=== PATIENT | female | born 1965 | race Caucasian/White ===

== ENCOUNTER 2020-01-13 07:45 | Emergency (ER) | payer SELFPAY ==
[2020-01-13 07:49] VITALS: BP 109/96; PULSE 72; TEMP 36.4; O2SAT 100
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
[2020-01-13] MEDS: Tetracaine 0.5% 4 ML BTL OP (08:17)
[2020-01-13] MEDS: Fluorescein STRIPS 100/BOX 1 MG OP (08:17)
[2020-01-13] MEDS: Erythromycin Ophth Oint 3.5 GM TUBE OD (08:38)
== END 2020-01-13 08:52 | disposition home or self-care (01) ==
LOC: ER 09:14
PROVIDERS: Emergency Provider Physician Assistant; PCP Nurse Practitioner Family
DX: T65.891A Toxic effect of other specified substances, accidental (unintentional), initial encounter (principal); T26.61XA Corrosion of cornea and conjunctival sac, right eye, initial encounter; Y93.E5 Activity, floor mopping and cleaning
CPT/HCPCS: 90471; 99284; 99283

== ENCOUNTER 2020-05-07 20:35 | Outpatient (REF) | payer MEDICAID, SELFPAY ==
[2020-05-07 19:34] LABS: Abs Immature Grans 0.03 10^3/uL (0.0-0.06); Absolute Basophil Count 0.02 10^3/uL (0.0-0.2); Absolute Eosinophil Count 0.11 10^3/uL (0.0-0.7); Absolute Lymphocyte Count 2.75 10^3/uL (1.2-3.4); Absolute Monocyte Count 0.54 10^3/uL (0.1-0.8); Absolute Neutrophil Count 5.01 10^3/uL (1.2-6.7); Basophils % 0.2; Eosinophils % 1.3; HCT 37.7 % (36.0-46.0); HGB 11.9 g/dL (11.2-15.7); Immature Grans % 0.4; Lymphocytes % 32.5; MCH 28.6 pg (27.0-33.0); MCHC 31.6 % (32.0-36.0); MCV 90.6 fL (80-95); MPV 10.2 fL (8.0-11.0); Monocytes % 6.4; Neutrophils % 59.2; Nucleated RBC 0 %; Platelet Count 353 10^3/uL (130-400); RBC 4.16 10^6/uL (3.93-5.22); RDW 15.4 % (11.7-14.6); RDW-SD 51.2 fL; WBC 8.46 10^3/uL (4.4-10.8)
[2020-05-07 19:55] LABS: ALT 26 U/L (14-59); AST 21 U/L (15-37); Albumin 3.9 g/dL (3.4-5.0); Alkaline Phosphatase 91 U/L (46-116); Anion Gap 6.1 mmol/L (3-11); BUN 8 mg/dL (7-18); Bilirubin, Total 0.2 mg/dL (0.2-1.0); CO2 29.9 mmol/L (21.0-32.0); CREATININE 0.73 mg/dL (0.55-1.02); Calcium 9.4 mg/dL (8.5-10.1); Chloride 105 mmol/L (98-107); GGT 35 U/L (5-55); Glucose 56 mg/dL (74-106); Potassium 4.6 mmol/L (3.5-5.1); Sodium 141 mmol/L (136-145); Total Protein 7.6 g/dL (6.4-8.2)
== END 2020-05-07 20:55 ==
LOC: NCHCN 20:35
PROVIDERS: PCP Nurse Practitioner Family; Visit Provider Nurse Practitioner Family
DX: F41.9 Anxiety disorder, unspecified (principal); F22 Delusional disorders; L28.1 Prurigo nodularis
CPT/HCPCS: 80053; 82977; 84443; 85025

== ENCOUNTER 2021-01-02 10:15 | Outpatient (REF) | payer MEDICAID, SELFPAY ==
[2021-01-02 15:38] LABS: Calculated LDL 57 mg/dL (<100); Cholesterol 150 mg/dL (<200); HDL Cholesterol 88 mg/dL (40-60); Triglyceride 27 mg/dL (<150)
[2021-01-02 16:44] LABS: Vitamin D 25 Total 24.8 ng/mL (30-100)
== END 2021-01-02 10:16 | disposition home or self-care (01) ==
LOC: NCHCN 10:15
PROVIDERS: PCP Nurse Practitioner Family; Visit Provider Nurse Practitioner Family
DX: R79.89 Other specified abnormal findings of blood chemistry (principal); F41.9 Anxiety disorder, unspecified; E55.9 Vitamin D deficiency, unspecified
CPT/HCPCS: 80061; 82306

== ENCOUNTER 2021-05-07 01:50 | Outpatient (CLI) | payer OTHER, SELFPAY ==
--- NOTE | 2021-05-07 | DI.MRI_ITS ---
Exam(s) MR LUMBAR SPINE WO EXAM: MR LUMBAR SPINE WO CLINICAL HISTORY: BACK PAIN, RADICULOPATHY,M54.16. TECHNIQUE: Multiplanar multisequence MRI of the Lumbar spine was performed. COMPARISON: No exams were available for comparison FINDINGS: Bones: The last intervertebral disc space is designated the L5/S1 level for the numbering purpose of this examination. The vertebral body heights are well maintained. Alignment is satisfactory. The si gnal characteristics are unremarkable. Cord: The conus tip ends at the T12 level. It is of normal size and signal intensity. T12-L1: No disc herniations or bulges are present. No central spinal canal or neural foraminal stenos is. L1-2: No disc herniations or bulges are present. No central spinal canal or neural foraminal stenosis . L2-3: No disc herniations or bulges are present. No central spinal canal or neural foraminal stenosis . L3-4: No disc herniations or bulges are present. No central spinal canal or neural foraminal stenosis . L4-5: No disc herniations or bulges are present. No central spinal canal or neural foraminal stenosis . L5-S1: No disc herniations or bulges are present. No central spinal canal or neural foraminal stenosi s. Soft tissues: The visualized SI joints and sacrum are well maintained. The paraspinal soft tissues ar e unremarkable. IMPRESSION: No evidence of significant spinal stenosis or neuroforaminal narrowing. DATA REPOSITORY:
== END 2021-05-07 02:10 ==
PROVIDERS: PCP Nurse Practitioner Family; Visit Provider Nurse Practitioner Family
DX: M54.16 Radiculopathy, lumbar region (principal)
CPT/HCPCS: 72148

== ENCOUNTER 2021-05-23 02:26 | Outpatient (CLI) | payer MEDICAID, SELFPAY ==
[2021-05-23 13:25] LABS: Source Nasal/Nares
[2021-05-23 16:55] LABS: COVID-19 PCR Negative (Negative)
== END 2021-05-23 02:27 | disposition home or self-care (01) ==
LOC: LBO 02:26
PROVIDERS: PCP Nurse Practitioner Family; Visit Provider Surgery
DX: Z20.822 Contact with and (suspected) exposure to COVID-19 (principal)
CPT/HCPCS: 87635

== ENCOUNTER 2021-07-02 08:09 | Outpatient (CLI) | payer MEDICAID, SELFPAY ==
--- NOTE | 2021-07-02 08:00 | DI.RAD_ITS ---
Exam(s) XR HIP LT COMPLETE AP PELVIS EXAM: XR HIP LT COMPLETE AP PELVIS CLINICAL HISTORY: left hip pain. TECHNIQUE: 2D digital imaging was performed. COMPARISON: No exams were available for comparison FINDINGS: AP view of the hips and pelvis plus lateral view hip no evidence of pelvic nor hip fractures. No deg enerative changes. No soft tissue calcifications. Bone density is normal. No osseous lesions. Sac roiliac joints appear unremarkable. IMPRESSION: Unremarkable appearing left hip and pelvis. DATA REPOSITORY: RADIATION DOSE DELIVERED:
== END 2021-07-02 08:10 | disposition home or self-care (01) ==
LOC: DIORS 08:09
PROVIDERS: PCP Nurse Practitioner Family; Referring Provider Nurse Practitioner Family; Visit Provider Student in an Organized Health Care Education/Training Program
DX: M25.552 Pain in left hip (principal)
CPT/HCPCS: 73502

== ENCOUNTER 2021-07-25 21:42 | Outpatient (REF) | payer MEDICAID, SELFPAY ==
[2021-07-27 14:19] LABS: COVID-19 RT-PCR UVMMC Result Negative (Negative)
== END 2021-07-25 21:43 | disposition home or self-care (01) ==
LOC: NCHCN 21:42
PROVIDERS: PCP Nurse Practitioner Family; Visit Provider Physician Assistant Medical
DX: Z20.822 Contact with and (suspected) exposure to COVID-19 (principal); R05.8 Other specified cough
CPT/HCPCS: U0003

== ENCOUNTER 2021-11-10 18:45 | Outpatient (REF) | payer MEDICAID, SELFPAY ==
[2021-11-10 21:07] LABS: ALT 33 U/L (14-59); AST 26 U/L (15-37); Albumin 3.4 g/dL (3.4-5.0); Alkaline Phosphatase 91 U/L (46-116); Anion Gap 9.6 mmol/L (3-11); BUN 6 mg/dL (7-18); Bilirubin, Total 0.2 mg/dL (0.2-1.0); CO2 25.4 mmol/L (21.0-32.0); CREATININE 0.6 mg/dL (0.55-1.02); Calcium 8.7 mg/dL (8.5-10.1); Chloride 106 mmol/L (98-107); Glucose 94 mg/dL (74-106); Potassium 4.3 mmol/L (3.5-5.1); Sodium 141 mmol/L (136-145); TSH 4.35 uIU/mL (0.36-3.74); Total Protein 7.1 g/dL (6.4-8.2)
[2021-11-10 21:18] LABS: Vitamin D 25 Total 42.4 ng/mL (30-100)
== END 2021-11-10 18:46 | disposition home or self-care (01) ==
LOC: NCHCN 18:45
PROVIDERS: PCP Nurse Practitioner Family; Visit Provider Nurse Practitioner Family
DX: F41.8 Other specified anxiety disorders (principal); F33.9 Major depressive disorder, recurrent, unspecified; E55.9 Vitamin D deficiency, unspecified; F22 Delusional disorders
CPT/HCPCS: 80053; 82306; 84443

== ENCOUNTER 2021-11-14 01:15 | Emergency (ER) | payer MEDICAID, SELFPAY ==
[2021-11-14 01:20] VITALS: BP 150/93; PULSE 74; RESP 16; TEMP 36.4; O2SAT 99
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
[2021-11-14] MEDS: Loratidine 10 MG TAB PO (02:15)
[2021-11-14] MEDS: Triamcinolone 0.1% CR 15 GM TUBE TP (02:24)
== END 2021-11-14 02:21 | disposition home or self-care (01) ==
LOC: ER 02:20
PROVIDERS: Emergency Provider Emergency Medicine; PCP Nurse Practitioner Family
DX: R21 Rash and other nonspecific skin eruption (principal)
CPT/HCPCS: 99283

== ENCOUNTER 2021-12-26 12:05 | Day surgery (SDC) | payer MEDICAID, SELFPAY ==
--- NOTE | 2021-12-25 22:13 | PDOC.DSDIS_ITS ---
Discharge Plan Disposition Patient Disposition: HOME Condition: Good Discharge Details Reason For Visit: colon scope Attending Provider: Karla Chandler Primary Care Provider: Love Dupont Home Meds and New Rx's Prescriptions: Continued venlafaxine 75 mg capsule,extended release 24hr 75 mg PO DAILY 0RF venlafaxine 37.5 mg capsule,extended release 24hr 37.5 mg PO DAILY 0RF hydroxyzine HCl 25 mg tablet 25 mg PO BID PRN0RF acetylcysteine 600 mg capsule 600 mg PO BID 0RF fluocinonide 0.05 % solution 1 applic topical BID 0RF omeprazole 20 mg capsule,delayed release(DR/EC) 20 mg PO DAILY 0RF prazosin 1 mg capsule 1 mg PO QHS 0RF Galzin 50 mg (zinc) capsule 50 mg PO DAILY 0RF cholecalciferol (vitamin D3) 25 mcg (1,000 unit) tablet,chewable 25 mcg PO DAILY 0RF ascorbic acid (vitamin C) 500 mg capsule 500 mg PO DAILY 0RF gabapentin 300 mg capsule 300 mg PO QHS 0RF venlafaxine 150 mg capsule,extended release 24hr 150 mg PO DAILY 0RF clobetasol 0.05 % cream 1 applic topical DAILY 0RF mupirocin 2 % ointment 1 applic TOPICAL BID 0RF Label Comments: APPLY 3 TIMES DAILY TO THE NOSTRILS FOR 1 WEEK, THEN 5 TIMES MONTHLY FOR MAINTENANCE. APPLY TWICE DAILY NEEDED TO AFFECTED AREAS ON THE S Discontinued bisacodyl [Dulcolax (bisacodyl)] 5 mg tablet,delayed release (DR/EC) 5 mg PO ONCE Qty: 4 0RF Rx Instructions: Take according to provider's instructions for colonoscopy prep. polyethylene glycol 3350 17 gram/dose powder 17 g PO ONCE Qty: 238 0RF Rx Instructions: To be taken as directed by prescriber's office for colonoscopy prep. Discharge Instructions Additional Instructions: DSU Colonoscopy Post- Op Instructions Instructions for Everyone who is given Anesthesia: For your safety, please do the following for the next twenty-four (24) hours: *Do Not operate a motor vehicle (car, truck, motorcycle, etc.) *Do Not drink alcoholic beverages or use any recreational drugs for the first 24 hours or while taking pain medications. The medications in your body may have a reaction that can be dangerous. *Do Not make any important decisions or sign any important papers. Findings:normal Follow up:repeat in 10 yrs time 1. No lifting over 20 pounds or strenuous activity for the first 24 hours after your procedure. After 24 hours there are no restrictions on your activity but you may feel fatigued for a few days. 2. After you arrive home you may have a light meal and return to your normal diet as you can tolerate it without feeling sick to your stomach. 3. You may have a bloated, gaseous feeling in your belly (abdomen) after a colonoscopy. Passing gas and belching will help. Walking or lying down on your left side with your knees flexed may relieve the discomfort. Call the office at [phone] (Office) or [phone] (Hospital) right away if you notice any of the following: a.Vomiting of blood or ?coffee ground stools?. b.Rectal bleeding 1Tbsp, blood clots or continuous bleeding. c.Severe belly (abdominal) pain. d.A hard distended belly (abdomen) and an inability to pass gas. 4. Please don?t expect to have a normal BM (bowel movement) for 2-3 days after your procedure. 5. If there are questions regarding the findings of your procedure, please contact your doctor 6. If you are unable to contact your doctor with a problem, contact the hospital at [phone]. 7. Continue all your regular medications unless directed otherwise. I understand the above instructions and have no questions. Signature of Patient or Adult Escort Name of Responsible Adult Escort Signature of Nurse Date/Time Activity:: see above Diet:: see above Discharge Orders Discharge Orders: Discharge Order (Routine); Ordered 12/25/21 Ordered By: Karla Chandler
--- NOTE | 2021-12-25 22:14 | COLE_ITS ---
Colonoscopy Report Date of procedure: 12/26/21 Pre-op diagnosis general: CRC screening Post-op diagnosis procedure note: other (No significant findings) Surgeon: Karla Chandler Anesthesia Type: General:No Airway Estimated blood loss (mL): 0 Pathology: none sent Complications: None Disposition: same day Prep: Miralax/Dulcolax Retraction Time: 7 Procedure Description: After informed consent was obtained the patient was taken to the procedure room and placed in a left decubitous position. Monitors were applied and a time out was done. The patients name, date of , procedure, allergies to medications and metal in their body was reviewed. The patient was then sedated. Once sedated and comfortable a rectal exam was done. External exam was normal. Internal exam revealed a normal sphincter tone and no palpable masses. The scope was then introduced and retrofelexed. no internal hemorrhoids were identified. The scope was then advanced to the cecum without difficulty. The TI and appendiceal orifice were identified. The prep was the BPS 3 in all segments for a total of 9. The scope was then slowly retracted over 7 minutes back into the rectum. There are no polyps, diverticula, or AVMs visualized today. The mucosa is pink and healthy with a normal vascular pattern. The scope was removed and the patient was woken up and taken back to Same day surgery in stable condition. The patient tolerated the procedure well and there were no immediate com plications. Follow up: The patient should follow up in 10 years unless they develop changes in bowel habits or other new gastrointestinal complaints.
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
[2021-12-26 12:27] VITALS: BP 131/85; PULSE 69; RESP 17; TEMP 36.6; O2SAT 100
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
[2021-12-26 12:44] VITALS: BMI 24.2
[2021-12-26] MEDS: Lactated Ringers 1,000 ML 80 ML IV (12:44)
[2021-12-26 13:30] VITALS: BP 121/91; PULSE 72; RESP 17; TEMP 36.6; O2SAT 98
--- NOTE | 2021-12-26 13:32 | W.ANESPOSTOP ---
Postoperative Evaluation Date, Time and Location Date Performed: 12/26/21 Time Performed: 13:32 Patient Location: Day Surgery Unit Vital Signs Most Recent Imported Vital Signs: Most Recent Vital Signs Temp Pulse Resp BP Pulse Ox 36.6 C 69 17 131/85 100 12/26/21 12:27 12/26/21 12:27 12/26/21 12:27 12/26/21 12:27 12/26/21 12:27 Most Recent Manually Entered Vital Signs: Adult Blood Pressure: 121/91 Heart Rate: 67 Respirations: 10 Oxygen Saturation (%): 99 Temperature (C): 36.3 C Pain Score (0-10 Scale): 0 Pain Score Most Recent Pain Score: Most Recent Pain Score Pain Level 0 12/26/21 12:27 Assessment Mental Status: Arousable with meaningful communication Airway and Respiratory Function: Patent airway with normal (patient baseline) respiratory exam Cardiovascular Function: Hemodynamically Stable Hydration Status: Adequately Hydrated Nausea & Vomiting: No Nausea or Vomiting Pain: Pt. Denies Any Pain Peripheral Nerve Block: Patient did not receive a nerve block
[2021-12-26 13:33] VITALS: BP 121/91; PULSE 67; RESP 10; TEMPC 36.3; O2SAT 99
[2021-12-26 13:57] VITALS: BP 95/71; PULSE 58; RESP 17; TEMP 36.7; O2SAT 100
[2021-12-26 14:07] VITALS: BP 113/63; PULSE 61; RESP 18; O2SAT 99
== END 2021-12-26 14:25 | disposition home or self-care (01) ==
LOC: SUR 12:05
PROVIDERS: PCP Nurse Practitioner Family; Visit Provider Surgery
PROC: 0DJD8ZZ Inspection of Lower Intestinal Tract, Via Natural or Artificial Opening Endoscopic (ICD-10-PCS; CPT 45378; principal; 2021-12-26 12:00)
DX: Z12.11 Encounter for screening for malignant neoplasm of colon (principal); E55.9 Vitamin D deficiency, unspecified; K21.9 Gastro-esophageal reflux disease without esophagitis
CPT/HCPCS: 45378; 81025; J2001

== ENCOUNTER 2022-03-03 02:34 | Outpatient (CLI) | payer MEDICAID, SELFPAY | END 2022-03-03 02:35 | disposition home or self-care (01) | LOC: LBO 02:34 | PROVIDERS: PCP Nurse Practitioner Family; Visit Provider Naturopath ==

== ENCOUNTER 2022-03-11 02:55 | Outpatient (CLI) | payer MEDICAID, SELFPAY ==
[2022-03-11 12:21] LABS: ESR 8 mm/hr (0-30)
[2022-03-11 12:22] LABS: Abs Immature Grans 0.01 10^3/uL (0.0-0.06); Absolute Basophil Count 0.03 10^3/uL (0.0-0.2); Absolute Eosinophil Count 0.17 10^3/uL (0.0-0.7); Absolute Lymphocyte Count 2.16 10^3/uL (1.2-3.4); Absolute Monocyte Count 0.48 10^3/uL (0.1-0.8); Absolute Neutrophil Count 3.11 10^3/uL (1.2-6.7); Basophils % 0.5; Eosinophils % 2.9; HCT 29.1 % (36.0-46.0); HGB 8.5 g/dL (11.2-15.7); Immature Grans % 0.2; Lymphocytes % 36.2; MCH 22.5 pg (27.0-33.0); MCHC 29.2 % (32.0-36.0); MCV 77 fL (80-95); MPV 10.4 fL (8.0-11.0); Monocytes % 8.1; Neutrophils % 52.1; Platelet Count 332 10^3/uL (130-400); RBC 3.78 10^6/uL (3.93-5.22); RDW 16.7 % (11.7-14.6); WBC 5.96 10^3/uL (4.4-10.8)
[2022-03-11 12:53] LABS: Basophilic Stippling Present; Diff Comment Diff Reviewed; Hypochromasia 2+
[2022-03-11 13:25] LABS: C-Reactive Protein 0.09 mg/dL (0.0-0.3); FREE T4 0.73 ng/dL (0.76-1.46); Magnesium 1.7 mg/dL (1.8-2.4)
[2022-03-11 13:26] LABS: ALT 29 U/L (14-59); AST 21 U/L (15-37); Albumin 3.6 g/dL (3.4-5.0); Alkaline Phosphatase 84 U/L (46-116); Anion Gap 7.4 mmol/L (3-11); BUN 14 mg/dL (7-18); Bilirubin, Total 0.2 mg/dL (0.2-1.0); CO2 27.6 mmol/L (21.0-32.0); CREATININE 0.6 mg/dL (0.55-1.02); Calcium 8.6 mg/dL (8.5-10.1); Chloride 104 mmol/L (98-107); Glucose 105 mg/dL (74-106); Potassium 4.3 mmol/L (3.5-5.1); Sodium 139 mmol/L (136-145); Total Protein 7.3 g/dL (6.4-8.2)
[2022-03-11 13:31] LABS: Iron 17 ug/dL (50-170); Total Iron Binding Capacity 421 ug/dL (250-450); Transferrin Sat 4 % (15-50)
[2022-03-11 14:05] LABS: Calculated LDL 74 mg/dL (<100); Cholesterol 163 mg/dL (<200); Ferritin 6 ng/mL (8-252); HDL Cholesterol 78 mg/dL (40-60); Triglyceride 55 mg/dL (<150); Vitamin B12 497 pg/mL (193-986)
[2022-03-11 14:07] LABS: Folate > 20.0 ng/mL (8.6-20.0)
[2022-03-11 22:07] LABS: T3,Free 3.2 pg/mL (2.8-5.3)
[2022-03-11 22:21] LABS: T3, Total 122 ng/dL (97-169)
[2022-03-11 23:24] LABS: Thyroperoxidase Antibody 59 U/mL (<=60)
[2022-03-13 09:04] LABS: Homocysteine 8.5 umol/L (5.0-13.9)
[2022-03-14 22:16] LABS: Histamine, Whole Blood 1083 nmol/L (180-1800)
== END 2022-03-11 02:56 | disposition home or self-care (01) ==
LOC: LBO 02:55
PROVIDERS: PCP Nurse Practitioner Family; Visit Provider Naturopath
DX: R79.89 Other specified abnormal findings of blood chemistry (principal); R78.5 Finding of other psychotropic drug in blood; R63.0 Anorexia; L29.9 Pruritus, unspecified; R53.83 Other fatigue; R51.9 Headache, unspecified
CPT/HCPCS: 36415; 80053; 80061; 83090; 85652; 82607; 82728; 82746; 83036; 83088; 83540; 83550; 83735; 84439; 84480; 84481; 85025; 86140; 86376

== ENCOUNTER 2022-04-16 13:30 | Outpatient (CLI) | payer MEDICAID, SELFPAY ==
[2022-04-16 13:44] LABS: Abs Immature Grans 0.05 10^3/uL (0.0-0.06); Absolute Basophil Count 0.03 10^3/uL (0.0-0.2); Absolute Eosinophil Count 0.23 10^3/uL (0.0-0.7); Absolute Lymphocyte Count 2.73 10^3/uL (1.2-3.4); Absolute Monocyte Count 0.61 10^3/uL (0.1-0.8); Absolute Neutrophil Count 4.47 10^3/uL (1.2-6.7); Basophils % 0.4; Eosinophils % 2.8; HCT 28.9 % (36.0-46.0); HGB 8.3 g/dL (11.2-15.7); Immature Grans % 0.6; Lymphocytes % 33.6; MCH 22.1 pg (27.0-33.0); MCHC 28.7 % (32.0-36.0); MCV 77 fL (80-95); MPV 9.3 fL (8.0-11.0); Monocytes % 7.5; Neutrophils % 55.1; Platelet Count 313 10^3/uL (130-400); RBC 3.76 10^6/uL (3.93-5.22); RDW 15.7 % (11.7-14.6); RDW-SD 43.4 fL; WBC 8.12 10^3/uL (4.4-10.8)
[2022-04-17 20:08] LABS: Arsenic (Blood) <1 ng/mL (<13)
== END 2022-04-16 13:31 | disposition home or self-care (01) ==
LOC: LBO 13:30
PROVIDERS: PCP Nurse Practitioner Family; Visit Provider Naturopath
DX: R71.8 Other abnormality of red blood cells (principal); D50.9 Iron deficiency anemia, unspecified; Z13.88 Encounter for screening for disorder due to exposure to contaminants
CPT/HCPCS: 36415; 82175; 83655; 85025

== ENCOUNTER 2022-05-12 09:20 | Outpatient (CLI) | payer MEDICAID, SELFPAY ==
[2022-05-12 12:16] LABS: HCT 35.6 % (36.0-46.0); MCH 25.3 pg (27.0-33.0); MCHC 30.9 % (32.0-36.0); MCV 82 fL (80-95); MPV 10.1 fL (8.0-11.0); Platelet Count 322 10^3/uL (130-400); RBC 4.34 10^6/uL (3.93-5.22); RDW-SD 64.7 fL; WBC 7.73 10^3/uL (4.4-10.8)
[2022-05-12 12:33] LABS: RDW 22.8 % (11.7-14.6)
[2022-05-12 12:39] LABS: TSH (W/Ref FT4) 2.81 uIU/mL (0.36-3.74)
== END 2022-05-12 09:21 | disposition home or self-care (01) ==
LOC: LOS 09:21
PROVIDERS: Obstetrics & Gynecology; PCP Nurse Practitioner Family; Referring Provider Nurse Practitioner Family; Visit Provider Nurse Practitioner Family
DX: N92.0 Excessive and frequent menstruation with regular cycle (principal); D64.9 Anemia, unspecified
CPT/HCPCS: 36415; 85027; 84443

== ENCOUNTER → 2022-05-22 00:16 | Outpatient (CLI) | payer MEDICAID, SELFPAY ==
--- OUTSIDE RECORDS SUMMARY | 2022-05-22 00:22 | XMS_ITS | Encounter Summary ---
:1965 Author Organization [facility] Address [address] [place] [address] Care Team Providers Name Role Phone Love Dupont STATISTICIAN THEORETICAL Primary Care Provider Encounter Details Date Type Department Care Team Description 03/11/2022 Lab Requisition [facility] Outr Resulting Lab, Pathology & Laboratory Provider [facility] [address], [place] [id number] Social History Tobacco Use Types Packs/Day Years Used Date Never Assessed Sex Assigned at Date Recorded Not on file documented as of this encounter Plan of Treatment Not on filedocumented as of this encounter Procedures Procedure Name Priority Date/Time Associated Comments Diagnosis THYROPEROXIDASE ANTIBODY Routine 03/11/2022 12:07 Results for this EDT procedure are i n the results section. T3 FREE Routine 03/11/2022 12:07 Results for this EDT procedure are i n the results section. T3, TOTAL Routine 03/11/2022 12:07 Results for this EDT procedure are i n the results section. HOMOCYSTEINE Routine 03/11/2022 12:07 Results for this EDT procedure are i n the results section. documented in this encounter Results T3 FREE (03/11/2022 12:07 EDT) Pathologist Sig nature T3, Free 3.2 2.8 - 5.3 pg/mL [facility] Specimen Blood - Venous blood (substance) Performing Organization Address City/State/ZIP Code Phon e Number [facility] [address] [place] [address] SERVICES T3, TOTAL (03/11/2022 12:07 EDT) Pathologist Sig nature T3, Total 122 97 - 169 ng/dL [facility] ORY SERVICES Specimen Blood - Venous blood (substance) Performing Organization Address City/State/ZIP Code Phon e Number [facility] [address] [place] [address] SERVICES THYROPEROXIDASE ANTIBODY (03/11/2022 12:07 EDT) Pathologist Sig nature Thyroperoxidase Ab 59 <=60 U/mL [facility] Specimen Blood - Venous blood (substance) Performing Organization Address City/[facility]/ZIP Code Phon e Number [facility] [address] [place] [address] SERVICES HOMOCYSTEINE (03/11/2022 12:07 EDT) Pathologist Sig nature Homocysteine 8.5 5.0 - 13.9 umol/L [facility] Specimen Blood - Venous blood (substance) Narrative [facility] - 03/13/2022 8:59 EDT Reference range may not apply to non-fas ting samples. ??It is not recommended that EDTA plasma and serum from the same bredna ent be used interchangeably. ??Serum concentrations have been observed to be up to 10% higher than EDTA plasma. Reference range may not apply to serum results. Performing Organization Address City/State/ZIP Code Phon e Number [facility] [address] [place] [address] SERVICES documented in this encounter Visit Diagnoses Not on filedocumented in this encounter Care Teams Senior Hr Manager Relationship Specialty Start Date End Date Love Dupont, STATISTICIAN THEORETICAL PCP - General 09/06/19 [address] [place] [address] documented as of this encounter
--- OUTSIDE RECORDS SUMMARY | 2022-05-22 00:22 | XMS_ITS | Encounter Summary ---
:1965 Author Organization [facility] Address [address] [place] [address] Care Team Providers Name Role Phone Love Dupont FINANCIAL MANAGEMENT Primary Care Provider Encounter Details Date Type Department Care Team Description 11/23/2019 Results Only Imaging [facility] Resul ts C, DO [address] [place], [place] [id number] [place] [address] [phone] (Wo rk) Social History Tobacco Use Types Packs/Day Years Used Date Never Assessed Sex Assigned at Date Recorded Not on file documented as of this encounter Plan of Treatment Not on filedocumented as of this encounter Procedures Procedure Name Priority Date/Time Associated Diagnosis Comme nts XR CHEST 2 VIEWS 11/23/2019 4:10 EDT Resu lts for this procedure are i n the results section. documented in this encounter Results XR CHEST 2 VIEWS (11/23/2019 4:10 EDT) Specimen Narrative [facility] - 11/23/2019 4:10 EDT ? EXAM: RADIOLOGY/CHEST PA ?? LAT ?EX. D/ (0407) ? CLINICAL INFORMATION: ? cough, sob ? PROCEDURE INFORMATION: ? Exam: XR Chest, 2 Views ? Exam date and time: 11/23/2019 3:1 1 AM ? Age: 54 years old ? Clinical indication: Cough; Addit ional info: Cough, SOB ? TECHNIQUE: ? Imaging protocol: XR of the chest ? Views: 2 views. ? COMPARISON: ? CR CHEST (PA ?? LAT) 10/14/2019 11: 38 AM ? FINDINGS: ? Lungs: Unremarkable. No consolida tion. ? Pleural space: Unremarkable. No p leural effusion. No ? pneumothorax. ? Heart/Mediastinum: Unremarkable. No cardiomegaly. ? Bones/joints: Unremarkable. ? IMPRESSION: ? No acute findings. ? REPORT SIGNED IN OTHER VENDOR SYSTEM 11/23/2019 ?Reported B y: Nereida Hunter MD ? CC: ? Transcribed Date/Time: 11/23/2019 (0410) ? Watermelon Inspector: ? Printed Date/Time: 11/23/2019 (04 10) ? PAGE 1 ? Roxana d Report ? Procedure Note Nereida Hunter MD - 020 EXAM: RADIOLOGY/CHEST PA LAT EX. D/T: 0 11/23/2019 (0407) CLINICAL INFORMATION: cough, sob PROCEDURE INFORMATION: Exam: XR Chest, 2 Views Exam date and time: 11/23/2019 3:11 AM Age: 54 years old Clinical indication: Cough; Additional info: Cough, SOB TECHNIQUE: Imaging protocol: XR of the chest Views: 2 views. COMPARISON: CR CHEST (PA LAT) 10/14/2019 11:38 AM FINDINGS: Lungs: Unremarkable. No consolidation. Pleural space: Unremarkable. No pleural effusion. No pneumothorax. Heart/Mediastinum: Unremarkable. No car diomegaly. Bones/joints: Unremarkable. IMPRESSION: No acute findings. REPORT SIGNED IN OTHER VENDOR SYSTEM 11/23/2019 Reported By: Nereida Hunter MD CC: Transcribed Date/Time: 11/23/2019 (409 ) Watermelon Inspector: Printed Date/Time: 11/23/2019 (987) PAGE 1 Signed Report Performing Organization Address City/State/ZIP Code Phon e Number [facility] documented in this encounter Visit Diagnoses Not on filedocumented in this encounter Care Teams Pharmacy Customer Care Specialist Relationship Specialty Start Date End Date Love Dupont NP PCP - General 09/06/19 [address] [place] [address] documented as of this encounter
--- OUTSIDE RECORDS SUMMARY | 2022-05-22 00:22 | XMS_ITS | Clinical Summary ---
:1965 Author Organization [facility] Address [address] [place] [address] Care Team Providers Name Role Phone Love Dupont POULTRY EVISCERATOR Primary Care Provider Encounters Date Type Specialty Care Team Description 04/16/2022 Lab Requisition Clinical Laboratory Outr Resulting Lab , Provider 03/11/2022 Lab Requisition Clinical Laboratory Outr Resulting Lab , Provider from Last 3 Months Social History Tobacco Use Types Packs/Day Years Used Date Never Assessed Sex Assigned at Date Recorded Not on file Plan of Treatment Health Maintenance Due Date Last Done Comments Hepatitis C Screen 1965 COVID-19 Vaccine (#1) 1965 Procedures Procedure Name Priority Date/Time Associated Comments Diagnosis [facility]AD, [facility] Routine 04/16/2022 13:38 Results for this LAB EDT procedure are i n the results section. T3 FREE Routine 03/11/2022 12:07 Results for this EDT procedure are i n the results section. T3, TOTAL Routine 03/11/2022 12:07 Results for this EDT procedure are i n the results section. THYROPEROXIDASE ANTIBODY Routine 03/11/2022 12:07 Results for this EDT procedure are i n the results section. HOMOCYSTEINE Routine 03/11/2022 12:07 Results for this EDT procedure are i n the results section. from Last 3 Months Results [facility] (04/16/2022 13:38 EDT) Pathologist Sig nature Lead <2.0 <2.0 ug/dL [facility] Comment: LABORATORY SERVICES Note: New reference range established 03/06/2022. For [facility] Lead testing guideli roselia, please refer to the [facility] website www.[facility].gov. Specimen Blood - Venous blood (substance) Narrative [facility] - 04/17/2022 12:31 EDT Testing performed using [employer] Atomic Absorption Spectroscopy. This test was developed and its performa nce characteristics determined by the [facility]. ??It has not been cleared or approved by the FDA. ??The laboratory is regulated under CLIA as qualified to perform high comple xity testing. ??This test is used for clinical purposes. Performing Organization Address [facility] Code Phon e Number [facility] [address] [place] [address] SERVICES THYROPEROXIDASE ANTIBODY (03/11/2022 12:07 EDT) Pathologist Sig nature Thyroperoxidase Ab 59 <=60 U/mL [facility] Specimen Blood - Venous blood (substance) Performing Organization Address [facility] Phon e Number [facility] [address] [place] [address] SERVICES T3 FREE (03/11/2022 12:07 EDT) Pathologist Sig nature T3, Free 3.2 2.8 - 5.3 pg/mL [facility] Specimen Blood - Venous blood (substance) Performing Organization Address [facility]/ZIP [facility] Phon e Number [facility] [address] [place] [address] SERVICES T3, TOTAL (03/11/2022 12:07 EDT) Pathologist Sig nature T3, Total 122 97 - 169 ng/dL [facility] ORY SERVICES Specimen Blood - Venous blood (substance) Performing Organization Address [facility] Phon e Number [facility] [address] [place] [address] SERVICES HOMOCYSTEINE (03/11/2022 12:07 EDT) Pathologist Sig nature Homocysteine 8.5 5.0 - 13.9 umol/L [facility] Specimen Blood - Venous blood (substance) Narrative [facility] - 03/13/2022 8:59 EDT Reference range may not apply to non-fas ting samples. ??It is not recommended that EDTA plasma and serum from the same brenda ent be used interchangeably. ??Serum concentrations have been observed to be up to 10% higher than EDTA plasma. Reference range may not apply to serum results. Performing Organization Address City/State/ZIP Code Phon e Number [facility] [address] [place] [address] SERVICES from Last 3 Months Insurance Payer Benefit Plan Subscriber ID Effective Phone Address Typ e / Group Dates MEDICAID ACO MEDICAID ACO [id number] 2021-Pres [phone] [address] Medicaid [place] ent [address] [facility] [address] [facility] Personal/Family Self 1965 [address] (Home) [place] [address] [facility] Personal/Family Self 1965 [address] (Home) [place] [address] [facility] Personal/Family Self 1965 [address] (Home) [place] [address] Care Teams Maintenance Mechanic Elevators Relationship Specialty Start Date End Date Love Dupont, POULTRY EVISCERATOR PCP - General 09/06/19 [address] [place] [address]
--- OUTSIDE RECORDS SUMMARY | 2022-05-22 00:22 | XMS_ITS | Encounter Summary ---
:1965 Author Organization [facility] Address [address] [place] [address] Care Team Providers Name Role Phone Love Dupont NETWORK SERVICES PROJECT MANAGER Primary Care Provider Encounter Details Date Type Department Care Team Description 07/26/[address] [facility] Outr Resulting Lab, Pathology & Laboratory Provider [facility] [address], [place] [address] Social History Tobacco Use Types Packs/Day Years Used Date Never Assessed Sex Assigned at Date Recorded Not on file documented as of this encounter Plan of Treatment Not on filedocumented as of this encounter Procedures Procedure Name Priority Date/Time Associated Diagnosis Comme nts COVID-19 TEST [facility] Today 07/25/2021 16:30 LAB PCR EST COVID-19 TESTING Routine 07/25/2021 16:30 Results for this EST procedure are i n the results section. documented in this encounter Results COVID-19 TEST [facility] LAB PCR (07/25/2021 16:30 EST) Specimen Swab Performing Organization Address City/State/ZIP Code Phon e Number [facility] [address] [place] [address] SERVICES COVID-19 TESTING (07/25/2021 16:30 EST) COVID-19 rt-PCR Negative Negative [facility] Result Comment: [facility] This test has not been FDA c leared or approved. This test has been authorized by FDA under an EUA for use by authorized laboratories. This test has been authorized only for detection of nucleic acid fro SERVICES m 2018-nCo, not for any oth er viruses or pathogens. This test is only authorized for the duration of the declaration that circumstances exist justifying the authorization of emergency use of in vitro d iagnostic tests for detectio n and/or diagnosis of 2019-nCoV under section 564(b)(1) of Act, 21 U.S.C ?? 360bbb-3(b) (1), unless the authorization is terminated or revoked sooner. Negative results do not prec lude 2019-nCoV infection and should not be used as the sole basis for treatment or other patient management decisions. Negative results must be combined with clinical observa tions, patient history, and epidemiological informatio n. This test was developed and its performance characteristics determined by [facility]. It has not been cleared or approved by the US Food and Drug Administration. FDA does not require this test to go through premarket FDA review. This t est is used for clinical purposes. It should not be regarded as investigational or for research. This laboratory is certified under the Clinical Laboratory Improvement Amendm ents (CLIA) as qualified to perform high complexity clinical laboratory testing. This test is based on the CD C COVID-19 Emergency Use Authorization (EUA) assay, with minor modification as defined by the FDA Performed on the [employer] 7 Flex RT-PCR System. Performing Lab [facility] Lab [facility] SERVICES Specimen Swab Performing Organization Address City/State/ZIP Code Phon e Number [facility] [address] [place] [address] SERVICES documented in this encounter Visit Diagnoses Not on filedocumented in this encounter Care Teams Steward Racetrack Relationship Specialty Start Date End Date Love Dupont NP PCP - General 09/06/19 [address] [place] [address] documented as of this encounter
--- OUTSIDE RECORDS SUMMARY | 2022-05-22 00:22 | XMS_ITS | Encounter Summary ---
:1965 Author Organization [facility] Address [address] [place] [address] Care Team Providers Name Role Phone Love Dupont PROPERTY INSURANCE CLAIMS EXAMINER Primary Care Provider Encounter Details Date Type Department Care Team Description 04/16/2022 Lab Requisition [facility] Outr Resulting Lab, Pathology & Laboratory Provider [facility] [address] [place], [place] [address] Social History Tobacco Use Types Packs/Day Years Used Date Never Assessed Sex Assigned at Date Recorded Not on file documented as of this encounter Plan of Treatment Not on filedocumented as of this encounter Procedures Procedure Name Priority Date/Time Associated Diagnosis Comme nts [facility] Routine 04/16/2022 13:38 Result s for this [facility] EDT procedure are i n the results section. documented in this encounter Results [facility] (04/16/2022 13:38 EDT) Pathologist Sig nature Lead <2.0 <2.0 ug/dL [facility] Comment: LABORATORY SERVICES Note: New reference range established 03/06/2022. For [facility] Lead testing guideli roselia, please refer to the [facility] website www.[facility].gov. Specimen Blood - Venous blood (substance) Narrative [facility] SERVICES - 04/17/2022 12:31 EDT Testing performed using [employer] Atomic Absorption Spectroscopy. This test was developed and its performa nce characteristics determined by the [facility]. ??It has not been cleared or approved by the FDA. ??The laboratory is regulated under CLIA as qualified to perform high comple xity testing. ??This test is used for clinical purposes. Performing Organization Address City/State/ZIP Code Phon e Number [facility] [address] [place] [address] SERVICES documented in this encounter Visit Diagnoses Not on filedocumented in this encounter Care Teams Pharmacy Picking Tech Relationship Specialty Start Date End Date Love Dupont, PROPERTY INSURANCE CLAIMS EXAMINER PCP - General 09/06/19 [address] [place] [address] documented as of this encounter
--- OUTSIDE RECORDS SUMMARY | 2022-05-22 00:23 | XMS_ITS | Encounter Summary ---
:1965 Author Organization [facility] [place] [address] Care Team Providers Name Role Phone Love Dupont BRAULIO Primary Care Provider Encounter Details Date Type Department Care Team Description 01/22/2022 Telephone Dermatology at [facility], Anton Devlin MD [address] [place] [address] [place] [address]DERMATOLOGY [phone] [place], [place] [address] (Wo rk) Social History Tobacco Use Types Packs/Day Years Used Date Former Smoker Smokeless Tobacco: Former User Comments: quit 10 yrs ago Alcohol Use Standard Drinks/Week Comments Yes 0 (1 standard drink = 0.6 oz pure alcoho l) Alcohol Habits Answer Date Recorded How often do you have a drink containing alcohol? 2-4 times a month 09/16/2020 How many drinks containing alcohol do you have on a Not aske d typical day when you are drinking? How often do you have six or more drinks on one Not asked occasion? Comment: Not asked Sex Assigned at Date Recorded Not on file documented as of this encounter Miscellaneous Notes Telephone Encounter - Iris Raman - 01/22/2022 4:54 PM EDT I spoke to Caro Mendez who was calling to check in on the scalp samples she dropped off on Wednesday. She wanted to know if the samples made it to the lab yet. I told her I would let Dr. Wade know about her questions. documented in this encounter Plan of Treatment Not on filedocumented as of this encounter Visit Diagnoses Not on filedocumented in this encounter Care Teams Stummel Selector Relationship Specialty Start Date End Date Love Dupont APRN PCP - General Family Medicine 04/08/20 [address] [place] [address] documented as of this encounter
--- OUTSIDE RECORDS SUMMARY | 2022-05-22 00:23 | XMS_ITS | Encounter Summary ---
:1965 Author Organization [facility] Address [address] [place] [address] Care Team Providers Name Role Phone Unknown, Provider Primary Care Provider Love Dupont NP Primary Care Provider Encounter Details Date Type Department Care Team Description 09/15/2005 Results Only Imaging [facility] - Norah Ureña, [facility] Radiology Resul ts [address] [place] [address] [place], [place] [address] Social History Tobacco Use Types Packs/Day Years Used Date Never Assessed Sex Assigned at Date Recorded Not on file documented as of this encounter Plan of Treatment Not on filedocumented as of this encounter Procedures Procedure Name Priority Date/Time Associated Diagnosis Comme nts XR WRIST LEFT 3 OR 09/15/2005 11:31 Resul ts for this MORE VIEWS EST procedure are i n the results section. US ABDOMEN LIMITED 09/15/2005 11:29 Resul ts for this EST procedure are i n the results section. documented in this encounter Results XR WRIST LEFT 3 OR MORE VIEWS (09/15/2005 11:31 EST) Specimen Narrative [facility] - 09/15/2005 11:31 EST ? EXAM: RADIOLOGY/NAVICULAR SERIES-LEFT WRI EX. D/ (0820) ? CLINICAL INFORMATION: ? Four views of the left wrist were obtained. ??I see no fracture or ? other significant bony abnormalit y. ??If the patient does have ? persistant pain I would recommend a follow up study as a hairline ? fracture of the wrist can be invi sible on initial films. ? IMPRESSION: ??No fracture seen. ? RDJ:kpd [id number] ?Reported B y: Santos Gonzalez MD ? CC: Rebecca Torrez ?? MSN SURGICAL SERVICES MANAGER ? Transcribed Date/Time: 09/15/2005 (1131) ? Cardroom Plastic Card Grader: ANIYAH ? Printed Date/Time: 09/21/2019 (07 57) ? PAGE 1 ? Roxana d Report ? Procedure Note Santos Gonzalez MD - 09/21/2019 EXAM: RADIOLOGY/NAVICULAR SERIES-LEFT W RI EX. D/ (0820) CLINICAL INFORMATION: Four views of the left wrist were obtai hardik. I see no fracture or other significant bony abnormality. If the patient does have persistant pain I would recommend a fol low up study as a hairline fracture of the wrist can be invisible on initial films. IMPRESSION: No fracture seen. RDJ:kpd [id number] Reported By: Santos Gonzalez MD CC: Rebecca Torrez MSN SURGICAL SERVICES MANAGER Transcribed Date/Time: 09/15/2005 (1131 ) Cardroom Plastic Card Grader: ANIYAH Printed Date/Time: 09/21/2019 (0757) PAGE 1 Signed Report Performing Organization Address City/State/ZIP Code Phon e Number [facility] US ABDOMEN LIMITED (09/15/2005 11:29 EST) Specimen Narrative [facility] - 09/15/2005 11:29 EST ? EXAM: ULTRASOUND/ABDOMINAL LIMITED SINGLE EX. D/ (0815) ? CLINICAL INFORMATION: ? TO VISUALIZE MASS OVER EPIGASTRIU M ? Real time ultrasound exination of the upper abdominal wall was ? performed. ??The patient does hav e a small palpable mass in this area. ? There was noted to be 2.3 cm flui d collection present in the ? subcutaneous tissues just anterio r to the abdominal muscles. ??There ? did appear to be an associated de fect in the abdominal wall ? musculature which measured about 5 mm. ??There did appear to be some ? mesenteric fat present within the defect but no loops of bowel ? present. ? IMPRESSION: ??Small abdominal wal l hernia containing mesenteric fat and ? fluid but no loops of bowel are i nvolved. ? RDJ:kpd [id number] ?Reported B y: Santos Gonzalez MD ? CC: ? Transcribed Date/Time: 09/15/2005 (1129) ? Cardroom Plastic Card Grader: ANIYAH ? Printed Date/Time: 09/21/2019 (07 57) ? PAGE 1 ? Roxana d Report ? Procedure Note Santos Gonzalez MD - 09/21/2019 EXAM: ULTRASOUND/ABDOMINAL LIMITED SING LE EX. D/ (0815) CLINICAL INFORMATION: TO VISUALIZE MASS OVER EPIGASTRIUM Real time ultrasound exination of the u pper abdominal wall was performed. The patient does have a smal l palpable mass in this area. There was noted to be 2.3 cm fluid allyson ection present in the subcutaneous tissues just anterior to t he abdominal muscles. There did appear to be an associated defect i n the abdominal wall musculature which measured about 5 mm. There did appear to be some mesenteric fat present within the defec t but no loops of bowel present. IMPRESSION: Small abdominal wall hernia containing mesenteric fat and fluid but no loops of bowel are involve d. RDJ:kpd [id number] Reported By: Santos Gonzalez MD CC: Transcribed Date/Time: 09/15/2005 (1129 ) Cardroom Plastic Card Grader: ANIYAH Printed Date/Time: 09/21/2019 (5420) PAGE 1 Signed Report Performing Organization Address City/State/ZIP Code Phon e Number [facility] documented in this encounter Visit Diagnoses Not on filedocumented in this encounter Care Teams Toy Designer Relationship Specialty Start Date End Date Unknown, Provider, PCP - General 01/11/09 09/05/19 Love Dupont, MICHEAL PCP - General 09/06/19 [address] [place] [address] documented as of this encounter
--- OUTSIDE RECORDS SUMMARY | 2022-05-22 00:23 | XMS_ITS | Encounter Summary ---
:1965 Author Organization [facility] [place] [address] Care Team Providers Name Role Phone Love Dupont Ethan RAMSEY Primary Care Provider Reason for Visit Reason Comments Back Pain Encounter Details Date Type Department Care Team Description 10/17/2021 Office Visit Functional [facility] [place] Low back pain, Program at [facility] Navya Devlin OT non-specific [address] [place] [address] Social History Tobacco Use Types Packs/Day Years [...] documented as of this encounter Miscellaneous Notes Treatment - Therapy - Navya Peter, OT - 10/17/2021 8:00 AM EST FRP Occupational Therapy Note FRP Day 4 Protocol Subjective: Ms. Mendez returns today for a scheduled follow up appointment with FRP. She reports she is feeling sore this morning, however after completing the morning warm up and mat exercises, soreness is less. Objective: Refer to FRP protocol for details and explanation of each activity. Ms. Mendez participated in the following activities: Functional Therapy: 1. AM Session of functional conditioning ( X ) Completed ( ) Not Completed 2. PM Session of functional conditioning ( X ) Completed ( ) Not Completed Instructed in a one 3 minute mindful breathing practice. Participated in a 25 minute outdoor walk including 1 mile, a hill climb, and up/down one flight of stairs. Individualized Treatment: Increased resistance levels of functional conditioning exercises accordingto personal recovery goals. Instructed in proper body mechanics for safe lifting. Monitored and instructed in proper form during functional conditioning exercises and provided cues for safety and efficiency. Provided an overview of a home exercise program for her to keep up with over the weekend to maintainprogress to date, focusing on walking, stretching, functional lifting, and mindfulness meditation. Assigned weekend homework of deciding when and where she will exercise each day and assigned target lifting goals for the upcoming weekend. Home exercise program to include once daily functional lifting of forward bend x 20 repetitions and squat x 5 repetitions. Will compliment with once daily walking session for 10 minutes, twice daily stretching sessions, and 5-10 minutes of mindfulness meditation focusing on breathing. Weekend Lifting Numbers Type of lift Weight Forward Bend 10 Squat 15 Please see goals in initial OT evaluation report from Day 1. Daily functional conditioning progressis documented on a flow sheet which is available on request. Assessment: Ms. Mendez continues to work according to protocol in order to reach her functional goals. She had a good understanding of today's conditioning principles and participated actively in progression of function. She continues to demonstrate good form with squat lifting and is demonstrating improved activity tolerance with functional conditioning activities. Plan: Return for follow up with [facility] per protocol. Continue training according to planned progressions towards functional recovery goals. Length of Treatment: Ms. Mendez participated in program activities from 8:00 a.m. through 3:00 p.m. today. A total of 45 minutes was spent during that time to establish and implement individualized occupational therapy strategies. Care was concurrently provided by both an Occupational Therapist and Registered Nurses,KARISHMA Leggett. documented in this encounter Plan of Treatment Not on filedocumented as of this encounter Visit Diagnoses Diagnosis Low back pain, non-specific documented in this encounter Care Teams Digital Librarian Relationship Specialty Start Date End Date Love Dupont APRN PCP - General Family Medicine 04/08/20 [address] [place] [address] documented as of this encounter
--- OUTSIDE RECORDS SUMMARY | 2022-05-22 00:23 | XMS_ITS | Encounter Summary ---
:1965 Author Organization [facility] [place] [address] Care Team Providers Name Role Phone Love Dupont BRAULIO Primary Care Provider Encounter Details Date Type Department Care Team Description 10/07/2021 Telephone Pain and Spine Yelena odom at [facility] [place] [address] Social History Tobacco Use Types Packs/Day Years [...] this encounter Miscellaneous Notes Telephone Encounter - Tiffanie Raza - 10/07/2021 1:29 PM EST Reason for call: To determine confirmation of enrollment in the upcoming Functional [facility] Program for dates 10/14 - 11/07 Preferred name: Nivia Invitation Packet Received: yes Pain Education: Completed 10/06/2021 Covid-19 Vax Status: yes x2; March and April 2021 , Booster hasn't been 6 months yet Schedule Cleared: yes Days unable to attend: 0 Hybrid Capability: yes, no preference MyDH Account: active Wifi: yes Device: laptop Microphone, Speaker, Camera: yes Space: yes Comfort Level with Technology: good Patient was directed to review the Hybrid Equipment Check List in their invitation packet and make note of items they have or need in the event that program needs to be done virtually. Patient was made aware: FRP days start at 8am, please arrive at 7:45am each day to ensure that you are ready to start at 8am. If you are late 2 days or do not attend 2 days, you may not be able to continue participation in the program. Patient was asked the following: In light of the ever changing Covid-19 infection rate, we ask that in the week leading up to the start of program you please be aware and cautious of your activities, as it can affect you, other participants and staff members in the program. The safety of you and our staff is of utmost importance to the Functional Hindu Program (FRP). documented in this encounter Plan of Treatment Not on filedocumented as of this encounter Visit Diagnoses Not on filedocumented in this encounter Care Teams Salad Counter Attendant Relationship Specialty Start Date End Date Love Dupont APRN PCP - General Family Medicine 04/08/20 [address] [place] [address] documented as of this encounter
--- OUTSIDE RECORDS SUMMARY | 2022-05-22 00:23 | XMS_ITS | Encounter Summary ---
:1965 Author Organization [facility] [place] [address] Care Team Providers Name Role Phone HakeemLove angela Ethan RAMSEY Primary Care Provider Reason for Visit Reason Comments Follow-up Medical Clearance Encounter Details Date Type Department Care Team Description 05/04/2022 Office Visit [facility] Kiera Warren C hronic left- sided low back pain with left-sided sciatica; at [facility] SECURITIES TRADER Sacroiliac joint dysfunction of left miguel e [facility] [address] [facility] [address] [place] [address] [phone] Social History Tobacco Use Types Packs/Day Years [...] on file documented as of this encounter Last Filed Vital Signs Vital Sign Reading Time Taken Comments Blood Pressure 128/75 05/04/2022 10:54 AM EDT Pulse 72 05/04/2022 10:54 AM EDT Temperature - - Respiratory Rate - - Oxygen Saturation - - Inhaled Oxygen Concentration - - Weight 60.8 kg (134 lb) 05/04/2022 10:54 AM EDT Height 154.9 cm (5' 1) 05/04/2022 10:54 AM EDT Body Mass Index 25.32 05/04/2022 10:54 AM EDT documented in this encounter Progress Notes Kiera Warren, SECURITIES TRADER - 05/04/2022 11:00 AM EDT [facility] [place] [address] Phone: DATE OF VISIT 05/04/2022 Patient Caro Mendez 1965 FUNCTIONAL SYNAGOGUE PROGRAM Chief complaint requiring rehabilitation: back and left leg pain S: Caro is being seen today for medical clearance for the Functional Sikh program, a graduated exercise program aimed at the patient achieving her functional goals, despite having chronic pain. Her pain pattern is described as back and left leg pain, She has had treatments including physical therapy, injections, and tylenol gabapentin. The patient's current goals are : Personal Function 3 Month Goals ?? 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 Recreational: Be able to hike and carry a pack (10-15lbs) for 1 hour; Be able to sit for 1 hour to do crafts/drawing. Be able to resume a yoga class. Daily Living: Be able to lift and carry heavier groceries, 40-50lb dog food. Be able bend over to bathe dog more easily; Be able to mop and vacuum more easily. Be able to stand to cook a meal or bake for 1 hour. ?? Patient is not currently working. She has an active w/c case. 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 Working with vocational rehab. ?? Activity limiting health problems: history of??PTSD, panic disorder. No longer on Aleve. Most recently, patient was having DUB and it was found that she was severely anemic Found anemia andis on iron and vitamin C. She will be seeing her PCP tomorrow and will tienley have further lab work done. Stool sample is normal. She was having DUB which has stopped since starting the iron. She foundthat the skin issues were also related to the anemia and have resolved. Her hair is also growing back. Etoh--was advised not to drink EtOH due to anemia. Marijuana or other substances? No Drinks one cup of coffee per day. There are no pending surgeries, tests or procedures planned. O: Please see Navya Peter's note of today for details of the physical testing and current functional Level. In general the patients current level of functioning is in the sedentary demand level and goals are in the light-medium demand level. A&O in NAD cogent and interactive EOMI, No scleral jaundice noted. ROM lumbar spine is limited in all planes-see functional assessment. Lungs CTA bilaterally Heart: RRR no murmurs Gait is fairly well preserved. Heels and toes intact. DTRs intact. Neg clonus Sensation intact A: There is a gap between her goals and abilities. This was a counseling visit for 30 minutes out of 40 talking about symptom management and functionalrecovery, reviewing the content of FRP, and logistics specific to participation including, travel, lodging and exercise and activity planning . We have mutually decided to proceed with the following plan: P: Caro is a candidate for functional episcopal but will need another month to recover from the severe anemia. She is feeling much better now but to give her the best chance of success, it would bebest to defer admission until the June program. LORENA Barrow met with patient regarding logistics. She has not yet had approval from w/c which will need to happen prior to being able to secure lodging. The extra month will allow these logistics to be sorted out. Completed w/c paperwork. Kiera Warren APRN Nurse practitioner [facility] documented in this encounter Plan of Treatment Not on filedocumented as of this encounter Visit Diagnoses Diagnosis Chronic left-sided low back pain with le ft-sided sciatica Sacroiliac joint dysfunction of left miguel e Disorders of sacrum documented in this encounter Care Teams Milled Rubber Tender Relationship Specialty Start Date End Date Love Dupont APRN PCP - General Family Medicine 8/3/20 [address] [place] [address] documented as of this encounter
--- OUTSIDE RECORDS SUMMARY | 2022-05-22 00:23 | XMS_ITS | Encounter Summary ---
:1965 Author Organization [facility] Address [address] [place] [address] Care Team Providers Name Role Phone Love Dupont SMALL ENGINE SPECIALIST Primary Care Provider Encounter Details Date Type Department Care Team Description 09/22/2019 Results Only Imaging [facility] - Love Dupont, SMALL ENGINE SPECIALIST [facility] [place]iology Resul ts [address] [place] [phone] Social History Tobacco Use Types Packs/Day Years Used Date Never Assessed Sex Assigned at Date Recorded Not on file documented as of this encounter Plan of Treatment Not on filedocumented as of this encounter Procedures Procedure Name Priority Date/Time Associated Diagnosis Comme nts MR LUMBAR SPINE WO 09/22/2019 8:01 EST Re sults for this CONTRAST procedure are i n the results section. documented in this encounter Results MR LUMBAR SPINE WO CONTRAST (09/22/2019 8:01 EST) Specimen Narrative [facility] RAD[facility] - 09/22/2019 8:01 EST ? EXAM: MAGNETIC RESONANCE IMAGING/LUMBAR S EX. D/ (0702) ? CLINICAL INFORMATION: ? M54.16 LUMBAR BACK PAIN W/ LEFT L EG ? RADICULOPATHY, SPINAL PAIN ? R39.15 URINARY URGENCY ? INDICATION: M54.16 LUMBAR BACK PA IN W/ LEFT LEG , RADICULOPATHY, ? SPINAL PAIN, R39.15 URINARY URGEN CY BACK PAIN ? TECHNIQUE: ??Multiplanar multiseq uence MR imaging of the lumbar spine ? was obtained without contrast. ? COMPARISON: No comparison examina tion is available. ? FINDINGS: There is minimal convex rightward curvature of lumbar spine ? centered at L3. The posterior spi nal alignment is anatomic. The ? lumbar vertebral bodies heights a re maintained. The marrow signal is ? within normal limits. The tip of the conus medullaris terminates at ? the L1 vertebral body level. ? The paraspinal soft tissues are n ormal in appearance. ? L1-L2: The disc height and relay assembler ior disc contour are preserved. ? There is no central canal or neur al foraminal stenosis. ? L2-L3: The disc height and relay assembler ior disc contour are preserved. ? There is no central canal or neur al foraminal stenosis. ? L3-L4: The disc height and relay assembler ior disc contour are preserved. ? There is no central canal or neur al foraminal stenosis. ? L4-L5: The disc height and relay assembler ior disc contour are preserved. ? There is no central canal or neur al foraminal stenosis. ? L5-S1: There is a tiny disc bulge that does not result in significant ? central canal stenosis. The neura l foramina are patent.. ? IMPRESSION: ? Minimal disc bulge at L5-S1 witho ut significant stenosis. No nerve ? root impingement detected at the level of the lumbar spine. ? Additional findings as discussed above. ? REPORT SIGNED IN OTHER VENDOR SYSTEM 09/22/2019 ?Reported B y: Julio Fowler MD ? CC: ? Transcribed Date/Time: 09/22/2019 (08) ? Program Advocate: ? Printed Date/Time: 09/22/2019 (08 01) ? PAGE 1 ? Roxana d Report ? Procedure Note Julio Fowler MD - 09/22/2019 EXAM: MAGNETIC RESONANCE IMAGING/LUMBAR S EX. D/ (0702) CLINICAL INFORMATION: M54.16 LUMBAR BACK PAIN W/ LEFT LEG RADICULOPATHY, SPINAL PAIN R39.15 URINARY URGENCY INDICATION: M54.16 LUMBAR BACK PAIN W/ LEFT LEG , RADICULOPATHY, SPINAL PAIN, R39.15 URINARY URGENCY DAO K PAIN TECHNIQUE: Multiplanar multisequence MR imaging of the lumbar spine was obtained without contrast. COMPARISON: No comparison examination i s available. FINDINGS: There is minimal convex right osborn curvature of lumbar spine centered at L3. The posterior spinal al ignment is anatomic. The lumbar vertebral bodies heights are jason ntained. The marrow signal is within normal limits. The tip of the co nus medullaris terminates at the L1 vertebral body level. The paraspinal soft tissues are normal in appearance. L1-L2: The disc height and posterior di sc contour are preserved. There is no central canal or neural for aminal stenosis. L2-L3: The disc height and posterior di sc contour are preserved. There is no central canal or neural for aminal stenosis. L3-L4: The disc height and posterior di sc contour are preserved. There is no central canal or neural for aminal stenosis. L4-L5: The disc height and posterior di sc contour are preserved. There is no central canal or neural for aminal stenosis. L5-S1: There is a tiny disc bulge that does not result in significant central canal stenosis. The neural fora brett are patent.. IMPRESSION: Minimal disc bulge at L5-S1 without sig nificant stenosis. No nerve root impingement detected at the level of the lumbar spine. Additional findings as discussed above. REPORT SIGNED IN OTHER VENDOR SYSTEM 09/22/2019 Reported By: Julio Fowler MD CC: Transcribed Date/Time: 09/22/2019 (800 ) Program Advocate: Printed Date/Time: 09/22/2019 (800) PAGE 1 Signed Report Performing Organization Address City/State/ZIP Code Phon e Number [facility] RAD[facility] documented in this encounter Visit Diagnoses Not on filedocumented in this encounter Care Teams Conduit Bender Relationship Specialty Start Date End Date Love Dupont NP PCP - General 09/06/19 [address] [place] [phone] documented as of this encounter
--- OUTSIDE RECORDS SUMMARY | 2022-05-22 00:23 | XMS_ITS | Encounter Summary ---
:1965 Author Organization [facility] [place] [address] Care Team Providers Name Role Phone Love Dupont BRAULIO Primary Care Provider Encounter Details Date Type Department Care Team Description 01/26/2022 Telephone Dermatology at [facility] Anton Wade MD [address] [place] [phone] [facility] [phone] [place], [place] [address] (Wo rk) Social History Tobacco [...] this encounter Miscellaneous Notes Telephone Encounter - Anton Wade MD - 01/26/2022 6:03 PM EDT Returned patient's call. She was not able to be reached, but a voicemail was left reviewing that theslides that she dropped off did not show evidence of parasites or an infestation. The samples are not consistent with fibers or organic material that would be extruded through the skin. Likely external contaminants. This does not change our recommendations or management strategies. documented in this encounter Plan of Treatment Not on filedocumented as of this encounter Visit Diagnoses Not on filedocumented in this encounter Care Teams Music Engraver Relationship Specialty Start Date End Date Love Dupont APRN PCP - General Family Medicine 04/08/20 [address] [place] [address] documented as of this encounter
--- OUTSIDE RECORDS SUMMARY | 2022-05-22 00:23 | XMS_ITS | Encounter Summary ---
:[address] [facility] Address [address] [place] [address] Care Team Providers Name Role Phone Unknown, Provider Primary Care Provider Encounter Details Date Type Department Care Team Description 05/01/2009 Orders Only [facility] Tyra Godoy, BUSINESS DEVELOPMENT REPRESENTATIVE Laboratory Services - [address] [place] [phone] [place], [place] [id number] [phone] Social History Tobacco Use Types Packs/Day Years Used Date Never Assessed Sex Assigned at Date Recorded Not on file documented as of this encounter Plan of Treatment Not on filedocumented as of this encounter Procedures Procedure Name Priority Date/Time Associated Diagnosis Comme nts CYTOPATHOLOGY Routine 05/01/2009 0:00 EDT Results for this procedure are i n the results section . documented in this encounter Results CYTOPATHOLOGY (05/01/2009 0:00 EDT) Pathology Report: CYTOPATHOLOGY REPORT ? [facility] ? LAB Reports generated via electr onic interface contain original data; ? however they are lacking the format of the original report. ? Caution should be taken when reading/interpreting unformatted reports. ? Name: ? CARO MENDEZ L ? Accession #: ? [id number] ? : ? 1965 (Age: 44) ??F ?Collect Date: ? 05/01/2009 ? Location: ? [facility] ? Receive Date: ? 05/02/2009 ? Provider: ?INEZ JUSTO HEWS BUSINESS DEVELOPMENT REPRESENTATIVE ? Copy to: ? Specimen/Source: ? Pap Test, Cervix/Endocervix, ThinPrep Imaging System ? with manual evaluation ? Last Menstrual Period: ? 7/27/09 ? Hormonal/Contraceptive Statu s: ? Tubal ligation ? Other: ? Additional clinical informat ion: , Hx HSV ? HPVA - HPV testing requested if ASC-US on the current ThinPrep Pap test. ? SPECIMEN ADEQUACY ? Satisfactory for Eval uation ? - transformation zone compon ent present ? GENERAL CATEGORIZATION ? Negative for Intraepi thelial Lesion or Malignancy ? Document reviewed and electr onically signed by: ? Michel Goss, CT (ASCP) ? Report Date: ??09/02/ 2009 15:24 ? End of Report ? Specimen Performing Organization Address City/[facility]/ZIP Code Phon e Number [facility] [address] [place] [address] SERVICES [facility] [address] [place] [address] documented in this encounter Visit Diagnoses Not on filedocumented in this encounter Care Teams Electrician Helper Powerhouse Relationship Specialty Start Date End Date Unknown, Provider, PCP - General 01/11/09 09/05/19 documented as of this encounter
--- OUTSIDE RECORDS SUMMARY | 2022-05-22 00:23 | XMS_ITS | Encounter Summary ---
:1965 Author Organization [facility] [place] [address] Care Team Providers Name Role Phone Love Dupont Ethan RAMSEY Primary Care Provider Reason for Visit Reason Comments Back Pain Encounter Details Date Type Department Care Team Description 10/15/2021 Office Visit Functional Baptism [place] Low back pain, Program at [facility] Navya Devlin OT non-specific [address] [place] [phone] Social History Tobacco Use Types Packs/Day [...] - Therapy - Navya Peter, OT - 10/15/2021 8:00 AM EST FRP Occupational Therapy Note In Person Orientation to Functional Conditioning FRP Day 2 Protocol Subjective: Ms. Mendez returns for Day 2 of the Functional Baptism Program. She reports she isfeeling sore from testing yesterday, but is excited to get started. Objective: Refer to [facility] protocol for additional explanation of program/occupational therapy details. AM Orientation and Conditioning - Ms. Mendez received individual instruction in functional conditioning and was given an opportunityto demonstrate understanding of and ability to perform each task. She completed a return demonstration for each exercise to ensure proper form and safety. Introduced straight-leg lifting technique used to increase back strength and decrease fear of re-injury. The rationale for this technique was thoroughly explained so that Ms. Mendez understands that,while it is an effective training technique, it will not be the appropriate technique to use for allheavy lifts in the future. Ms. Mendez participated in a regular session of conditioning at the conclusion of orientation. Introduced the concept of mindfulness meditation and it's application within the functional quaker program. Discussed it's use as an effective pain and stress management technique and discussed evidence for this approach. Assigned evening homework of completing a mindful ADL with a focus on paying attention to the 5 senses during a routine task. Discussed what to expect and general flow of formalized practices. ( X ) Completed ( ) Did not complete PM Conditioning - ( X ) Completed ( ) Did not complete Participated in a 15 minute outdoor walk including 0.6 miles and in a 15 minute unguarded beach ballvolleyball activity including fast changing movements. Assessment: Ms. Mendez demonstrated a good understanding of today's functional conditioning principles and initial exercise protocols. She actively participated with initiation of training components. She asks appropriate questions with regards to form and technique and is receptive to feedback. She will continue to benefit from additional cues during functional conditioning activities to increase both activity tolerance and self-confidence in her abilities. Plan: Return for follow up with [facility] per protocol. Length of Treatment: Ms. Mendez participated in program activities from 8:00 a.m. through 3:00 p.m. today. A total of 45 minutes was spent during that time to establish and implement individualized occupational therapy strategies. Care was concurrently provided by both an Occupational Therapist and Biodiesel Product Manager,KARISHMA Leggett documented in this encounter Plan of Treatment Not on filedocumented as of this encounter Visit Diagnoses Diagnosis Low back pain, non-specific documented in this encounter Care Teams Fresh Food Manager Relationship Specialty Start Date End Date Love Dpuont, BRAULIO PCP - General Family Medicine 04/08/20 [address] [place] [address] documented as of this encounter
--- OUTSIDE RECORDS SUMMARY | 2022-05-22 00:23 | XMS_ITS | Encounter Summary ---
:1965 Author Organization [facility] [place] [address] Care Team Providers Name Role Phone Love uDpont Ethan RAMSEY Primary Care Provider Reason for Visit Reason Comments Back Pain Encounter Details Date Type Department Care Team Description 10/17/2021 Office Visit Functional Gnosticism Theo Villeda back pain, Program at [facility] jay Devlin, PT non-specific [address] [place] [address] Social History Tobacco Use Types Packs/Day [...] encounter Miscellaneous Notes Treatment - Therapy - Theo Villeda, PT - 10/17/2021 8:00 AM ESTSummary: [facility] Day 4 FRP Physical Therapy Note FRP Day 4 Protocol Subjective: Caro returns today for a scheduled follow up appointment with P; she reports increased soreness today in the form of tightness, and burning, mostly in the L hip and leg. Objective: Treatment Received: Refer to [facility] protocol for explanation of program/physical therapy details. 1. Therapeutic and Functional Exercise: See [facility] flow sheets for progression. Strengthening and conditioning designed according to personal functional recovery goals and [facility] protocol was: (x) Completed ( ) Not completed 2. Home Exercise Program: Reviewed and modified current home exercise program. The Home Exercise Program was: (x) Unchanged ( ) Modified 3. Neurological Assessment: (x) No change in status ( ) Change in status 4. Stretching and Relaxation Training Sessions: (x) Completed ( ) Not completed Fully participatory throughout the day. Reduced complaints of tightness and pain by the end of the day. Cues provided for form, and guidance provided for reason for discomfort. Positive reinforcement provided for degree of effort given during the first week. Assessment: Caro is progressing as planned with quota based training. Increased soreness is to be expected as she has completed first full week of FRP after being mostly sedentary since her injury. It is expected that she continue to build strength and endurance over the next three weeks. Though pain isn't guaranteed to change, she is already beginning to see positive shift in symptoms and activitytolerance. Plan: Return for follow up with [facility] per protocol. Length of visit: Participated in program physical activity from 8:00 a.m. through 3:00 p.m. today. During that time, a total of 60 minutes was spent to develop, monitor, and progress individualized physical therapy strategies. documented in this encounter Plan of Treatment Not on filedocumented as of this encounter Visit Diagnoses Diagnosis Low back pain, non-specific documented in this encounter Care Teams Seafood Specialist Relationship Specialty Start Date End Date Love Dupont APRN PCP - General Family Medicine 04/08/20 [address] [place] [address] documented as of this encounter
--- OUTSIDE RECORDS SUMMARY | 2022-05-22 00:23 | XMS_ITS | Encounter Summary ---
:1965 Author Organization [facility] [place] [address] Care Team Providers Name Role Phone Love Dupont FOSTER PARENT Primary Care Provider Encounter Details Date Type Department Care Team Description 10/17/2021 Office Visit Functional Latter Day Becky Espino, Low back pain, Program at [facility] BRAULIO non-specific [address] [place] [phone] [facility] [place] [address] Social History Tobacco Use Types Packs/Day Years [...] on file documented as of this encounter Progress Notes Becky Espino APRN - 10/17/2021 11:00 AM EST [id number] Caro Mendez 10/16/2021 Chief complaint requiring rehabilitation: low back pain FUNCTIONAL SHINTO PROGRAM REHABILITATION TRAINING LECTURE Presenter: Becky Espino APRN SPINAL ANATOMY, IMAGING, SURGERY AND REHABILITATION/MEDICATIONS This is a one-hour discussion meant to enhance future encounters with health care providers. Patientexpectations of pain relief and diagnosis were matched with a review of differential diagnosis and the anatomy of spinal pain. Diagnostic tools and their capacities and limitations were reviewed. Absence of clear surgically correctable diagnoses, natural history of acute episode recovery and the nature of disability from chronic pain were reviewed. The role of quota based, goal oriented rehabilitation was reviewed in this context. We then listed all the patients??? current and prior chief complaint-related medications, placing each in its pharmacological category. The personal experiences of the patients in terms of side effects and benefits were reviewed and discussed with references to the biochemical and clinical effects ifthe drugs. The lack of curative impact of these medications was stressed. The difficulties in determining optimal doses for analgesics were discussed in the context of the varying needs of patients andregulatory issues involved. The importance of prescribing in the framework of functional goals was reviewed as opposed to focusing entirely on symptom relief. lecture time: 1 hr. documented in this encounter Plan of Treatment Not on filedocumented as of this encounter Visit Diagnoses Diagnosis Low back pain, non-specific documented in this encounter Care Teams Black Topper Relationship Specialty Start Date End Date Love Dupont APRN PCP - General Family Medicine 04/08/20 [address] [place] [address] documented as of this encounter
--- OUTSIDE RECORDS SUMMARY | 2022-05-22 00:23 | XMS_ITS | Encounter Summary ---
:1965 Author Organization [facility] [place] [address] Care Team Providers Name Role Phone HakeemLove angela Ethan RAMSEY Primary Care Provider Encounter Details Date Type Department Care Team Description 04/28/2022 Telephone [facility] Steff Andrade, GROUND CONTROL [place] [phone] Social History Tobacco Use Types Packs/Day [...] this encounter Miscellaneous Notes Telephone Encounter - Steff Andrade MSW - 04/28/2022 12:04 PM EDTSummary: Attempted Phone Call OFFICE of CARE MANAGEMENT CCM Tax Economist received a phone message from Ms. Mendez asking for a return call at phone number [phone]. However, Tax Economist unsuccessfully attempted to contact Ms. Mendez at the phone number stated and received a message that the call could not be completed as dialed. JERICA Barrow documented in this encounter Plan of Treatment Not on filedocumented as of this encounter Visit Diagnoses Not on filedocumented in this encounter Care Teams Topographical Field Assistant Relationship Specialty Start Date End Date Love Dupont, HVAC SERVICE MANAGER PCP - General Family Medicine 04/08/20 [address] [place] [address] documented as of this encounter
--- OUTSIDE RECORDS SUMMARY | 2022-05-22 00:23 | XMS_ITS | Encounter Summary ---
:1965 Author Organization [facility] [place] [address] Care Team Providers Name Role Phone Love Dupont Ethan RAMSEY Primary Care Provider Reason for Visit Reason Comments Follow-up Delusions of Parasitosis Encounter Details Date Type Department Care Team Description 12/31/2021 Office Visit Dermatology at Carlos Matthews MD [facility] [address] [place] [address] Hananh Lemus MD [facility] [address] [place] [address] parasitosis [address] [place] [address] Social History Tobacco Use Types Packs/Day [...] documented as of this encounter Progress Notes Ralph Wade MD - 12/31/2021 4:00 PM EDT Images from the original note were not included. DEPARTMENT OF DERMATOLOGY Dermatology-Psychiatry Specialty Clinic Provider: Ralph Wade MD Visit conducted in conjunction with Juan Miguel Simms MD of Psychiatry. Please see same-day medical note Date of Service: 12/31/2021 Patient's preferred name Caro Preferred contact method for results [x]Phone []myDH []Letter Detailed phone message OK? Yes Are there any other people with whom we may discuss your care? Past Medical History If no, type N. If yes, type date, location, treatment Melanoma N Dysplastic nevi N SCC N BCC N AKs N Other relevant past medical history N Family History If yes, details Melanoma N NMSC N Other relevant family history N Social History Occupation: works at [employer] Other: History of Present Illness: Caro Mendez is a 56 y.o. seen today in the Dermatology-Psychiatry specialty clinic for a follow up of delusions of parasitosis. 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 However, she believes that she has horsehair worm. She notes little black sticks that protrude from her skin and that she finds all over her house. She reports that she had a stool sample to bring to the office today but forgot it at her house. She acknowledges that some medical clerk do not believe that humans can get horsehair worms, but she feels strongly that she is experiencing this. She is concerned that her dog or her neighbors may get the parasite from her and has worried that babies may have indirect exposure through contact with her dog or her neighbors. She states, I don't dare to touch my granddaughter. Angy established care with a local counselor named Lore Gordon in the interim since her last visit. However, yesterday she had a conversation with her counselor, who stated that Angy's concerns falloutside of her professional capabilities. Lore believes Angy would be better cared for by a different counselor. Lore had suggested that she might need a stronger psychiatric medication. She believes that she may have previously been prescribed Zyprexa but denies previous use of risperidone or pimazole. She does not believe that she tolerated the olanzapine very well, but at that time her psychiatric m edications were being frequently switched. Angy estimates that her skin complaints have persisted for 2-3 years. She reports that she has found it hard to avoid watching the news, and that she recently saw that the COVID vaccination contained worms. Review of Systems: General: Feeling well. Skin: No other skin concerns. Medications: Reviewed in eD-H Allergies: Reviewed in eD-H Skin Examination: Exam of the face, neck, and hands was performed with notable findings as below: Assessment/Plan #. Delusions of Parasitosis Exam: Unremarkable skin exam of the forehead, neck, and hands. - Patient was provided with three glass slides and instructed to place a sample on one of the slidesand cover it with clear tape. We reassured her that correctly diagnosing her complaints is our primary concern and that we want to make sure no pertinent skin findings are overlooked. Unfortunately, edwardo not have the ability to process stool samples at this time. - That being said, there is no evidence of an infestation on exam today. - Angy will follow up with Lore Gordon re: transfer of care to a new counselor. If Lore is not ableto make an appropriate recommendation, Angy knows to reach out to us for recommendations. - Start Rx: Risperidone 0.5mg PO QD. (Sent to [facility] in [place]) For the first month of treatment, the medication may be titrated up to 2mg PO QD depending on patient's response. We discussedcommon side effects, including drowsiness and increased appetite/weight gain. Muscle cramps are another common side effect. - Patient was counseled that it may take 3-6 months to see effect with the treatment. - Patient was counseled that through a combination of therapy, frequent check- ins, and treatment with risperidone to calm the associated feelings of worry and anxiety, we hope to introduce replacement thought patterns and behavioral patterns that will improve her quality of life. RTC: 1 month for Delusions of Parasitosis f/u [x]Note routed to placement secretary []Recall has been placed in scheduling system []Appointment scheduled at checkout Scribe attestation: DIANNE Gilliland who has performed the documentation for this encounter inthe presence of and acting as a scribe for Ralph Wade MD. I performed the above scribed service and agree with the accuracy of the documentation in this encounter. Reviewed and signed by: Ralph Wade MD Dermatology [facility] Patient seen and evaluated with staff nanny/household manager: Rudi Desai MD Department of Dermatology [facility] Ralph Desai MD - 12/31/2021 4:00 PM EDT I directly supervised Dr. Wade during this office visit. Dr. Wade presented the history and physical exam to me. I then saw and examined this patient with Dr. Wade . We reviewed the history and pertinent details and I confirmed the physical findings. I agree with the details of the history and physical exam as documented in Dr. Wade's note. RALPH DESAI MD Staff Physician documented in this encounter Plan of Treatment Not on filedocumented as of this encounter Visit Diagnoses Diagnosis Delusions of parasitosis Other isolated or specific phobias documented in this encounter Care Teams Mortgage Servicing Specialist Relationship Specialty Start Date End Date Love Dupont APRN PCP - General Family Medicine 04/08/20 [address] [place] [address] documented as of this encounter
--- OUTSIDE RECORDS SUMMARY | 2022-05-22 00:23 | XMS_ITS | Encounter Summary ---
:1965 Author Organization [facility] [place] [address] Care Team Providers Name Role Phone Love Dupont BRAULIO Primary Care Provider Encounter Details Date Type Department Care Team Description 05/19/2022 Telephone Pain and Spine Yelena odom at [facility] [place] [address] Social History Tobacco Use Types Packs/Day [...] Notes Telephone Encounter - Tiffanie Raza - 05/19/2022 11:51 AM EDT Patient called stating that her contracts attorney let her know that they had won her worker's compensation case and the worker's comp must pay for the FRP and lodging for the program. She is wondering how to get enrolled in the next program. Per the medical clearance note by Ms. Kiera Warren APRN, patient had severe anemia which needs to be resolved prior to the program start. Patient stated this condition is resolved and she will have her provider note faxed to us at [phone]. I informed the patient that I would discuss this with the team and see if an appointment for medical clearance is still needed or if she can have direct enrollment into the program. I will return call once the note and conversation with the team has been completed and a plan is in place. documented in this encounter Plan of Treatment Not on filedocumented as of this encounter Visit Diagnoses Not on filedocumented in this encounter Care Teams Cafeteria Or Lunchroom Checker Relationship Specialty Start Date End Date Love Dupont APRN PCP - General Family Medicine 04/08/20 [address] [place] [address] documented as of this encounter
--- OUTSIDE RECORDS SUMMARY | 2022-05-22 00:23 | XMS_ITS | Encounter Summary ---
:1965 Author Organization [facility] Address [address] [place] [address] Care Team Providers Name Role Phone Unknown, Provider Primary Care Provider Encounter Details Date Type Department Care Team Description 01/11/2009 Orders Only [facility] Azeem Sanches MD Laboratory Services - [address] [facility] [address] [place] [address] [address] [place] [address] [phone] Social History Tobacco Use Types Packs/Day Years Used Date Never Assessed Sex Assigned at Date Recorded Not on file documented as of this encounter Plan of Treatment Not on filedocumented as of this encounter Procedures Procedure Name Priority Date/Time Associated Diagnosis Comme [facility] SURGICAL PATHOLOGY Routine 01/11/2009 0:00 EDT Re sults for this procedure are i n the results section. documented in this encounter Results SURGICAL PATHOLOGY (01/11/2009 0:00 EDT) Pathology Report: SURGICAL PATHOLOGY REPORT ? [facility] Reports generated via electr Airpers[employer] interface contain original data; ? LAB however they are lacking the format of the original report. ? Caution should be taken when reading/interpreting unformatted reports. ? Name: ? LABOUNTY, CARO L ? Accession #: ? [id number] ? : ? 1965 (Age: 43) ??F ? Collec t Date: ? 01/11/2009 ? Location: ? [facility] ? R eceive Date: ? 01/11/2009 ? Provider: DEJAN D DREISBACH MD ? Copy to: INEZ BEYER SLIP SHEETER ? Final Pathologic Diagnosis: ? Soft tissue, right wr ist, volar aspect, excision: ? - Ganglion cyst. ? Document reviewed and electr onically signed by: ? Tammy C. Barboza, MD ? Report ??Date: 01/15/2009 20 :37 ? By the signature above, the attending physician certifies that he/she has ? personally conducted a gross and/or microscopic examination of the described ? specimens and rendered or co nfirmed the above diagnosis. ? Specimen(s) Received: ? Right wrist mass ? Clinical History: ? Volar ganglion cyst a ttached to wrist capsule at ulnar aspect (not typical location); cystic mass, vola r and ulnar aspect right wrist crease ? Gross Description: ? Received in formalin labelled Caro Mendez and right wrist mass ?? is a 1.4 x 1.0 x 0.5 cm soft tissue fragment composed of hernandez-white fibrous ? tissue and a small amount of adipose tissue. ??The specimen is bisected and ? submitted entirely in one ca ssette. (Dr. Bear)/mpl ? End of Report ? Specimen Performing Organization Address City/State/ZIP Code Phon e Number [facility] [address] [place] [address] SERVICES [facility] [address] [place] [address] documented in this encounter Visit Diagnoses Not on filedocumented in this encounter Care Teams Trolley Car Overhauler Relationship Specialty Start Date End Date Unknown, Provider, PCP - General 01/11/09 09/05/19 documented as of this encounter
--- OUTSIDE RECORDS SUMMARY | 2022-05-22 00:23 | XMS_ITS | Encounter Summary ---
:1965 Author Organization [facility] [place] [address] Care Team Providers Name Role Phone Love Dupont BRAULIO Primary Care Provider Reason for Visit Reason Comments Follow-up Encounter Details Date Type Department Care Team Description 12/31/2021 Office Visit Dermatology at Joanie Gordon, [address] parasitosis [address] [place] [address] PSYCHIATRY DEPT [place] [address] Social History Tobacco Use Types Packs/Day Years [...] documented as of this encounter Progress Notes Joanie Simms MD - 12/31/2021 4:00 PM EDT ADULT PSYCHIATRY OUTPATIENT VISIT NOTE [facility] Attendee(s): see dermatology note for same visit date Chief Complaint: I have horse hair worms History of Present Illness: Caro Mendez is a 56 y.o. female presents today for follow-up in the Derm/Psych clinic for ongoing concerns about a skin infestation. She brings a picture on her phone of a long black thin structure. She expresses growing concern about transmitting the infestation to her granddaughter, dog, etc. Ongoing emotional distress associated with this concern. Connected with a counselor who has told Angy she is too complex for her, but she is helping Angy connect with another provider. Her PCP is managing her medications at this time. She remains on Effexor taking 150mg +75mg +37.5mg - daily. Substance Use: none Safety: no SI Questionnaires: PHQ9 Questionnaires Data (Clinic and Pt Entered): last 4 values PHQ-9 QUESTIONNAIRE LAST 4 VALUES (AMB) 10/22/2020 10/14/2021 PHQ - 9 Score (Patient) 5 (Mild Depression) 3 (Minimal Depression) Little interest or pleasure (Patient) Not at all Several days Down, depressed, hopeless (Patient) Not at all Not at all Trouble sleeping (Patient) Several days Several days Tired or no energy (Patient) Several days Not at all Poor appetite or overeating (Patient) Several days Several days Feeling like a failure (Patient) Not at all Not at all Trouble concentrating (Patient) Not at all Not at all Moving or speaking slowly (Patient) More than half the days Not at all Would be better off (Patient) Not at all Not at all GAD7 Questionnaires Data: last 4 values RACHEL-7 Patient Reported Responses 10/22/2020 10/14/2021 10/14/2021 Nervous, anxious (Patient) Not at all - Not at all Unable to stop worrying (Patient) Not at all - Not at all Worrying about different things (Patient) Not at all - Not at all Trouble relaxing (Patient) Several days - Not at all Restless (Patient) Not at all - Not at all Easily annoyed, irritable (Patient) Not at all - Not at all Afraid something awful will happen (Patient) Not at all - Not at all Difficulty (Patient) Not difficult at all Not difficult at all Not difficult at all RACHEL-7 Score (Patient) 1 (Minimal Anxiety) - 0 (No Anxiety) Current Medications: Current Outpatient Medications Medication Sig Dispense Refill ??? risperiDONE (RisperDAL) 1 mg Tablet Take 1/2 tab by my nightly for 7 days, then increase to 1 tab nightly 30 tablet 2 ??? ketoconazole (NIZORAL) 2 % Shampoo Lather onto scalp every third day in the shower. Let sit 3-5 minutes prior to rinsing. 120 mL 11 ??? mupirocin (Bactroban) 2 % Ointment Apply three times daily to the nostrils for 1 week, then 5 times monthly for maintenance. Apply twice daily as needed to affected areas on the scalp. 22 g 2 ??? clobetasoL (TEMOVATE) 0.05 % Solution Apply daily to affected areas on the scalp for up to 2 weeks, take 1 week off, repeat as needed. 50 mL 2 ??? omeprazole (PriLOSEC) 40 mg Capsule, Delayed Release(E.C.) daily. ??? naproxen (NAPROSYN) 500 mg Tablet as needed. ??? venlafaxine (EFFEXOR-XR) 150 mg Capsule, Sust. Release 24 hr 150 mg daily. ??? venlafaxine XR (Effexor-XR) 37.5 mg Capsule, Sust. Release 24 hr 37.5 mg daily. ??? acetaminophen (Tylenol) 500 mg Tablet Take 1,000 mg by mouth every 8 hours as needed for Pain. ??? gabapentin (Neurontin) 300 mg Capsule Take by mouth daily. Patient takes 600 mg in AM, Noon, 900mg at Night ??? hydrOXYzine (Atarax) 25 mg Tablet Take 25 mg by mouth 3 times daily as needed for Itching. ??? venlafaxine (EFFEXOR) 75 mg Tablet Take 75 mg by mouth daily. No current facility-administered medications for this visit. Allergies: No Known Allergies Past Psychiatric history and treatment: Please refer to prior documentation in psychiatry notes for this information Review of Systems: No LAINEZ, CP or SOB / control: n/a Vitals (24hr Range): No data found. Musculoskeletal System: normal gait and balance and ambulates independently Mental Status Exam: Psychiatric System ? General Appearance/Behavior: well groomed, alert, calm, hair, blonde, short, in colorful barettes ? Speech: fluent ? Thought Process: linear ? Associations: tight ? Abnormal Thoughts and Perceptions / Thought Content: Homicidality / Violent Thoughts: none Suicidality: none Hallucinations:none Delusions: infestation Obsessions: none ? Judgment and Insight: intact and good ? Mood & Affect: I have horsehair worms ? Orientation: full x 3 ? Attention/Concentration: Subjectively good for session ? Memory: Grossly intact for recent and remote events ? Language: normal use ?? ? Fund of Knowledge: average Thought C Labs: Psychiatric labs: Lab Results Component Value Date WBC 7.7 05/23/2020 HGB 11.6 (L) 05/23/2020 HCT 37.2 05/23/2020 MCV 91.0 05/23/2020 PLATELET 356 05/23/2020 Lab Results Component Value Date NA 137 05/23/2020 K 4.3 05/23/2020 CL 102 05/23/2020 CO2 25 05/23/2020 BUN 13 05/23/2020 CREATININE 0.53 (L) 05/23/2020 GLUCOSE 88 05/23/2020 CALCIUM 9.5 05/23/2020 ESTGFR 108 05/23/2020 Lab Results Component Value Date ALT 13 05/23/2020 AST 18 05/23/2020 ALKPHOS 66 05/23/2020 BILITOT 0.2 05/23/2020 ALBUMIN 4.3 05/23/2020 PROT 7.3 05/23/2020 Lab Results Component Value Date HA1C 4.6 05/23/2020 Lab Results Component Value Date TSH 1.14 05/23/2020 No results found for: 25OHVITD No results found for: AUJLPLPQ00 No results found for: LITHIUM No results found for: PHENYTOIN, PHENOBARB, VALPROATE, CBMZ No results found for: CLOZAPINE No results found for: HCGQUAL, HCGQUANT, HCGQUANT, POCUAHCG Relevant imaging: n/a Formulation and Assessment: Overall Formulation: Caro Mendez is a 56 y.o. Female presenting to the Derm/Psych clinic with ongoing concerns for a skin infestation. Angy is agreeable to a trial of risperdal. We explained that if she responds it would be to decrease her distress from these thoughts, which she agrees would behelpful. Because of fears of contamination she is not even able to touch or hold my granddaughter CURRENT ASSESSMENT: Angy is distressed at her belief of ongoing infestation, but is able to treatment plan with us around the need for a trial of risperdal and willing to continue to engage in counseling. Diagnoses: delusional parisitosis Safety Assessment: no SI/HI Plan (by problem, indicate any tests ordered or reviewed, notes reviewed, collateral gathered, discussion with external physician): ?? No change recommended to Effexor ?? Start trial of risperdal 0.5mg po qhs x7 days, then increase to 1mg nightly. Risks, benefits and side effects reviewed in detail with patient. ?? 3 slides given to patient for sample collection and review if desired ?? TH or in person f/u (pt preference) in 1 mo Next Appointment: 1 month Patient Instruction/Education provided: Patient provided verbal instructions regarding medication side effects, safety plan in case of feeling unsafe. [facility] Mental Health Crises Services [facility] Crisis Line text or call Visit www.Slicethepie for further information [place] Call your local [facility] crisis line at: [place]: [facility] [phone] [place]: [facility] [phone] [place]: [facility] [phone] [place]: [facility] [phone] [place]: [facility] [phone] [place]: [facility] Counseling and Support [phone] [place]: [facility] [phone] on weekdays 8AM-4:30PM and [phone] on nights and weekends [place]: [facility] [place]: [facility] [phone] [place]: [facility] Services [phone] [place]: [facility] Services, [place]: [facility] [place]: H[facility]S or Text [place] to [phone] For further information for [place] residents: [email or web address] National Suicide Prevention Hotline: To reach your mental health clinician or the outpatient Department of Psychiatry clinics: [phone] Patient understands the plan? Yes Signed By: JOANIE SIMMS MD 01/01/2022 documented in this encounter Plan of Treatment Not on filedocumented as of this encounter Visit Diagnoses Diagnosis Delusions of parasitosis Other isolated or specific phobias documented in this encounter Care Teams Hydroelectric Systems Technician Relationship Specialty Start Date End Date Love Dupont, BRAULIO PCP - General Family Medicine 04/08/20 [address] [place] [address] documented as of this encounter
--- OUTSIDE RECORDS SUMMARY | 2022-05-22 00:23 | XMS_ITS | Encounter Summary ---
:1965 Author Organization [facility] [place] [address] Care Team Providers Name Role Phone Love Dupont Ethan RAMSEY Primary Care Provider Reason for Visit Reason Comments Back Pain Encounter Details Date Type Department Care Team Description 10/14/2021 Office Visit [facility] [place] Low back pain, Program at [facility] Navya Devlin OT non-specific [address] [place] [id number] Social History Tobacco Use Types Packs/Day [...] documented as of this encounter Miscellaneous Notes Initial Evaluation - Navya Peter OT - 10/14/2021 10:00 AM EST [facility] (Day 1) Group #: [id number] Occupational Therapy Evaluation Problem List: 1. Unclear Vocational Goal 2. Inability to do usual and customary job and daily activities secondary to decreased lifting strength, functional ROM, limited positional tolerances, fear of re-injury and inability to manage pain. 3. Ms. Mendez lacks effective pain management strategies to use on the job, in the community, and at home. 4. Decreased ability to participate in activities of daily living and home maintenance. 5. 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 Subjective: She reports that the primary reason for seeking Occupational Therapy services through the [facility] is low back pain radiating into left hip and leg, some tingling in left foot. Ms. 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 Ms. Mendez reports using the following pain management strategies: Gabapentin, Tylenol, meditation(5 senses). 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 Ms. 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 Ms. Mendez gave permission to this therapist to contact vocational rehabilitation counselor. Ms. Mendez reports receiving the following benefits: Workers Compensation wage replacement Self-Care (ADL & IADL) & Leisure Activities: Based on the occupational performance interviewof the [place] Occupational Performance Measure (COPM), Ms. Mendez reports Moderate limitations in self-care and leisure activities. 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 2 2 Recreation/Leisure: Be able to snow shoe for 1 hour 2 2 Be able to hike and carry a pack (10-15lbs) for 1 hour 2 1 Be able to swim for 1 hour 2 1 Daily Living (ADL, IADL): Be able to lift and carry heavier groceries 3 2 Be able to lift and carry 40-50lb dog food 1 1 Be able to mop and vacuum more easily 3 2 Be able to stand to cook a meal or bake for 1 hour 2 1 Be able to bend over to bathe the dog more easily 2 1 Be able to go up and down the stairs more easily 3 2 Total 20 13 Total Mean score 2.22 1.44 Mean score Change from Day 1 (??2 point change is clinically significant) Lifting Goal: 50 lbs Current Lifting lbs Current Lifting lbs *Mcmahon: P=Performance Score S=Satisfaction with Performance Score ASSESSMENT of OCCUPATIONAL PERFORMANCE Physical Capacity Test Results: Lifting: (pounds/heart rate) First Day of FRP End of Program 4 Week Follow-Up Repetitive Floor to Waist 20/111 Repetitive Waist to Shoulder 10 1-Time Maximum 40 2-Handed Carry - 50 ft 20 Work Demand Level Light The results of this testing must be integrated with clinical findings and other observations to derive a final assessment of work capacity. Assessment: Ms. Mendez is unable to fully participate in work, recreational, and home-based activities because of decreased functional strength, decreased AROM, decreased endurance, limited positional tolerances, fear of re-injury, and fear of increased pain. She will benefit from participating in afunctional conditioning program designed to increase functional strength, flexibility, and endurancein order to meet functional goals. [facility] Goals: While working towards the roasterman (3 month) functional goals listed above, Ms. Delarosa accomplish the following short term goals during the 4- week intensive rehabilitation program. Ms. Mendez will: 1. Develop a viable return to work plan. 2. Demonstrate physical capacities consistent with a Medium work demand level. 3. Demonstrate increased functional strength by lifting 50 pounds floor to waist and 20 pounds waistto shoulder in order to meet work and home lifting goals. 4. Increase her positional tolerances to the level needed for work and home activities. 5. Implement self-care and relapse prevention strategies during the program and at home to control pain. Plan: 1. Functional conditioning 2 times daily to increase physical capacities and allow Ms. Mendez to meet demands of work, recreation and home. 2. Individual counseling / education to develop return to work plan and better understand the returnto work process and to develop individualized strategies for self-care pain management, relapse prevention. 3. Daily stretching, relaxation training and walking to increase functional tolerances and allow to meet demands of work, recreation and daily activities to meet occupational goals. 4. Therapeutic activities to increase ability to move quickly and tolerate unguarded movements. 45 minutes were spent today to interview Ms. Mendez and test physical capacities. documented in this encounter Plan of Treatment Not on filedocumented as of this encounter Visit Diagnoses Diagnosis Low back pain, non-specific documented in this encounter Care Teams Residential Sales Manager Relationship Specialty Start Date End Date Love Dupont APRN PCP - General Family Medicine 04/08/20 [address] [place] [address] documented as of this encounter
--- OUTSIDE RECORDS SUMMARY | 2022-05-22 00:23 | XMS_ITS | Encounter Summary ---
:1965 Author Organization [facility] [place] [address] Care Team Providers Name Role Phone Love Dupont BRAULIO Primary Care Provider Encounter Details Date Type Department Care Team Description 10/17/2021 Office Visit [facility] Becky Espino, Chronic left-sided Program at [facility] BRAULIO low back pain with [address] [facility] [place] [address] PAIN MEDICINE [place], [place] [address] Social History Tobacco Use Types Packs/Day Years [...] as of this encounter Progress Notes Becky Espino, BRAULIO - 10/17/2021 10:30 AM EST [facility] Admission Staff Meeting 10/17/2021 I, Tiffanie Raza, am compiling the information for Becky Espino APRN, to discuss and review with the patient. I met with Ms. Mendez for the entire 30 minutes today to discuss her admission and progress in the[facility] as written in this note. We discussed medical progress, imaging, surgical decision making, current pain and functional status, compared that status to personal recovery goals, and established the plan of care accordingly as below. The chief complaint requiring rehabilitation is central back pain. This pain has gotten worse since initial injury which included repetitive twisting moving 5# blocks of cheese. She felt a pop. She continued to work for a few days afterward, but pain continued to worsen. 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 Most recent imaging has revealed no surgical lesion and surgery has been waived. ?? Additional activity limiting health problems include history of L hip bursitis. ?? Current work status: Not working currently, but was recently offered a job. Results of the Touch Pad Questionnaires You Filled out: FRP DISCHARGE SUMMARY QUESTIONNAIRE TOTALS 10/14/2021 INSOMNIA SEVERITY INDEX 3 (No clinically significant insomnia) Total PHQ-9 3 (Minimal Depression) CENTRAL SENSITIZATION INVENTORY 53 (Severe) PDQ Functional Condition 61 PDQ Psychosocial Component 40 PDQ Total Score 101 (Extreme) RACHEL-7 0 (No Anxiety) FACS SCORING 79 Extreme PCL-5 Total Score 4 Visual Analog Scale (VAS) for Pain Score 9.32 Pain over the last week rating score 5.88 Title Endurance and Flexibility Test Results: Reported Tolerance (minutes) First Day of FRP: End of FRP: 1 Month Follow-up: 3 Month Follow-up (optional): Sittin Standin Walkin Flexibility (degrees): Neck: First Day of FRP: End of FRP: 1 Month Follow-up: 3 Month Follow-up (optional): Bending Forward: 33 Bending Back: 35 Turning Right: 55 Turning Left: 45 Tilting Right: 26 Tilting Left: 21 Low Back: First Day of FRP: End of FRP: 1 Month Follow-up: 3 Month Follow-up (optional): Bending Forward: 45 Bending Back: 10 Straight Leg Raise Right: 75 Straight Leg Raise Left: 47 Straight Leg Raise Pelvic: 42 Treadmill First Day of FRP: End of FRP: 1 Month Follow-up: 3 Month Follow-up (optional): MET Level: Heart Rate: MET Level: Heart Rate: MET Level: Heart Rate: MET Level: Heart Rate: Treadmill Endurance: 7 110 Reason for Stopping (if applicable): L sided leg pain and SOB Title Physical Capacity Test Results: First Day of FRP: End of FRP: 1 Month Follow-up: 3 Month Follow-up (optional): Lifting: Pounds: Heart Rate: Pounds: Heart Rate: Pounds: Heart Rate: Pounds: Heart Rate: Floor to Waist PILE: 20 111 Waist to Shoulder PILE: 10 95 One Time Max: 40 Carry (2 handed, 50 ft): 20 Work Demand Level: Light Your Functional Goals: Functional Goals- First Day of FRP: Progress Toward Goals- End of FRP: Progress Toward Goals- 1 Month Follow-up: Progress Toward Goals- 3 Month Follow-up (optional): Vocational: To be determined Recreational: Be able to snow shoe for 1 hour; Be able to hike and carry a pack (10-15lbs) for 1 hour; Be able to swim for 1 hour Daily Living: Be able to lift and carry heavier groceries; Be able to lift and carry 4-50lbs bag of dog food; Be able to mop and vacuum more easily; Be able to stand to cook a meal or bake for 1 hour; Be able to bend over to bathe the dog more easily; Be able to go up and down the stairs more easily PLAN: [facility]. 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 NEED FOR ON-SITE VS. TELEHEALTH TREATMENT WILL BE DETERMINED BASED ON THE # OF PARTICIPANTS AND THE VARIED NEED FOR SPECIFIC ACCESS TO [facility] EQUIPMENT. THE BASIC STRUCTURE AND COMPONENTS EACH DAY WILL BE CONSISTENT REGARDLESS OF LOCATION AND FULL PARTICIPATION WILL BE EXPECTED FROM ALL. DAY 1 TESTING The first day of FRP consists of testing by multiple disciplines to measure baseline values including: Visual Analog Pain Scale, FACS, CSI, RACHEL-7, PDQ, RIKA, PHQ-9, PCL-5, Sitting Standing & Walkingtolerance, Range of Motion measured in degrees using an inclinometer, MET Level, Lifting capacity (occasional & frequent), Push/Pull, Carry-2 handed 50 ft, DOT level. The Jerson-Manuel Reading Test may also be utilized as needed to provide information in the most appropriate format. Day 1 testing includes: * Physical Therapy: Functional Assessment (PT section) * Occupational Therapy: Functional Assessment (OT section) * Touch Pad Survey for questionnaires * Pain Psychology Consult with PsyD (as recommended) * Medical Consult with JIMMY (Associate Pain Provider) or MD Medical Provider STRETCH, STRENGTH, & AEROBICS 1 hour daily with [address] [facility] staff members (combination of: PT,OT, MILLED RICE BROKER/SCHWARZ) Low impact aerobic conditioning and strengthening class that alternates between floor aerobics, stepaerobics, yoga, exercise ball training, supine/prone/side- lying strengthening and stretching. This is the first class of every day so that patients begin the day with a warm-up of low-impact and low intensity conditioning. The goal of the class is to introduce and encourage different types of cardiovascular conditioning and strengthening. STRENGTHENING & CARDIOVASCULAR EXERCISE 1 hour daily with [address] [facility] staff members (PT & MILLED RICE BROKER) The physical therapy staff instructs, modifies, and supervises upper extremity, lower extremity, andcore strengthening exercises focused on regaining total body fitness. These exercises are completed by all patients and include free weights, weight machines, general upper and lower extremity exercise, and specific spinal flexor and extensor strengthening. Available dumbbells include 1-50 lbs. The exe rcises are listed in the training record and can be changed for each program and/or individualized for each patient. Patients are methodically encouraged to increase their repetitions, sets or weight for their exercises daily. The therapists will recommend an increase in 1 set, or 10 repetitions, or 1-20 lbs in weight. This will be decided by the therapists daily based on the patient's ability to complete the current exercise prescription, exercise mechanics, tolerance level, or current relevant physical complaints. Cardiovascular conditioning includes at least 3-15 minutes of one activity to be completed in 1-4 sessions. FRP patients seldom have the conditioning to complete 15 minutes of one activity at a sufficient intensity to provoke a cardiovascular training response. Therefore, [facility] utilizes multiple sessions to reach cardiovascular goals. Multiple types of cardiovascular equipment will be used which include: stationary bike, elliptical machine, treadmill, outdoor walks and stairwells. Exercise grades, intensity, and times are monitored and recorded. Perceived exertion or heart rate may also be used to rate exercise intensity. Intensity, incline, speed, and/or time will be increased daily. However, walking speed will be initially accelerated and emphasized. A normal walking speed of 3.5mph is a common goal of patients before the end of a program. Self-Care (sometimes ???Home Exercise?? ) Plans are individualized for specific chief complaints andany secondary musculoskeletal and/or cardiovascular concerns. They include cardiovascular training, strengthening, stretching (ROM activities when needed) and mindfulness/relaxation training. These programs are to be completed by patients during their time away from [facility] (evenings, weekends - off days as necessary). Throughout the course of treatment, patients are educated and guided in exercise decision-making principles. This education takes place throughout the treatment sessions, and is progressive for each patient at the pace that is appropriate for them. The goal is that, by program completion, they will beable to make alterations/corrections as required independently so as to maintain the safety and effectiveness of their therapeutic exercises. By completion of the program, the patient will have an individualized therapeutic exercise Self CarePlan composed of 4 parts (cardiovascular training, strengthening, stretching and mindfulness/relaxation). It will be designed to maintain or progress gains in their preferred setting (home or gym) so they can benefit from continued functional recovery and pain relief on their own. Development of a ???Flare-Up Plan?? with the team is also included as part of the Self-Care plan prior to completion. Education will be provided throughout the program sessions on the natural history of chronic pain and the expectation that flare-ups will occur as part of this natural history. The plan will include ways to distinguish chronic pain from acute pain and to determine whether or not medical intervention is necessary. Also included are personalized mechanical strategies and pain neuroscience strategies that can be used to manage chronic pain symptoms. FUNCTIONAL CONDITIONING 2 hours (over 2 sessions - AM and PM) with [address] [facility] staff members (OT, SCHWARZ/MILLED RICE BROKER, occasionally PT) Work Conditioning: Involves progressive and graded activities used at work, home and recreation. These activities include 1. Lifting: starts at roughly 1/3 of ???frequent?? testing weight and increases in regular intervals each day until goal weight is reached. * Frequent -Floor to waist - 20 X per session; 1-2 sessions per day * Frequent - Waist to shoulder -20 X per session; 1-2 sessions per day * Occasional Lifting- 5X per session; 1-2 sessions per day 2. Carrying - 5-10 minutes - 1 and 2 handed approaches, increasing weight carried on a daily basis 3. Repetitive bending and reaching - up to 10 minutes - wearing hand weights to increase upper extremity strength and tolerance to bending. 4. Pushing and pulling sled -25 feet - either weight and repetitions increase daily 5. Lifting through ROM - increases in either repetition or weight daily During the work conditioning sessions, individuals are taught other strategies including pacing for managing pain symptoms and when to utilize them most effectively. Sessions are designed to increase work capacity goals through both strengthening and exposure to the level identified in the Occupational Therapy initial note. Self Care Planning sessions are also conducted by the OT team, with focus on time management as wellas location and resource planning. WALK and/or UNGUARDED ACTIVITIES, MINDFULNESS/RELAXATION TRAINING & STRETCHING 1 hour with [address] [facility] staff members (OT, SCHWARZ/MILLED RICE BROKER, occasionally PT) Walk: 2-5x/wk patients will walk for 15-30 minutes, starting on flat terrain with minimal inclines for less time. They are encouraged to increase their speed, and therefore, heart rate, each day at their own pace to ultimately increase their walking tolerance. As their tolerance progresses, walks will include more incline. Unguarded Activity: 2-5x/wk games will be utilized to increase cardiovascular fitness, strength, endurance and flexibility and to encourage spontaneous or quick movements. Games will be played for 15-30 minutes. Mindfulness/Relaxation Training: Daily - patients will participate in 10-30 minutes of education andpractice including but not limited to the following mindfulness and relaxation techniques for pain management: breathing focus, body scan, walking meditation, guided imagery, progressive muscle relaxation. Stretching techniques that are taught include standing and mat-based approaches. INDIVIDUAL TIME 15-30 minutes of individual treatment time with the OT and PT. MEDICAL APPOINTMENTS (Meeting with JIMMY/MD) Two 25 minute individual clinic visits with a medical provider to discuss progress, concerns and individuals status, goals, and plan. These happen in the first week of program to discuss overall plan, and at approximately the midway point of the program to discuss any concerns that may arise. PAIN EDUCATION SERIES All discussions are 1 hour and led by Leonel The latest research shows that the more you know about pain and how it works, the better off you'll be. This includes moving and functioning better, experiencing less pain, and having an increased ability and interest in healthy exercise and movement. This knowledge is essential to your recovery, and r yosvany has shown that anyone can understand it, so welcome to Pain Neuroscience. Led by our clinical pain psychologist, these group discussions are designed to educate patients on pain neuroscience, coping skills and how to manage pain stressors in their lives. All patients are encouraged to participate in the group discussion as they feel comfortable. The objective is to help patients understand that they are not alone in their feelings and pain situations. Group discussions allow connections to be made with the pain psychologist as well as other group members allowing a supportive environment for all. 1. Why Things Hurt - Introduction to basic pain neuroscience. Learn what is happening in your tissues, nerves, and brain to create pain. 2. History of Pain and Its Treatment - How do we know what we know about pain, and if we know so much - why are you still in pain? This will explain some of the mysteries of pain. 3. The Auk-Xsnpsf-Xevjbg Model of Pain and Multidisciplinary Treatment - Understanding and treating pain from a comprehensive, multidisciplinary approach is the gold standard of care. Studies have shown that understanding and viewing chronic pain though a biopsychosocial lens is a critical component of success in a program like this. 4. Things That Make Pain Worse - Learn how habitual thoughts, emotions, and behaviors can actually turn the volume up on pain. 5. Mindfulness Meditation and Chronic Pain - Learn the rationale for a daily meditation practice jeannie little bit about the health benefits of meditation. 6. Things That Make Pain Better - Take all the information and skills that you've learned so far andput together a program that reduces pain flares and gets you back engaged with your life. 7. Sleep and Chronic Pain - If you're not moving and you're not sleeping, you're not going to feel better. Learn to improve sleep habits even if you still have pain. 8. Don't Let Pain Ruin Your Relationships - Help your family and friends better understand your painand support your new healthy habits. 9. Pulling It All Together - How to maintain new habits at home, and how to manage relapses and flare-ups. MEDICAL DISCUSSIONS All discussions are 1 hour and led by MD/JIMMY Interactive group discussions are designed to educate, motivate, and empower the patients to self-manage their pain and accompanying medical co-morbidities. Topics covered: 1. FUNCTIONAL BUDDHIST & GOAL SETTING ??? Interactive exercises to demonstrate the difficulties in assessing and understanding another person's pain. ??? The learning model of reacting to pain by limiting activity is reviewed, leading to a discussionof the development of safe training methods that are gradually progressive and goal- and quota-basedrather than symptom-reactive. Importance of maintaining physical gains after rehabilitation by committing to a more active lifestyle is stressed. ??? The complex relationship between pain and function is discussed in the context of underlying beliefs and expectations and how these may dramatically affect recovery and the individuals' ability to get what they want from treatment. Practical application of these issues to the individual's situation is stressed. 2. ANATOMY, IMAGING, SURGICAL DECISION MAKING, MEDICATIONS ??? Topics covered: Importance of the History, Physical Examination, and Imaging studies. Solving the Mystery: Where is the Pain Coming From? Defines anatomy and possible pain generators in the back. Some thoughts and explanations for the failure to improve: What's known, what's not ??? This also includes listing all the patients' current and prior chief complaint-related medications, placing each in its pharmacological category. The personal experiences of the patients in terms of side effects and benefits are reviewed and discussed with references to the biochemical and clinical effects of the drugs. The lack of curative impact of these medications is stressed. The difficulties in determining optimal doses for analgesics are discussed in the context of the varying needs of patients and regulatory issues involved. The importance of prescribing in the framework of functional goals is reviewed as opposed to focusing entirely on symptom relief. 3. CHRONIC PAIN & THE NERVOUS SYSTEM ??? Reviews basic neuro anatomy and the relationship between pain and cognitive states, as well as the concept of central sensitization. A discussion regarding coping skills such as meditation, mindfulness and cognitive restructuring is discussed. 4. LIFESTYLE AND WELLNESS ??? The purpose of this discussion is to identify modifiable and non-modifiable factors that influence health and wellness. Focus on defining wellness and health, discussing non-modifiable risk factorsof morbidity and mortality vs. modifiable factors. Discussion of strategies for maximal management of non- modifiable factors. Includes diet, nutrition information, exercise recommendations, sleep and stress management. All participants encouraged to participate and share helpful coping strategies. SUPPLEMENTAL DISCUSSIONS by FRP staff IMPROVEMENT NURSE, PT, OT, SCHWARZ/MILLED RICE BROKER as needed 1. JOB HUNTING ??? A review of job seeking skills and hints to use after an injury and rehabilitation. Includes topics such as employer's obligations, your obligations, vocational rehabilitation, resume and cover letter writing, application process and writing. There is also an extensive discussion of the Americans with Disabilities Act. 2. WORKERS COMPENSATION & INSURANCE This will be provided asynchronously via telehealth recording. ??? This lecture provides a detailed description of the benefits, known criteria, application and review process for (6) most common types of disability; Workers Compensation, Short term/Nurse Practical Disability, Social Security Disability, Tort/Liability, Transfer Coordinator [place], and Medicaid. ??? During the course of the lecture patients are encouraged to share their concerns and questions as well as to elicit and dispel any myths, beliefs or assumptions they, their families, or others may have had about these resources. Further exploration of the often ensuing disappointments many patients have when recognizing the limitations of the types of disabilities as well as exploration and re-framing of the potential opportunities. ??? Concurrently, specifics of [place] (ie MMI or End Medical) for workers compensation as well as information on how impairment ratings are calculated are explored both to encourage patient planning as well as to begin to face these significant psychosocial stressors faced by patients as they end [facility] and come to plateau. Patients who are not workers compensation are also encouraged to participate in this conversation as part of a therapeutic review of understanding their fellow participants and the challenges faced by others. FUNCTIONAL BUDDHIST PROGRAM (FRP) DAILY PROTOCOL OVERVIEW: FRP consists of 19* days of interdisciplinary treatment and patients are in the clinic each day from 8 am to 3 pm. Individual meeting times with PT, OT, Medical Providers and Care Management occur at multiple points during the FRP. *Occasionally the # of program days may be changed to as few as 14 or as many as 20 due to staffing limitations [facility] Protocol Day 1 - Testing PT Evaluation (45 minutes) OT Evaluation (45 minutes) JIMMY Evaluation (45 minutes) Care Management meeting as needed (30-45 minutes) PsyD meeting as needed (45-60 minutes) Orientation and additional testing as needed (0.5-1 hour) Day 2 - Orientation Stretch, Strengthening and Aerobics Class (1 hour) Strengthening and Cardiovascular Exercise (1 hour) Functional Conditioning (1 hour) Mindfulness and Self-Care Planning Introduction - OT (1 hour) Functional Conditioning (1 hour) Walk/Unguarded Activity, Mindfulness/Relaxation and Stretching (1 hour) Meeting with JIMMY (25 minutes) - happens within first 2-5 days of program Day 3 Stretch, Strengthening and Aerobics Class (1 hour) Strengthening and Cardiovascular Exercise (1 hour) Functional Conditioning (1 hour) Medical Discussion (60 minutes) Functional Conditioning (1 hour) Walk/Unguarded Activity, Mindfulness/Relaxation and Stretching (1 hour) Day 4 Stretch, Strengthening and Aerobics Class (1 hour) Strengthening and Cardiovascular Exercise (1 hour) Functional Conditioning (1 hour) Medical Discussion (60 minutes) Functional Conditioning (1 hour) Walk/Unguarded Activity, Mindfulness/Relaxation and Stretching (1 hour) Day 5 Stretch, Strengthening and Aerobics Class (1 hour) Strengthening and Cardiovascular Exercise (1 hour) Functional Conditioning (1 hour) Pain Neuroscience Education Discussion (60 minutes) Functional Conditioning (1 hour) Walk/Unguarded Activity, Mindfulness/Relaxation and Stretching (1 hour) Day 6 Stretch, Strengthening and Aerobics Class (1 hour) Strengthening and Cardiovascular Exercise (1 hour) Functional Conditioning (1 hour) Pain Neuroscience Education Discussion (60 minutes) Functional Conditioning (1 hour) Walk/Unguarded Activity, Mindfulness/Relaxation and Stretching (1 hour) Day 7 Stretch, Strengthening and Aerobics Class (1 hour) Strengthening and Cardiovascular Exercise (1 hour) Functional Conditioning (1 hour) Pain Neuroscience Education Discussion (60 minutes) Functional Conditioning (1 hour) Walk/Unguarded Activity, Mindfulness/Relaxation and Stretching (1 hour) Day 8 Stretch, Strengthening and Aerobics Class (1 hour) Waddy Testing (60 min) Strengthening and Cardiovascular Exercise (30 minutes) Functional Conditioning (30 minutes) Self-Care Plan Development - OT (60 minutes) Functional Conditioning (1 hour) Walk/Unguarded Activity, Mindfulness/Relaxation and Stretching (1 hour) Day 9 Stretch, Strengthening and Aerobics Class (1 hour) Strengthening and Cardiovascular Exercise (1 hour) Functional Conditioning (1 hour) Meeting with JIMMY (25 minutes) - Waddy review Medical Discussion (60 minutes) Functional Conditioning (1 hour) Walk/Unguarded Activity, Mindfulness/Relaxation and Stretching (1 hour) Day 10 Stretch, Strengthening and Aerobics Class (1 hour) Strengthening and Cardiovascular Exercise (1 hour) Functional Conditioning (1 hour) Pain Neuroscience Education Discussion (60 minutes) Functional Conditioning (1 hour) Walk/Unguarded Activity, Mindfulness/Relaxation and Stretching (1 hour) Day 11 Stretch, Strengthening and Aerobics Class (1 hour) Strengthening and Cardiovascular Exercise (1 hour) Functional Conditioning (1 hour) Pain Neuroscience Education Discussion (60 minutes) Functional Conditioning (1 hour) Walk/Unguarded Activity, Mindfulness/Relaxation and Stretching (1 hour) Day 12 Stretch, Strengthening and Aerobics Class (1 hour) Strengthening and Cardiovascular Exercise (1 hour) Functional Conditioning (1 hour) Pain Neuroscience Education Discussion (60 minutes) Functional Conditioning (1 hour) Walk/Unguarded Activity, Mindfulness/Relaxation and Stretching (1 hour) Day 13 Stretch, Strengthening and Aerobics Class (1 hour) Strengthening and Cardiovascular Exercise (1 hour) Functional Conditioning (1 hour) Self-Care Plan Development - OT (60 minutes) Functional Conditioning (1 hour) Walk/Unguarded Activity, Mindfulness/Relaxation and Stretching (1 hour) Day 14 Stretch, Strengthening and Aerobics Class (1 hour) Strengthening and Cardiovascular Exercise (1 hour) Functional Conditioning (1 hour) Medical Discussion (60 minutes) Functional Conditioning (1 hour) Walk/Unguarded Activity, Mindfulness/Relaxation and Stretching (1 hour) Day 15 Stretch, Strengthening and Aerobics Class (1 hour) Strengthening and Cardiovascular Exercise (1 hour) Functional Conditioning (1 hour) Pain Neuroscience Education Discussion (60 minutes) Functional Conditioning (1 hour) Walk/Unguarded Activity, Mindfulness/Relaxation and Stretching (1 hour) Day 16 Stretch, Strengthening and Aerobics Class (1 hour) Strengthening and Cardiovascular Exercise (1 hour) Functional Conditioning (1 hour) Pain Neuroscience Education Discussion (60 minutes) Functional Conditioning (1 hour) Walk/Unguarded Activity, Mindfulness/Relaxation and Stretching (1 hour) Day 17 Stretch, Strengthening and Aerobics Class (1 hour) Strengthening and Cardiovascular Exercise (1 hour) Functional Conditioning (1 hour) Pain Neuroscience Education Discussion (60 minutes) Functional Conditioning (1 hour) Walk/Unguarded Activity, Mindfulness/Relaxation and Stretching (1 hour) Day 18 Stretch, Strengthening and Aerobics Class (1 hour) Final Testing (2 hours) Strengthening and Cardiovascular Exercise (1 hour) Functional Conditioning (1 hour) Walk/Unguarded Activity, Mindfulness/Relaxation and Stretching (1 hour) Day Stretch, Strengthening and Aerobics Class (1 hour) Strengthening and Functional Conditioning (1 hour) Individual Discharge Meeting with MD/JIMMY and FRP team (25 minutes) Graduation and Final D/C information (20 minutes) documented in this encounter Plan of Treatment Not on filedocumented as of this encounter Visit Diagnoses Diagnosis Chronic left-sided low back pain with le ft-sided sciatica documented in this encounter Care Teams Body Finisher Relationship Specialty Start Date End Date Love Dupont APRN PCP - General Family Medicine 04/08/20 [address] [place] [address] documented as of this encounter
--- OUTSIDE RECORDS SUMMARY | 2022-05-22 00:23 | XMS_ITS | Encounter Summary ---
:1965 Author Organization [facility] [place] [address] Care Team Providers Name Role Phone Love Dupont APRN Primary Care Provider Encounter Details Date Type Department Care Team Description 10/15/2021 Travel Social History Tobacco Use Types Packs/Day Years [...] on filedocumented in this encounter Care Teams Nitro Worker Relationship Specialty Start Date End Date Love Dupont APRN PCP - General Family Medicine 04/08/20 [address] [place], [place] [address] documented as of this encounter
--- OUTSIDE RECORDS SUMMARY | 2022-05-22 00:23 | XMS_ITS | Encounter Summary ---
:1965 Author Organization [facility] Address [address] [place] [address] Care Team Providers Name Role Phone Love Dupont CAKE PUNCHER Primary Care Provider Encounter Details Date Type Department Care Team Description 10/14/2019 Results Only Imaging [facility] - Timmy Lennon [facility] Cardiology Clin ic MD Theo [address] [facility] [address] [place], [place] [address] [place] [address] [phone] (Wo rk) Social History Tobacco Use Types Packs/Day Years Used Date Never Assessed Sex Assigned at Date Recorded Not on file documented as of this encounter Plan of Treatment Not on filedocumented as of this encounter Procedures Procedure Name Priority Date/Time Associated Diagnosis Comme nts XR CHEST 2 VIEWS 10/14/2019 12:49 EST Res ults for this procedure are i n the results section. EKG 12-LEAD 10/14/2019 10:52 EST Results for this procedure are i n the results section. documented in this encounter Results XR CHEST 2 VIEWS (10/14/2019 12:49 EST) Specimen Narrative [facility] - 10/14/2019 12:49 EST ? EXAM: RADIOLOGY/CHEST PA ?? LAT ?EX. D/ (1138) ? CLINICAL INFORMATION: ? chest pain ? PROCEDURE INFORMATION: ? Exam: XR Chest, 2 Views ? Exam date and time: 10/14/2019 10:3 4 AM ? Age: 54 years old ? Clinical indication: Chest pain ? TECHNIQUE: ? Imaging protocol: XR of the chest ? Views: 2 views. ? COMPARISON: ? No relevant prior studies availab le. ? FINDINGS: ? Lungs: Unremarkable. No consolida tion. ? Pleural space: Unremarkable. No p leural effusion. No ? pneumothorax. ? Heart/Mediastinum: Unremarkable. No cardiomegaly. ? Bones/joints: Unremarkable. ? IMPRESSION: ? No acute findings. ? REPORT SIGNED IN OTHER VENDOR SYSTEM 10/14/2019 ?Reported B y: Eh Brennan MD ? CC: Patrick Lennon MD ? Transcribed Date/Time: 10/14/2019 (1249) ? Administrative Law Judge: ? Printed Date/Time: 10/14/2019 (12 49) ? PAGE 1 ? Roxana d Report ? Procedure Note Eh Brennan MD - 10/14/2019 EXAM: RADIOLOGY/CHEST PA LAT EX. D/T: 0 10/14/2019 (1138) CLINICAL INFORMATION: chest pain PROCEDURE INFORMATION: Exam: XR Chest, 2 Views Exam date and time: 10/14/2019 10:34 AM Age: 54 years old Clinical indication: Chest pain TECHNIQUE: Imaging protocol: XR of the chest Views: 2 views. COMPARISON: No relevant prior studies available. FINDINGS: Lungs: Unremarkable. No consolidation. Pleural space: Unremarkable. No pleural effusion. No pneumothorax. Heart/Mediastinum: Unremarkable. No car diomegaly. Bones/joints: Unremarkable. IMPRESSION: No acute findings. REPORT SIGNED IN OTHER VENDOR SYSTEM 10/14/2019 Reported By: Eh Brennan MD CC: Patrick Lennon MD Transcribed Date/Time: 10/14/2019 (8159 ) Administrative Law Judge: Printed Date/Time: 10/14/2019 (6391) PAGE 1 Signed Report Performing Organization Address City/State/ZIP Code Phon e Number [facility] EKG 12-LEAD (10/14/2019 10:52 EST) Specimen Narrative [facility] - 020 10:52 EST ? [facility] ? Test Date: ?2019-10-14 10:52:06 Pat Name: ? CARO ROXI ?Department: ?Room: ? Gender: ? F ?Medical Staff Services Coordinator: ?? BG : ?1965 ? Requested By: Order Number: ?Elba LOVELL: ?? Natividad Narvaez MD ? Measurements Intervals ?[place] ? Rate: ? 84 ? P: ?75 OR: ? 128 ?QRS: ?43 QRSD: ? 92 ? T: ?9 QT: ? 382 ? QTc: ?451 ? Interpretive Statements Normal sinus rhythm Possible Left atrial enlargement Nonspecific ST abnormality Abnormal ECG No previous ECG available for comparison Electronically Signed On 10-14-2019 10:49: 03 EST by Natividad Narvaez MD [email or web address] Procedure Note Natividad Narvaez MD - 10/14/2019 [facility] Test Date: 2019-10-14 10:52:06 Pat Name: CARO MENDEZ Department: Room: Gender: F Medical Staff Services Coordinator: [facility] : 1965 Requested By: Order Number: Reading MD: Natividad quintero MD Measurements Intervals [place] Rate: 84 P: 75 OR: 128 QRS: 43 QRSD: 92 T: 9 QT: 382 QTc: 451 Interpretive Statements Normal sinus rhythm Possible Left atrial enlargement Nonspecific ST abnormality Abnormal ECG No previous ECG available for comparison Electronically Signed On 10-14-2019 10:49: 03 EST by Natividad Narvaez MD [email or web address] Performing Organization Address City/State/ZIP Code Phon e Number [facility] [address] [place] [address] [facility] documented in this encounter Visit Diagnoses Not on filedocumented in this encounter Care Teams Sustainability Purchasing Agent Relationship Specialty Start Date End Date Love Dupont, CAKE PUNCHER PCP - General 09/06/19 [address] [place] [phone] documented as of this encounter
--- OUTSIDE RECORDS SUMMARY | 2022-05-22 00:23 | XMS_ITS | Encounter Summary ---
:1965 Author Organization [facility] [place] [address] Care Team Providers Name Role Phone Love Dupont Ethan RAMSEY Primary Care Provider Encounter Details Date Type Department Care Team Description 03/31/2022 Telephone Functional Anabaptism Program Yonny Duval, MAP MOUNTER at [facility] [address] [place] [phone] Social History Tobacco Use Types Packs/Day [...] this encounter Miscellaneous Notes Telephone Encounter - Leonie Duval, MAP MOUNTER - 04/03/2022 9:57 AM EDT Returned call to patient who left voicemail in which she expressed desire to return to Functional Anabaptism Program in May. Verified with Rocio Enciso PsyD, about the requirements for her return to [facility] and that I could inquire about the progress made on them. I called Caro back to: let her know that to my knowledge the May program was full and unavailable at this time, but that I'd check with EZEKIEL Archuleta Coordinator. Inquired about status of dermatological concerns and if this situation had stabilized after consultation with either Dermatology or the bird trapper at [facility]. She reported that she has an appointment with Dermatology in 2 days through [facility], and she has an appointment scheduled with the bird trapper (2nd op inion) on 04/16. She said she could send the records of this appointment to us. I reported that I'd verify the potential for May program availability and return a call to her. documented in this encounter Plan of Treatment Not on filedocumented as of this encounter Visit Diagnoses Not on filedocumented in this encounter Care Teams Residential Life Director Relationship Specialty Start Date End Date Love Dupont APRN PCP - General Family Medicine 04/08/20 [address] [place] [address] documented as of this encounter
--- OUTSIDE RECORDS SUMMARY | 2022-05-22 00:23 | XMS_ITS | Encounter Summary ---
:1965 Author Organization [facility] [place] [address] Care Team Providers Name Role Phone Love Dupont BRAULIO Primary Care Provider Encounter Details Date Type Department Care Team Description 10/29/2021 Telephone Dermatology at [facility] Dinah Rojas MD [address] [phone] [facility] [phone] [employer], [place] [address] (Wo rk) Social History Tobacco [...] this encounter Miscellaneous Notes Telephone Encounter - Dinah Rojas MD - 10/29/2021 3:07 PM EST Please see patient message. Telephone Encounter - Rebecca Sanders - 10/29/2021 11:27 AM EST Caro Mendez called to ask that you please send a referral to [facility] to Infectious Disease. Best number to reach the patient back is [phone]. documented in this encounter Plan of Treatment Not on filedocumented as of this encounter Visit Diagnoses Not on filedocumented in this encounter Care Teams Manager Product Management Relationship Specialty Start Date End Date Love Dupont APRN PCP - General Family Medicine 04/08/20 [address] [place] [address] documented as of this encounter
--- OUTSIDE RECORDS SUMMARY | 2022-05-22 00:23 | XMS_ITS | Encounter Summary ---
:1965 Author Organization [facility] Address [address] [place] [address] Care Team Providers Name Role Phone Love Dupont FOAMING MACHINE OPERATOR Primary Care Provider Encounter Details Date Type Department Care Team Description 10/14/2019 Results Only [facility] Patrick Lennon, [address] [place] [phone] (Wo rk) Social History Tobacco Use Types Packs/Day Years Used Date Never Assessed Sex Assigned at Date Recorded Not on file documented as of this encounter Plan of Treatment Not on filedocumented as of this encounter Procedures Procedure Name Priority Date/Time Associated Comments Diagnosis COMPLETE BLOOD COUNT Routine 10/14/2019 10:25 Res ults for this WITH DIFFERENTIAL EST procedure are in (AUTO) the results section. TROPONIN I Routine 10/14/2019 10:25 Results for this EST procedure are i n the results section. MAGNESIUM Routine 10/14/2019 10:25 Results for this EST procedure are i n the results section. COMPREHENSIVE Routine 10/14/2019 10:25 Results fo r this METABOLIC PANEL (CMP) EST proced ure are in the results section. documented in this encounter Results TROPONIN I (10/14/2019 10:25 EST) Troponin I <0.034 0.000 - [facility] (ng/mL) Comment: 0.034 ng/mL [facility] Interpretation comments: ??Cutoff for a positive troponin result is set at the 99th percentile of the upper reference limit. ??Elevated troponin must always be interpreted in the context of the clinical presentation. ?Serial troponin testing 3-6 hr from baseline is fav ored over relying on a single troponin level. ?? The results of this assay can be falsely lowered d ue to the consumption of Biotin. Specimen Performing Organization Address City/[facility]/ZIP Code Phon e Number [facility] [address] [place] [address] [facility] MAGNESIUM (10/14/2019 10:25 EST) Pathologist Sig nature Magnesium 1.80 1.7 - 2.8 mg/dL [facility] Specimen Performing Organization Address City/[facility] Code Phon e Number [facility] [address] [place] [address] [facility] (ABNORMAL) COMPREHENSIVE METABOLIC PANEL (CMP) (10/14/2019 10:25 EST) ALBUMIN - [facility] 4.5 3.4 - 4.9 [facility] g/dL [facility] ALKALINE 82 38 - 126 U/L [facility] PHOSPHATASE [facility] BILIRUBIN TOTAL 0.3 0.2 - 1.3 [facility] mg/dL [facility] BUN - [facility] 8 (L) 10 - 26 mg/dL [facility] CALCIUM - [facility] 9.8 8.5 - 10.5 [facility] mg/dL [facility] Chloride 99 96 - 110 [facility] mmol/L [facility] CO2 Total 28 22 - 32 mEq/L [facility] CREATININE 0.62 0.52 - 1.04 [facility] mg/dL [facility] eGFR >60 [facility] Comment: [facility] Chronic renal impairment is defined as GFR <60 Multiply result by 1.210 for patients . eGFR calculated using the IDMS-traceable MDRD Study Equation. ??(effective 07/09/2014) Anion Gap 8 0 - 18 [facility] GLUCOSE - [facility] 86 70 - 100 [facility] mg/dL [facility] Potassium 3.8 3.5 - 5.0 [facility] mEq/L [facility] Sodium 135 (L) 136 - 145 [facility] mEq/L [facility] TOTAL PROTEIN - 7.8 6.2 - 8.2 [facility] gm/dL [facility] SGOT/AST - [facility] 32 14 - 36 U/L [facility] SGPT/ALT - [facility] 24 0 - 35 U/L [facility] Specimen Performing Organization Address City/State/ZIP Code Phon e Number [facility] [address] [place] [address] [facility] COMPLETE BLOOD COUNT WITH DIFFERENTIAL (AUTO) (10/14/2019 10:25 EST) Pathologist Sig nature Gran # 3.3 2.2 - 8.85 [facility] 10e3/uL [facility] BASO # - CV 0.02 0.01 - 0.11 [facility] 10e/uL [facility] BASO % - [facility] 0 0 - 2 % [facility] EOS # - CV 0.09 0.03 - 0.61 [facility] 10e3/ul [facility] EOS % - [facility] 2 0 - 5 % [facility] GRAN % - [facility] 53.9 40 - 80 % [facility] HEMATOCRIT - [facility] 35.2 34.9 - 44.4 % [facility] HEMOGLOBIN - [facility] 11.6 11.6 - 15.2 g/dl [facility] IG# - [facility] 0.01 0 - 0.7 10e3/uL [facility] IG% - MC 0.2 0 - 0.9 % [facility] LYMPH # - [facility] 2.3 1.09 - 3.3 [facility] 10e3/ul [facility] LYMPH% - [facility] 36.5 20 - 40 % [facility] MEAN CORPUSCULAR HGB - 29.7 26.7 - 33.3 pg [facility] MEAN CORPUSCULAR HGB 33.0 32.1 - 35.9 g/dL [facility] CONC [facility] MEAN CELL VOLUME - 90.0 81 - [address] [facility] MONO # - [facility] 0.5 0.1 - 0.8 [facility] 10e3/uL [facility] MONO% - [facility] 7.6 0 - 12 % [facility] PLATELET COUNT 338 141 - 377 [facility] 10e3/ul [facility] RED BLOOD COUNT - [facility] 3.91 3.86 - 5.04 [facility] ME D 10e3/ul [facility] RED CELL DISTRI WIDTH 12.1 <14.7 % [facility] WHITE BLOOD COUNT - 6.2 4.0 - 12.4 [facility] 10e3/ul [facility] LAB Specimen Performing Organization Address City/State/ZIP Code Phon e Number [facility] [address] [place] [address] [facility] documented in this encounter Visit Diagnoses Not on filedocumented in this encounter Care Teams Coremaker Floor Relationship Specialty Start Date End Date Love Dupont, FOAMING MACHINE OPERATOR PCP - General 09/06/19 [address] [place] [phone] documented as of this encounter
--- OUTSIDE RECORDS SUMMARY | 2022-05-22 00:23 | XMS_ITS | Encounter Summary ---
:1965 Author Organization [facility] [place] [address] Care Team Providers Name Role Phone Love Dupont Ethan RAMSEY Primary Care Provider Reason for Visit Reason Comments Back Pain Encounter Details Date Type Department Care Team Description 10/16/2021 Office Visit Functional Taoism Theo Villeda back pain, Program at [facility] jay Devlin, PT non-specific [address] [place] [address] Social History Tobacco Use Types Packs/Day [...] - Therapy - Theo Villeda, PT - 10/16/2021 8:00 AM ESTSummary: [facility] Day 3 [facility] Physical Therapy Note [facility]P Day 3 Protocol Subjective: Caor returns today for a scheduled follow up appointment with [facility]; she reports surprise that she in not more sore today after yesterday's sessions. Objective: Treatment Received: Refer to [facility] protocol for explanation of program/physical therapy details. 1. Therapeutic and Functional Exercise: See [facility] flow sheets for progression. Strengthening and conditioning designed according to personal functional recovery goals and [facility] protocol was: (x) Completed ( ) Not completed 2. Home Exercise Program: Reviewed and modified current home exercise program. The Home Exercise Program was: (x) Unchanged ( ) Modified 3. Neurological Assessment: (x) No change in status ( ) Change in status 4. Stretching and Relaxation Training Sessions: (x) Completed ( ) Not completed Cueing provided throughout exercises to improve quality of performance. Integration of cues mildly successful. Assessment: Caro is progressing as planned with quota based training. She shows significantly improved comfort with all movements and activities with regards to balance, performance, and pain behaviors. Weights already being progressed appropriately where possible, and this was tolerated without incr eased complaints. Exercises increased to two sets of each today, so expectation of soreness discussed for tomorrow. Plan: Return for follow up with [facility] per protocol. Length of visit: Participated in program physical activity from 8:00 a.m. through 3:00 p.m. today. During that time, a total of 60 minutes was spent to develop, monitor, and progress individualized physical therapy strategies. documented in this encounter Plan of Treatment Not on filedocumented as of this encounter Visit Diagnoses Diagnosis Low back pain, non-specific documented in this encounter Care Teams Setter Automatic Spinning Lathe Relationship Specialty Start Date End Date Love Dupont, DRAFTER HEATING AND VENTILATING PCP - General Family Medicine 04/08/20 [address] [place] [address] documented as of this encounter
--- OUTSIDE RECORDS SUMMARY | 2022-05-22 00:23 | XMS_ITS | Encounter Summary ---
:1965 Author Organization [facility] [place] [address] Care Team Providers Name Role Phone Love Dupont Ethan RAMSEY Primary Care Provider Reason for Visit Reason Comments Back Pain Encounter Details Date Type Department Care Team Description 05/04/2022 Office Visit [facility] [place] Low back pain, Program at [facility] Navya Devlin OT non-specific [address] [place] [address] Social History Tobacco Use Types Packs/Day [...] Initial Evaluation - Navya Peter OT - 05/04/2022 9:30 AM EDT GOALS AND PHYSICAL CAPACITIES ASSESSMENT Ms. Mendez [facility] assist with determining candidacy for admission into the [facility]. Ms. Mendez reports that the chief complaint requiring rehabilitation is low back pain radiating into left hip and leg, some tingling in left foot. Anatomic diagnoses have included sacroiliac joint dysfunction, bursitis in left hip. Prior treatments included physical therapy, injections, tylenol, gabapentin, chiropractic, heat, ice and water therapy. Further diagnostic testing is not planned. Additional medical procedures are not planned. Dentist appointment May 27, 2022 at 10am. Activity limiting health problems include history of PTSD, panic disorder, anemic (iron pills and vitamin C) Current work status: Out of Work Employer: [email or web address]. Job Title: [employer] Academic Affairs Dean DOI: 05/23/2019 She reports there is an active worker's compensation claim and/or there is a personal injury claim associated with this injury. She reports an office professionals is involved. Currently working with vocational rehabilitation counselor, Clemente Torres. She reports she just received a certificate from a work readiness program, involving classes every Wednesday, working in different occupations. Taking a universal class online for [employer]. She is also working with Tre Bey another Vocational Rehabilitation Counselor through her paid intern. She reports Tre obtained a computer and printer for her, working on her resume. She reports she has applied for some jobs in nearby hospitals. 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 PHYSICAL EVALUATION Resting Vital Signs: BP 137/77 HR 72 Gait: normal. AROM (degrees): Lumbar Spine Forward bend (0-90) 60 Backward bend (0-30) 10 SLR Right (0-90) 20 SLR Left (0-90) 15 SLR-Pelvic Motion [smallest SLR - (flex + ext)] 10 Cervical Spine Flexion (0-60) 30 Extension (0-50) 25 Rot. Right (0-80) 40 Rot. Left (0-80) 40 Lat. Flex Right (0-45) 20 Lat. Flex Left (0-45) 15 Endurance Testing: Modified Ramp Treadmill Test Minutes Completed 3:00 % Grade 10 Speed (mph) 1.7 MET/HR Reason for Stop Point: Left hip pain and low back pain Functional Strength Testing: PILE Testing lbs/HR Floor To Waist Waist to Shoulder Reason for Stop Point: Pinching sensation on left side and some low back pain with waist to shoulder lifting. During physical testing, participation level cooperative and consistent. Demand Levels of Functional Recovery Goals Current Capacity Limit / Physical Demand Level (PDL) Vocational: Sedentary Recreational: Light Daily Living: Medium Sedentary The PDL listed above is based on today's physical performance screening tests. More comprehensive physical testing integrated with clinical findings would be required to derive an accurate work capacity. ASSESSMENT OF FUNCTIONAL TESTING: Based on today???s physical capacity findings Caro Mendez is a candidate for a multidisciplinary intensive physical rehabilitation program with behavioral support. There are physical limitations in gait, range of motion, walking endurance, functional strength, and overall physical capacities that interfere with basic functional tasks and hinder quality of life. I believe that this can improve with functional rehabilitation. PLAN: Pending medical clearance, Caro has been recommended for the upcoming [facility] ([facility]) that includes 3-4 weeks of intensive PT/OT followed by a minimum of 6 months commitment to self care exercise for improving and maintaining physical capacities. She has concerns about potential logistical barriers that may affect her ability to participate in the intensive rehab program, so should speak with FRP social work staff prior to leaving today. She reports that has not reserved an air bnb since she is waiting worker's comp approval and waiting to seeif she would pass her GAP/Med Clearance. She reports she is planning on calling her paid intern after hermeeting with Kiera. She reported she was planning on staying in the [place] area, and we did discussbeing on time, 7:45am for program, taking supplements and bringing enough food, water. This therapist strongly advised Ms. Mendez to secure lodging nearby rather than commuting 1.5 hours/day as that will be a barrier to her progress. She should also discuss her upcoming dentist appointment on May 21, 2022 at 10am with Kiera Warren APRN. We discussed potentially moving the appointment to a later time in the day or rescheduling the appointment. Total time for testin minutes documented in this encounter Plan of Treatment Not on filedocumented as of this encounter Visit Diagnoses Diagnosis Low back pain, non-specific documented in this encounter Care Teams Academic Affairs Dean Relationship Specialty Start Date End Date Love Dupont APRN PCP - General Family Medicine 04/08/20 [address] [place] [address] documented as of this encounter
--- OUTSIDE RECORDS SUMMARY | 2022-05-22 00:23 | XMS_ITS | Encounter Summary ---
:1965 Author Organization [facility] [place] [address] Care Team Providers Name Role Phone Love Dupont BRAULIO Primary Care Provider Encounter Details Date Type Department Care Team Description 03/18/2022 Telephone Dermatology at [facility] Dinah Rojas MD [address] [facility] [address] [place] [address]DERMATOLOGY [phone] [place], [place] [address] (Wo rk) Social History Tobacco [...] this encounter Miscellaneous Notes Telephone Encounter - Blanquita Parker R - 03/18/2022 9:23 AM EDT Medication Request Who requested: Patient Medication(s): ?? mupirocin (Bactroban) 2 % Ointment (10/03/21) Pharmacy: [facility] - [place], [place] Last seen: 12/31/21 w/ Dr. Wade - Ash Psyche. RTC: 1 month for Parasitosis Follow up scheduled for: Nothing currently scheduled Comments: ?? Patient is aware it make take medical team up to three business days to process refill requests. ?? Please ask pharmacy to contact patient when medication is available for pepper picker. ?? If unable to refill medication please contact patient. Patient contact: [phone] documented in this encounter Plan of Treatment Not on filedocumented as of this encounter Visit Diagnoses Not on filedocumented in this encounter Care Teams Records Clerk Relationship Specialty Start Date End Date Love Dupont APRN PCP - General Family Medicine 04/08/20 [address] [place] [address] documented as of this encounter
--- OUTSIDE RECORDS SUMMARY | 2022-05-22 00:23 | XMS_ITS | Encounter Summary ---
:1965 Author Organization [facility] [place] [address] Care Team Providers Name Role Phone HakeemLove angela Ethan RAMSEY Primary Care Provider Encounter Details Date Type Department Care Team Description 10/20/2021 Telephone [facility] [place] Steff Andrade, SANDBLAST OR SHOTBLAST [place] [address] Social History Tobacco Use Types Packs/Day [...] Telephone Encounter - Steff Andrade MSW - 10/20/2021 11:43 AM ESTSummary: Provided attendance update to WC and Sign Erector And Repairer OFFICE of CARE MANAGEMENT CCM Radio Program Checker received a voicemail message from Ms. Mednez verbalizing concerns regarding her local lodging arrangement. Ms. Mendez stated the hotel is having an issue with her dog being there allof a sudden. She also mentioned concerns regarding the check-in and check-out times; However, therewas a poor connection in the phone line and Radio Program Checker was unable to hear the clear message. Radio Program Checker attempted to contact Ms. Mendez by phone today at ; however, she was unavailable. Radio Program Checker received a phone message stating the caller is unable to receive messages at this time. Therefore, Radio Program Checker was unable to leave a voicemail message. Radio Program Checker received a message from Functional [facility] Blacksmith Apprentice stating Ms. Mendez sent her a message through Information Assurance system stating she would not be in attendance at [facility] today; however, she plan to be in attendance tomorrow on 10/21/21. Radio Program Checker sent an email to Alanna Bajaw, Worker's Compensation Bilingual Student Tutor and Osvaldo Nelson, Sign Erector And Repairer providing updated information. Radio Program Checker will follow up with Ms. Mendez to address concerns, identify/eliminate barriers totreatment. There are no other concerns to address at this time. Steff Andrade LCSW Ms. Mendez called Radio Program Checker this afternoon and stated she will be present at [facility] tomorrow. Shestated she will follow up with her Sign Erector And Repairer, Mr. Nelson to discuss lodging concerns, as she has permanently checked out of [facility] at this time. Ms. Mendez stated lodging is not a barrier to treatment at this time, as she plan to complete the program even if I have to drive back and forth, meaning between her residence and [facility] at [facility]. Radio Program Checker verbalized understanding and there are no additional concerns to address at this time. documented in this encounter Plan of Treatment Not on filedocumented as of this encounter Visit Diagnoses Not on filedocumented in this encounter Care Teams Case Manager Specialist Relationship Specialty Start Date End Date Love Dupont APRN PCP - General Family Medicine 04/08/20 [address] [place] [address] documented as of this encounter
--- OUTSIDE RECORDS SUMMARY | 2022-05-22 00:23 | XMS_ITS | Encounter Summary ---
:1965 Author Organization [facility] Address [address] [place] [address] Care Team Providers Name Role Phone Unknown, Provider Primary Care Provider Encounter Details Date Type Department Care Team Description 11/08/2014 Results Only [facility] Tyra Beyer, STEAM TABLE ATTENDANT Laboratory Services - [address] [place] [address] [place], [place] [id number] [phone] Social History Tobacco Use Types Packs/Day Years Used Date Never Assessed Sex Assigned at Date Recorded Not on file documented as of this encounter Plan of Treatment Not on filedocumented as of this encounter Procedures Procedure Name Priority Date/Time Associated Diagnosis Comme nts PAP TEST- RESULT Routine 11/08/2014 0:00 EST Resu lts for this ONLY procedure are i n the results section. documented in this encounter Results PAP TEST- RESULT ONLY (11/08/2014 0:00 EST) Pathology Report: CYTOPATHOLOGY REPORT [facility] Reports generated via electronic interface contain estrella ginal data; SERVICES however they are lacking the format of the original re port. Caution should be taken when reading/interpreting unfo rmatted reports. Name: ? CARO MENDEZ ? Accession #: ? [id number] ? : ? 1965 (Age: 49) ??F ?Collect Da te: ? 11/08/2014 ? Location: ? [facility] ? Receive Date: ? 015 ? Provider: INEZ BEYER STEAM TABLE ATTENDANT Copy to: ? Final Report SPECIMEN ADEQUACY ? Satisfactory for Evaluation - transformation zone component present GENERAL CATEGORIZATION ? Negative for Intraepithelial Lesion or Malignan cy INTERPRETATION ? Reactive cellular jeremiah nges associated with inflammation present (includes repair). Last Menstrual Period: 10/26/14 Hormonal/Contraceptive status: Tubal ligation Specimen/Source: ??Pap Test, Cervix/Endocervix, ThinPr ep Imaging System with manual evaluation Document reviewed and electronically signed by: ? ROBY PETTY MD [facility] ? Report ??Date: 11/16/2014 15:36 HPV with Pap Test ? Date Ordered: ? 11/16/2014 ? Status: ?? Signed Out ?Date Complete: ? 11/19/2014 ? By: ??S ystem Interface ? Date Reported: ? 11/19/2014 ? Interpretation RESULT: Negative for HPV. No E6 or E7 mRNA is detected from HPV types 16,18,31,3 3,35, 39,45,51,52,56,58,59,66, and 68 by job placement counselor media cole amplification. Comments Document reviewed and electronically signed by: ? System Interface ? Report date: 11/19/2014 By the signature above, the attending physician certif ies that he/she has personally conducted a gross and/or microscopic examin ation of the described specimens and rendered or confirmed the above diagnosi s. End of Report Specimen Performing Organization Address City/State/ZIP Code Phon e Number [facility] [address] [place] [address] SERVICES documented in this encounter Visit Diagnoses Not on filedocumented in this encounter Care Teams Camera Assembler Relationship Specialty Start Date End Date Unknown, Provider, PCP - General 01/11/09 09/05/19 documented as of this encounter
--- OUTSIDE RECORDS SUMMARY | 2022-05-22 00:23 | XMS_ITS | Clinical Summary ---
:1965 Author Organization [facility] [address] Care Team Providers Name Role Phone Love Dupont Ethan RAMSEY Primary Care Provider Allergies No known active allergies Medications Medication Sig Dispensed Refills Start Date End Date Status venlafaxine (EFFEXOR) 75 Take 75 mg by 0 Active mg Tablet mouth daily. hydrOXYzine (Atarax) 25 Take 25 mg by 0 Active mg Tablet mouth 3 times daily as needed for Itching. venlafaxine (EFFEXOR-XR) 150 mg daily. 0 06/26/2020 Active 150 mg Capsule, Sust. Release 24 hr gabapentin (Neurontin) Take by mouth 0 Active 300 mg Capsule daily. Patient takes 600 mg in AM, Noon, 900 mg at Night omeprazole (PriLOSEC) 40 daily. 0 04/19/2021 Active mg Capsule, Delayed Release(E.C.) clobetasoL (TEMOVATE) Apply daily to 50 mL 2 08/22/2021 Active 0.05 % Solution affected areas on the scalp for up to 2 weeks, take 1 week off, repeat as needed. ketoconazole (NIZORAL) 2 Lather onto 120 mL 11 10/03/2021 Active % Shampoo scalp every third day in the shower. Let sit 3-5 minutes prior to rinsing. mupirocin (Bactroban) 2 Apply three 22 g 2 10/03/2021 Active % Ointment times daily to the nostrils for 1 week, then 5 times monthly for maintenance. Apply twice daily as needed to affected areas on the scalp. risperiDONE (RisperDAL) Take 1/2 tab by 30 tablet 2 01/01/2022 Active 1 mg Tablet my nightly for 7 days, then increase to 1 tab nightly Acetylcysteine 600 mg Take 1 capsule 0 03/18/2022 Active Capsule by mouth 2 times daily. celecoxib (CeleBREX) 100 TAKE ONE CAPSULE 0 03/18/20 22 Active mg Capsule BY MOUTH EVERY DAY NEEDED FOR BACK PAIN lansoprazole (PREVACID) Take 30 mg by 0 03/18/2022 Active 30 mg Capsule, Delayed mouth every Release(E.C.) morning. cholecalciferol (Vitamin Take 2,000 Units 0 03/28/20 Active D3) 1,000 unit Tablet by mouth daily. ascorbic acid (DAIANA-C Take by mouth 0 Active ORAL) daily. ferrous sulfate (IRON Take by mouth 2 0 Active ORAL) times daily. *Taking two tablets twice daily* Active Problems Problem Noted Date Psychosocial factors contributing to chronic pain 10/07 Mood disorder 10/16/2021 History of posttraumatic stress disorder (PTSD) 2021 Anxiety disorder 10/16/2021 Sacroiliac joint dysfunction of left side 09/16/2020 Overview: Added automatically from request for michael gracia [id number] Greater trochanteric bursitis of left hip 09/16/2020 Overview: Added automatically from request for michael gracia [id number] Low back pain, non-specific 09/16/2020 Overview: Added automatically from request for michael samia [id number] Piriformis syndrome of left side 09/16/2020 Overview: Added automatically from request for michael knappy [id number] Chronic low back pain 08/08/2020 Encounters Date Type Specialty Care Team Description 05/21/2022 Telephone [facility] Tiffanie Raza 05/19/2022 Telephone [facility] Tiffanie Raza 05/04/2022 Office Visit [facility] Kiera Warren C hronic left- sided low back pain with left-sided sciatica; MINER PLACER Sacroiliac join t dysfunction of left side 05/04/2022 Office Visit [facility] [place], Low back pain, Navya Devlin OT non-specific 04/29/2022 Telephone [facility] AndradeSteff albarran S, WELFARE ADMINISTRATOR 04/28/2022 Telephone [facility] AndradeSteff albarran S, WELFARE ADMINISTRATOR 04/27/2022 Telephone [facility] HemetSteff S, WELFARE ADMINISTRATOR 04/24/2022 Telephone [facility] HemetSteff S, WELFARE ADMINISTRATOR 04/03/2022 Telephone [facility] Leonie Duval, TRAVEL ACCOMMODATION INSPECTOR 03/31/2022 Telephone [facility] Leonie Duval, TRAVEL ACCOMMODATION INSPECTOR 03/18/2022 Telephone Dermatology Dinah Rojas MD from Last 3 Months Family History Medical History Relation Comments No Known Problems Father No Known Problems Mother Relation Status Comments Father Mother Social History Tobacco Use Types Packs/Day Years [...] Assigned at Date Recorded Not on file Last Filed Vital Signs Vital Sign Reading Time Taken Comments Blood Pressure 128/75 05/04/2022 10:54 AM EDT Pulse 72 05/04/2022 10:54 AM EDT Temperature 36.4 ??C (97.6 ??F) 08/07/2020 10:18 AM EST Respiratory Rate 12 10/03/2020 11:47 AM EST Oxygen Saturation 100% 12/02/2021 11:13 AM EDT Inhaled Oxygen Concentration - - Weight 60.8 kg (134 lb) 05/04/2022 10:54 AM EDT Height 154.9 cm (5' 1) 05/04/2022 10:54 AM EDT Body Mass Index 25.32 05/04/2022 10:54 AM EDT Plan of Treatment Health Maintenance Due Date Last Done Comments Covid-19 Vaccine (#1) 02/08/1972 HIV screen 1985 Hepatitis C Screening 1985 Tdap adult 1986 Tetanus vaccine 1986 HPV test 1997 PAP Smear 1997 Breast Cancer Share Decision Needed 2007 Colonoscopy 02/08/2012 Breast Cancer screening 2017 Zoster vaccine (1 of 2) 2017 Advance Directive 2022 Influenza (Flu) vaccine (1 of 1 - 05/07/2022 Influenza standard series) Diabetes Screening (HgbA1C or Glucose) 05/23/2023 0, 05/23/2020 Insurance Payer Benefit Plan / Subscriber ID Effective Dates Phone Addre ss Type Group [employer] [id number] 2019-Prese [phone] [address] [place] [place] [address] [place] [id number] 2019-Presen [phone] [address] [place] [address] [place] [id number] 2020-Pres [phone] [address] PRIMARY CARE ent [address] [facility] [id number] Guarantor Name Account Type Relation to Date of Phone Billing Patient Address Caro Mendez Personal/Famil Self 1965 [id number] [address] (Home) [place] [address] [id number] Workers Comp Employer 1965 [id number] [facility] [address] [address] [place] [address] Care Teams Armament Aircraft Mechanic Relationship Specialty Start Date End Date Love Dupont, MINER PLACER PCP - General Family Medicine 04/08/20 [address] [place], [place] [address]
--- OUTSIDE RECORDS SUMMARY | 2022-05-22 00:23 | XMS_ITS | Encounter Summary ---
:1965 Author Organization [facility] [place] [address] Care Team Providers Name Role Phone Love Dupont Ethan RAMSEY Primary Care Provider Reason for Visit Reason Comments Rash Encounter Details Date Type Department Care Team Description 11/07/2021 Office Visit Dermatology at [facility] Steven Long MD parasitosis [address] [place] [address] [facility] [place], [place] [address] Social History Tobacco Use Types [...] documented as of this encounter Progress Notes Jaylyn Smith MD - 11/07/2021 3:20 PM EST Images from the original note were not included. DEPARTMENT OF DERMATOLOGY Medical Dermatology Clinic Provider: Jaylyn Smith MD Patient's preferred name Caro Preferred contact method for results [x]??Phone []??myD-H []??Letter Detailed phone message OK? Yes Are there any other people with whom we may discuss your care? Past Medical History Date, location, treatment Melanoma No Dysplastic nevi No SCC No BCC No AKs No UV Exposure & Protection No Other relevant past medical history ?? Family History Details Melanoma No NMSC No Other relevant family history No Social History ? Pre-Procedure Screening Details Allergy to lidocaine, epinephrine, Dermabond, chlorhexidine, or adhesives Bleeding disorder or blood thinners Implanted devices (Pacemaker, defibrillator, deep brain stimulator, cochlear implant) History of Present Illness: Caro Mendez is a 56 y.o. year old. Patient returns to clinic todayfor re-evaluation of rash. Today, Angy reports that she still has scabs and black colored lesions on her scalp, neck, face, ears, and nostrils and leg creases. While she has been using Rx: Clobetasol 0.05% Solution and Rx: Mupirocin 2% Ointment, she states that they have not resolved her lesions. She endorses severe pruritus and tenderness, which she likens to the sensation of being bitten. She believes that the black lesionsare insects or parasites that are biting her, and states that she has previously brought them to [facility] [place] for inspection. Angy admits to excoriating her lesions on occasion. She also reports that she bought a battery-operated device online which she used on her legs, and which scarred her legs badly. Her PCP has prescribed Rx: Hydroxyzine 25mg, which she reports she takes twice a day for her pruritus. Angy also continues to take N-Acetylcysteine. Today she would like to discuss treatment with an oral antibiotic, which she believes might be a more comprehensive treatment. She applies Vaseline to her excoriations, which she states is helpful. Angy has been able to find a therapist in [place] and completed the new patient intake forms yesterday. Her first appointment is pending. Last visit at [facility] Derm: 10/03/2021 Last visit with this provider: 06/18/2021 Medications: Reviewed in eD-H Allergies: Reviewed in eD-H Skin Examination: Focused skin examination of the scalp, face, neck, and upper and lower extremities was normal with the exception of the findings below Assessment/Plan 1. Delusions of parasitosis, with some insight - One geometric erosion on the frontal scalp. No signs of infection on exam today. - I told Angy that she is taking the right steps by using clobetasol, Vaseline, and mupirocin for comfort, continuing to take N-Acetylcysteine, and establishing care with a therapist. I encouraged herto continue with her current treatment plan. - I instructed Angy to call our office if she needs her mupirocin or clobetasol refilled and to continue to use them for comfort. - Continue to apply Vaseline to excoriations. Other items to document in the assessment/plan if relevant ??? OTC skin products discussed RTC: 3 months for delusions of parasitosis f/u [x]Note routed to litigation secretary []Recall has been placed in scheduling system []Appointment scheduled at checkout Scribe attestation: Note initiated by Anyi Ferguson I performed the above scribed service and agree with the accuracy of the documentation in this encounter. Reviewed and signed by: Jaylyn Smith MD Dermatology [facility] Patient seen and evaluated with staff marketing strategy analyst: Aleta Guadarrama MD Dermatology [facility] Aleta Guadarrama MD - 11/07/2021 3:20 PM EST I directly supervised Dr. Smith in the care of this patient. I saw and evaluated this patient with Dr. Smith. She presented the history and physical exam details to me, then we saw the patient together and I confirmed these findings. I agree with details as written. My physical examination confirms her findings. The assessment and plan were formulated in discussion with me at the time of visit and I agree with them as documented. ALETA GUADARRAMA MD [facility] Staff Physician documented in this encounter Plan of Treatment Not on filedocumented as of this encounter Visit Diagnoses Diagnosis Delusions of parasitosis Other isolated or specific phobias documented in this encounter Care Teams Bending Machine Set Up Operator Relationship Specialty Start Date End Date Love Dupont APRN PCP - General Family Medicine 04/08/20 [address] [place] [address] documented as of this encounter
--- OUTSIDE RECORDS SUMMARY | 2022-05-22 00:23 | XMS_ITS | Encounter Summary ---
:1965 Author Organization [facility] [place] [address] Care Team Providers Name Role Phone Love Dupont APRN Primary Care Provider Encounter Details Date Type Department Care Team Description 11/04/2021 Telephone Dermatology at [facility] Dinah Rojas MD [address] [facility] [place] [address] [place] [address]DERMATOLOGY [phone] [place], [place] [address] (Wo rk) Social History Tobacco [...] Telephone Encounter - Dinah Rojas MD - 11/04/2021 9:18 AM EST Returned call. Discussed with Love Dupont NP that have discussed with Ms. Mendez that I do not recommend referral to Infectious Disease and would recommend f/u with her therapist or other psychiatric care provider for further evaluation. Also discussed that Ms. Mendez has been seen by multiple providers in Dermatology and twice in D[facility]ology-Psychiatry Interdisciplinary [facility] with the same recommendation. Was informed that ID referral had been placed and was rejected by Infectious Disease. PCP to follow-up with Ms. Mendez for coordination of psychiatric care. Telephone Encounter - Hiral Funk - 11/04/2021 8:39 AM EST Caro Tinajero had an appointment on 10/03/21, and has a follow up appointment on 11/07/21. Love Dupont NP called regarding her treatment plan, and a referral [place] [facility] Love declined to speak to the surgical oncologist doctor, and requested that you contact her at [phone]. Thank you, Hiral documented in this encounter Plan of Treatment Not on filedocumented as of this encounter Visit Diagnoses Not on filedocumented in this encounter Care Teams Mapping Pilot Relationship Specialty Start Date End Date Love Dupont, DENTAL OFFICE ASSISTANT PCP - General Family Medicine 04/08/20 [address] [place] [address] documented as of this encounter
--- OUTSIDE RECORDS SUMMARY | 2022-05-22 00:23 | XMS_ITS | Encounter Summary ---
:1965 Author Organization [facility] [place] [address] Care Team Providers Name Role Phone HakeemLove angela Ethan RAMSEY Primary Care Provider Encounter Details Date Type Department Care Team Description 04/27/2022 Telephone Pain and Spine Centfredi odom at [facility] Steff Andrade, [place] [address] Social History Tobacco Use Types Packs/Day [...] Telephone Encounter - Steff Andrade MSW - 04/27/2022 3:02 PM EDTSummary: Attempted Phone Call OFFICE of CARE MANAGEMENT CCM Senior Net Developer attempted to contact Ms. Mendez by phone at [phone]. However, she was unavailable. Senior Net Developer received a message stating The subscriber is not accepting calls at this time. There are no other concerns to address at this time. JERICA Barrow documented in this encounter Plan of Treatment Not on filedocumented as of this encounter Visit Diagnoses Not on filedocumented in this encounter Care Teams Solid Plasterer Relationship Specialty Start Date End Date Love Dupont APRN PCP - General Family Medicine 04/08/20 [address] [place] [address] documented as of this encounter
--- OUTSIDE RECORDS SUMMARY | 2022-05-22 00:23 | XMS_ITS | Encounter Summary ---
:1965 Author Organization [facility] [address] Care Team Providers Name Role Phone Love Dupont Ethan RAMSEY Primary Care Provider Encounter Details Date Type Department Care Team Description 05/21/2022 Telephone Pain and Spine Yelena odom at [facility] [place] [place] [address] Social History Tobacco Use Types Packs/Day [...] Notes Telephone Encounter - Tiffanie Raza - 05/21/2022 10:20 AM EDT Provider Questions for Patient: Do you have any shortness of breath with activity? No Do you have any other pending medical workups or appointments? Ultrasound - stomach/pelvis, menopause @[facility] Reason for call: To determine confirmation of enrollment in the upcoming Functional [facility] Program for dates 06/16 - 07/10 Invitation Packet Received: Not Yet Sent Pain Education: Wednesday06/15/2022 2-4:30 virtually Arrival Time for Day 1: 7:45am Covid-19 Vax Status: Yesx2, Booster - Yes Schedule Cleared: yes Days unable to attend: 0 At this time we do not anticipate any hybrid participation however, in the event that you are unableto be on site or are pending a covid test result we would like to know the following information: Hybrid Capability: Able [facility] Account: Active Wifi: Yes Device: Laptop Microphone, Speaker, Camera: Yes Space free from distraction, large enough for movement: Yes Comfort Level with Technology: Fair The patient was read the following statements to ensure the same discussion for all participants: Your invitation packet contains the Hybrid Equipment Check List - please review this and make note of what you have around your home so that the team of providers know what you have available when it is time to create your home program. FRP days start at 8am, please arrive at 7:45am each day to ensure that you are ready to start at 8am. If you are late or absent for multiple days, the team may discuss discontinuing the program with you until you are able to participate fully. In light of the ever changing Covid-19 infection rate, we ask that in the week leading up to the start of program you please be aware and cautious of your activities, as it can affect you, other participants and staff members in the program. The safety of you and our staff is of utmost importance to the Functional J[facility]ism Program (FRP). documented in this encounter Plan of Treatment Not on filedocumented as of this encounter Visit Diagnoses Not on filedocumented in this encounter Care Teams Financial Institution Vice President Relationship Specialty Start Date End Date Love Dupont APRN PCP - General Family Medicine 04/08/20 [address] [place] [address] documented as of this encounter
--- OUTSIDE RECORDS SUMMARY | 2022-05-22 00:23 | XMS_ITS | Encounter Summary ---
:1965 Author Organization [facility] [place] [address] Care Team Providers Name Role Phone Love Dupont CABLE TELEVISION PROGRAM DIRECTOR Primary Care Provider Encounter Details Date Type Department Care Team Description 10/14/2021 Office Visit Functional Kiera [place], Lumbar spo ndylosis; [facility] CABLE TELEVISION PROGRAM DIRECTOR Radiculopathy of lumbar region at [place] [address] [address] [address] [place] [facility] [address] [place] [id number] [phone] Social History Tobacco Use Types Packs/Day Years [...] documented as of this encounter Progress Notes Kiera [place] APRN - 10/14/2021 9:15 AM EST Chief complaint requiring rehabilitation: back and left leg pain This is the goals and health barriers visit and note for admission to the Functional [facility] Program. The patient's current goals are : Personal Function 3 Month Goals ?? 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 Recreational:?Be able to snow shoe for 1 hour; Be able to hike and carry a pack (10-15lbs) for 1 hour.?Be able to swim for 1 hour.? Daily Living:?Be able to lift and carry heavier groceries (30-40lbs); Be able to lift and carry 40-50lb of dog food. Be able to mop and vacuum more easily; ??Be able to stand to cook a meal or bake for 1 hour. Be able to bend to bathe dog more easily.??Be able to go up and down the stairs more easily.? With these goals in mind, the following review of systems was positive as noted: Any conflicting appointments? No Chest pain: no Shortness of breath: no Palpitations: no Chronic cough: no Hypertension: no Cigarettes: quit over 10 years ago Joint pains or injuries: no Any physical problem that might worsen with exercise: no Depression: yes, under care of therapist. Has new life advisor Anxiety/PTSD: PTSD, Panic disorder Sleep problems: 4 hours per night. Difficulty falling asleep. Counseling history: New psychologist/ life advisor Alcohol: weekends may have 3 drinks Caffiene: one cup coffee per day PHYSICAL EXAM Pulse: 76 BP: 130/85 Resp/min: 20 PO2 100% Lungs: CTA bilaterally Heart:RRR, no Murmur, no Click Neuro-screen reveals:DTRs 2+ throughout. No dec sensation, Strength LExt intact, neg clonus, normal babinski Reviewed patient's medication list and updated. Patient is taking 3 different dosages of Effexor. Has been taking same dose X 4 years. Has been referred to psychiatrist for dosage/medication adjustment. HEALTH BARRIERS TO PERSONAL GOALS with PLAN for EACH: PTSD, Panic disorder--Patient to communicate with staff. Staff support, consult with Dr. Zaria yadav. Completed w/c form This was a counseling-based visit for 30 of the 45 minute encounter, discussing the goals, barrier problems and plans as outlined above. Kiera [place] APRN Nurse Practitioner Functional [facility] Program documented in this encounter Plan of Treatment Not on filedocumented as of this encounter Visit Diagnoses Diagnosis Lumbar spondylosis Lumbosacral spondylosis without myelopat hy Radiculopathy of lumbar region Thoracic or lumbosacral neuritis or radi culitis, unspecified documented in this encounter Care Teams Coil Builder Relationship Specialty Start Date End Date Love Dupont APRN PCP - General Family Medicine 04/08/20 [address] [place] [address] documented as of this encounter
--- OUTSIDE RECORDS SUMMARY | 2022-05-22 00:23 | XMS_ITS | Encounter Summary ---
:1965 Author Organization [facility] [place] [address] Care Team Providers Name Role Phone HakeemLove angela Ethan RAMSEY Primary Care Provider Encounter Details Date Type Department Care Team Description 04/29/2022 Telephone Pain and Spine Centfredi odom at [facility] Steff Andrade, [place] [address] Social History Tobacco Use Types Packs/Day [...] Telephone Encounter - Steff Andrade MSW - 04/30/2022 10:37 AM EDTSummarina: Phone Call OFFICE of CARE MANAGEMENT CCM Ms. Mendez returned Electronic Equipment Repairmen's call and provided her updated phone number as . Ms. Mendez verbalized her interest in attending Functional [facility] Program from 05/12-. Ms. Mendez stated she plan for Workers' Compensation program to pay for her participation in the Functional [facility] Program. Electronic Equipment Repairmen discussed the turn-around time for Workers' Comp having to process her request for the May program, pending Medical clearance. Electronic Equipment Repairmen and Ms. Mendez also discussed lodging options. Ms. Mendez stated she plan to reserve an [employer] for lodging, if she is Medically cleared for program. She said she is still working with her Surveillance Investigator and the Surveillance Investigator has been in contact with Workers' Comp Jewelry Technician discussing payment of FRP. Ms. Mendez did not mention lodging for pets as a concern at this time. Electronic Equipment Repairmen will follow up with Ms. Mendez after her upcoming appointment on 05/04/22. There are no other concerns to address at this time. JERICA Barrow documented in this encounter Plan of Treatment Not on filedocumented as of this encounter Visit Diagnoses Not on filedocumented in this encounter Care Teams Filament Cutter Relationship Specialty Start Date End Date Love Dupont APRN PCP - General Family Medicine 04/08/20 [address] [place] [address] documented as of this encounter
--- OUTSIDE RECORDS SUMMARY | 2022-05-22 00:23 | XMS_ITS | Encounter Summary ---
:1965 Author Organization [facility] [place] [address] Care Team Providers Name Role Phone Love Dupont Ethan RAMSEY Primary Care Provider Reason for Visit Reason Comments Back Pain Encounter Details Date Type Department Care Team Description 10/15/2021 Office Visit Functional Druze Leonie Duval, Low back pain, Program at [facility] IMMUNOLOGY SPECIALIST non-specific [address] [place] [address] Social History Tobacco Use Types Packs/Day [...] encounter Miscellaneous Notes Treatment - Therapy - Leonie Duval, IMMUNOLOGY SPECIALIST - 10/15/2021 8:00 AM EST FRP Physical Therapy Note FRP Day 2 Protocol Subjective: Caro returns today for a scheduled follow up appointment with FRP; she reports that she is wondering if she'll have a bad pain flare-up from some of the new activity she's doing. Objective: Treatment Received: Refer to [facility] protocol for explanation of program/physical therapy details. 1. Therapeutic and Functional Exercise: See [facility] flow sheets for progression. Strengthening and conditioning designed according to personal functional recovery goals and [facility] protocol was: (x) Completed ( ) Not completed 2. Home Exercise Program: Outlined evening routine to compliment program activity. Recommended alternating lower trunk rotation hook-lying, forward bend standing, and backward bend standing x 10 repetitions each along with going for a walk at least 10 minutes duration. 3. Neurological Assessment: (x) No change in status ( ) Change in status Established form and initial resistance levels for strength training components. Assessment: Caro is progressing as planned with quota based training. She requires verbal and tactile cues for proper form with exercises as she is learning and wants very much to make sure that she's doing them correctly. She demonstrates good comprehension of today's functional strengthening principles and initial exercise protocols. She actively participated with initiation of training components. Plan: Return for follow up with [facility] per protocol. Length of visit: Participated in program physical activity from 8:00 a.m. through 3:00 p.m. today. During that time, a total of 45 minutes was spent to develop, monitor, and progress individualized physical therapy strategies. documented in this encounter Plan of Treatment Not on filedocumented as of this encounter Visit Diagnoses Diagnosis Low back pain, non-specific documented in this encounter Care Teams Claim Inspector Relationship Specialty Start Date End Date Love Dupont APRN PCP - General Family Medicine 04/08/20 [address] [place] [address] documented as of this encounter
--- OUTSIDE RECORDS SUMMARY | 2022-05-22 00:23 | XMS_ITS | Encounter Summary ---
:1965 Author Organization [facility] [place] [address] Care Team Providers Name Role Phone Love Dupont Ethan RAMSEY Primary Care Provider Encounter Details Date Type Department Care Team Description 12/12/2021 Telephone Dermatology at [facility] Dinah Rojas MD [address] [facility] [place] [address] [place] [address]DERMATOLOGY [phone] [place], [place] [address] (Wo rk) Social History Tobacco [...] this encounter Miscellaneous Notes Telephone Encounter - Jasmin Almazan LPN - 12/15/2021 10:10 AM EDT Message left for patient to use vaseline until she can pickling grader her Mupirocin. Office number left if she has questions. Telephone Encounter - Kitty Plata - 12/12/2021 9:53 AM EDT Pt called and stated she is out of her:mupirocin (Bactroban) 2 % Ointment [[id number]] And cannot get another refill for 10 days. She would like a call back to let her know what she can use until she can get this refill. kitty documented in this encounter Plan of Treatment Not on filedocumented as of this encounter Visit Diagnoses Not on filedocumented in this encounter Care Teams Retail Specialist Relationship Specialty Start Date End Date Love Dupont APRN PCP - General Family Medicine 04/08/20 [address] [place] [address] documented as of this encounter
--- OUTSIDE RECORDS SUMMARY | 2022-05-22 00:23 | XMS_ITS | Encounter Summary ---
:1965 Author Organization [facility] [place] [address] Care Team Providers Name Role Phone Hakeemcoreen Love Long APRN Primary Care Provider Encounter Details Date Type Department Care Team Description 02/18/2022 TH Visit Pain and Spine Rocio Enciso Chronic l eft-sided low back pain with left-sided sciatica; (TeleHealth) Center at [facility] Psychosocial factors contributing to chr onic pain [facility] [address] [place], [place] [phone] Social History Tobacco Use Types Packs/Day Years [...] documented as of this encounter Progress Notes Rocio Enciso PsyD - 02/18/2022 10:00 AM EDT [facility] Active Pain Care, a Service of the [facility] FRP Health & Behavior Assessment - Reassessment in consideration of the program CPT Code: 45182 Name: Caro Mendez Date: 02/18/2022 Time Spent: 45 minutes Caro is a 57 y.o. female referred to FRP by Salomon Wise MD for chronic multisite pain. Seen today to discuss whether re-engagement with FRP is appropriate at this time. S/O Consideration of FRP - logistics and motivation Angy presented as relatively euthymic, with somewhat anxious affect, and somewhat disheveled. She reported that her back and leg pain were the same, and while she is able to walk her dog, but she alsohas days she is unable to get out of bed due to pain. She states that she is motivated to re-engage with FRP. She thought she got a great deal out of the boot camp thing, she felt so much better, had much better flexibility, and can see that she has worsened since her time with the program as she has not continued the exercises, and now feels like she's gotten back to where (she) was. That being said, she also thinks she got the basis of the program down. We discussed her reasons for leaving the program last time, and she acknowledged that she had not read the hotel requirements for her dog and had not realized that she was not allowed to leave the dog all day in the hotel room by itself. She states that this time, she has found an Air BNB nearby that would allow her dog to remain outside all day while she is at program, and stated that W/C had agreedthey would pay for this. She states that her dog does not bark, so there would be no concern of leaving it outside all day. Other health considerations She states that her physical health is pretty good; she recently switched to a holistic ice sculptor([facility], Phyllis Araon ND, ), and will be seeing this person for a second opinion related to her dermatological concerns. 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 Positively reinforce patient for prioritizing her health and seeking a second opinion. Angy states that her skin condition negatively impacts her ability to function. States that she also is quite fearful that she may be contagious, and is unable to pickup driver her granddaughter, leave her home, and be or around other people due to this fear. Further, she is taking a number of different supplements that she has found on the internet, such as coconut oil, herbal lotions, or shampoos; she washes her hair twice a day, rinsing her hair with apple cider vinegar. States that she can now see that she is losing her hair. We discuss the recommended treatment that has been outlined by Dermatology. She reports that everyone is telling (her) to take medicine for this, saying it's all in (her) head. She is not certain of the name of medication prescribed initially, says it's omeprazole, but then agrees it is likely olanzapine, she is not sure where the bottle of medication is in her home. She has not been taking it because she read about the side effects online, and she also is worried that she read it is for schizophrenia. This is why she is focused on getting a second opinion from the ND. I stated that it is always okay to seek a second opinion, and we also discuss the role of olanzapine and the meaning of her diagnosis. I explain that rather than interpreting that her condition is just imaginary, sometimes it helps to understand that our brain can misinterpret benign signals, leading to experiences of pain or itching that can be quite severe and long lasting. We discuss the importance of a medication like olanzapine to help the brain stop misinterpreting these signals, and that often we see this as an important treatment element rather than antibiotics or ointments because it's about the brain's interpretation rather than the signals themselves. She stated that she understood and appreciated this information, and that she felt like this was helpful. Next steps We discuss the importance of stabilizing her dermatology condition at this time; encourage her to follow up with the Patient Assistant, and following that appointment, she will be able to determine which treatment plan makes the most sense for her. Agree that if she has an undiagnosed, communicable skin condition, we would not want her participating in FRP at this time due patient safety; Also agree that her condition is distracting and distressing enough that we would want it stabilized prior to FRP engagement - even if this were to be following the treatment plan as outlined by Derm. She expressed her understanding and stated that she is motivated to engage in this care - whether with Derm or the ND. She did inquire if she could do the FRP program online at home, and I reminded her that there are parts of the program that require her to be in the gym. She expressed her understanding. We agreed on the following: ?? Angy will keep her appointment with [facility], and following this evaluation, will either engage in treatment with Derm or [facility] in order to stabilize and resolve her Derm condition to the point where she believes that she is able to be safe in the gym and also not be distracted by her skin. ?? Following stabilization/resolution of this Derm condition, Angy will contact [facility] to schedule a GAP, this will likely be in April or May at the earliest. The GAP will determine if she appropriate from a physical and medical standing to enter [facility]. ?? nAgy will be responsible for communicating this information to her brainer and anyone else in W/Cthat should be informed about our discuss and agreement today. ?? Angy will be responsible for assuring the safety and stability of her pet arrangements should she re-enter [facility]. BEHAVIORAL OBSERVATIONS Presentation: Unaccompanied, on time; Alert, oriented x 3. Appearance: Somewhat disheveled, hair thinning Behavior: Cooperative, appropriate, good eye contact. Pain Behavior: none observed Mood: Euthymic stated okay Affect: Anxious. SI/HI: No report of ideation, plan, or intent. Thought process: Appeared Linear, goal-directed, logical. No evidence of responding to internal stimuli. Speech: Normal rate, rhythm, volume. Judgment/Insight: Adequate for purpose of informed consent ASSESSMENT Diagnosis: Chronic pain Psychosocial factors affecting chronic pain Angy appears motivated to re-enter [facility] and can identify many ways that she felt better during this program. 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 Angy likely has additional MH concerns that could impede her ability to engage with FRP at this time, and it is noted that her concerns related to communicability functionally serve to allow her to stay home, whichis positively reinforcing sx related to PTSD and avoidance. The recommendation remains that she stabilize her dermatological concern, and engage in FRP at the point where she is able to participate actively with limited psychosocial distractions. PLAN See also Next Steps above. No follow up with this provider is planned at this time. ?? Angy will keep her appointment with [facility], and following this evaluation, will either engage in treatment with Derm or [facility] in order to stabilize and resolve her Derm condition to the point where she believes that she is able to be safe in the gym and also not be distracted by her skin. ?? Following stabilization/resolution of this Derm condition, Angy will contact [facility] to schedule a GAP, this will likely be in April or May at the earliest. The GAP will determine if she appropriate from a physical and medical standing to enter [facility]. ?? Angy will be responsible for communicating this information to her brainer and anyone else in W/Cthat should be informed. ?? Angy will be responsible for assuring the safety and stability of her pet- care arrangements should she re-enter FR. documented in this encounter Plan of Treatment Not on filedocumented as of this encounter Visit Diagnoses Diagnosis Chronic left-sided low back pain with le ft-sided sciatica Psychosocial factors contributing to chr onic pain Psychic factors associated with diseases classified elsewhere documented in this encounter Care Teams Optomechanical Engineer Relationship Specialty Start Date End Date Love Dupont APRN PCP - General Family Medicine 04/08/20 [address] [place] [address] documented as of this encounter
--- OUTSIDE RECORDS SUMMARY | 2022-05-22 00:23 | XMS_ITS | Encounter Summary ---
:1965 Author Organization [facility] [place] [address] Care Team Providers Name Role Phone HakeemLove angela Ethan RAMSEY Primary Care Provider Reason for Visit Reason Comments Follow-up Follow up back Encounter Details Date Type Department Care Team Description 12/02/2021 Office Visit [facility] Salomon Wise MD Sacroiliac joint dysfunction of left miguel e; at [facility] Low back pain, non-specific [facility] [place] [phone] Social History Tobacco Use Types Packs/Day Years [...] Sign Reading Time Taken Comments Blood Pressure 151/83 12/02/2021 11:13 AM EDT Pulse 66 12/02/2021 11:13 AM EDT Temperature - - Respiratory Rate - - Oxygen Saturation 100% 12/02/2021 11:13 AM EDT Inhaled Oxygen Concentration - - Weight 59 kg (130 lb) 12/02/2021 11:13 AM EDT Height 154.9 cm (5' 1) 12/02/2021 11:13 AM EDT Body Mass Index 24.56 12/02/2021 11:13 AM EDT documented in this encounter Progress Notes Salomon Wise MD - 12/02/2021 11:00 AM EDT [facility] - Follow Up Note Date of visit: 12/02/21 : 1965 CC: Chief Complaint Patient presents with ??? Follow-up Follow up back HPI: Caro Mendez??is a 56 y.o.??female??who presents via telehealth??with??persistent left sided back, buttock and lower extremity pain after a work related injury on 05/23/2019. ?? She has undergone a left SIJ and GTB injection on 10/03/2020, with only 50% relief of her symptoms for a few days. She continues to have left sided back/ buttock and lower extremity pain, radiating to the left foot,as well as associated upper back and neck pain. The foot feels like pins and needles. ?? She had started physical therapy 2 months ago, and her pain started worsening over the first few weeks. She ended up getting an L-spine MRI which was essentially normal. ?? She remains on Workmen's Comp. She used to work at the [employer]. She started the FRP program, but had to quit due to housing for her dog. She had noticed significant improvement even with 1 week of the program. Pain Severity: 7/10 currently, 9/10 at worst, 5/10 at best She denies any weakness, numbness or bowel/ bladder dysfunction. She has tingling in her hands and left lower leg. PMH/PSH: Patient Active Problem List Diagnosis Code ??? Chronic low back pain M54.50, G89.29 ??? Sacroiliac joint dysfunction of left side M53.3 ??? Greater trochanteric bursitis of left hip M70.62 ??? Low back pain, non-specific M54.50 ??? Piriformis syndrome of left side G57.02 ??? Psychosocial factors contributing to chronic pain G89.29, F54 ??? Mood disorder F39 ??? History of posttraumatic stress disorder (PTSD) Z86.59 ??? Anxiety disorder F41.9 No past medical history on file. Past Surgical History: Procedure Laterality Date ??? WRIST SURGERY Left FAMILY HISTORY: Family History Problem Relation Age of Onset ??? No Known Problems Mother ??? No Known Problems Father SOCIAL HISTORY: Social History Socioeconomic History ??? Marital status: Spouse name: Not on file ??? Number of children: Not on file ??? Years of education: Not on file ??? Highest education level: Not on file Occupational History ??? Not on file Tobacco Use ??? Smoking status: Former Smoker ??? Smokeless tobacco: Former User ??? Tobacco comment: quit 10 yrs ago Vaping Use ??? Vaping Use: Never used Substance and Sexual Activity ??? Alcohol use: Yes ??? Drug use: Not on file ??? Sexual activity: Not on file Other Topics Concern ??? Not on file Social History Narrative ??? Not on file MEDICATIONS: Current Outpatient Medications: ??? ketoconazole (NIZORAL) 2 % Shampoo, Lather onto scalp every third day in the shower. Let sit 3-5minutes prior to rinsing., Disp: 120 mL, Rfl: 11 ??? mupirocin (Bactroban) 2 % Ointment, Apply three times daily to the nostrils for 1 week, then 5 times monthly for maintenance. Apply twice daily as needed to affected areas on the scalp., Disp: 22 g, Rfl: 2 ??? clobetasoL (TEMOVATE) 0.05 % Solution, Apply daily to affected areas on the scalp for up to 2 weeks, take 1 week off, repeat as needed., Disp: 50 mL, Rfl: 2 ??? omeprazole (PriLOSEC) 40 mg Capsule, Delayed Release(E.C.), daily., Disp: , Rfl: ??? naproxen (NAPROSYN) 500 mg Tablet, as needed., Disp: , Rfl: ??? venlafaxine (EFFEXOR-XR) 150 mg Capsule, Sust. Release 24 hr, 150 mg daily., Disp: , Rfl: ??? venlafaxine XR (Effexor-XR) 37.5 mg Capsule, Sust. Release 24 hr, 37.5 mg daily., Disp: , Rfl: ??? acetaminophen (Tylenol) 500 mg Tablet, Take 1,000 mg by mouth every 8 hours as needed for Pain.,Disp: , Rfl: ??? gabapentin (Neurontin) 300 mg Capsule, Take by mouth daily. Patient takes 600 mg in AM, Noon, 900 mg at Night, Disp: , Rfl: ??? hydrOXYzine (Atarax) 25 mg Tablet, Take 25 mg by mouth 3 times daily as needed for Itching., Disp: , Rfl: ??? venlafaxine (EFFEXOR) 75 mg Tablet, Take 75 mg by mouth daily., Disp: , Rfl: ALLERGIES: No Known Allergies ROS: Review of Systems Positive for above mentioned musculoskeletal and neurological findings on 14 point system review. PHYSICAL EXAM: BP 151/83 Pulse 66 Ht 154.9 cm (5' 1) Wt 59 kg (130 lb) SpO2 100% BMI 24.56 kg/m?? Physical Exam Alert and oriented. VSS On musculoskeletal exam, lumbar spine ROM WNL. No neurologic deficits TESTS / IMAGING: Most recent L-spine MRI obtained on 05/07/2021 was reviewed in detail. The study shows: No evidence of significant spinal stenosis or neuroforaminal narrowing. ?? DIAGNOSIS: 1. Sacroiliac joint dysfunction of left side 2. Low back pain, non-specific ASSESSMENT: Caro Mendez??is a 56 y.o.??female??with chronic left > right lower back pain, after a work-related injury she sustained on 05/2019. PLAN: Injection: None indicated currently. Medication: No new prescription at this time. Patient will continue current meds. Imaging: Pertinent imaging was reviewed with the patient in detail. Physical therapy/home exercise plan: Continue HEP Referral: Will need to discuss with LORENA Carlin regarding possible arrangements to be reconsidered for FRP. Follow up: neli Wise MD Attending [facility] [address] [place] [address] / CC: No referring provider defined for this encounter. documented in this encounter Plan of Treatment Not on filedocumented as of this encounter Visit Diagnoses Diagnosis Sacroiliac joint dysfunction of left miguel e Disorders of sacrum Low back pain, non-specific documented in this encounter Care Teams Stencil Cutter Machine Relationship Specialty Start Date End Date Love Dupont APRN PCP - General Family Medicine 04/08/20 [address] [place] [address] documented as of this encounter
--- OUTSIDE RECORDS SUMMARY | 2022-05-22 00:23 | XMS_ITS | Encounter Summary ---
:1965 Author Organization [facility] [place] [address] Care Team Providers Name Role Phone Love Dupont APRN Primary Care Provider Encounter Details Date Type Department Care Team Description 10/16/2021 Travel Social History Tobacco Use Types Packs/Day [...] on filedocumented in this encounter Care Teams Renewable Energy Engineer Relationship Specialty Start Date End Date Love Dupont APRN PCP - General Family Medicine 04/08/20 [address] [place], [place] [address] documented as of this encounter
--- OUTSIDE RECORDS SUMMARY | 2022-05-22 00:23 | XMS_ITS | Encounter Summary ---
:1965 Author Organization [facility] [place] [address] Care Team Providers Name Role Phone HakeemLove angela Ethan RAMSEY Primary Care Provider Encounter Details Date Type Department Care Team Description 10/14/2021 Office Visit Functional Rocio Enciso, Low back pa in, non-specific; Muslim Program PsyD Psychosocial factors contributing to chr onic pain; at [address] [facility] Mood disorder; [facility] History of posttraumatic stress disorder (PTSD); [place] [phone] Anxiety disorder, unspecified type [id number] Social History Tobacco Use Types Packs/Day Years [...] encounter Progress Notes Rocio Enciso PsyD - 10/14/2021 10:45 AM EST [facility], a Service of [facility] Functional Muslim Program [facility] First Day Pain Psychology Health & Behavior Assessment CPT Code: 63822 Name: Caro Mendez Date: 10/14/2021 Time Spent: 45 minutes SUMMARY Caro is a 56 y.o. female referred to [facility] by Salomon Wise MD for chronic multisite pain. Seen today by pain psychology for 45-minute health and behavior interview related to history of pain complaint, screening for mood/health behavior disruption, eliciting motivation for program, and determining additi onal biopsychosocial factors contributing to pain. Purpose of interview to provide biopsychosocial health and behavior assessment and provide motivational enhancement. Patient provided information on the process of this interview and the limits of confidentiality and verbally consented. PP: left sided pain, hip, low back, onset 2018 set back due to pandemic. Bursitis worsened by sitting; onset at [facility]. Describes taking 5lb cheese blocks requiring repetitive twisting & lifting motion, and eventually something popped. Pain Pt's perception of pain cause: that is a good question. States that her providers have not provided much information about the source of her continued pain; Previous treatments; She has been hoping for surgery, the MRI is unremarkable, injections ineffective; water therapy, chiropractor (he could feel a lot of knots); Current strategies to cope with pain: meditate, standing, grounding techniques, walking (unable to do this now); medications, resting; gabapentin, tylenol, talks with her dog (Zuka 103lb rescue white murray geeta, he is very protective of her. ) Pain self-efficacy: expresses significant interference, she will try to do things and push through the pain, but states she has reduced activities; Stress Current stress level/stressors: financial concerns; basic living expenses; ongoing complex grief that has significant interference; Response to stress: feels anxious, shallow fast breathing, heart pounding, lump in her threat; she can become fidgety. Tries to reach out; Current strategies to cope with stress: Grounding exercise, talking with her dog, she walks; previously hiking; kayaking; Brief Mental Health Current Mood: She acknowledges that she feels some depression, and has a history of SAD. SI/HI: Denied; states protective reasons are because of her kids and granddaughter Chart Hx: Patient received care through Psychiatry department starting in 2020, but does not appear to be currently engaged. Caro Mendez is a 56 y.o. female with a history of panic disorder, PTSD, MDD, delusional parasitosis, and a diagnosis of Bipolar I Disorder who presents today as a transfer from prior psychiatric resident, Dr. Chucky Baker. - Psychiatry note dated 03/18/21. Initial evaluation 10/22/20 (slightly edited for clarity and discretion): 55yo woman with prior diagnoses including bipolar disorder, depression, panic disorder presenting for an initial psychiatric evaluation. She reports an extensive trauma history and symptoms consistent with PTSD. No clear historyof manic episodes described. No acute safety concerns. Does report a history of 2 psychiatric hospitalizations in 2002 and 2013 for paranoia. No psychotic symptoms overtly present today. Denies AH. Reports regular use of marijuana.f For reasons that are unclear, none of these diagnoses have been added to the patient's problem list so it possible that other providers in the hospital may be unaware of patient's important MH history.Due to this oversight, these diagnoses will be added to problem list based on psychiatry note in March. 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, trying to be more holistic; - Previously engaged in counseling, but has not had specific psychotherapy to address depression, panic, or PTSD - Psychoeducation - none; does not endorse education related to mental health, trauma, pain; - Trauma focused therapy - None - Medication: effexor, 3 separate amounts; no indications of mood stabilizer Hx of trauma: son committed suicide 4 years ago after some difficutlties with SA; but also had a history of multiple traumas prior to this; Relevant Health Domains - Etoh: Weekends, 3 drinks hard seltzer (w zero sugar) Cigarettes: Denied Other current substance use: Denied, endorses remote hx, states that she no longer uses MJ. Other coping strategies: zoning out/dissociating, sometimes ice cream; Sleep: 4 hours per night- it has been like this for a while, but sometimes naps; difficulty falling asleep. Sitting / Exercise: Sedentary, limited exercise Surroundings: she has a recently installed security system in her home but continues to experience ongoing hypervigilance related to her safety - including bolt, two locks, but worries that someone could break in. Acknowledges that her ex is not a threat, but she was still connected to him due to therelationship with the children, and this contributed to greater vigilance. Relationships: Her oldest (Middle son) Renaldo - starting to understand what she had been through; her older son was closer with her; She does worry about their relationship patterns with their partners; level of emotional support appears fair; Motivation Values/Strengths: insightful, focused on her health, is working on developing her independence; Valued activities: not specifically asked due to time constraints Patient concerns: denied, stated that she thinks the program is awesome. Additional info: discussed ability to manage triggers and sympathetic responses while in the gym, including being able to share with Leonie/Navya if she is struggling, needs to excuse herself to an exam room for a few moments, etc. She expressed her appreciation for this. Asked about if any music might be specifically triggering, and she acknowledged that AC/DC would be difficult for her. BEHAVIORAL OBSERVATIONS Presentation: Unaccompanied, on time; Alert, oriented x 3. Appearance: Clean, dressed neatly in casual clothing. Well-groomed. Behavior: Cooperative, appropriate, good eye contact. Pain Behavior: Standing, shifting to side, sitting on hip Mood: Mildly dysthymic stated okay Affect: Congruent. SI/HI: Denied ideation, plan, or intent. Thought process: Linear, goal-directed, logical. No evidence of hallucinations, fozia, or delusions. Speech: Normal rate, rhythm, volume. Judgment/Insight: Adequate for purpose of informed consent ASSESSMENT Diagnosis: Chronic pain Psychosocial factors affecting chronic pain Caro is appropriate to continue with the FRP. she appears to have some insight into a biopsychosocial model of pain and a good understanding of her goals for the program. Caro acknowledges that stress and grief contribute significantly to her pain experience and would like to develop better coping mechanisms. Additional psychoeducation in the program will provide Caro some understanding of the importance of addressing these concerns and suggestions on approaches that may be beneficial. Caro would benefit from pain neuroscience education, a better understanding of biopsychosocial model of pain and how it applies to her specific concerns. she would also benefit from behavioral experiments and graduated exercise approach to reduce fear/avoidance of movement. PLAN Caro will continue with FRP program as detailed in First Day treatment plan. documented in this encounter Plan of Treatment Not on filedocumented as of this encounter Visit Diagnoses Diagnosis Low back pain, non-specific Psychosocial factors contributing to chr onic pain Psychic factors associated with diseases classified elsewhere Mood disorder Unspecified episodic mood disorder History of posttraumatic stress disorder (PTSD) Anxiety disorder, unspecified type documented in this encounter Care Teams Taxi Cab Driver Relationship Specialty Start Date End Date Love Dupont APRN PCP - General Family Medicine 04/08/20 [address] [place] [address] documented as of this encounter
--- OUTSIDE RECORDS SUMMARY | 2022-05-22 00:23 | XMS_ITS | Encounter Summary ---
:1965 Author Organization [facility] [place] [address] Care Team Providers Name Role Phone Love Dupont Ethan RAMSEY Primary Care Provider Reason for Visit Reason Comments Back Pain Encounter Details Date Type Department Care Team Description 10/16/2021 Office Visit Functional [facility] [place] Low back pain, Program at [facility] Navya Devlin OT non-specific [address] [place] [address] Social History Tobacco Use Types Packs/Day [...] - Therapy - Navya Peter, OT - 10/16/2021 8:00 AM EST FRP Occupational Therapy Note FRP Day 3 Protocol Subjective: Ms. Mendez returns today for a scheduled follow up appointment with FRP. She reports she is surprised that is she not very sore from yesterday. She reported she went for a long walk with her dog yesterday after program and completed the evening stretches. She reports squat level lifting is the most challenging for her due to deconditioning and learning proper form. Objective: Refer to [facility] protocol for details and explanation of each activity. Ms. Mendez participated in the following activities: Functional Therapy: 1. AM Session of functional conditioning ( X ) Completed ( ) Not Completed 2. PM Session of functional conditioning ( X ) Completed ( ) Not Completed Instructed in 20 minutes of mindfulness meditation activity focusing on in daily living, goblet breathing exercise and one 3-minute breathing practice. Participated in a 10 minute treadmill walk including 0% incline at 2.7 mph, and 15 minutes of unguarded beach ball volleyball activity involving fast changing movements. Individualized Treatment: Increased resistance levels of functional conditioning exercises accordingto personal recovery goals. Instructed in proper body mechanics for safe lifting. Monitored and instructed in proper form during functional conditioning exercises and provided cues for safety and efficiency with a focus on squat level lifting. Reminded her to complement conditioning exercises with stretching. Please see goals in initial OT evaluation report from Day 1. Daily functional conditioning progressis documented on a flow sheet which is available on request. Assessment: Ms. Mendez continues to work according to protocol in order to reach her functional goals. She had a good understanding of today's conditioning principles and participated actively in progression of function. She is slowly demonstrating improved comfort, form and body mechanics with all functional conditioning activities, specifically squat lifting. Plan: Return for follow up with [facility] per protocol. Continue training according to planned progressions towards functional recovery goals. Length of Treatment: Ms. Mendez participated in program activities from 8:00 a.m. through 3:00 p.m. today. A total of 45 minutes was spent during that time to establish and implement individualized occupational therapy strategies. Care was concurrently provided by both an Occupational Therapist and Altitude Chamber Technician,KARISHMA Leggett. documented in this encounter Plan of Treatment Not on filedocumented as of this encounter Visit Diagnoses Diagnosis Low back pain, non-specific documented in this encounter Care Teams Material Attendant Relationship Specialty Start Date End Date Love Dupont, DEMOGRAPHIC ANALYST PCP - General Family Medicine 04/08/20 [address] [place] [address] documented as of this encounter
--- OUTSIDE RECORDS SUMMARY | 2022-05-22 00:23 | XMS_ITS | Encounter Summary ---
:1965 Author Organization [facility] [place] [address] Care Team Providers Name Role Phone Love Dupont Ethan RAMSEY Primary Care Provider Encounter Details Date Type Department Care Team Description 04/03/2022 Telephone Functional Shinto Program Yonny Duval, TIE CUTTER at [place] [address] [place] [address] Social History Tobacco Use Types Packs/Day [...] Miscellaneous Notes Telephone Encounter - Leonie Duval, TIE CUTTER - 04/03/2022 4:06 PM EDT Left message confirming that May FRP is not available and since 2nd opinion appointment isn't until Mid April it wouldn't work anyway. Asked her to call back and ask for me specifically for details on further planning at [phone]. documented in this encounter Plan of Treatment Not on filedocumented as of this encounter Visit Diagnoses Not on filedocumented in this encounter Care Teams Pull Over Machine Operator Relationship Specialty Start Date End Date Love Dupont APRN PCP - General Family Medicine 04/08/20 [address] [place] [address] documented as of this encounter
--- OUTSIDE RECORDS SUMMARY | 2022-05-22 00:23 | XMS_ITS | Encounter Summary ---
:1965 Author Organization [facility] Address [address] [place] [address] Care Team Providers Name Role Phone Unknown, Provider Primary Care Provider Love Dupont NP Primary Care Provider Encounter Details Date Type Department Care Team Description 09/05/2009 Results Only Imaging [facility] - Nneka Dubon, [facility] Radiology Resul ts [address] [place] [address] [address] [place] [address] Social History Tobacco Use Types Packs/Day Years Used Date Never Assessed Sex Assigned at Date Recorded Not on file documented as of this encounter Plan of Treatment Not on filedocumented as of this encounter Procedures Procedure Name Priority Date/Time Associated Diagnosis Comme nts MR HEAD W WO 09/06/2009 16:52 Results for this CONTRAST EST procedure are i n the results section. documented in this encounter Results MR HEAD W WO CONTRAST (09/06/2009 16:52 EST) Specimen Narrative [facility] - 09/06/2009 16:52 EST ? EXAM: MAGNETIC RESONANCE IMAGING/BRAIN W/ EX. D/ (2022) ? CLINICAL INFORMATION: ? FOR NEW ONSET HALLUCINATIONS. ? INDICATION: ??New onset hallucina tions. ? TECHNIQUE: ??Routine MR imaging o f the brain was obtained with and ? without gadolinium contrast. ? COMPARISON: ??None ? FINDINGS: ??Scattered nonenhancin g supratentorial white matter foci are ? noted within the centrum semioval e. ??Several of these are subcortical ? in location, particularly on the right. ??No abnormal intra- or ? extraaxial fluid collections are seen. ??No acute infarct is detected ? on diffusion weighted imaging. ?? The paranasal sinuses are clear. ? There is patchy right mastoid opa cification. ? IMPRESSION: ? 1. ??No acute intracranial abnorm ality detected. ? 2. ??Scattered nonenhancing supra tentorial white matter foci. ??While ? these may reflect minimal small v essel ischemic disease of aging, they ? are more numerous than commonly s een in a patient of this age. ??Thus, ? these could reflect prior trauma, prior infection or atypical ? demyelinating process. ? 3. ??Right mastoid opacification. ? JSP:dlw ??[id number] ?Reported B y: Tera Lucero MD ? CC: INPATIENT ? Transcribed Date/Time: 09/06/2009 (1652) ? Director Of Respiratory Therapy: LETITIA ? Printed Date/Time: 09/21/2019 (07 57) ? PAGE 1 ? Roxana d Report ? Procedure Note Tera Lucero MD, FUR BLENDER - 09/21/2019 EXAM: MAGNETIC RESONANCE IMAGING/BRAIN W/ EX. D/ (2022) CLINICAL INFORMATION: FOR NEW ONSET HALLUCINATIONS. INDICATION: New onset hallucinations. TECHNIQUE: Routine MR imaging of the br ain was obtained with and without gadolinium contrast. COMPARISON: None FINDINGS: Scattered nonenhancing suprat entorial white matter foci are noted within the centrum semiovale. Sev eral of these are subcortical in location, particularly on the right. No abnormal intra- or extraaxial fluid collections are seen. No acute infarct is detected on diffusion weighted imaging. The para nasal sinuses are clear. There is patchy right mastoid opacifica tion. IMPRESSION: 1. No acute intracranial abnormality de tected. 2. Scattered nonenhancing supratentoria l white matter foci. While these may reflect minimal small vessel ischemic disease of aging, they are more numerous than commonly seen in a patient of this age. Thus, these could reflect prior trauma, prior infection or atypical demyelinating process. 3. Right mastoid opacification. [id number]:dlw [id number] Reported By: Tera Lucero MD CC: INPATIENT Transcribed Date/Time: 09/06/2009 (1652 ) Director Of Respiratory Therapy: LETITIA Printed Date/Time: 09/21/2019 (9653) PAGE 1 Signed Report Performing Organization Address City/State/ZIP Code Phon e Number [facility] documented in this encounter Visit Diagnoses Not on filedocumented in this encounter Care Teams Energy Conservation Director Relationship Specialty Start Date End Date Unknown, Provider, PCP - General 01/11/09 09/05/19 Love Dupont NP PCP - General 09/06/19 [address] [place] [address] documented as of this encounter
--- OUTSIDE RECORDS SUMMARY | 2022-05-22 00:23 | XMS_ITS | Encounter Summary ---
:1965 Author Organization [place] [address] Care Team Providers Name Role Phone Love Dupont APRN Primary Care Provider Encounter Details Date Type Department Care Team Description 10/14/2021 Telephone Pain and Spine Yelena odom at [facility] [address], [place] [address] Social History Tobacco Use Types Packs/Day [...] on filedocumented in this encounter Care Teams Air Commodore Relationship Specialty Start Date End Date Love Dupont APRN PCP - General Family Medicine 04/08/20 [address] [place] [address] documented as of this encounter
--- OUTSIDE RECORDS SUMMARY | 2022-05-22 00:24 | XMS_ITS | Encounter Summary ---
:1965 Author Organization [facility] [address] Care Team Providers Name Role Phone Love Dupont Ethan RAMSEY Primary Care Provider Encounter Details Date Type Department Care Team Description 09/30/2021 Telephone Pain and Spine Yelena odom at [facility] [place] [address] Social History Tobacco Use Types Packs/Day [...] Notes Telephone Encounter - Tiffanie Raza - 09/30/2021 12:44 PM EST Called patient to discuss FRP enrollment. Voicemail is full. documented in this encounter Plan of Treatment Not on filedocumented as of this encounter Visit Diagnoses Not on filedocumented in this encounter Care Teams Automatic Pad Making Machine Operator Relationship Specialty Start Date End Date Love Dupont, BRAULIO PCP - General Family Medicine 04/08/20 [address] [place] [address] documented as of this encounter
--- OUTSIDE RECORDS SUMMARY | 2022-05-22 00:24 | XMS_ITS | Encounter Summary ---
:1965 Author Organization [facility] Address [address] [place] [address] Care Team Providers Name Role Phone Love Dupont Ethan RAMSEY Primary Care Provider Reason for Visit Reason Comments Medical Clearance Encounter Details Date Type Department Care Team Description 10/03/2021 Office Visit Pain and Spine Center Kiera Warren L ow back pain, non-specific; at [facility] BRAULIO Sacroiliac joint dysfunction of left miguel e; [facility] ater trochanteric bursitis of left hip; Drive Piriformis syndrome of left side [place], [place] [facility] [address] [place] [address] [phone] Social History Tobacco Use Types Packs/Day Years [...] Sign Reading Time Taken Comments Blood Pressure 153/76 10/03/2021 12:47 PM EST Pulse 68 10/03/2021 12:47 PM EST Temperature - - Respiratory Rate - - Oxygen Saturation 97% 10/03/2021 12:47 PM EST Inhaled Oxygen Concentration - - Weight 52.2 kg (115 lb) 10/03/2021 12:47 PM EST Height 156.2 cm (5' 1.5) 10/03/2021 12:47 PM EST Body Mass Index 21.38 10/03/2021 12:47 PM EST documented in this encounter Progress Notes Kiera Warren, LIMOUSINE AND HEARSE UPHOLSTERER - 10/03/2021 1:40 PM EST [facility] [place] [address] Phone: DATE OF VISIT 10/03/2021 Patient Caro Mendez 1965 FUNCTIONAL 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 Her pain pattern is described as back and left leg pain, She has had treatments including physical therapy, injections, and tylenol gabapentin The patient's current goals are : Personal Function 3 Month Goals ?? 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 Recreational: ??Be able to snow shoe for 1 hour; Be able to hike and carry a pack (10-15lbs) for 1 hour.?Be able to swim for 1 hour. Daily Living: Be able to lift and carry heavier groceries (30-40lbs); Be able to lift and carry 40-50lb of dog food. Be able to mop and vacuum more easily; ??Be able to stand to cook a meal or bake for1 hour. Be able to bend to bathe dog more easily. Be able to go up and down the stairs more easily. ?? Activity limiting health problems: history of??PTSD, panic disorder. There are no pending surgeries, tests or procedures planned. O: Please see Navya Peter's note of today for details of the physical testing and current functional Level. In general the patients current level of functioning is in the sedentary-light demand level and goals are in the light- medium demand level. A&O in NAD cogent and interactive EOMI, No scleral jaundice noted. ROM lumbar spine is limited in all planes-see functional assessment. Lungs CTA bilaterally Heart: RRR no murmurs Gait is fairly well preserved. DTRs intact. Neg clonus A: There is a gap between her goals and abilities.This was a counseling visit for 30 minutes out of 40 talking about symptom management and functional recovery, reviewing the content of FRP, and logistics specific to participation including, travel, lodging and exercise and activity planning . We havemutually decided to proceed with the following plan: P: Caro is a candidate for functional anglican. LORENA Barrow will meet with patient regarding logistics Completed w/c paperwork. 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
--- OUTSIDE RECORDS SUMMARY | 2022-05-22 00:24 | XMS_ITS | Encounter Summary ---
:1965 Author Organization [facility] [place] [address] Care Team Providers Name Role Phone HakeemLove angela Ethan RAMSEY Primary Care Provider Reason for Visit Consultation (Routine) - Closed Specialty Diagnoses / Procedures Referred By Contact Refer red To Contact [facility] Diagnoses Low back pain, non-specific Sacroiliac joint dysfunction of left side Greater trochanteric bursitis of left hip Piriformis syndrome of left side WC _ FRP Salomon Wise MD [facility] Spine [facility] [address] [address] Phone: Fax: Referral ID Status Reason Start Date Expiration Date Visits V isits Requested Authorized [id number] Closed Consult, 06/02/2021 06/02/2022 1 1 Test & Treat Encounter Details Date Type Department Care Team Description 07/17/2021 Notes Only [facility] Sp[facility] at Rocio Enciso PsyD [facility] Nica vazquezfredi [place] [id number] [phone] Social History Tobacco Use Types Packs/Day Years [...] documented as of this encounter Progress Notes Tiffanie Raza - 07/17/2021 12:00 PM EST [facility] Active Pain Care, A Service of the [place] [facility] WELCOME GROUP Patient: Caro Mendez Date: 07/10/21 Appointment: In person, No Charge Visit Caro attended a 60 minute Welcome Group for the Active Pain Care Service (APCS). Patients were provided detailed information on the programs and treatment options available to them through the APCS. The group also presented the rationale for engaging in active treatment strategies that include education and interdisciplinary, multimodal therapies. Patients' questions were answered and they were provided written materials describing the APCS and recommended next steps. Participants were encouraged to schedule an appointment for a Pain Neuroscience Education class, as research studies have shown that if patients have a basic understanding of how chronic pain develops and functions physiologically, they experience better treatment outcomes including improved function,reduced reliance on medications, and have greater interest in healthy exercise and movement. Plan: Caro will be scheduled to attend [facility] if she is interested in participating in APCS. documented in this encounter Plan of Treatment Scheduled Referrals Name Type Priority Associated Diagnoses Order S chedule Amb Referral to Outpatient Referral Routine Low back pain, Ord ered: Active Pain Care non-specific 06/02/2021 Services Sacroiliac joint dysfunction of left side Greater trochanteric bursitis of left hip Piriformis syndrome of left side documented as of this encounter Visit Diagnoses Not on filedocumented in this encounter Care Teams Board Lining Machine Operator Relationship Specialty Start Date End Date Love Dupont APRN PCP - General Family Medicine 04/08/20 [address] [place] [address] documented as of this encounter
--- OUTSIDE RECORDS SUMMARY | 2022-05-22 00:24 | XMS_ITS | Encounter Summary ---
:1965 Author Organization [facility] [place] [address] Care Team Providers Name Role Phone Love Dupont BRAULIO Primary Care Provider Encounter Details Date Type Department Care Team Description 07/02/2021 Office Visit Dermatology at [facility] Anton Wade MD Dermatitis [address] [place] [id number] [facility] [phone] [place], [place] [address] (Wo rk) Social History Tobacco [...] documented as of this encounter Progress Notes Anton Wade MD - 07/02/2021 5:30 PM EDT Images from the original note were not included. DEPARTMENT OF DERMATOLOGY Medical Dermatology Clinic Provider: Anton Wade MD Patient's preferred name Caro Preferred contact method for results [x]Phone []myD-H []Letter Detailed phone message OK? Yes Are there any other people with whom we may discuss your care? Past Medical History Date, location, treatment Melanoma No Dysplastic nevi No SCC No BCC No AKs No UV Exposure & Protection No Other relevant past medical history Family History Details Melanoma No NMSC No Other relevant family history No Social History Pre-Procedure Screening Details Allergy to lidocaine, epinephrine, Dermabond, chlorhexidine, or adhesives Bleeding disorder or blood thinners Implanted devices (Pacemaker, defibrillator, deep brain stimulator, cochlear implant) History of Present Illness: Caro Mendez is a 56 y.o. Patient returns to clinic today for evaluation by the joint dermatology-psychiatry clinic with Rudi Desai MD, Juan Miguel Simms MD, and Anton Wade MD. Caro reports that overall, she is doing well at this time. Her skin has been largely clear; however, just the other day, she ran out of her usual cerave cream and used a eucerin product that caused irritation and felt like a burn on her posterior neck/shoulders. - Since her last visit, she used mupirocin cream and clobetasol solution on her scalp. She feels herscalp is significantly improved. Her hair is growing in thicker, which she is happy about. - She constantly feels like she has things on her and is constantly looking at her bedding for bus or fibers. She will use a microscope to look at these things. She feels like she has ADHD. She cannotget anything done and feels she goes in circles. This has worsened since she has not been working; she has less structure in her life. - She will be moving to [place] from [facility]. - She is not seeing her counselor, Jace, as often, but has seen him to help with grieving her son's by suicide. She feels that Jace takes patients for acute issues rather than longer term care. Nitins made some calls to other counselors, but has not yet heard back. - She notes increased itching associated with the stressors in her life. Last visit at [facility] Derm: 06/18/2021 Last visit with this provider: 02/18/2021 Medications: Reviewed in eD-H Allergies: Reviewed in eD-H Skin Examination: Focused skin examination of the scalp and neck was normal with the exception of the findings below. Assessment/Plan #. Favor Irritant vs. 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 - Reassured patient that her skin findings are not consistent with any infestation or fibrinous exudative process. - Continue sensitive skin care as previously discussed and ample use of CeraVe cream as needed. - If areas flare, can re-start topical steroids as previously directed. - Will plan to facilitate patient's attempts to reach out to a local therapist in her area. - Patient knows to call clinic with questions or concerns or if her skin flares. Other: ??? OTC skin products discussed RTC: PRN []Note routed to tool engine lathe set up operator []Recall placed in scheduling system []Appointment scheduled at checkout Scribe attestation: Michelle Adames has performed the documentation for this encounter in the presence of and acting as a scribe for Anton Wade MD. I performed the above scribed service and agree with the accuracy of the documentation in this encounter. Reviewed and signed by: Anton Wade MD Dermatology [facility] Patient seen and evaluated with staff multimedia journalist: Rudi Desai MD Dermatology [facility] Anton Desai MD - 07/02/2021 5:30 PM EDT I directly supervised Dr. Wade during this office visit. Dr. Wade presented the history and physical exam to me. I then saw and examined this patient with Dr. Wade . We reviewed the history and pertinent details and I confirmed the physical findings. I agree with the details of the history and physical exam as documented in Dr. Wade's note. Some degree of insight. Might have a little irritant dermatitis, but no infestations. Symptoms are out of proportion, but improving her history and starting point. We have a topical plan for her, she is reasonable, and gets back on track with each of these visits. ANTON DESAI MD Staff Physician documented in this encounter Plan of Treatment Not on filedocumented as of this encounter Visit Diagnoses Diagnosis Dermatitis Contact dermatitis and other eczema, due to unspecified cause documented in this encounter Care Teams Retail Loss Prevention Officer Relationship Specialty Start Date End Date Love Dupont, PHARMACIST HOSPITAL PCP - General Family Medicine 04/08/20 [address] [place] [address] documented as of this encounter
--- OUTSIDE RECORDS SUMMARY | 2022-05-22 00:24 | XMS_ITS | Encounter Summary ---
:1965 Author Organization [facility] [place] [address] Care Team Providers Name Role Phone Love Dupont APRN Primary Care Provider Encounter Details Date Type Department Care Team Description 01/07/2021 Telephone Psychiatry and Behavioral [place] [address] Social History Tobacco Use Types Packs/Day [...] on filedocumented in this encounter Care Teams Life Manager Relationship Specialty Start Date End Date Love Dupont APRN PCP - General Family Medicine 04/08/20 [address] [place] [address] documented as of this encounter
--- OUTSIDE RECORDS SUMMARY | 2022-05-22 00:24 | XMS_ITS | Encounter Summary ---
:1965 Author Organization [facility] [place] [address] Care Team Providers Name Role Phone Love Dupont Ethan RAMSEY Primary Care Provider Encounter Details Date Type Department Care Team Description 09/30/2021 Telephone Pain and Spine Yelena odom at [facility] [place] [address] Social History Tobacco Use Types Packs/Day [...] Telephone Encounter - Tiffanie Raza - 09/30/2021 9:16 AM EST Patient left voicemail on 09/29/2021 at 5:03pm stating that she is interested in the open FRP slot for 10/14-11/07. She left call back number [phone]. Returned call this morning and voicemail is still full. [facility] message sent early this morning expressing that we need to speak with her immediately if she is interested in participating. We must move GAP assessment up in order to accommodate pain education workshop needed prior to FRP enrollment. documented in this encounter Plan of Treatment Not on filedocumented as of this encounter Visit Diagnoses Not on filedocumented in this encounter Care Teams Registered Nurse Hh Case Manager Relationship Specialty Start Date End Date Love Dupont APRN PCP - General Family Medicine 04/08/20 [address] [place] [address] documented as of this encounter
--- OUTSIDE RECORDS SUMMARY | 2022-05-22 00:24 | XMS_ITS | Encounter Summary ---
:1965 Author Organization [facility] [place] [address] Care Team Providers Name Role Phone Love Dupont APRN Primary Care Provider Encounter Details Date Type Department Care Team Description 06/06/2021 Orders Only Dermatology at [facility], Charles Norton MD [address] [place] [phone] [facility] [phone] [place], [place] [address] (Wo rk) Social History Tobacco [...] on filedocumented in this encounter Care Teams Turkey Egg Gatherer Relationship Specialty Start Date End Date Love Dupont APRN PCP - General Family Medicine 04/08/20 [address] [place], [place] [address] documented as of this encounter
--- OUTSIDE RECORDS SUMMARY | 2022-05-22 00:24 | XMS_ITS | Encounter Summary ---
:1965 Author Organization [facility] [place] [address] Care Team Providers Name Role Phone Love Dupont APRN Primary Care Provider Reason for Visit Reason Comments Medication Refill Encounter Details Date Type Department Care Team Description 06/05/2021 Refill Dermatology at [facility] Dinah Rojas MD [address] [place] [address] [facility] [phone] [place], [place] [address] (Wo rk) Social History Tobacco [...] on filedocumented in this encounter Care Teams Director Statistical Programming Relationship Specialty Start Date End Date Love Dupont APRN PCP - General Family Medicine 8/3/20 [address] [place] [address] documented as of this encounter
--- OUTSIDE RECORDS SUMMARY | 2022-05-22 00:24 | XMS_ITS | Encounter Summary ---
:1965 Author Organization [facility] [place] [address] Care Team Providers Name Role Phone HakeemLove angela Ethan RAMSEY Primary Care Provider Encounter Details Date Type Department Care Team Description 09/08/2021 Telephone Pain and Spine Cent[facility]i odom at [facility] Steff Andrade, [place] [address] Social History Tobacco Use Types Packs/Day [...] Telephone Encounter - Steff Andrade MSW - 09/08/2021 9:53 AM ESTSummary: Attempted Phone contact OFFICE of CARE MANAGMENT [facility] Socia Worker unsuccessfully attempted to contact Ms. Mendez by phone at . Sonar Watchstander left a voicemail message asking for a return call. Sonar Watchstander also attempted to contact Ms. Mendez through contacting her alternate contacts. However, the phone number listed for Renaldo Mendez (her son) as is the wrong number. Sonar Watchstander left a voice mail message for Yony Mendez (her son) as well on phone number asking for a return call. Lastly, Sonar Watchstander contacted Alanna Shaquilledamian (Worker's Comp Hris Specialist) and left a message asking for any additional contact information which may be available for Ms. Mendez. Sonar Watchstander willcontinue attempting to contact Ms. Mendez. There are no additional concerns to address at this time. Steff Andrade LCSW documented in this encounter Plan of Treatment Not on filedocumented as of this encounter Visit Diagnoses Not on filedocumented in this encounter Care Teams Sound Effects Manager Relationship Specialty Start Date End Date Love Dupont, AUTOMOTIVE PROFESSIONAL PCP - General Family Medicine 04/08/20 [address] [place] [address] documented as of this encounter
--- OUTSIDE RECORDS SUMMARY | 2022-05-22 00:24 | XMS_ITS | Encounter Summary ---
:1965 Author Organization [facility] [place] [address] Care Team Providers Name Role Phone Love Dupont BRAULIO Primary Care Provider Reason for Visit Reason Onset Date Comments Medication Refill 07/15/2021 Medication Refill 07/16/2021 Encounter Details Date Type Department Care Team Description 07/15/2021 Refill Dermatology at [facility] Aleta Packer MD [address] [place] [address] [place] [address]-DERMATOLOGY [phone] [place], [place] [address] (Wo rk) Social History Tobacco [...] this encounter Miscellaneous Notes Telephone Encounter - Michelle Plata - 07/16/2021 12:30 PM EST Patient called and needs this refill: mupirocin (Bactroban) 2 % Ointment [ALETA HEREDIA MD Sent to the [facility] in [place]. She has called a couple times for this refill Michelle documented in this encounter Plan of Treatment Not on filedocumented as of this encounter Visit Diagnoses Not on filedocumented in this encounter Care Teams Remediation Bioanalytics Consultant Relationship Specialty Start Date End Date Love Dupont APRN PCP - General Family Medicine 04/08/20 [address] [place] [address] documented as of this encounter
--- OUTSIDE RECORDS SUMMARY | 2022-05-22 00:24 | XMS_ITS | Encounter Summary ---
:1965 Author Organization [facility] [place] [address] Care Team Providers Name Role Phone Love Dupont BRAULIO Primary Care Provider Encounter Details Date Type Department Care Team Description 06/12/2021 Telephone Dermatology at [facility] Dinah Rojas MD [address] [place] [address] [place] [address]DERMATOLOGY [phone] [place], [place] [address] (Wo rk) Social History Tobacco [...] this encounter Miscellaneous Notes Telephone Encounter - Sultana Deras E[place] - 06/12/2021 4:04 PM EDT I received a phone call from Caro Mendez wanting to know if there was a stronger ketoconazole (NIZORAL) 2 % Shampoo? She says she is starting to get craddle cap I told her I would send a note to Dr. Rojas and the nurse to see if someone can call her back and let her know. documented in this encounter Plan of Treatment Not on filedocumented as of this encounter Visit Diagnoses Not on filedocumented in this encounter Care Teams Geothermal Technician Relationship Specialty Start Date End Date Love Dupont APRN PCP - General Family Medicine 04/08/20 [address] [place] [address] documented as of this encounter
--- OUTSIDE RECORDS SUMMARY | 2022-05-22 00:24 | XMS_ITS | Encounter Summary ---
:1965 Author Organization [facility] [place] [address] Care Team Providers Name Role Phone Love Dupont BRAULIO Primary Care Provider Reason for Visit Reason Comments Follow-up Encounter Details Date Type Department Care Team Description 08/18/2021 Office Visit Dermatology at [facility] ultipelizabeth excoriations; Steven Quevedo MD Seborrheic dermatitis; [address] [employer] Xerosis cutis; [place] [address] Folliculitis [phone] [facility] [address]-[facility]OLOGY [place], [place] [address] Social History Tobacco Use Types [...] documented as of this encounter Progress Notes Dinah Rojas MD - 08/18/2021 11:20 AM EST Images from the original note were not included. DEPARTMENT OF DERMATOLOGY Medical Dermatology Clinic Provider: Dinah Rojas MD Patient's preferred name Caro Preferred contact method for results [x]Phone []myD-H []Letter Detailed phone message OK? Yes Are there any other people with whom we may discuss your care? Past Medical History Date, location, treatment Melanoma No Dysplastic nevi No SCC No BCC No AKs No UV Exposure & Protection No Other relevant past medical history Delusions of parasitosis/Morgellon's disease Family History Details Melanoma No NMSC No Other relevant family history No Social History History of Present Illness: Caro Mendez is a 56 y.o. Patient returns to clinic today for a rash follow up. - Today she notes there are little black dots coming out of parts of her body and little white things coming out of her hair. She reports her skin has never felt this. Patient expresses concerns about systemic infections. She feels like the staph is all through her at this time. No fevers. She notes the bottom of her feet are not improving. She notes her some black things on her nails and wondersif she should apply Rx Mupirocin. - She is using head and shoulders, clobetasol, and ketoconazole. Leaves it in for 1/2 an hour for clobetasol. - She notes she taking some anxiety medications through an outside facility. Last visit at Dermatology: 07/02/2021 Last visit with this provider: 04/30/2021 Medications: Reviewed in eD-H Allergies: Reviewed in eD-H Skin Examination: Focused skin examination of the scalp and nose was normal with the exception of the findings below. Assessment/Plan #. 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 Mild Folliculitis EXAM: rare pink papules on the scalp with small amount of overlying serosanguinous crust - Start Rx Mupirocin 2%: Apply three times daily to the nostrils for 1 week, then 5 times monthly for maintenance. Apply twice daily as needed to affected areas on the scalp. #. Xerosis EXAx: xerotic scale on the hands and feet. - Start OTC AmLactin lotion on the feet/hands. Apply topically once daily at night. #. Seborrheic Dermatitis EXAM: Yellowish, greasy scale diffusely on the scalp - Discussed etiology and treatment options. - Continue Rx clobetasol 0.05% shampoo: Work solution on to scalp prior to shower, let sit for 15 minutes, and then wash out in shower. - Continue Rx ketoconazole 2% shampoo: Apply topically to scalp in shower 2-3 times weekly. Lather on scalp, leave on 3-5 minutes, then rinse. - Continue OTC Head and Shoulder Shampoo. Other: ??? OTC skin products discussed RTC: 6 months for new or worsening symptoms []Note routed to psychiatric secretary []Recall placed in scheduling system []Appointment scheduled at checkout Scribe attestation: Lisa Bruce has performed the documentation for this encounter in the presence of and acting as a scribe for Dinah Rojas MD. I performed the above scribed service and agree with the accuracy of the documentation in this encounter. Reviewed and signed by: Dinah Rojas MD Dermatology [facility] Patient seen and evaluated with staff sewage plant supervisor: Mica Buck MD Dermatology [facility] Mica Buck MD - 08/18/2021 11:20 AM EST I directly supervised Dr. Rojas during this office visit. Dr. Rojas presented the history and physical exam to me. I then saw and examined this patient with Dr. Rojas . We reviewed the history and pertinent details and I confirmed the physical findings. I agree with the details of the history and physical exam as documented in Dr. Rojas's note. MICA BUCK MD Staff Physician documented in this encounter Plan of Treatment Not on filedocumented as of this encounter Visit Diagnoses Diagnosis Multiple excoriations Other and unspecified superficial injury of other, multiple, and unspecified sites, without mention of infection Seborrheic dermatitis Seborrheic dermatitis, unspecified Xerosis cutis Other specified disease of sebaceous gla nds Folliculitis Other specified disease of hair and hair follicles documented in this encounter Care Teams Line Runner Relationship Specialty Start Date End Date Love Dupont APRN PCP - General Family Medicine 04/08/20 [address] [place] [address] documented as of this encounter
--- OUTSIDE RECORDS SUMMARY | 2022-05-22 00:24 | XMS_ITS | Encounter Summary ---
:1965 Author Organization [facility] [place] [address] Care Team Providers Name Role Phone Love Dupont BRAULIO Primary Care Provider Reason for Visit Reason Onset Date Comments Prior Authorization 06/18/2021 Clobetasol Propionat e Encounter Details Date Type Department Care Team Description 06/18[facility]2021 [facility] [address] [place] [address] Social History Tobacco Use Types Packs/Day Years [...] this encounter Miscellaneous Notes Telephone Encounter - Kinza Covington CMA - 06/19/2021 7:13 AM EDT Images from the original note were not included. Per MD Medicaid: Telephone Encounter - Karrie Tobias CCMA - 06/18/2021 1:43 PM EDT Images from the original note were not included. Medication Prior Authorization Request received via: CM Patient: Caro Mendez Patient : 1965 Insurance Company: Medicaid Sent via: ON LICENSE OF [facility] Mcmahon: [id number] Physician: Jaylyn Smith Medication Requested:clobetasoL (Clobex) 0.05 % Shampoo Frequency/Sig: Apply to dry scalp for 15 minutes and then rinse on 3 days per week Disp: 118mL Refills: 2 Currently taking: no If yes, how long: Diagnosis for this medication: Multiple excoriations (T07.XXXA) Prior medications trialed in this patient: Medication: clobetasoL (TEMOVATE) 0.05 % Solution Approx Dates: 12/25/2020 Outcome/Adverse Reactions: Medication:Ketoconazole shampoo Approx Dates: Outcome/Adverse Reactions: Currently inadequate by itself Additional Notes: Assessment/Plan # Excoriations w/ Morgellons Disease - few scattered eroded crusted papules on the scalp, many shortblack hairs (most concentrated on vertex scalp) - Discussed skin findings - Recommended continuing the OTC dandruff shampoo, alternating with Rx: Ketoconazole shampoo and Rx:Clobetasol shampoo every third day. - Continue Rx: Mupirocin BID to open lesions on scalp - Advised not to pick at the skin - Confirmed patient is regrowing black hairs from scalp and it is not anything else - Will wait to prescribe Rx:N-acetylcysteine until her upcoming visit with Derm/Psych. documented in this encounter Plan of Treatment Not on filedocumented as of this encounter Visit Diagnoses Not on filedocumented in this encounter Care Teams Bone Worker Relationship Specialty Start Date End Date Love Dupont APRN PCP - General Family Medicine 04/08/20 [address] [place] [address] documented as of this encounter
--- OUTSIDE RECORDS SUMMARY | 2022-05-22 00:24 | XMS_ITS | Encounter Summary ---
:1965 Author Organization [facility] [place] [address] Care Team Providers Name Role Phone Love Dupont BRAULIO Primary Care Provider Encounter Details Date Type Department Care Team Description 08/20/2021 Telephone Dermatology at [facility] Dinah Rojas MD [address] [facility] [place] [address] [place] [address]DERMATOLOGY [phone] [place], [place] [address] (Wo rk) Social History Tobacco [...] this encounter Miscellaneous Notes Telephone Encounter - Rebecca Sanders Cristal - 08/20/2021 4:19 PM EST Caro Mendez called to ask if a PA could be done for the clobetasoL (Clobex) 0.05 % Shampoo. Best number to reach the patient back is [phone]. documented in this encounter Plan of Treatment Not on filedocumented as of this encounter Visit Diagnoses Not on filedocumented in this encounter Care Teams Tuck Pointer Relationship Specialty Start Date End Date Love Dupont APRN PCP - General Family Medicine 04/08/20 [address] [place] [address] documented as of this encounter
--- OUTSIDE RECORDS SUMMARY | 2022-05-22 00:24 | XMS_ITS | Encounter Summary ---
:1965 Author Organization [facility] [place] [address] Care Team Providers Name Role Phone Love Dupont Ethan RAMSEY Primary Care Provider Encounter Details Date Type Department Care Team Description 07/07/2021 Telephone Psychiatry and [place]al [place] [address] Social History Tobacco Use Types Packs/Day [...] this encounter Miscellaneous Notes Telephone Encounter - Dea Gay - 07/07/2021 4:14 PM EDT Attempted to call pt 2x at mobile number listed. Both calls disconnected before anyone answered. Called to schedule a follow up apt with Dr. Germania Ruiz documented in this encounter Plan of Treatment Not on filedocumented as of this encounter Visit Diagnoses Not on filedocumented in this encounter Care Teams Blanket Folder Relationship Specialty Start Date End Date Love Dupont APRN PCP - General Family Medicine 04/08/20 [address] [place] [address] documented as of this encounter
--- OUTSIDE RECORDS SUMMARY | 2022-05-22 00:24 | XMS_ITS | Encounter Summary ---
:1965 Author Organization [facility] [place] [address] Care Team Providers Name Role Phone Love Dupont APRN Primary Care Provider Encounter Details Date Type Department Care Team Description 12/23/2020 Telephone Psychiatry and Behavioral [place] [address] Social History Tobacco Use Types Packs/Day [...] on filedocumented in this encounter Care Teams Tenon Machine Operator Relationship Specialty Start Date End Date Love Dupont APRN PCP - General Family Medicine 04/08/20 [address] [place] [address] documented as of this encounter
--- OUTSIDE RECORDS SUMMARY | 2022-05-22 00:24 | XMS_ITS | Encounter Summary ---
:1965 Author Organization [facility] [place] [address] Care Team Providers Name Role Phone Love Dupont GOVERNMENT RELATIONS DIRECTOR Primary Care Provider Encounter Details Date Type Department Care Team Description 07/21/2021 TH Visit Pain and Spine Becky Espino, Low back pain, (TeleHealth) Center at [facility] GOVERNMENT RELATIONS DIRECTOR non-specific [facility] [address] [place] [facility] [address] [place] [address] [phone] Social History Tobacco Use Types Packs/Day Years [...] encounter Progress Notes Becky Espino APRN - 07/21/2021 3:40 PM EST Images from the original note were not included. Chief complaint requiring rehabilitation: back and left leg pain S: Caro is being seen today for medical clearance for the Functional Holiness program, a graduated exercise program aimed at The patient achieving herfunctional goals, despite having chronic pain.Her pain pattern is described as back and left leg pain, She has had treatments including physical therapy, injections, tylenol, Ms. Mendez reports that the chief complaint requiring rehabilitation is low back pain radiating into left hip and leg gabapentin, chiropractic, heat, ice, water therapy., some tingling in left foot. Anatomic diagnoses have included sacroiliac joint dysfunction, bursitis in left hip. ?? Further diagnostic testing is not planned. Additional medical procedures are planned. Planning to talk with provider on August 20, 2021 to decide if she needs injection ( greater trochanteric bursa ). The patient's current goals are : Personal Function 3 Month Goals ?? Vocational: Unclear but working with vocational rehabilitation counselor Recreational: Be able to snow shoe for 1 hour; Be able to hike and carry a pack (10-15lbs) for 1 hour. Daily Living: Be able to lift and carry heavier groceries (30-40lbs); Be able to lift and carry 40-50lb of dog food. Be able to mop and vacuum more easily; Be able to stand to cook a meal or bake for 1hour. Be able to bend to bathe dog more easily. Activity limiting health problems: include history of PTSD, panic disorder. O: Please see ms Peter's note of today for details of the physical testing and current functional Level. In general the patients current level of functioning is in the light demand level and goals are in the medium demand level. A: There is a gap between Her goals and abilities.This was a counseling visit for 30 minutes out of 40 talking about symptom management and functional recovery, reviewing the content of FRP, and logistics specific to participation including, travel, lodging and exercise and activity planning . We havemutually decided to proceed with the following plan. P: Caro is a candidate for functional zoroastrian. She will speak with her PCP regarding bursa injection and will speak with Steff Andrade regarding logistics Becky Espino, , DRILL BIT SHARPENER-BC, GOVERNMENT RELATIONS DIRECTOR Nurse practitioner Pain management [facility] . documented in this encounter Plan of Treatment Not on filedocumented as of this encounter Visit Diagnoses Diagnosis Low back pain, non-specific documented in this encounter Care Teams Mortgage Lender Relationship Specialty Start Date End Date Love Dupont APRN PCP - General Family Medicine 04/08/20 [address] [place] [address] documented as of this encounter
--- OUTSIDE RECORDS SUMMARY | 2022-05-22 00:24 | XMS_ITS | Encounter Summary ---
:1965 [place] [address] Care Team Providers Name Role Phone Love Dupont BRAULIO Primary Care Provider Encounter Details Date Type Department Care Team Description 09/23/2021 TH Visit Psychiatry and LISSETTE Hernandez PATIENT NO T SEEN (TeleHealth) Behavioral Health at [facility] [address] PSYCHIATRY [place] [id number] [phone] Social History Tobacco Use Types Packs/Day Years [...] documented as of this encounter Progress Notes Isaura Hernandez MD - 09/23/2021 3:00 PM EST Patient did not log on for scheduled telehealth appointment. Called patient however voicemail was full and not able to leave a message. This patient was not seen in this encounter. documented in this encounter Plan of Treatment Not on filedocumented as of this encounter Visit Diagnoses Diagnosis DH PATIENT NOT SEEN documented in this encounter Care Teams Mud Jack Operator Relationship Specialty Start Date End Date Love Dupont APRN PCP - General Family Medicine 04/08/20 [address] [place] [address] documented as of this encounter
--- OUTSIDE RECORDS SUMMARY | 2022-05-22 00:24 | XMS_ITS | Encounter Summary ---
:1965 Author Organization [facility] [place] [address] Care Team Providers Name Role Phone Love Dupont BRAULIO Primary Care Provider Encounter Details Date Type Department Care Team Description 10/07/2021 Telephone Pain and Spine Yelena odom at [facility] [place] [address] Social History Tobacco Use Types Packs/Day [...] Telephone Encounter - Tiffanie Raza - 10/07/2021 12:54 PM EST Left voicemail for patient requesting a call back to [phone] in regards to completing her FRP enrollment check list. documented in this encounter Plan of Treatment Not on filedocumented as of this encounter Visit Diagnoses Not on filedocumented in this encounter Care Teams Fire Inspector Relationship Specialty Start Date End Date Love Dupont APRN PCP - General Family Medicine 04/08/20 [address] [place] [address] documented as of this encounter
--- OUTSIDE RECORDS SUMMARY | 2022-05-22 00:24 | XMS_ITS | Encounter Summary ---
:1965 Author Organization [facility] [place] [address] Care Team Providers Name Role Phone HakeemLove angela Ethan RAMSEY Primary Care Provider Encounter Details Date Type Department Care Team Description 08/27/2021 Telephone Dermatology at [facility] Iris Raman [address] [place] [address] Social History Tobacco Use Types Packs/Day [...] Notes Telephone Encounter - Iris Raman - 08/27/2021 10:13 AM EST Patient called and is looking for an antibiotic her current treatment is not working. Please see patients note from 08/24. Thanks! documented in this encounter Plan of Treatment Not on filedocumented as of this encounter Visit Diagnoses Not on filedocumented in this encounter Care Teams Test Pilot Relationship Specialty Start Date End Date Love Dupont, MIXED SIGNAL DESIGN ENGINEER PCP - General Family Medicine 04/08/20 [address] [place] [address] documented as of this encounter
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
--- OUTSIDE RECORDS SUMMARY | 2022-05-22 00:24 | XMS_ITS | Encounter Summary ---
:1965 Author Organization [facility] [place] [address] Care Team Providers Name Role Phone Love Dupont Ethan RAMSEY Primary Care Provider Reason for Visit Reason Comments Back Pain Encounter Details Date Type Department Care Team Description 10/03/2021 Office Visit [facility] [place], Low back pain, at [facility] [place] [address] Social History Tobacco Use Types Packs/Day [...] Time Taken Comments Blood Pressure 153/76 10/03/2021 12:41 PM EST Pulse 68 10/03/2021 12:41 PM EST Temperature - - Respiratory Rate - - Oxygen Saturation 97% 10/03/2021 12:41 PM EST Inhaled Oxygen Concentration - - Weight 52.2 kg (115 lb) 10/03/2021 12:41 PM EST Height 156.2 cm (5' 1.5) 10/03/2021 12:41 PM EST Body Mass Index 21.38 10/03/2021 12:41 PM EST documented in this encounter Miscellaneous Notes Initial Evaluation - Navya Peter, OT - 10/03/2021 12:30 PM EST GOALS AND PHYSICAL CAPACITIES ASSESSMENT Ms. Mendez [facility] assist with determining candidacy for admission into the Functional Orthodoxy Program. Ms. Mendez reports that the chief complaint requiring rehabilitation is low back pain radiating into left hip and leg, some tingling in left foot. Anatomic diagnoses have included sacroiliac joint dysfunction, bursitis in left hip. Prior treatments included physical therapy, injections, tylenol, gabapentin, chiropractic, heat, ice, water therapy. Further diagnostic testing is not planned. Additional medical procedures are not planned. Activity limiting health problems include history of PTSD, panic disorder. Current work status: Out of work Employer: [employer]. 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 She reports there is an active worker's compensation claim and/or there is a personal injury claim associated with this injury. 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 Recreational: Be able to snow shoe for 1 hour; Be able to hike and carry a pack (10-15lbs) for 1 hour. Be able to swim for 1 hour. Daily [...] up and down the stairs more easily. PHYSICAL EVALUATION Resting Vital Signs: BP 153/76 HR 68 Gait: normal. AROM (degrees): Lumbar Spine Forward bend (0-90) 55 Backward bend (0-30) 10 SLR Right (0-90) 60 SLR Left (0-90) 65 SLR-Pelvic Motion [smallest SLR - (flex + ext)] 10 Cervical Spine Flexion (0-60) 35 Extension (0-50) 30 Rot. Right (0-80) 40 Rot. Left (0-80) 50 Lat. Flex Right (0-45) 30 Lat. Flex Left (0-45) 25 Endurance Testing: Modified Ramp Treadmill Test Minutes Completed 4:00 % Grade 10 Speed (mph) 2.1 MET/HR Reason for Stop Point: Burning sensation in low back; held onto rails Functional Strength Testing: PILE Testing lbs/HR Floor To Waist Waist to Shoulder Reason for Stop Point: Low back pain; During physical testing, participation level cooperative and consistent. Demand Levels of Functional Recovery Goals Current Capacity Limit / Physical Demand Level (PDL) Vocational: Sedentary-Light Recreational: Light Daily Living: Light-Medium Sedentary-Light The PDL listed above is based on [...] has been recommended for the upcoming Functional Orthodoxy Program (FRP) that includes 4 weeks of intensive PT/OT followed by a minimum of 6 months commitment to self care exercise for improving and maintaining physical capacities. Discussed importance of being on time for all FRP related appointments. Ms. Mendez voiced understanding. Total time for testin minutes documented in this encounter Plan of Treatment Not on filedocumented as of this encounter Visit Diagnoses Diagnosis Low back pain, non-specific documented in this encounter Care Teams Erp Analyst Relationship Specialty Start Date End Date Love Dupont APRN PCP - General Family Medicine 04/08/20 [address] [place] [address] documented as of this encounter
--- OUTSIDE RECORDS SUMMARY | 2022-05-22 00:24 | XMS_ITS | Encounter Summary ---
:1965 Author Organization [facility] [place] [address] Care Team Providers Name Role Phone Love Dupont BUSINESS EDUCATION TEACHER Primary Care Provider Reason for Visit Reason Comments Follow-up Encounter Details Date Type Department Care Team Description 10/03/2021 Office Visit Dermatology at [facility] elusions of parasitosis; Steven Quevedo MD Seborrheic dermatitis; [address] [facility] Xerosis cutis; [place] [address] Folliculitis [phone] [facility] [place], [place] [address] Social History Tobacco Use Types [...] encounter Progress Notes Dinah Rojas MD - 10/03/2021 3:20 PM EST Images from the original note were not included. DEPARTMENT OF DERMATOLOGY Medical Dermatology Clinic Provider: Dinah Rojas MD Patient's preferred name Caro Preferred contact method for results [x]?Phone []?myD-H []?Letter Detailed phone message OK? Yes Are there [...] to lidocaine, epinephrine, Dermabond, chlorhexidine, or adhesives ?? Bleeding disorder or blood thinners ?? Implanted devices (Pacemaker, defibrillator, deep brain stimulator, cochlear implant) ?? History of Present Illness: Caro Mendez is a 56 y.o. year old. Patient returns to clinic todayfor new crusted lesion on the scalp and arms. Both itchy and sore. Worries about systemic staph infection, noting she read a book called MRSA [employer] revealed and is concerned about spreading infectionto other individuals. She is concerned because there are black things that will come out of her skin. She also notes sweating at night. No weight loss. Last visit at [facility] Derm: 08/18/2021 Last visit with this provider: 08/18/2021 Medications: Reviewed in eD-H Allergies: Reviewed in eD-H Skin Examination: Focused skin examination of the scalp, bilateral arms was normal with the exception of the findings below Assessment/Plan #. 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 Mild Folliculitis #. Delusions of parasitosis EXAM: rare pink papules on the scalp with small amount of overlying serosanguinous crust - Prior culture grew MSSA - Start Rx Mupirocin 2%: Apply three times daily to the nostrils for 1 week, then 5 times monthly for maintenance. Apply twice daily as needed to affected areas on the scalp. - Reiterated recommendation to re-establish care with therapist, as recommended during [facility] appointment. - Recommend restarting OTC: N-Acetylcysteine 600 mg BID - Recommend f/u with PCP regarding night sweating for further evaluation. ?? #. Xerosis EXAx: xerotic scale on hands, accentuated in the dermatoglyphs. - Start OTC AmLactin lotion on the feet/hands. Apply topically once daily at night. #. Seborrheic Dermatitis - Continue Rx ketoconazole 2% shampoo alternating with Head and Shoulders, and add Selsun blue. Lather and let sit for 3-5 minutes prior to rinsing. Other items to document in the assessment/plan if relevant ??? OTC skin products discussed RTC: PRN []Note routed to cloth measurer machine []Recall has been placed in scheduling system []Appointment scheduled at checkout Scribe attestation: DIANNE Edmondson who has performed the documentation for this encounterin the presence of and acting as a scribe for Dinah Rojas MD. I performed the above scribed service and agree with the accuracy of the documentation in this encounter. Reviewed and signed by: Dinah Rojas MD Dermatology [facility] Patient seen and evaluated with staff statistics manager: Peggy Wolf MD Dermatology [facility] Peggy Wolf MD - 10/03/2021 3:20 PM EST I directly supervised Dr. Rojas during this office visit. Dr. Rojas presented the history and physical exam to me. I then saw and examined this patient with Dr. Rojas . We reviewed the history and pertinent details and I confirmed the physical findings. I agree with the details of the history and physical exam as documented in Dr. Rojas's note. PEGGY WOLF MD Staff Physician documented in this encounter Plan of Treatment Not on filedocumented as of this encounter Visit Diagnoses Diagnosis Delusions of parasitosis Other isolated or specific phobias Seborrheic dermatitis Seborrheic dermatitis, unspecified Xerosis cutis Other specified disease of sebaceous gla nds Folliculitis Other specified disease of hair and hair follicles documented in this encounter Care Teams Earth Science Technician Relationship Specialty Start Date End Date Love Dupont, BUSINESS EDUCATION TEACHER PCP - General Family Medicine 04/08/20 [address] [place] [address] documented as of this encounter
--- OUTSIDE RECORDS SUMMARY | 2022-05-22 00:24 | XMS_ITS | Encounter Summary ---
:1965 Author Organization [facility] [place] [address] Care Team Providers Name Role Phone HakeemLove angela Ethan RAMSEY Primary Care Provider Encounter Details Date Type Department Care Team Description 09/29/2021 Telephone [facility] Sp[facility] odom at [facility] Steff Andrade, [place] [address] Social History Tobacco Use Types Packs/Day [...] Telephone Encounter - Steff Andrade MSW - 09/29/2021 10:40 AM ESTSummary: Contact OFFICE of CARE MANAGEMENT CCM Operator Weapon Locating Radar contacted Alanna Rainey (Worker's Comp Wood Crew Supervisor) and Osvaldo Nelson (Atm Technician) via email asking for additional contact information, after unsuccessful attempts by the FRP Coordinator to contact Ms. Mendez by phone and the [facility] system. Operator Weapon Locating Radar will attempt to follow up withMs. Mendez upon receipt of any additional contact information, if any. There are no additional concerns to address at this time. documented in this encounter Plan of Treatment Not on filedocumented as of this encounter Visit Diagnoses Not on filedocumented in this encounter Care Teams Field Mechanic Relationship Specialty Start Date End Date Love Dupont APRN PCP - General Family Medicine 04/08/20 [address] [place] [address] documented as of this encounter
--- OUTSIDE RECORDS SUMMARY | 2022-05-22 00:24 | XMS_ITS | Encounter Summary ---
:1965 Author Organization [facility] [place] [address] Care Team Providers Name Role Phone Love Dupont APRN Primary Care Provider Encounter Details Date Type Department Care Team Description 08/20/2021 Telephone Psychiatry and Behavioral [facility] [place] [address] Social History Tobacco Use Types Packs/Day [...] on filedocumented in this encounter Care Teams Merry Go Round Attendant Relationship Specialty Start Date End Date Love Dupont APRN PCP - General Family Medicine 04/08/20 [address] [place] [address] documented as of this encounter
--- OUTSIDE RECORDS SUMMARY | 2022-05-22 00:24 | XMS_ITS | Encounter Summary ---
:1965 Author Organization [facility] [address] Care Team Providers Name Role Phone HakeemLove angela Ethan RAMSEY Primary Care Provider Encounter Details Date Type Department Care Team Description 08/26/2021 Telephone [facility] [place] [facility] Steff Andrade, [place] [address] Social History Tobacco Use Types Packs/Day [...] Telephone Encounter - Steff Andrade MSW - 08/26/2021 3:43 PM ESTSummary: Phone call to Worker's Comp Booking Agent OFFICE of CARE MANAGEMENT CCM [employer] contacted Ms. Alanna Donahue Worker's Comp Booking Agent by phone at to get an update on the status of whether or not Worker's Comp will provide coverage for Ms. Mendez's participation in the Functional Shinto Program? Ms. Donahue informed [employer] she didnot receive the fax sent on 08/21/21. [employer] confirmed the fax number as . [employer] refaxed the documentation. [employer] contacted Ms. Donahue and informed her the documentation had been refaxed. Ms. Donahue stated the documentation had not been received on her end yet; however, she will continue to check for it. [employer] will follow up with Ms. Donahue to ensure she receives the fax. There are no other concerns to address at this time. Steff Andrade LCSW documented in this encounter Plan of Treatment Not on filedocumented as of this encounter Visit Diagnoses Not on filedocumented in this encounter Care Teams Supervisor Cold Rolling Relationship Specialty Start Date End Date Love Dupont, BRAULIO PCP - General Family Medicine 04/08/20 [address] [place] [address] documented as of this encounter
--- OUTSIDE RECORDS SUMMARY | 2022-05-22 00:24 | XMS_ITS | Encounter Summary ---
:1965 Author Organization [facility] [place] [address] Care Team Providers Name Role Phone Love Dupont APRN Primary Care Provider Encounter Details Date Type Department Care Team Description 01/20/2021 Orders Only Dermatology at [facility], Anton Devlin MD [address] [place] [address] [facility] [phone] [place], [place] [address] (Wo rk) Social History Tobacco [...] on filedocumented in this encounter Care Teams Cuff Setter Overlock Relationship Specialty Start Date End Date Love Dupont APRN PCP - General Family Medicine 04/08/20 [address] [place], [place] [id number] documented as of this encounter
--- OUTSIDE RECORDS SUMMARY | 2022-05-22 00:24 | XMS_ITS | Encounter Summary ---
:1965 [place] [address] Care Team Providers Name Role Phone HakeemLove angela Ethan RAMSEY Primary Care Provider Encounter Details Date Type Department Care Team Description 01/14/2021 TH Visit Psychiatry and Chucky Baker Post-trau matic stress disorder, chronic; (TeleHealth) Behavioral Health at [facility] Delusions of parasitosis [facility] [address] PSYCHIATRY [place] [phone] Social History Tobacco Use Types Packs/Day Years [...] as of this encounter Patient Instructions Patient InstructionsChucky Baker - 01/14/2021 2:00 PM EDT Stop taking Prazosin. Start taking Abilify 2mg daily for 2-3 weeks, then increase to 4mg daily. No other medication changes. Keep up the good work by starting therapy! Best wishes! In case of emergency, please go to your closest Emergency Department or call 911. Alternatively, if in acute crisis or are feeling unsafe, you can call the [facility] crisis number [phone]. You may also contact the [facility] crisis line at [phone] if you reside locally in [place]. You may contact [facility] crisis line at [phone] if you live locally in [place]. documented in this encounter Progress Notes Chucky Baker - 01/14/2021 2:00 PM EDT ESTABLISHED ADULT PATIENT OFFICE VISIT NOTE Location: Telehealth. Caro Mendez gave permission for and was seen for today's appointment with a Telehealth visit. During this visit they were located in [place]. Caro Mendez is aware that for any urgent matter theycan call [phone]. Attendee(s): Patient only This patient was seen with construction supervisor Mery Shaver MD. See their note for confirmatory and/or revisionary documentation. Chief Complaint: I'm ok, the medicine to help me sleep caused too much sleep. History of Present Illness: Caro Mendez is a 55 y.o. female with a history of panic disorder, PTSD, MDD, and diagnosis of Bipolar I Disorder who presents today for follow-up. - At last visit, started Prazosin for trauma-related nightmares and also reinforced dosing of NAC. Nivia reports over-sedation with Prazosin 1mg and worsened nightmares. She has discontinued, but may be willing to consider in the future when things calm down a bit. - Since last visit, received message from Tool Designer that Nivia continues to struggle with concerns regarding infestation of scalp, using dangerous OTC medications and devices resulting in scalp leon. In discussion today, Nivia reports it's still stuck with me, it's still in my mind that it's itchy. I do believe my doctors. My mind just plays tricks. Education provided around these thoughts andmedication interventions, including Abilify and Pimozide. Nivia wishes to avoid side effects, and iswilling and encouraged around education provided for potential benefits of adding Abilify to treatment regimen. - Today, Nivia reports I've been going through remembering more of things from the past with my sister and ex-. That's been making me sick. - Continues to report sxs of PTSD, including hypervigilance, avoidance behaviors, feeling anxious/onedge during the day, and nightmares at least once/week. Many of these nightmares are trauma-related to the loss of her son. - Starting therapy with counselor Jace in [place], [place], he's really good; that'll help. - Denies any sxs of fozia. - Reports much of her anxiety is also worsened by pain. - Denies SI/HI/AVH. - Starting online [employer] courses with support of [employer], for which she is hopeful and excited about future job opportunities. Substance Use: No changes since last visit. EtOH: 2x/week, at most 3 beers. Tobacco/nicotine: Former smoker for 5 years. Marijuana: Daily smoking, total of 1/2 oz/month Denies use of other recreational or illicit drugs. History of cocaine use, but quit in 2000 Safety: Pt firmly and convincingly denies any SI/HI. Pt has been given Crisis Line numbers and agrees to call in case of emergency. Also agreeable to call 911 or to present to the ED in times of crisis. Questionnaires: PHQ9 Questionnaires Data (Clinic and Pt [...] Outpatient Medications Medication Sig Dispense Refill ??? clobetasoL (TEMOVATE) 0.05 % Solution Use [...] exceed 3mg nightly. 90 capsule 1 ??? ketoconazole (NIZORAL) 2 % Shampoo Apply topically daily as needed for Itching. 120 mL 2 ??? triamcinolone (KENALOG) 0.1 % Cream Apply [...] Allergies Past Psychiatric history and treatment: Prior diagnoses: BPADI, Panic disorder while driving, MDD, manic depression History of fozia: Endorses episodes of paranoia that began in setting of chaotic family life and coercion by family to get them out of legal problems, I was always looking over my shoulder. Denies past history of grandiosity, AVH, dangerous or reckless behavior, or lack of need for sleep. Prior psychiatric hospitalizations: 2002 and 2013 [facility] in [place] for paranoia Prior outpatient treatment: Went to psychotherapy after son's suicide, but stopped about three yearsago Prior suicide attempts or self-harm: 2013 SI with plan to overdose but went to hospital instead; denies self-harm I don't really pain. Prior violence or legal issues: Denies Prior ECT/TMS: Denies ?? Prior medications trials (dosage, response, side effects, adequacy of trial): 5-10 years ago: Lexapro, Celexa - ineffective over time Wellbutrin - that one was horrible, caused worsened mood and depression Unsure of other medications but denies use of anti-psychotics or mood stabilizers in past. Review of Systems: Denies recent fevers, h/a, seizures, SOB, GI distress. / control: Not sexually active, perimenopausal Vitals (24hr Range): No data found. Musculoskeletal System: no abnormal movements Mental Status Exam: ?? Appearance: age appropriate, well dressed and well groomed ?? Behavior: cooperative with the interview, calm and good eye contact ?? Speech: normal pitch, normal volume, normal rate and normal rhythm ?? Language: fluent in malay ?? Mood: Anxious ?? Affect: bright, full and mood-congruent ?? Thought Process: linear and logical ?? Associations: intact ?? Thought Content: denied homicidal ideation, denied suicidal ideation and no paranoid delusions ?? Perception: denied auditory hallucinations denied visual hallucinations not observed responding to internal stimuli ?? Orientation: grossly intact by interview ?? Attention/Concentration: able to sustain focus ?? Cognition: grossly intact by interview ?? Memory: recent and remote memory grossly intact ?? Fund of Knowledge: appropriate for age [...] TSH 1.14 05/23/2020 No results found for: [id number], 25OHVITD No results found for: LITHIUM, VALPROATE, CLOZAPINE Formulation and Assessment: Overall Formulation: Caro Mendez is a 55 y.o. Female with a history of panic disorder, delusional parasitosis, and a diagnosis of Bipolar I Disorder, referred to establish care by her PCP. Biologically, she has a family history of depression and substance use disorders and struggles with chronicback pain following a work injury. Psychologically, she has extensive trauma dating back to childhood and early adulthood, in addition to recent suicide of her son in 2018. Socially, she is supported by workers' comp and has not worked since 2019 due to injury; she identifies good support in her life,and is connected with [facility], planning to take community college courses in the near future. Her h istory does not support a diagnosis of Bipolar 1 Disorder, though we will continue to monitor for symptoms. CURRENT ASSESSMENT: Nivia is doing well overall, though still experiencing residual sxs of PTSD. Prazosin was not well-tolerated (over-sedation and worsened nightmares), and will discontinue at this time, though may re-visit in future if warranted. No evidence of fozia today. We revisited concerns voiced from Tool Designer at latest visit (see HPI and their notes) and Nivia voiced continued persistence of concerns regarding itchiness and infestation. Robust education provided around psychiatric nature of these experiences as well as psychotropic medications that may be helpful. Given Nivia's concerns for side effects and evidence for efficacy of SGAs, shared decision to start Abilify 2mg daily for 2 weeks, then 4mg daily (r/b/se discussed) will target dose of 8-12mg daily as supported by current evidence. We also discussed if this medication is not effective, there are alternatives. She continues smokes marijuana daily for anxiety-management and we discussed risks of this to worsenanxiety/depression/psychosis; robust education provided around this with strong encouragement to abstain or at least avoid high THC potency. Will continue to provide psychoeducation in future visits. She denies any acute safety concerns and is hopeful for treatment. Plan to terminate with this copywriter and transfer to another resident for follow-up in March, to which she voiced understanding. Diagnoses: PTSD, chronic History of Panic Disorder, MDD, Delusional parasitosis Safety Assessment: Pt firmly and convincingly denies any SI/HI. Pt has been given Crisis Line numbers and agrees to call in case of emergency. Also agreeable to call 911 or to present to the ED in times of crisis. Plan: # PTSD, chronic - Start Abilify 2mg daily for 2-3 weeks based on tolerability, then increasing to 4mg daily. Plan totitrate to 8-12mg daily as supported by evidence base, and as clinically warranted and tolerated. Ifineffective/intolerable, may consider Seroquel, Risperidone, or Zyprexa, or possibly FGA such as Pimozide, though it carries greater side effect profile. - Discontinue Prazosin 1mg nightly for trauma-related nightmares, may consider re-trial in future - Continue Effexor XR 262.5mg daily, may consider titrating in future as clinically indicated - Continue Gabapentin 600/600/900mg in TID dosing for pain and anxiety - Continue Hydroxyzine 25mg TID PRN for itching/anxiety - Continue NAC 600mg TID - Intake for psychotherapy later this week in [place], [place] through [facility]; continue to encourage meaningful engagement Patient Instruction/Education provided: Patient provided verbal instructions regarding medication side effects, safety plan in case of feeling unsafe. Patient understands the plan? Yes Signed By: Chucky Baker MD 01/14/2021 Mery Shaver MD - 01/14/2021 2:00 PM EDT PSYCHIATRY TEACHING PHYSICIAN INVOLVEMENT Location: Adult Psychiatry Medication Clinic, [facility]D Attending Physician: Mery Shaver MD Resident name: Chucky Baker MD I saw and evaluated the patient virtually with Dr. Baker. Please see his note for details. I reviewed the patient's history during the visit and I agree with the details as written. My exam confirms the resident's findings. The assessment and plan were formulated in discussion with me and I agree with them as documented. Major issues addressed/discussed: 55yo woman returning for follow-up of PTSD, MDD, delusional parasitosis. Started prazosin for nightmares, but this was not tolerable because of oversedation and worsening of nightmares. We had been contacted by Nivia's gunstock spray unit adjuster about her voicing concerns about parasites in her skin and using a device that had injured her. Nivia describes on the one hand believing the dermatologists that there is nothing there but also getting stuck on thoughts that there is a problem / feeling itchy. She is open to trying a medication to help with these thoughts--discussed starting Abilify and titrating dose. Will stop prazosin. Continue Effexor XR 262.5 mg, gabapentin 600 qAM, 600mg mid-day, 900mg qHS, hydroxyzine 25mg BID PRN anxiety, NAC 1800mg daily dose. She will be starting therapy soon. Mery Shaver MD documented in this encounter Plan of Treatment Not on filedocumented as of this encounter Visit Diagnoses Diagnosis Post-traumatic stress disorder, chronic Delusions of parasitosis Other isolated or specific phobias documented in this encounter Care Teams Truck Leasing Manager Relationship Specialty Start Date End Date Love Dupont APRN PCP - General Family Medicine 04/08/20 [address] [place] [address] documented as of this encounter
--- OUTSIDE RECORDS SUMMARY | 2022-05-22 00:24 | XMS_ITS | Encounter Summary ---
:1965 Author Organization [facility] [place] [address] Care Team Providers Name Role Phone Love Dupont Ethan RAMSEY Primary Care Provider Reason for Visit Reason Comments Back Pain Encounter Details Date Type Department Care Team Description 07/18/2021 Office Visit [facility] [place] Low back pain, Program at [facility] Navya Devlin OT non-specific [address] [place] [address] Social History Tobacco Use Types Packs/Day [...] Initial Evaluation - Navya Peter OT - 07/18/2021 2:30 PM EST GOALS AND PHYSICAL CAPACITIES ASSESSMENT Ms. Mendez was [facility] to assist with determining candidacy for admission into the [facility]. Ms. Mendez reports that the chief [...] 20, 2021 to decide if she needs injections. Activity limiting health problems include history of PTSD, panic disorder. Current work status: Out of work Employer: [employer] 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 She reports there is an active worker's compensation claim and/or there is a personal injury claim associated with this injury. Personal Function 3 Month Goals Vocational: Unclear but working with vocational rehabilitation [...] to bend to bathe dog more easily. PHYSICAL EVALUATION Resting Vital Signs: BP 141/81 HR 80 Gait: normal. AROM (degrees): Lumbar Spine Forward bend (0-90) 55 Backward bend (0-30) 10 SLR Right (0-90) 50 SLR Left (0-90) 50 SLR-Pelvic Motion [smallest SLR - (flex + ext)] 10 Cervical Spine Flexion (0-60) 45 Extension (0-50) 25 Rot. Right (0-80) 35 Rot. Left (0-80) 35 Lat. Flex Right (0-45) 45 Lat. Flex Left (0-45) 25 Endurance Testing: Modified Ramp Treadmill Test Minutes Completed 3:00 % Grade 10 Speed (mph) 1.7 MET/HR Reason for Stop Point: Left lower extremity pain Functional Strength Testing: PILE Testing lbs/HR Floor To Waist 20 / 105 Waist to Shoulder 15 / 100 Reason for Stop Point: Low back pain and left shoulder pain with shoulder level lifting During physical testing, participation level cooperative and consistent. Demand Levels of Functional Recovery Goals Current Capacity Limit / Physical Demand Level (PDL) Vocational: Unclear Recreational: Light Daily Living: Medium Light The PDL listed above is based on today's physical performance screening tests. More comprehensive physical testing integrated with clinical findings would be required to derive an accurate work capacity. ASSESSMENT OF FUNCTIONAL TESTING: Based on today???s physical capacity findings Crao Mendez is a candidate for a multidisciplinary intensive physical rehabilitation program with behavioral support. There are physical limitations in gait, range of motion, walking endurance, functional strength, and overall physical capacities that interfere with basic functional tasks and hinder quality of life. I believe that this can improve with functional rehabilitation. PLAN: Pending medical clearance, Caro has been recommended for the upcoming [facility] (FRP) that includes 4 weeks of intensive PT/OT followed by a minimum of 6 months commitment to self care exercise for improving and maintaining physical capacities. Total time for testin minutes documented in this encounter Plan of Treatment Not on filedocumented as of this encounter Visit Diagnoses Diagnosis Low back pain, non-specific documented in this encounter Care Teams Senior Talent Management Consultant Relationship Specialty Start Date End Date Love Dupont APRN PCP - General Family Medicine 04/08/20 [address] [place] [address] documented as of this encounter
--- OUTSIDE RECORDS SUMMARY | 2022-05-22 00:24 | XMS_ITS | Encounter Summary ---
:1965 Author Organization [facility] [address] Care Team Providers Name Role Phone Love Dupont BRAULIO Primary Care Provider Encounter Details Date Type Department Care Team Description 05/13/2021 Telephone Dermatology at [facility] Dinah Rojas MD [address] [facility] [place] [id number] [facility] [phone] [place], [place] [address] (Wo rk) Social History Tobacco [...] Telephone Encounter - Dinah Rojas MD - 05/20/2021 3:23 PM EDT Refill sent. Telephone Encounter - Blanquita Parker - 05/13/2021 10:06 AM EDT Medication Request Who requested: Patient Medication(s): ?? mupirocin (Bactroban) 2 % Cream (05/01/2021) Pharmacy: [facility] - [place], [place] Last seen: 04/25/2021 - RTC: 04/30 for derm/psych Follow up scheduled for: Nothing currently scheduled - patient failed to arrive for derm/psych evaluation. Comments: ?? Patient aware that it may take up to 3 business days for medical team to process refill requests. ?? Please ask pharmacy to contact patient when medication is available for grape picker. ?? If unable to refill medication please contact patient. Patient contact: [phone] documented in this encounter Plan of Treatment Not on filedocumented as of this encounter Visit Diagnoses Not on filedocumented in this encounter Care Teams Enterprise Records Analyst Relationship Specialty Start Date End Date Love Dupont, GLUING MACHINE OPERATOR ELECTRONIC PCP - General Family Medicine 04/08/20 [address] [place] [address] documented as of this encounter
--- OUTSIDE RECORDS SUMMARY | 2022-05-22 00:24 | XMS_ITS | Encounter Summary ---
:1965 Author Organization [facility] [place] [address] Care Team Providers Name Role Phone HakeemLove angela Ethan RAMSEY Primary Care Provider Encounter Details Date Type Department Care Team Description 10/06/2021 TH Visit Pain and Spine Rocio Enciso, Low back pain, (TeleHealth) Center at [facility] non-specific [facility] [address] [place], [place] [phone] Social History Tobacco Use Types Packs/Day Years [...] as of this encounter Progress Notes Rocio Enciso, [facility] - 10/06/2021 2:00 PM EST ACTIVE PAIN CARE, a program of the [facility] Pain Neuroscience Education Patient: Caro Mendez Date: 10/06/2021 Topic: Pain 100 Explain Pain: Why Things Hurt 150 minute Health & Behavior Intervention Group focused on Pain Neuroscience Education provided by Rocio Enciso PsyD, pain psychologist. The title of the group is Explain Pain: Why Things Hurt and introduces patients to the basics of pain neuroscience. This group is intended to educate patients on how the nervous system and the brain process information and contribute to their pain experience. The intention is to help patients better understand the complexity of their pain and enhance their motivation and ability to engage in activepain care, and thereby develop more effective self management strategies. Participants were educated that pain is a normal, human experience, however persistent pain is typically more due to the sensitive nervous system and how the brain processes information from the body and environment. Participants were provided the rationale for the education: that research has shown that if patients know and understand about pain, they experience better treatment outcomes, function better, experience less pain, and have greater interest in healthy exercise and movement. Participants were encouraged to follow up this single-session education with diagnosis specific education and engagement in Active Pain Care interdisciplinary treatment options, including the Functional [facility] Program or Pain Coaching documented in this encounter Plan of Treatment Not on filedocumented as of this encounter Visit Diagnoses Diagnosis Low back pain, non-specific documented in this encounter Care Teams Cardroom Supervisor Relationship Specialty Start Date End Date Love Dupont APRN PCP - General Family Medicine 04/08/20 [address] [place] [address] documented as of this encounter
--- OUTSIDE RECORDS SUMMARY | 2022-05-22 00:24 | XMS_ITS | Encounter Summary ---
:1965 Author Organization [facility] [place] [address] Care Team Providers Name Role Phone Love Dupont BRAULIO Primary Care Provider Encounter Details Date Type Department Care Team Description 09/04/2021 Telephone Pain and Spine Yelena odom at [facility] [place] [address] Social History Tobacco Use Types Packs/Day [...] Notes Telephone Encounter - Tiffanie Raza - 09/04/2021 11:32 AM EST Purpose of call was to discuss confirmation of FRP for September 08. Voicemail box was full. I will send a [employer] message to the patient. documented in this encounter Plan of Treatment Not on filedocumented as of this encounter Visit Diagnoses Not on filedocumented in this encounter Care Teams Material Manager Relationship Specialty Start Date End Date Love Dupont APRN PCP - General Family Medicine 04/08/20 [address] [place] [address] documented as of this encounter
--- OUTSIDE RECORDS SUMMARY | 2022-05-22 00:24 | XMS_ITS | Encounter Summary ---
:1965 Author Organization [facility] [place] [address] Care Team Providers Name Role Phone Love Dupont APRN Primary Care Provider Encounter Details Date Type Department Care Team Description 03/19/2021 Telephone Psychiatry and Behavioral [place] [address] Social History Tobacco Use Types Packs/Day [...] on filedocumented in this encounter Care Teams X Ray Consultant Relationship Specialty Start Date End Date Love Dupont APRN PCP - General Family Medicine 04/08/20 [address] [place] [address] documented as of this encounter
--- OUTSIDE RECORDS SUMMARY | 2022-05-22 00:24 | XMS_ITS | Encounter Summary ---
:1965 Author Organization [facility] [place] [address] Care Team Providers Name Role Phone Hakeemcoreen Love Long APRN Primary Care Provider Reason for Referral Consultation (Routine) - Closed Specialty Diagnoses / Procedures Referred By Contact Refer red To Contact Pain and Spine Center Diagnoses Low back pain, non-specific Sacroiliac joint dysfunction of left side Greater trochanteric bursitis of left hip Piriformis syndrome of left side WC _ FRP Salomon Wise MD [facility] Pain And [facility] Spine [facility] [address] [address] Phone: Fax: Referral ID Status Reason Start Date Expiration Date Visits V isits Requested Authorized [id number] Closed Consult, 06/02/2021 06/02/2022 1 1 Test & Treat Encounter Details Date Type Department Care Team Description 06/02/2021 TH Visit Pain and Spine Salomon Wise MD Sacroiliac joint dysfunction of left miguel e (Primary Dx); (TeleHealth) Center at [facility] Low back pain, non-specific; [facility] Greater trochanteric bursitis of left hi p; [facility] Piriformis syndrome of left side [place], [place] [id number] [phone] Social History Tobacco Use Types Packs/Day Years [...] documented as of this encounter Progress Notes Salomon Wise MD - 06/02/2021 1:00 PM EDT TELEHEALTH PAIN CLINIC FOLLOW UP - VIDEO Date of Visit: June 02, 2021 I am seeing Ms. Mendez at the request of Love Dupont for my opinion and recommendations regarding . Telehealth visit, due to the SARSCOV2 pandemic. Please see consent below. Patient verbally consents to this video visit and understands that this visit may be billed, similar to a clinic office visit. The provider is in [facility] [place], [place], speaking with the patient a the patient's location/address during the visit: [address] [place] [address] [X] Consent: I introduced and identified myself, received verbal consent from the patient to proceedwith this video visit and made the patient aware that the same confidentiality and director information security practices apply. [X] I verified the patient's name and, date of , and as well as payer information ID if available. [X] Patient has no symptoms of fever, significant cough, or shortness of breath. The patient understands not all conditions can be adequately evaluated and treated through a virtualvisit and may require an in-person medical evaluation. The patient understands that there may be co-pay /cost for the visit. The history is obtained from the patient, and I have reviewed medical records provided by the referring physician and located in the electronic medical record to fill in gaps in the patient's recollection of events, treatments and outcomes. Chief Complaint: Lower back pain radiating to the left hip, left lower extremity History of Present Illness: Caro Mendez is a 56 y.o. female who presents via telehealth with persistent left sided back, buttock and lower extremity [...] The foot feels like pins and needles. She had started physical therapy 2 months ago, and her pain started worsening over the first few weeks. She ended up getting an L-spine MRI which was essentially normal. She remains on Workmen's Comp. She used to work at the [employer]. We had referred her for a GAPP/ FRP evaluation at . Pain Severity: 7/10 currently, 10/10 at worst, 5/10 at best Numbness/Tingling: LLE Weakness: LLE Bowel and bladder: No loss of control Sleep: I don't sleep a lot; Very uncomfortable Mood: Stable, continues psychotherapy Denies red flags including bowel or bladder symptoms, fever, chills, saddle anesthesia, profound motor loss, history of cancer, history of immune compromise, weight loss. Denies any current use of anticoagulation or antibiotics medications. Does not have any h/o diabetes, renal or hepatic disease. Review of Electronic Chart: Today I have also reviewed available medical information in the patient's medical record at [facility] including relevant provider notes, laboratory work, and imaging. Past Medical History: Patient Active Problem List Diagnosis Code ??? Chronic low back pain M54.5, G89.29 ??? Sacroiliac joint dysfunction of left side M53.3 ??? Greater trochanteric bursitis of left hip M70.62 ??? Low back pain, non-specific M54.5 ??? Piriformis syndrome of left side G57.02 No past medical history on file. Past Surgical History: Past Surgical History: Procedure Laterality Date ??? WRIST SURGERY Left Medications: Medications were reconciled and updated in the electronic medical record. Current Outpatient Medications: ??? mupirocin (Bactroban) 2 % Ointment, Apply topically 2 times daily as needed., Disp: 22 g, Rfl: 1 ??? omeprazole (PriLOSEC) 40 mg Capsule, Delayed Release(E.C.), daily., Disp: , Rfl: ??? naproxen (NAPROSYN) 500 mg Tablet, as needed., Disp: , Rfl: ??? bisacodyl EC (Dulcolax) 5 mg Tablet, Delayed Release (E.C.), Take by mouth., Disp: , Rfl: ??? Acetylcysteine 600 mg Capsule, Take by mouth 2 times daily., Disp: , Rfl: ??? mupirocin (Bactroban) 2 % Cream, Apply 3 times daily to affected areas on the scalp for 10 days., Disp: 15 g, Rfl: 0 ??? ketoconazole (NIZORAL) 2 % Shampoo, APPLY TOPICALLY DAILY NEEDED FOR ITCHING, Disp: 120 mL, Rfl: 2 ??? fluocinolone acetonide (SYNALAR) 0.01 % Solution, Apply to affected areas on the scalp daily as needed for itching., Disp: 60 mL, Rfl: 2 ??? clobetasoL (TEMOVATE) 0.05 % Solution, Use topically to scalp daily for 2 weeks. Take 1 week off. Repeat as needed., Disp: 50 mL, Rfl: 1 ??? fluocinonide (LIDEX) 0.05 % Solution, Apply to the affected areas on the scalp 1-2 times daily, as needed., Disp: 60 mL, Rfl: 1 ??? prazosin (Minipress) 1 mg Capsule, Take 1 capsule by mouth nightly. Take 1 capsule by mouth nightly for two weeks, increasing by 1mg every two weeks, not to exceed 3mg nightly., Disp: 90 capsule, Rfl: 1 ??? triamcinolone (KENALOG) 0.1 % Cream, Apply once or twice daily to itchy lesions for up to 2 weeks. Take 1 week off. Repeat as needed., Disp: 80 g, Rfl: 1 ??? venlafaxine (EFFEXOR-XR) 150 mg Capsule, [...] mg by mouth daily., Disp: , Rfl: Allergies: No Known Allergies Social History: Social History Socioeconomic History ??? Marital status: [...] Social History Narrative ??? Not on file Family history: Family History Problem Relation Age of Onset ??? No Known Problems Mother ??? No Known Problems Father No pertinent h/o arthritis or pain history in the family. Past medical, social and family history is unchanged from her prior visit on 11/18/2020. Review of Systems : Constitutional: No unintentional weight loss or gain, fevers, chills, or night sweats. Positive for above mentioned musculoskeletal and neurological findings. Physical Exam: There were no vitals taken for this visit. General: Well-nourished, well-developed female Psych: Appropriate affect, A&Ox3 , answers questions appropriately Imaging Studies: Most recent L-spine MRI obtained on 05/07/2021 was reviewed in detail. The study shows: No evidence of significant spinal stenosis or neuroforaminal narrowing. Assessment: Caro Mendez is a 56 y.o. female with chronic left > right lower back pain, after a work-related injury she sustained on 05/2019. 1. Sacroiliac joint dysfunction of left side 2. Low back pain, non-specific 3. Greater trochanteric bursitis of left hip 4. Piriformis syndrome of left side Plan/ Recommendations: We reviewed etiology, predisposing factor(s), natural course, imaging results as well as treatment options including medications, physical therapy/exercise, therapeutic injections, and surgery. The risks, consequences, alternatives, and benefits of various treatment options were discussed with the patient in great detail, including conservative management, injections and procedures. At this time there are no red flag symptoms on history. Patient instructed to go to emergency department if new or worsening neurological symptoms develop. - Medications: No new prescription at this time. Patient will continue current meds. - Imaging: No new imaging indicated at this time. - Physical therapy/modalities/DME: She will likely benefit from resuming physical therapy, and continued home exercise program. - Interventional/Surgical procedures: None indicated at this time. - Pain psychologist: We will schedule appointment with Dr. Enciso/ [facility], to address issues of relaxation, behavioral change, coping style, and other factors important to improvement, and consideration of biofeedback, CBT, and coping strategies. She will likely need a GAPP/ FRP evaluation. ?? ACTIVE PAIN CARE REFERRAL ?? The most appropriate treatment for chronic pain is a comprehensive approach to pain management that addresses??psychological, medical, physical, and occupational needs.??It is likely that Caro would ??benefit from engagement with the [facility], which will provide essential pain neurosc ience education, and the opportunity to participate in interdisciplinary mind- body treatments. Theseapproaches could??help Caor??develop pain self management strategies,??reduce fear of??movement and exercise, and safely increase activity levels. She would benefit from??cognitive-behavioral??interve ntions to??improve ability to actively cope with??pain, decrease emotional distress, and decrease reliance on medical procedures. Symptom management could??be enhanced through mindfulness and relaxation training. ??It seems likely that Caro??will experience some ongoing or recurrent pain symptoms in the future, therefore working with the [facility] should provide her??with better strategies for coping with the remaining pain through a self-management approach, with the goal of helping her??reduce pain flares and resume valued activities, including possibly returning to gainful employment. ? Recommended Care (all of these will be offered to patients, this recommendation indicates provider'sintended treatment plan): ?? [x]??Welcome Group []??Pain Education ?? [x]??Functional Caodaism []?Individual Pain Psychology []??Spine PT [x]?Spine PT + Pain Psychology? []??CBT for Chronic Pain []??Spine OT [x]??Coping w/CP & Illness Group? []??Mindfulness for Chronic Pain [x]?Women's Pain/PTSD Group ?? - Activity: Continue activity as tolerated. - Follow-up: 3 months prn Thank you for the opportunity to participate in this patient's care. This service was provided via real time telehealth-video communication. This visit was conducted during 2020 COVID-19 outbreak. Time spent on this visit reflects time evaluating the patient pre-visit, during the visit and post-visit. Total time spent 20 minutes by video.. [facility] CONSENT FOR TELEHEALTH Telemedicine (Video) Appointment Although not required in [place], [place] has a telemedicine consent requirement. We are working on an automated process to obtain this. I obtained the patient's consent to receiving health care services at [facility] through telemedicine. We discussed the opportunities and limitations of delivering health care services through telemedicine. I told the patient that the telemedicine service is being delivered over a secure connection, except in the event of emergency conditions when such requirements may be waived. Patient agreed to the participation of other individuals assisting with their care by telemedicine, if indicated. Patient informed that telemedicine informed consent form is available for patient's review in Replaced [facility]'s patient portal, [facility] Opportunities include: improved access to medical care; limiting spread of COVID virus; increased patient convenience Limitations include: technical difficulties; need for a subsequent in-person visit due to transmission quality problems or need for physical examination not possible over video. Salomon Wise MD Attending Physician [facility] [address] [address] / CC: Love Dupont APRN [facility] BENITO BOONE [address] [place] [id number] documented in this encounter Plan of Treatment Scheduled Referrals Name Type Priority Associated Diagnoses Order S chedule Amb Referral to Outpatient Referral Routine Low back pain, Ord ered: Active Pain Care non-specific 06/02/2021 Services Sacroiliac joint dysfunction of left side Greater trochanteric bursitis of left hip Piriformis syndrome of left side documented as of this encounter Visit Diagnoses Diagnosis Sacroiliac joint dysfunction of left miguel e - Primary Disorders of sacrum Low back pain, non-specific Greater trochanteric bursitis of left hi p Enthesopathy of hip region Piriformis syndrome of left side Lesion of sciatic nerve documented in this encounter Care Teams Mfts Relationship Specialty Start Date End Date Love Dupont APRN PCP - General Family Medicine 04/08/20 [address] [place] [address] documented as of this encounter
--- OUTSIDE RECORDS SUMMARY | 2022-05-22 00:24 | XMS_ITS | Encounter Summary ---
:1965 Author Organization [facility] [place] [address] Care Team Providers Name Role Phone Love Dupont BRAULIO Primary Care Provider Reason for Visit Reason Comments Follow-up Encounter Details Date Type Department Care Team Description 02/04/2021 Office Visit Dermatology at [facility] D elusions of parasitosis; Steven LOVELL Dermatitis [address] [place] [address] [facility] [place], [place] [address] Social History Tobacco Use Types [...] encounter Progress Notes Anton Wade MD - 02/04/2021 3:00 PM EDT Images from the original note were not included. DEPARTMENT OF DERMATOLOGY Medical Dermatology Clinic Provider: Anton Wade MD Patient's preferred name Caro Preferred contact method for results [] myDH [] Letter [x] Phone: Detailed phone message OK? yes Are there any other people with whom we may discuss your care? PAST MEDICAL HISTORY Y/N Date, location, treatment Melanoma N Dysplastic nevi N SCC N BCC N AKs N Blistering sunburns or tanning bed use N Other relevant past medical history (i.e. eczema, psoriasis, birthmarks, immunosuppression) FAMILY HISTORY Y/N If yes, details Melanoma N NMSC N Other relevant family history N SOCIAL HISTORY Occupation: Hobbies: Other: Diagnosis or treatment significantly limited by social determinants of health? History of Present Illness: Caro Menedz is a 55 y.o. woman with a history of??panic disorder, PTSD, MDD, and??diagnosis of Bipolar I Disorder, established patient, last seen on 12/17/2020. 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 She continues??OTC: N-Acetylcysteine 600 mg two tablets by mouth daily,??clobetasol solution??and ketoconazole shampoo to the scalp as needed. She reports that her scalp is the most bothersome area, it is very painful. She still has concerns regarding crawling sensation on her skin, in her mouth, and in her nose. She notes that when she applies the creams onto her skin, she gets black hairs coming out of her skin. Reports that she had a slipped diskon her lower spine but no known trauma. In addition to washing her hair with the ketoconazole, she washes an additional 3-4 times daily with karen detergent. 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 Few scattered light pink thin superficially ulcerated papules on the lower back and proximal extremities. Otherwise skin clear on exam and well moisturized. - Discussed that previous workup did not identify an underlying cause for to explain the patient's symptoms of generalized pruritis and discussed diagnosis of delusions of parasitosis at length. Reassured patient that there is no evidence of an infestation or of tunneling hairs under the skin today. - However, her scalp is diffusely inflamed. Favor an irritant contact dermatitis at this time. Recommend patient stop using any harsh detergents on her scalp and to not wash her hair more than once daily. Recommended alternating ketoconazole with free and clear shampoo and to use the free and clear con ditioner regularly. - Continue OTC: N-Acetylcysteine 600 mg: Take two tablets by mouth daily - Continue Ketoconazole 2% Shampoo - Continue Triamcinolone 0.1% Cream??1-2 times daily to individual itchy lesions for up to 2 weeks. Take 1 week off prior to repeating if needed. - Refill: Fluocinolone 0.01% solution: apply nightly as needed to the scalp - Continue gabapentin per PCP. - Discussed the importance of following up with psychiatry at upcoming scheduled appointment. Patient is doing well on Ability. - Recommend CeraVe for sensitive skin?? Other items to document in the assessment/plan if relevant ??? N/A RTC: 4-6 month follow up or earlier as needed Scribe attestation: Nyasia Ramirez has performed the documentation for this encounter in the presence of and acting as a scribe for Anton Wade MD I performed the above scribed service and agree with the accuracy of the documentation in this encounter. Reviewed and signed by: Anton Wade MD Dermatology [facility] Staff Small Kick Press Operator Niecy Colón MD Department of Dermatology [facility] Niecy Colón MD - 02/04/2021 3:00 PM EDT I directly supervised Dr. Wade during this office visit. Dr. Wade presented the history and physical exam to me. I then saw and examined this patient with Dr. Wade . We reviewed the history and pertinent details and I confirmed the physical findings. I agree with the details of the history and physical exam as documented in Dr. Wade's note. NIECY COLÓN MD Staff Physician documented in this encounter Plan of Treatment Not on filedocumented as of this encounter Visit Diagnoses Diagnosis Delusions of parasitosis Other isolated or specific phobias Dermatitis Contact dermatitis and other eczema, due to unspecified cause documented in this encounter Care Teams Seasoning Mixer Relationship Specialty Start Date End Date Love Dupont APRN PCP - General Family Medicine 04/08/20 [address] [place] [address] documented as of this encounter
--- OUTSIDE RECORDS SUMMARY | 2022-05-22 00:24 | XMS_ITS | Encounter Summary ---
:1965 Author Organization [facility] [place] [address] Care Team Providers Name Role Phone HakeemLove angela Ethan RAMSEY Primary Care Provider Encounter Details Date Type Department Care Team Description 09/02/2021 Telephone [facility] Steff Andrade, [place] [phone] Social History Tobacco Use Types Packs/Day [...] Telephone Encounter - Steff Andrade MSW - 09/03/2021 1:46 PM ESTSummary: Worker's Comp FRP Confirmation OFFICE of CARE MANAGMENT CCM Yarn Salvager confirmed with Worker's Iuss Analyst, Alanna Rainey by phone and email that Worker's Compensation would cover the cost of Ms. Mendez's participation in the [employer] beginning 09/08/21-10/03/21. There are no other concerns to address at this time. Steff Andrade LCSW documented in this encounter Plan of Treatment Not on filedocumented as of this encounter Visit Diagnoses Not on filedocumented in this encounter Care Teams Granite Sandblaster Apprentice Relationship Specialty Start Date End Date Love Dupont, BRAULIO PCP - General Family Medicine 04/08/20 [address] [place] [address] documented as of this encounter
--- OUTSIDE RECORDS SUMMARY | 2022-05-22 00:24 | XMS_ITS | Encounter Summary ---
:1965 Author Organization [facility] [place] [address] Care Team Providers Name Role Phone Love Dupont BRAULIO Primary Care Provider Reason for Visit Reason Comments Follow-up Encounter Details Date Type Department Care Team Description 02/18/2021 Office Visit Dermatology at [facility] D elusions of parasitosis; Steven LOVELL Seborrheic keratoses [address] [place] [address] [facility] [place], [place] [address] Social History Tobacco Use Types [...] encounter Progress Notes Anton Wade MD - 02/18/2021 10:40 AM EDT Images from the original note were not included. DEPARTMENT OF DERMATOLOGY Medical Dermatology Clinic Provider: Anton Wade MD Patient's preferred name Caro Preferred contact method for results []? myDH []? Letter [x]? Phone: Detailed phone message OK? yes Are there any other people with whom we may discuss your care? PAST MEDICAL HISTORY Y/N Date, location, treatment Melanoma N ?? Dysplastic nevi N ?? SCC N ?? BCC N ?? AKs N ?? Blistering sunburns or tanning bed use N ?? Other relevant past medical history (i.e. eczema, psoriasis, birthmarks, immunosuppression) ? FAMILY HISTORY Y/N If yes, details Melanoma N ?? NMSC N ?? Other relevant family history N ?? SOCIAL HISTORY Occupation: Hobbies: Other: Diagnosis or treatment significantly limited by social determinants of health? PRE-PROCEDURE SCREENING If no, type N. If yes, include details below Allergy to lidocaine, epinephrine, Dermabond, chlorhexidine, or adhesives: Bleeding disorder or blood thinners: Implanted devices (Pacemaker, defibrillator, deep brain stimulator, cochlear implant): History of Present Illness: Caro Mendez is a 55 y.o. woman with a history of??panic disorder, PTSD, MDD, and??diagnosis of Bipolar I Disorder, established patient, last seen on 02/04/2021. 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 She continues??OTC: N-Acetylcysteine 600 mg two tablets by mouth daily,??clobetasol solution??and ketoconazole shampoo??to the scalp as needed. She stillhas concerns regarding crawling sensation on her skin, in her mouth, and in her nose. She notes thatwhen she applies the creams onto her skin, she gets black hairs coming out of her skin. Patient returns to clinic today for evaluation of parasite biting me everywhere - All over my body is being bit by bugs. 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 Otherwise skin clear on exam and well moisturized. - Discussed that previous workup did not identify an underlying cause for to explain the patient's symptoms of generalized pruritis and discussed diagnosis of delusions of parasitosis at length. Reassured patient that there is no evidence of an infestation or of tunneling hairs under the skin today. - Recommend patient continue with gentle skin care and moisturization. Avoid harsh soaps including detergents to the scalp. Recommended alternating ketoconazole with free and clear shampoo and to use the free and clear conditioner regularly. - Continue OTC: N-Acetylcysteine 600 mg: Take two tablets by mouth daily -??Continue?? Ketoconazole 2% Shampoo - Continue Triamcinolone 0.1% Cream??1-2 times daily to individual itchy lesions for up to 2 weeks. Take 1 week off prior to repeating if needed. - Refill: Fluocinolone 0.01% solution: apply nightly as needed to the scalp - Continue gabapentin per PCP.?? - Continue working with psychiatry. - Recommend CeraVe for sensitive skin?? #. Seborrheic Keratoses - Scattered brown and flesh colored waxy nummular stuck on plaques located on the trunk and extremities - Reassured of benign nature, return to clinic if these lesions become inflamed or irritating Other items to document in the assessment/plan if relevant ??? N/A RTC: As needed when skin flares. If there is an availability when patient calls, she would benefit from evaluation in psych/derm combined clinic. Scribe attestation: DIANNE Edmondson who has performed the documentation for this encounterin the presence of and acting as a scribe for Anton Wade MD. I performed the above scribed service and agree with the accuracy of the documentation in this encounter. Reviewed and signed by: Anton Wade MD Dermatology [facility] Patient seen and evaluated with staff pantry cook: Niecy Colón MD Dermatology [facility] Niecy Colón MD - 02/18/2021 10:40 AM EDT I directly supervised Dr. Wade during [...] parasitosis Other isolated or specific phobias Seborrheic keratoses documented in this encounter Care Teams Room Cooler Installer Relationship Specialty Start Date End Date Love Dupont, BRAULIO PCP - General Family Medicine 04/08/20 [address] [place] [address] documented as of this encounter
--- OUTSIDE RECORDS SUMMARY | 2022-05-22 00:24 | XMS_ITS | Encounter Summary ---
:1965 Author Organization [facility] [place] [address] Care Team Providers Name Role Phone Love Dupont APRN Primary Care Provider Reason for Visit Reason Comments Medication Refill Encounter Details Date Type Department Care Team Description 07/04/2021 Refill Dermatology at [facility] Steven Guadarrama, Charles Norton MD [address] [place] [address] [address] [facility] [phone] [place], [place] [address] (Wo rk) Social History Tobacco [...] on filedocumented in this encounter Care Teams Cardiology Technician Relationship Specialty Start Date End Date Love Dupont APRN PCP - General Family Medicine 8/3/20 [address] [place] [address] documented as of this encounter
--- OUTSIDE RECORDS SUMMARY | 2022-05-22 00:24 | XMS_ITS | Encounter Summary ---
:1965 Author Organization [facility] [place] [address] Care Team Providers Name Role Phone Love Dupont BRAULIO Primary Care Provider Encounter Details Date Type Department Care Team Description 10/06/2021 Telephone Pain and Spine Yelena odom at [facility] [place] [address] Social History Tobacco Use Types Packs/Day [...] Notes Telephone Encounter - Tiffanie Raza - 10/06/2021 9:39 AM EST Reason for call: To determine confirmation of enrollment in the upcoming Functional Confucianism Program for dates 10/14 - 11/07 [facility] requesting patient call back to complete FRP enrollment check list. documented in this encounter Plan of Treatment Not on filedocumented as of this encounter Visit Diagnoses Not on filedocumented in this encounter Care Teams Die Designer Apprentice Relationship Specialty Start Date End Date Love Dupont APRN PCP - General Family Medicine 04/08/20 [address] [place] [address] documented as of this encounter
--- OUTSIDE RECORDS SUMMARY | 2022-05-22 00:24 | XMS_ITS | Encounter Summary ---
:1965 Author Organization [facility] [place] [address] Care Team Providers Name Role Phone Love Dupont BRAULIO Primary Care Provider Encounter Details Date Type Department Care Team Description 08/18/2021 Telephone Dermatology at [facility] Dinah Mena MD [address] [place] [address] [place] [address]DERMATOLOGY [phone] [place], [place] [address] (Wo rk) Social History Tobacco [...] Miscellaneous Notes Telephone Encounter - Rebecca Sanders - 08/19/2021 4:25 PM EST The pharmacy called and read note from Dr Rojas for directions. Telephone Encounter - Rebecca Sanders - 08/18/2021 3:45 PM EST The pharmacy call for Caro Mendez and the directions for the mupirocin (Bactroban) 2 % Ointment need clarification ( nose and scalp)? Also the 22 gram only lasted 1 week with the last prescription.Best number to reach the pharmacy is [phone]. documented in this encounter Plan of Treatment Not on filedocumented as of this encounter Visit Diagnoses Not on filedocumented in this encounter Care Teams Sales Agent Financial Report Service Relationship Specialty Start Date End Date Love Dupont APRN PCP - General Family Medicine 04/08/20 [address] [place] [address] documented as of this encounter
--- OUTSIDE RECORDS SUMMARY | 2022-05-22 00:24 | XMS_ITS | Encounter Summary ---
:1965 Author Organization [facility] [place] [address] Care Team Providers Name Role Phone HakeemLove angela Ethan RAMSEY Primary Care Provider Encounter Details Date Type Department Care Team Description 08/21/2021 Telephone Pain and Spine Centfredi odom at [facility] Steff Andrade, PRODUCT [place] [address] Social History Tobacco Use Types Packs/Day [...] Telephone Encounter - Steff Andrade MSW - 08/21/2021 5:51 PM ESTSummary: P Workers Comp Coverage OFFICE of CARE MANAGEMENT CCM [employer] Supervisor spoke with Workers Comp national account representative, Alanna Ryan by phone at and confirmed she is still the Workers Comp Distributor Sales Consultant on the case. She verified her e-mail address as [email or web address] and her fax number as . Mold [employer] Supervisor discussed Ms. Carpio's interest in the Functional Anglican Program which begins on09/09/21 and end on 10/03/21. [employer] Yard Supervisor faxed Ms. Ryan Clinical documentation to include Pre-authorization of Medical Treatment, [place] Worker's compensation Medical Form, and provider notes.Ms. Ryan stated she would contact [employer] Supervisor to follow up regarding a decision if the program services would be paid for by Worker's Compensation. [employer] Supervisor will provide Ms. Mendez with updated information upon receipt. There are no other concerns to address at this time. Steff Andrade LCSW documented in this encounter Plan of Treatment Not on filedocumented as of this encounter Visit Diagnoses Not on filedocumented in this encounter Care Teams Fancy Packer Relationship Specialty Start Date End Date Love Dupont APRN PCP - General Family Medicine 04/08/20 [address] [place] [address] documented as of this encounter
--- OUTSIDE RECORDS SUMMARY | 2022-05-22 00:24 | XMS_ITS | Encounter Summary ---
:1965 Author Organization [facility] [place] [address] Care Team Providers Name Role Phone Love Dupont BRAULIO Primary Care Provider Reason for Visit Reason Comments Skin Lesion Encounter Details Date Type Department Care Team Description 04/25/2021 Office Visit Dermatology at [facility] ultipelizabeth excoriations Steven Quevedo MD [address] [place] [address] [place] [address] [place], [place] [address] Social History Tobacco Use Types [...] encounter Progress Notes Dinah Rojas MD - 04/25/2021 3:40 PM EDT Images from the original note were not included. DEPARTMENT OF DERMATOLOGY Medical Dermatology Clinic Provider: Dinah Rojas MD Patient's preferred name Caro Preferred contact method for results []?myDH []?Letter [x]?Phone: Detailed phone message OK? yes Are there [...] of health? History of Present Illness: Caro Mendez is a 56 y.o. year old. Patient returns to clinic todayfor evaluation of crusted lesions on the scalp. Currently using an OTC dandruff shampoo and using Ketoconazole shampoo every other day for the scalp, as well as the Synalar solution BID. She still feels like the scalp is very flaky and black stuff comes out. She brings in a sample of this today. Notes her hair is coming back however. - Using Triamcinolone cream on the legs, notes that this condition has been going on a long time andshe is still itchy. Last visit at [facility] Derm: 02/18/2021 Last visit with this provider: Visit date not found Medications: Reviewed in eD-H Allergies: Reviewed in eD-H Skin Examination: Focused skin examination of the face, scalp and upper extremities was normal with the exception of the findings below Assessment/Plan #. Excoriations EXAM: on the scalp, there are crusted papules. - Recommended continuing the OTC dandruff shampoo, alternating with Rx: Ketoconazole shampoo and Rx:Clobetasol shampoo every third day. - Continue Rx: Triamcinolone 0.1% Cream 1-2 times daily to itchy lesions for up to 2 weeks. Take 1 week off prior to repeating if needed. - Culture obtained today - Advised referral to dermatology/psychiatry clinic may be helpful. Patient is in agreement with this plan. Other items to document in the assessment/plan if relevant ??? OTC skin products discussed RTC: Monday 04/30 for derm/psych clinic. [x]Note routed to service secretary []Recall has been placed in scheduling system []Appointment scheduled at checkout Scribe attestation: Ezra Frazier LPN has performed the documentation for this encounter in the presence of and acting as a scribe for Dinah Rojas MD I performed the above scribed service and agree with the accuracy of the documentation in this encounter. Reviewed and signed by: Dinah Rojas MD Dermatology [facility] Patient seen and evaluated with staff reporter anchor: Zenaida Connell MD Dermatology [facility] Zenaida Connell MD - 04/25/2021 3:40 PM EDT I directly supervised Dr. Rojas during this office visit. Dr. Rojas presented the history and physical exam to me. I then saw and examined this patient with Dr. Rojas . We reviewed the history and pertinent details and I confirmed the physical findings. I agree with the details of the history and physical exam as documented in Dr. Rojas's note. Zenaida Connell MD Staff Physician Dinah Rojas MD - 04/25/2021 3:40 PM EDT Called patient to inform of culture results growing staff aureus. No answer, so detailed voicemail recorded informing of results. Recommend Mupirocin 2% cream TID for 10 days to affected areas. Orderedtoday. Will also send letter informing of results. documented in this encounter Plan of Treatment Not on filedocumented as of this encounter Procedures Procedure Name Priority Date/Time Associated Diagnosis Comme nts HC SKIN CX, Routine 04/25/2021 4:37 PM Multiple excoriations Results for this SUPERFICIAL EDT procedure are i n the results section. documented in this encounter Results (ABNORMAL) Skin/Superficial Wound Culture Scalp (04/25/2021 4:37 PM EDT) Component Value Ref Test Analysis Performed At [facility] gist Range Method Time Signature Skin/Superfic Many MARGO ial Wound Staphylococcus SOUTHSIDE Culture aureus (A) [facility] Gram Stain No Neutrophils seen. MARGO Rare Gram Positive Cocci seen SOUTHSIDE () [facility] Organism Staphylococcus MARGO aureus (A) [facility] Organism Gram Positive MARGO Cocci (A) [facility] Specimen (Source) Anatomical Collection Method Collection Time Re ceived Time Location / / Volume Laterality Superficial Wound SCALP STRUCTURE / 04/25/2021 4:37 5:59 Unknown PM EDT PM EDT Resulting Agency Comment Spec In Lab Organism Antibiotic Method Susceptibility Staphylococcus aureus Cefazolin VITEK 2 METHOD Sensitive Staphylococcus aureus Ceftriaxone VITEK 2 METHOD Sensitive Staphylococcus aureus Clindamycin VITEK 2 METHOD Sensitive Staphylococcus aureus Erythromycin VITEK 2 METHOD Sensitive Staphylococcus aureus Gentamicin VITEK 2 METHOD Sensitive Comment: Gentamicin is not a ppropriate for [place]-therapy. Staphylococcus aureus Oxacillin VITEK 2 METHOD Sensitive Comment: Oxacillin (methicillin) susc eptibility is a surrogate for the oral and parenteral cephalosporins, b eta-lactam combination agents (amoxicillin-clavulanate, am picillin-sulbactam and piperacillin-tazobactam) and carbapenem agents. ??It is N OT a surrogate for penicillin, ampicillin or piperacillin susceptibility. Staphylococcus aureus Trimethoprim/Sulfa VITEK 2 METHOD Sensiti ve Staphylococcus aureus Tetracycline VITEK 2 METHOD Sensitive Staphylococcus aureus Vancomycin VITEK 2 METHOD Sensitive Zenaida Connell MD MICROBIOLOGY - GENERAL ORDER CORBY Performing Organization Address City/State/[place] [address] documented in this encounter Visit Diagnoses Diagnosis Multiple excoriations Other and unspecified superficial injury of other, multiple, and unspecified sites, without mention of infection documented in this encounter Care Teams Newspaper Or Periodical Editor Relationship Specialty Start Date End Date Love Dupont APRN PCP - General Family Medicine 04/08/20 [address] [place] [address] documented as of this encounter
--- OUTSIDE RECORDS SUMMARY | 2022-05-22 00:24 | XMS_ITS | Encounter Summary ---
:1965 Author Organization [facility] [place] [address] Care Team Providers Name Role Phone Love Dupont APRN Primary Care Provider Encounter Details Date Type Department Care Team Description 05/07/2021 Ancillary Procedure Radiology Library at Jayne Dupont APRN [place] [address] [address] [address] [phone] (Wo rk) Social History Tobacco Use Types [...] Name Priority Date/Time Associated Diagnosis Comme nts FILM LIBRARY Routine 05/07/2021 1:56 PM Results f or this STORAGE ONLY MR EDT procedure ar e in SPINE the results section. documented in this encounter Results Film Library- Storage Only MR Spine (05/07/2021 1:56 PM EDT) Specimen (Source) Anatomical Location Collection Method / Collectio n Time Received Time / Laterality Volume Narrative LISSETTE BETANCOURT - 05/07/2021 1:56 PM EDT This exam is auto-finalizing. It's purpo se is for storage only. Love Dupont APRN IMG FILM LIBRARY ORDERABLES Performing Organization Address City/State/ZIP Code Phon e Number [place], [place] documented in this encounter Visit Diagnoses Not on filedocumented in this encounter Care Teams Cattle Rancher Relationship Specialty Start Date End Date Love Dupont, BRAULIO PCP - General Family Medicine 04/08/20 [address] [place] [address] documented as of this encounter
--- OUTSIDE RECORDS SUMMARY | 2022-05-22 00:24 | XMS_ITS | Encounter Summary ---
:1965 Author Organization [facility] [place] [address] Care Team Providers Name Role Phone Love Dupont APRN Primary Care Provider Encounter Details Date Type Department Care Team Description 12/19/2020 Orders Only Dermatology at [facility], Anton Devlin MD [address] [place] [address] [facility]-DER[facility]OLOG[facility] [phone] [place], [place] [address] (Wo rk) Social History Tobacco [...] on filedocumented in this encounter Care Teams Technical Solution Architect Relationship Specialty Start Date End Date Love Dupont APRN PCP - General Family Medicine 04/08/20 [address] [place], [place] [id number] documented as of this encounter
--- OUTSIDE RECORDS SUMMARY | 2022-05-22 00:24 | XMS_ITS | Encounter Summary ---
:1965 Author Organization [facility] [place] [address] Care Team Providers Name Role Phone Love Dupont APRN Primary Care Provider Reason for Visit Reason Comments Medication Refill Encounter Details Date Type Department Care Team Description 02/11/2021 Refill Dermatology at [facility] Steven Wade, Anton Devlin MD Dermatitis [address] [place] [address] [facility]-DERMATOLOGY [phone] [place] [id number] (Wo rk) Social History Tobacco Use Types [...] cause documented in this encounter Care Teams Trench Shovel Operator Relationship Specialty Start Date End Date Love Dupont APRN PCP - General Family Medicine 04/08/20 [address] [place] [address] documented as of this encounter
--- OUTSIDE RECORDS SUMMARY | 2022-05-22 00:24 | XMS_ITS | Encounter Summary ---
:1965 Author Organization [facility] [address] Care Team Providers Name Role Phone HakeemLove angela tEhan RAMSEY Primary Care Provider Encounter Details Date Type Department Care Team Description 07/21/2021 Telephone Pain and Spine Centfredi odom at [facility] Steff Andrade, [place] [address] Social History Tobacco Use Types Packs/Day [...] Telephone Encounter - Steff Andrade MSW - 07/24/2021 4:23 PM ESTSummary: Attempted Telephone Call Chef & Owner attempted to contact Ms. Mendez by phone at by phone several times. However, was unable to speak with her or leave a voicemail message on her phone. Chef & Owner will continue to attempt to contact Ms. Mendez. Steff Andrade LCSW documented in this encounter Plan of Treatment Not on filedocumented as of this encounter Visit Diagnoses Not on filedocumented in this encounter Care Teams Biller Relationship Specialty Start Date End Date Love Dupont APRN PCP - General Family Medicine 04/08/20 [address] [place] [address] documented as of this encounter
--- OUTSIDE RECORDS SUMMARY | 2022-05-22 00:24 | XMS_ITS | Encounter Summary ---
:1965 Author Organization [facility] [place] [address] Care Team Providers Name Role Phone Love Dupont BRAULIO Primary Care Provider Encounter Details Date Type Department Care Team Description 09/19/2021 Telephone Dermatology at [facility] Dinah Rojas MD [address] [place] [address] [facility]-DERMATOLOG[facility] [phone] [place], [place] [address] (Wo rk) Social History Tobacco [...] Telephone Encounter - Dinah Rojas MD - 09/22/2021 10:42 AM EST Sent patient Threat Stack message to schedule f/u appointment Telephone Encounter - Rebecca Sanders - 09/19/2021 1:35 PM EST Caro Mendez called to let you know that the medication is still not helping, best number to reach out to the patient is [phone]. documented in this encounter Plan of Treatment Not on filedocumented as of this encounter Visit Diagnoses Not on filedocumented in this encounter Care Teams Assistant Professor Of Life Sciences Relationship Specialty Start Date End Date Love Dupont APRN PCP - General Family Medicine 04/08/20 [address] [place] [address] documented as of this encounter
--- OUTSIDE RECORDS SUMMARY | 2022-05-22 00:24 | XMS_ITS | Encounter Summary ---
:1965 Author Organization [facility] [place] [address] Care Team Providers Name Role Phone Love Dupont APRN Primary Care Provider Encounter Details Date Type Department Care Team Description 05/01/2021 Orders Only Dermatology at [facility] Dinah Rojas MD [address] [place] [address] [facility]-DER[facility] [phone] [place], [place] [address] (Wo rk) Social History Tobacco [...] on filedocumented in this encounter Care Teams Shaping Machine Operator Relationship Specialty Start Date End Date Love Dupont APRN PCP - General Family Medicine 04/08/20 [address] [place], [place] [address] documented as of this encounter
--- OUTSIDE RECORDS SUMMARY | 2022-05-22 00:24 | XMS_ITS | Encounter Summary ---
:1965 Author Organization [facility] [place] [address] Care Team Providers Name Role Phone Love Dupont BRAULIO Primary Care Provider Encounter Details Date Type Department Care Team Description 07/02/2021 Telephone Dermatology at [facility], Anton Devlin MD [address] [facility] [place] [id number] [facility] [phone] [place], [place] [address] (Wo rk) Social History Tobacco [...] Notes Telephone Encounter - Iris Raman - 07/02/2021 1:18 PM EDT I called pt and left voicemail to call me back at [phone] and ask to speak to Iris. documented in this encounter Plan of Treatment Not on filedocumented as of this encounter Visit Diagnoses Not on filedocumented in this encounter Care Teams Equipment Processer Storage Relationship Specialty Start Date End Date Love Dupont APRN PCP - General Family Medicine 04/08/20 [address] [place] [address] documented as of this encounter
--- OUTSIDE RECORDS SUMMARY | 2022-05-22 00:24 | XMS_ITS | Encounter Summary ---
:1965 Author Organization [facility] [place] [address] Care Team Providers Name Role Phone Love Dupont APRN Primary Care Provider Reason for Visit Reason Onset Date Comments Prior Authorization 05/21/2021 Bactroban Encounter Details Date Type Department Care Team Description 05/21/2021 Telephone Dermatology at [facility], KAY Pr i[address] (Bactroban) [address] [place] [address] Social History Tobacco Use Types Packs/Day [...] on filedocumented in this encounter Care Teams Combination Presser Relationship Specialty Start Date End Date Love Dupont APRN PCP - General Family Medicine 04/08/20 [address] [place], [place] [address] documented as of this encounter
--- OUTSIDE RECORDS SUMMARY | 2022-05-22 00:24 | XMS_ITS | Encounter Summary ---
:1965 Author Organization [facility] [place] [address] Care Team Providers Name Role Phone Love Dupont BRAULIO Primary Care Provider Encounter Details Date Type Department Care Team Description 06/04/2021 Telephone Dermatology at [facility] Dinah Rojas MD [address] [facility] [place] [address] [place] [address]DERMATOLOGY [phone] [place], [place] [address] (Wo rk) Social History Tobacco [...] Telephone Encounter - Sultana Deras Emy - 06/04/2021 2:40 PM EDT I got a call from Caro Mendez stating the mupirocin (Bactroban) 2 % Cream is not working and she would like to go back to triamcinolone (KENALOG) 0.1 % Cream. I told her I would send the request over to the doctor and her nurse. documented in this encounter Plan of Treatment Not on filedocumented as of this encounter Visit Diagnoses Not on filedocumented in this encounter Care Teams Dental Insurance Biller Relationship Specialty Start Date End Date Love Dupont APRN PCP - General Family Medicine 04/08/20 [address] [place] [address] documented as of this encounter
--- OUTSIDE RECORDS SUMMARY | 2022-05-22 00:24 | XMS_ITS | Encounter Summary ---
:1965 Author Organization [facility] [place] [address] Care Team Providers Name Role Phone Love Dupont APRN Primary Care Provider Encounter Details Date Type Department Care Team Description 12/31/2020 Telephone Psychiatry and Behavioral [place] [address] Social History Tobacco Use Types Packs/Day [...] filedocumented in this encounter Care Teams Retail Business Manager Relationship Specialty Start Date End Date Love Dupont APRN PCP - General Family Medicine 04/08/20 [address] [place] [address] documented as of this encounter
--- OUTSIDE RECORDS SUMMARY | 2022-05-22 00:24 | XMS_ITS | Encounter Summary ---
:1965 Author Organization [facility] [place] [address] Care Team Providers Name Role Phone Love Dupont APRN Primary Care Provider Encounter Details Date Type Department Care Team Description 10/06/2021 Telephone Psychiatry and Behavioral [place] [address] Social History Tobacco Use Types Packs/Day [...] on filedocumented in this encounter Care Teams Battery Container Tester Aluminum Relationship Specialty Start Date End Date Love Dupont APRN PCP - General Family Medicine 04/08/20 [address] [place] [address] documented as of this encounter
--- OUTSIDE RECORDS SUMMARY | 2022-05-22 00:24 | XMS_ITS | Encounter Summary ---
:1965 Author Organization [facility] [place] [address] Care Team Providers Name Role Phone Love Dupont BRAULIO Primary Care Provider Encounter Details Date Type Department Care Team Description 06/16/2021 Telephone Dermatology at [facility] Dinah Rojas MD [address] [place] [address] [place] [address]DERMATOLOGY [phone] [place], [place] [address] (Wo rk) Social History Tobacco [...] Miscellaneous Notes Telephone Encounter - Sultana Deras - 06/16/2021 11:05 AM EDT I received a phone call from Caro Mendez stating the mupirocin (Bactroban) 2 % Cream was not working and she is asking for something else. She can be reached back at [phone] documented in this encounter Plan of Treatment Not on filedocumented as of this encounter Visit Diagnoses Not on filedocumented in this encounter Care Teams Contract Negotiation Manager Relationship Specialty Start Date End Date Love Dupont APRN PCP - General Family Medicine 04/08/20 [address] [place] [address] documented as of this encounter
--- OUTSIDE RECORDS SUMMARY | 2022-05-22 00:24 | XMS_ITS | Encounter Summary ---
:1965 Author Organization [facility] [place] [address] Care Team Providers Name Role Phone HakeemLove angela Ethan RAMSEY Primary Care Provider Encounter Details Date Type Department Care Team Description 09/08/2021 Telephone [facility] at [facility] Steff Andrade, [place] [address] Social History Tobacco Use Types Packs/Day [...] Encounter - Steff Andrade MSW - 09/08/2021 4:28 PM ESTSummary: Left phone message for Alanna Rainey OFFICE of CARE MANAGMENT CCM Creative Perfumer left a voicemail for Ms. Alanna Rainey, Worker's Junior Designer at providing an update that Ms. Mendez did not participate in the required [employer] Educational group today. Creative Perfumer asked for a return call. Creative Perfumer will continue to follow up with Ms. Mirta peng to provided updates. There are no other concerns to discuss at this time. Steff Andrade LCSW documented in this encounter Plan of Treatment Not on filedocumented as of this encounter Visit Diagnoses Not on filedocumented in this encounter Care Teams Retinal Angiographer Relationship Specialty Start Date End Date Love Dupont APRN PCP - General Family Medicine 04/08/20 [address] [place] [address] documented as of this encounter
--- OUTSIDE RECORDS SUMMARY | 2022-05-22 00:24 | XMS_ITS | Encounter Summary ---
:1965 Author Organization [facility] [place] [address] Care Team Providers Name Role Phone Love Dupont Ethan RAMSEY Primary Care Provider Reason for Visit Reason Onset Date Comments Prior Authorization 01/16/2021 clobetasoL (TEMOVATE ) 0.05 % Solution Encounter Details Date Type Department Care Team Description 01/16/2021 Telephone Dermatology at [facility] [address] RIGGING LOFT REPAIRER (clobetasoL (TEMOVATE) [address] 0.05 % Solution ) [place] [address] Social History Tobacco Use Types Packs/Day [...] Telephone Encounter - Anton Wade MD - 01/20/2021 4:35 PM EDT Approved alternative sent. Telephone Encounter - Kinza Covington CMA - 01/16/2021 12:57 PM EDT Per [place] medicaid: Please consider covered options that can be used on the scalp. Covered preferred options include: Fluocinolone 0.01 % solution and oil, Betamethasone valerate 0.12 % foam, Mometasone furoate 0.1 % solution and Clobetasol 0.05 % solution. Telephone Encounter - Abimbola Dubois LNA - 01/16/2021 10:44 AM EDT Medication Prior Authorization for Primary [place] [address] Request received via: [facility] Patient: Caro Mendez Patient : 1965 Insurance Company: [place] Medicaid General Sent via: [facility] Phone: Mcmahon: [id number] - [phone] Physician: Anton Wade MD Medication Requested: clobetasoL (TEMOVATE) 0.05 % Solution Frequency/Sig: Use topically to scalp daily for 2 weeks. Take 1 week off. Repeat as needed. Disp: 50 ml Refills: 1 Currently taking: no Diagnosis for this medication: Delusions of parasitosis F22 Prior medications trialed in this patient: Additional Notes: documented in this encounter Plan of Treatment Not on filedocumented as of this encounter Visit Diagnoses Not on filedocumented in this encounter Care Teams Contract Manager Relationship Specialty Start Date End Date Love Dupont, FITTER MECHANIC PCP - General Family Medicine 04/08/20 [address] [place] [address] documented as of this encounter
--- OUTSIDE RECORDS SUMMARY | 2022-05-22 00:24 | XMS_ITS | Encounter Summary ---
:1965 Author Organization [facility] [place] [address] Care Team Providers Name Role Phone Love Dupont APRN Primary Care Provider Encounter Details Date Type Department Care Team Description 08/22/2021 Orders Only Dermatology at [facility] Dinah Rojas MD [address] [facility] [place] [address] [facility] [phone] [place], [place] [address] (Wo rk) Social History Tobacco [...] on filedocumented in this encounter Care Teams Forestry Engineer Relationship Specialty Start Date End Date Love Dupont APRN PCP - General Family Medicine 04/08/20 [address] [place], [place] [address] documented as of this encounter
--- OUTSIDE RECORDS SUMMARY | 2022-05-22 00:24 | XMS_ITS | Encounter Summary ---
:1965 Author Organization [facility] [place] [address] Care Team Providers Name Role Phone Love Dupont APRN Primary Care Provider Encounter Details Date Type Department Care Team Description 05/20/2021 Orders Only Dermatology at [facility] Dinah Rojas MD [address] [facility] [place] [address] [facility] [phone] [place], [place] [address] (Wo rk) Social History Tobacco [...] filedocumented in this encounter Care Teams Director Food Safety Relationship Specialty Start Date End Date Love Dupont APRN PCP - General Family Medicine 04/08/20 [address] [place], [place] [address] documented as of this encounter
--- OUTSIDE RECORDS SUMMARY | 2022-05-22 00:24 | XMS_ITS | Encounter Summary ---
:1965 Author Organization [facility] [place] [address] Care Team Providers Name Role Phone Love Dupont APRN Primary Care Provider Encounter Details Date Type Department Care Team Description 07/02/2021 Office Visit Dermatology at [facility] Juan Miguel Simms MD Dermatitis [address] [facility] [place] [address] PSYCHIATRY DEPT [phone] [place] [address] (Wo rk) Social History Tobacco Use Types [...] documented as of this encounter Progress Notes Juan Miguel Simms MD - 07/02/2021 5:30 PM EDT Please see the dermatology note for more details. We talked about how her stressors can manifest as physical sensations and that working to control associated cognitions to avoid ideations about infestations. She is open this idea at this time and is looking to reconnect with a local therapist to help with ongoing stress management and coping. She also describes feeling ADHD and we talked about how anxiety and acute stress can cause brain function to functionally be similar to ADHD whether or not a patient has this underlying diagnosis. Wedid not perform any formal evaluation for this diagnosis in this setting. We reviewed psychology today together and I identified 4 providers in her area that she will contactand be back in touch with me. Alert, well groomed, no agitation. Fluent speech Linear thought Mood better lately Affect full and congruent No AVH, delusions or paranoia I/J - fairly intact today and good. Plan: No new medications prescribed. - recommendations for therapists in her area provided and she will follow-up with her success in connecting. documented in this encounter Plan of Treatment Not on filedocumented as of this encounter Visit Diagnoses Diagnosis Dermatitis Contact dermatitis and other eczema, due to unspecified cause documented in this encounter Care Teams Disc Jockey Relationship Specialty Start Date End Date Love Dupont APRN PCP - General Family Medicine 04/08/20 [address] [place] [address] documented as of this encounter
--- OUTSIDE RECORDS SUMMARY | 2022-05-22 00:25 | XMS_ITS | Encounter Summary ---
:1965 Author Organization [facility] [place] [address] Care Team Providers Name Role Phone Love Dupont Ethan RAMSEY Primary Care Provider Encounter Details Date Type Department Care Team Description 07/01/2020 Telephone Dermatology at [facility] Zachary Bower MD [address] [place] [address] [facility] [phone] [place], [place] [address] (Wo rk) Social History Tobacco Use Types Packs/Day Years Used Date Never Assessed Alcohol Habits Answer Date Recorded How often [...] this encounter Miscellaneous Notes Telephone Encounter - Yarelis Hernandez - 07/01/2020 10:52 AM EDT Called and was unable to leave a message for Caro Mendez due to her VM not being set up yet. Confirming that she will be coming to her upcoming appointment on 07/03 at 5:30. documented in this encounter Plan of Treatment Not on filedocumented as of this encounter Visit Diagnoses Not on filedocumented in this encounter Care Teams Supervisor [employer] Relationship Specialty Start Date End Date Love Dupont APRN PCP - General Family Medicine 04/08/20 [address] [place] [address] documented as of this encounter
--- OUTSIDE RECORDS SUMMARY | 2022-05-22 00:25 | XMS_ITS | Encounter Summary ---
:1965 Author Organization [facility] [place] [address] Care Team Providers Name Role Phone Love Dupont Ethan RAMSEY Primary Care Provider Encounter Details Date Type Department Care Team Description 07/16/2020 Refill Dermatology at [facility] Zachary Bower MD Dermatitis [address] [facility] [place] [address] [facility] [phone] [place], [place] [address] (Wo rk) Social History Tobacco [...] this encounter Miscellaneous Notes Telephone Encounter - Kori Quigley - 07/16/2020 11:15 AM EST Patient Caro Mendez called stating that the pharmacy told her she could not get a refill yet (possibly because its too soon?) on the fluocinonide (LIDEX) 0.05 % Solution. Please call her at [phone] and you may leave a detailed message if she does not answer. Thank you, Riri documented in this encounter Plan of Treatment Not on filedocumented as of this encounter Visit Diagnoses Diagnosis Dermatitis Contact dermatitis and other eczema, due to unspecified cause documented in this encounter Care Teams Economics Department Chair Relationship Specialty Start Date End Date Love Dupont APRN PCP - General Family Medicine 04/08/20 [address] [place] [address] documented as of this encounter
--- OUTSIDE RECORDS SUMMARY | 2022-05-22 00:25 | XMS_ITS | Encounter Summary ---
:1965 Author Organization [facility] [place] [address] Care Team Providers Name Role Phone HakeemLove angela Ethan RAMSEY Primary Care Provider Reason for Visit Auth/Cert Specialty Diagnoses / Procedures Referred By Contact Refer red To Contact Diagnoses left sacroiliac joint dysfunction, left greater trochanteric bursitis Procedures PRO INJECTION, SACROILIAC JOINT PRO DRAIN/INJECT LARGE JOINT/BURSA INJECTION PROCEDURE, SACROILIAC JOINT (WRVU 1.48) ARTHROCENTESIS, ASPIRATION OR INJECTION, MAJOR JOINT OR BURSA, HIP (WRVU 0.79) Referral ID Status Reason Start Date Expiration Date Visits Requ ested Visits Authorized [id number] 1 1 Encounter Details Date Type Department Care Team Description 10/03/2020 Hospital Encounter Pain Management Salomon Wise MD Sacroiliac joint dysfunction of left miguel e; [facility] [place] Greater troch anteric bursitis of left hip; [facility] Low back pain, non-specific; [facility] Piriformis syndrome of left side; [place], [place] Sacroiliac joint dysfunction of left side; [place] [address] Greater trochanteric bursitis of left hi p; [id number] Low back pain, non-specific; Piriformis syndrome of left side Social History Tobacco Use Types Packs/Day Years [...] Sign Reading Time Taken Comments Blood Pressure 143/85 10/03/2020 12:45 PM EST Pulse 78 10/03/2020 11:47 AM EST Temperature - - Respiratory Rate 12 10/03/2020 11:47 AM EST Oxygen Saturation 100% 10/03/2020 12:45 PM EST Inhaled Oxygen Concentration - - Weight 49 kg (108 lb) 10/03/2020 11:47 AM EST Height 154.9 cm (5' 1) 10/03/2020 11:47 AM EST Body Mass Index 20.41 10/03/2020 11:47 AM EST documented in this encounter Discharge Instructions Discharge InstructionsProAshley mendoza RN - 10/03/2020 12:48 PM EST Pain Management Center Discharge Instructions: You were seen today by Surgeon(s): Salomon Wise MD Inozemtsev, Konstantin, MD The following was performed: Procedure(s) (LRB): INJECTION PROCEDURE, SACROILIAC JOINT (WRVU 1.48) (Left) ARTHROCENTESIS, ASPIRATION OR INJECTION, MAJOR JOINT OR BURSA, HIP (WRVU 0.79) (Left) It is normal that the injection site will be sore for up to 48 hours. [x] You may also experience mild stiffness in the joint near the injection site. You may resume your normal activities: tomorrow. You may shower today. DO NOT tub bathe, use whirlpools, hot tubs or pool therapy for 2 days. Remove Band-Aid(s) later today/tomorrow. Do not drive until tomorrow. Use caution walking/climbing stairs as you may be unsteady on your feet. You may use your usual medications, including pain medications, as directed, unless otherwise instructed. You may use an ice pack as needed for the first 24 hours, on for 20 minutes then off for 20 minutes.Do not apply heat today. Attempt to empty your bladder 4-6 hours after your procedure. You received the following medications: Medications Given During Procedure Date/Time Order Dose Route Action 10/03/2020 1246 BUpivacaine (pf) (Marcaine) (2.5 mg/mL) 0.25% injection 2 mL Intra-articular Given 10/03/2020 1239 BUpivacaine (pf) (Marcaine) (2.5 mg/mL) 0.25% injection 2 mL INTRABURSAL Given 10/03/2020 1246 iohexoL (Omnipaque) (240 mg/mL) injection solution 1 mL Other Given 10/03/2020 1237 iohexoL (Omnipaque) (240 mg/mL) injection solution 1 mL Other Given 10/03/2020 1247 methylPREDNISolone acetate (DEPO-Medrol) (40 mg/mL) injection 20 mg Intra-articularGiven 10/03/2020 1240 methylPREDNISolone acetate (DEPO-Medrol) (40 mg/mL) injection 20 mg INTRABURSAL Given During regular business hours, please phone the Pain Management Center at with any questions or if the following or other troubling symptoms develop: 1) Prolonged dizziness or weakness (more than 1 day). 2) Localized swelling, redness or drainage at the injection site(s). 3) Temperature of 101 degrees that lasts for more than 4 hours. After 5 PM or on weekends, call and ask for Pain Clinic provider on-call. If you are unable to reach the Pain Management Center and have a complication, please call your Primary Care Provider or proceed to your local emergency department. Ashley Malloy RN Special instructions documented in this encounter Medications at Time of Discharge Medication Sig Dispensed Refills Start Date End Date venlafaxine (EFFEXOR-XR) 150 mg daily. 0 06/26/20 20 150 mg Capsule, Sust. Release 24 hr gabapentin (Neurontin) Take by mouth daily. 0 300 mg Capsule Patient takes 600 mg in AM, Noon, 900 mg at Night hydrOXYzine (Atarax) 25 Take 25 mg by mouth 0 mg Tablet 3 times daily as needed for Itching. venlafaxine (EFFEXOR) 75 Take 75 mg by mouth 0 mg Tablet daily. ketoconazole (NIZORAL) 2 Apply topically 120 mL 2 202002/12/2021 % ShampooIndications: daily as needed for Dermatitis Itching. fluocinonide (LIDEX) 0.05 Apply to the 60 mL 1 09/11/19 21 10/29/2020 % SolutionIndications: affected areas on Dermatitis the scalp 1-2 times daily, as needed. triamcinolone (KENALOG) Apply once or twice 80 g 1 02/202110/03/2021 0.1 % CreamIndications: daily to itchy Dermatitis lesions for up to 2 weeks. Take 1 week off. Repeat as needed. venlafaxine XR 37.5 mg daily. 0 06/26/20202021 (Effexor-XR) 37.5 mg Capsule, Sust. Release 24 hr acetaminophen (Tylenol) Take 1,000 mg by 0 05/04/2022 500 mg Tablet mouth every 8 hours as needed for Pain. documented as of this encounter H&P Notes Clarke Antoine MD - 10/03/2020 11:56 AM EST Patient Name: Caro Mendez Patient Age: 55 y.o. Birthdate: 1965 Admit date: (Not on file) Attending Physician: Salomon Wise MD PREPROCEDURE HISTORY AND PHYSICAL Date of Visit: October 02, 2020 Chief Complaint: left hip pain HPI: Subjective Caro Mendez is a 55 y.o. female who presents today for left GTB/SIJ steroid injection. The history is obtained from the patient, and I have reviewed medical records provided by the referring physician and located in the electronic medical record to fill in gaps in the patient's recollection of events, treatments and outcomes. LOCATION: Left hip, PSIS PAIN LEVEL AT REST 7/10 PAST MEDICAL HISTORY: No past medical history on file. PAST SURGICAL HISTORY: Past Surgical History: Procedure Laterality Date ??? [...] file Occupational History ??? Not on file Social Needs ??? Financial resource strain: Not on file ??? Food insecurity Worry: Not on file Inability: Not on file ??? Transportation needs Medical: Not on file Non-medical: Not on file Tobacco Use ??? Smoking status: Former Smoker ??? Smokeless tobacco: Former User ??? Tobacco comment: quit 10 yrs ago Substance and Sexual Activity ??? Alcohol use: Yes Frequency: 2-4 times a month ??? Drug use: Not on file ??? Sexual activity: Not on file Lifestyle ??? Physical activity Days per week: Not on file Minutes per session: Not on file ??? Stress: Not on file Relationships ??? Social connections Talks on phone: Not on file Gets together: Not on file Attends gnosticism service: Not on file Active member of club or organization: Not on file Attends meetings of clubs or organizations: Not on file Relationship status: Not on file ??? Intimate partner violence Fear of current or ex partner: Not on file Emotionally abused: Not on file Physically abused: Not on file Forced sexual activity: Not on file Other Topics Concern ??? Not on file Social History Narrative ??? Not on file ALLERGIES: Patient has no known allergies. MEDICATIONS: @MEDNOWREFRESH@ ROS: Pt denies recent fever, chills, infection, wounds, hospitalizations, ED visits, use of antibiotics. Otherwise, as described above. PHYSICAL EXAM: There were no vitals taken for this visit. General: patient well developed and is non-distressed Head: normocephalic and atraumatic CV: normal rate, normal rhythm Pulmonary: effort and breath sounds normal, no wheezing Skin: non-diaphoretic and no rashes noted MSK: positive JUNAID, [place], FADIR. TTP over left GTB Physical Exam RADIOLOGIC DATA: Relevant imaging was reviewed independently by me today. LABS/DX RESULTS: Lab Results Component Value Date PLATELET 356 05/23/2020 Lab Results Component Value Date HA1C 4.6 05/23/2020 Lab Results Component Value Date CREATININE 0.53 (L) 05/23/2020 Labs reviewed and no new labs pertinent to today's procedure. ASSESSMENT: 1. Sacroiliac joint dysfunction of left side 2. Greater trochanteric bursitis of left hip 3. Low back pain, non-specific 4. Piriformis syndrome of left side PLAN: No medical, surgical, imaging, or social/psychological contraindications have been identified. Proceed with left sacroiliac joint and left greater trochanteric bursa steroid injection Clarke Antoine MD Pain Management Fellow [address] [phone] / [facility] documented in this encounter Miscellaneous Notes Op Note - Clarke Antoine MD - 10/03/2020 11:58 AM EST Pain Management Operative Note Patient Name: Caro Mendez : [id number] MR#: [id number] Case Date: 10/03/2020 Surgeon: Surgeon(s) and Role: * Salomon Wise MD - Primary Present on Admission: ??? Sacroiliac joint dysfunction of left side ??? Greater trochanteric bursitis of left hip Postoperative diagnosis: same Procedure(s) (LRB): INJECTION PROCEDURE, SACROILIAC JOINT (WRVU 1.48) (Left) ARTHROCENTESIS, ASPIRATION OR INJECTION, MAJOR JOINT OR BURSA, HIP (WRVU 0.79) (Left) LEFT INTRA-ARTICULAR SI JOINT AND LEFT GREATER TROCHANTERIC BURSA INJECTION Date of Service: 09/16/2020 Patient: Caro Mendez Provider: Clarke Antoine MD, MPH COMMENTS: none Caro Mendez has been referred to the Pain Management Center for intra- articular SI joint injection. Ms. Mendez was interviewed and the medical record reviewed. There were no medical, pharmacologic, radiographic or other structural contraindications to attempting fluoroscopically guided intra-articular SI joint injection. Risks and expected side effects as well as potential benefit of the procedurewere reviewed with Ms. Mendez, and her voiced concerns were addressed. The printed consent form was signed and witnessed. Standard time-out procedure was performed. Ms. Mendez was placed in the prone position on the fluoroscopy table and automated blood pressure cuff and pulse oximeter applied. The entry point for approaching the left greater trochanter was marked and skin anesthetized with 1%lidocaine. A 22g 3.5 inch spinal needle was advanced into the left greater trochanteric bursa under direct fluoroscopic guidance. 0.5mL of omnipaque was injected confirming intra-bursal spread. There was no evidence of vascular or extra-bursal injection. 2mL of 0.25% bupivacaine and 20mg of depomedrolwere injected, and intrabursal spread confirmed by washout imaging. Then, The skin entry point for approaching LEFT sacroiliac joint was identified under the most advantageous fluoroscopic view and marked. Following thorough Chlorhexadine preparation of the skin and draping and 1% lidocaine infiltration of the skin entry point and subcutaneous tissues, a 22 gauge spinal needle was placed under fluoroscopic guidance into the LEFT sacroiliac joint. Intra- articular placement was confirmed by a clear arthrogram resulting from the injection of 0.25ml Omnipaque 240. 2mL 0.25% bupivacaine and 20mg Depomedrol was injected intra-articularily with an initial reproduction of a significant component of the usual pain. Ms. Mendez's vital signs were stable throughout the procedure and were as recorded in the docflowsheet by the nursing staff. If given, dosages of intravenous drugs for anxiolysis and analgesia were documented in MAR. Follow up plans and appointments were discussed with the Ms. Mendez. Post procedure instruction was given as documented in nursing documentation and having met discharge criteria, she was discharged from the Pain Management Center. COMMENTS: No complications. F/U with Dr Wise in 6 weeks Clarke Antoine MD Pain Management Fellow [address] [phone] / [facility] CC: No referring provider defined for this encounter. Associated attestation - Salomon Wise MD - 10/08/2020 12:55 AM EST Attestation: Case Date: 10/03/2020 I was present and I participated during the entire procedure (does not need to include opening and closing). Salomon Wise MD 10/08/2020 documented in this encounter Plan of Treatment Scheduled Orders Name Type Priority Associated Diagnoses Order S chedule ARTHROCENTESIS, Procedures Routine Sacroiliac joint One Time for 1 ASPIRATION OR dysfunction of left Occurre nces starting INJECTION, MAJOR side 10/03/2020 until JOINT OR BURSA, HIP Greater trochanteric 10/03/2020 bursitis of left hip Low back pain, non-specific Piriformis syndrome of left side INJECTION PROCEDURE, Procedures Routine Sacroiliac joint One Time for 1 SACROILIAC JOINT dysfunction of left Occu rrences starting side 10/03/2020 until Greater trochanteric 021 bursitis of left hip Low back pain, non-specific Piriformis syndrome of left side documented as of this encounter Visit Diagnoses Diagnosis Sacroiliac joint dysfunction of left miguel e - Primary Disorders of sacrum Greater trochanteric bursitis of left hi p Enthesopathy of hip region Low back pain, non-specific Piriformis syndrome of left side Lesion of sciatic nerve documented in this encounter Admitting Diagnoses Diagnosis Sacroiliac joint dysfunction of left miguel e Disorders of sacrum Greater trochanteric bursitis of left hi p Enthesopathy of hip region Low back pain, non-specific Piriformis syndrome of left side Lesion of sciatic nerve documented in this encounter Active and Recently Administered Medications Times are shown in EST. PRN Medication Order 10/01/2020 10/02/2020 10/03/2020 BUpivacaine (pf) (Marcaine) (2.5 mg/mL) 0.25% injection (CANCELE D) 1239 (Given - Provider: Clarke Antoine MD - Comment: left greater trochanteric bursa)1246 (Given - Provider: Clarke Antoine MD - Comment: Left SI Joint) ONCE PRN, Starting Edith 10/03/20 at 1239, Until Edith 10/03/20 at 1457, Intra- Operative (Intra-Procedure), Routine iohexoL (Omnipaque) (240 mg/mL) injection solution (CANCELED) 1237 (Given - Provider: Clarke Antoine MD - Comment: left greater trochanteric bursa)1246 (Given - Provider: Clarke Antoine MD - Comment: left SIJ) ONCE PRN, Starting Edith 10/03/20 at 1237, Until Edith 10/03/20 at 1457, Intra- Operative (Intra-Procedure), Routine methylPREDNISolone acetate (DEPO-Medrol) (40 mg/mL) injection (C ANCELED) 1240 (Given - Provider: Clarke Antoine MD - Comment: left greater trochanteric bursa)1247 (Given - Provider: Clarke Antoine MD - Comment: Left SIJ) ONCE PRN, Starting Edith 10/03/20 at 1240, Until Edith 10/03/20 at 1457, Intra- Operative (Intra-Procedure), Routine documented in this encounter Care Teams Baggagemaster Relationship Specialty Start Date End Date Love Dupont, COMBAT SYSTEMS OPERATOR PCP - General Family Medicine 04/08/20 [address] [place] [address] documented as of this encounter
--- OUTSIDE RECORDS SUMMARY | 2022-05-22 00:25 | XMS_ITS | Encounter Summary ---
:1965 Author Organization [facility] [place] [address] Care Team Providers Name Role Phone HakeemLove angela Ethan RAMSEY Primary Care Provider Encounter Details Date Type Department Care Team Description 08/06/2020 Orders Only [facility] Rick Degroot, Elpidio rivase low back pain, [place] [facility] [place] back pain [facility] [place] [address] [facility] sciatica present [phone] [place] [id number] Social History Tobacco Use Types Packs/Day Years [...] Not on filedocumented as of this encounter Results XR Lumbar Spine 2 Or 3 Views (Generic) (08/08/2020 10:23 AM EST) Anatomical Region Laterality Modality L-spine N/A Digital Radiography Specimen (Source) Anatomical Location Collection Method / Collectio n Time Received Time / Laterality Volume Impressions 08/08/2020 10:49 AM EST Mild convex right curvature. Please note lumbosacral transitional valeria chari as described above. No dynamic instability. Thank you for letting us participate in the care of this patient. For questions regarding this report, please contact e number below. ? Narrative 08/08/2020 10:49 AM EST EXAMINATION: XR LUMBAR SPINE 2 OR 3 VIEWS (GENERIC) CLINICAL HISTORY: Upright AP, & lateral flex/ext (3 views) to evaluate lumbar radiculopathy TECHNIQUE: 3 views of the lumbar spine COMPARISON: Lumbar spine MRI September 2019 FINDINGS: There are 6 nonrib-bearing lumbar-type v ertebral bodies. The last fully formed disc space will be numbered as L5-S1. Th ere is a mild convex right curvature centered at L2. There is slight retrolis thesis of L3 on L4 and L4 on L5 without change with flexion and extension. Verte bral body heights are intact. Disc space heights are intact. Procedure Note Ashok Ritchie MD - 08/08/2020Formatting o f this note might be different from the original. EXAMINATION: XR LUMBAR SPINE 2 OR 3 VIEW S (GENERIC) CLINICAL HISTORY: Upright AP, & lateral flex/ext (3 views) to evaluate lumbar radiculopathy TECHNIQUE: 3 views of the lumbar spine COMPARISON: Lumbar spine MRI September 2019 FINDINGS: There are 6 nonrib-bearing lumbar-type v ertebral bodies. The last fully formed disc space will be numbered as L5-S1. Th ere is a mild convex right curvature centered at L2. There is slight retrolis thesis of L3 on L4 and L4 on L5 without change with flexion and extension. Verte bral body heights are intact. Disc space heights are intact. IMPRESSION Mild convex right curvature. Please note lumbosacral transitional valeria chari as described above. No dynamic instability. Thank you for letting us participate in the care of this patient. For questions regarding this report, please contact e number below. Rick Degroot MD IMG DX ORDERABLES documented in this encounter Visit Diagnoses Diagnosis Acute low back pain, unspecified back pa in laterality, unspecified whether sciatica present Acute low back pain, unspecified back pa in laterality, unspecified whether sciatica present documented in this encounter Care Teams Apigee Developer Relationship Specialty Start Date End Date Love Dupont APRN PCP - General Family Medicine 04/08/20 [address] [place] [address] documented as of this encounter
--- OUTSIDE RECORDS SUMMARY | 2022-05-22 00:25 | XMS_ITS | Encounter Summary ---
:1965 Author Organization [facility] [place] [address] Care Team Providers Name Role Phone HakeemLove angela Ethan RAMSEY Primary Care Provider Encounter Details Date Type Department Care Team Description 09/30/2020 Telephone [facility] at [facility] Nelia Jones, [place] [address] Social History Tobacco Use Types Packs/Day [...] this encounter Miscellaneous Notes Telephone Encounter - Nelia Jones RN - 09/30/2020 9:01 AM EST Caro Mendez :1965 Message left: I left a message on answering machine Ms. Mendez at 9:01 AM regarding her upcoming Left SI joint injection and left greater trohanteris bursa injection with Dr. Chino Wise MD. Message included the followin. Patient instructed to arrive at 1:15 (30 minutes prior to procedure start time) on 10/01/2020 (date of procedure) with their special education bus driver. 2. Following instructions left in the message: - Bring Updated list of medications including dosage and reason for taking. - Call the Pain Clinic Nurse at for: ~Procedure instructions. ~If you are taking antibiotics. ~If you have any signs or symptoms of infection, cold or flu. ~If you have any skin breakdown (rashes, cysts, or abscess.) ~If you are taking anticoagulants / blood thinners (Plavix, Pletal, Lovenox, Coumadin, etc). ~If you had any steroid injections anywhere in your body within the last two weeks? Low Risk Procedure Nelia Jones RN documented in this encounter Plan of Treatment Not on filedocumented as of this encounter Visit Diagnoses Not on filedocumented in this encounter Care Teams Field Operations Manager Relationship Specialty Start Date End Date Love Dupont, BRAULIO PCP - General Family Medicine 04/08/20 [address] [place] [address] documented as of this encounter
--- OUTSIDE RECORDS SUMMARY | 2022-05-22 00:25 | XMS_ITS | Encounter Summary ---
:1965 Author Organization [facility] [place] [address] Care Team Providers Name Role Phone HakeemLove [...] Expiration Date Visits Requ ested Visits Authorized [id number] 1 1 Encounter Details Date Type Department Care Team Description 10/03/2020 Surgery Pain Management Salomon Newman MD INJECTION PROCEDURE, [facility] SAC ROILIAC JOINT ([facility] DR 1.48) [facility] [place] [address] [place] [address] [phone] Social History Tobacco Use Types Packs/Day Years [...] Sign Reading Time Taken Comments Blood Pressure 152/90 10/03/2020 12:30 PM EST Pulse 78 10/03/2020 11:47 AM EST Temperature - - Respiratory Rate 12 10/03/2020 11:47 AM EST Oxygen Saturation 100% 10/03/2020 12:30 PM EST Inhaled Oxygen Concentration - - Weight 49 kg (108 lb) 10/03/2020 11:47 AM EST Height 154.9 cm (5' 1) 10/03/2020 11:47 AM EST Body Mass Index 20.41 10/03/2020 11:47 AM EST documented in this encounter Discharge Instructions Discharge InstructionsAshley Malloy RN - 10/03/2020 12:48 PM EST Pain [...] file Gets together: Not on file Attends jainism service: Not on file Active member of [...] injection Clarke Antoine MD Pain Management Fellow [address] [phone] / [facility] [place] documented in this encounter Miscellaneous Notes Op Note - Clarke Antoine MD - 10/03/2020 11:58 AM EST Pain Management Operative Note Patient Name: Caro Mendez : [id number] MR#: [id number] Case Date: 10/03/2020 Surgeon: Surgeon(s) and Role: [...] weeks Clarke Antoine MD Pain Management Fellow [address] [phone] / [facility] CC: No referring provider defined for this [...] of left side Lesion of sciatic nerve Sacroiliac joint dysfunction of left miguel e [...] of sciatic nerve documented in this encounter Administered Medications Inactive Administered Medications - up to 3 most recent administrations Medication Order MAR Action Action Date Dose Rate Site BUpivacaine (pf) (Marcaine) (2.5 Given 10/03/2020 12:46 PM EST 2 mLs mg/mL) 0.25% injection ONCE PRN, Starting on Edith 10/03/20 at 1239, Until Edith 10/03/20 at 1457, Intra-Operative (Intra-Procedure), Routine Given 10/03/2020 12:39 PM EST 2 mLs iohexoL (Omnipaque) (240 mg/mL) injection Given 10/03/2020 12:46 PM EST 1 mL solution ONCE PRN, Starting on Edith 10/03/20 at 1237, Until Edith 10/03/20 at 1457, Intra-Operative (Intra-Procedure), Routine Given 10/03/2020 12:37 PM EST 1 mL methylPREDNISolone acetate (DEPO-Medrol) (40 Given 12:47 PM EST 20 mg mg/mL) injection ONCE PRN, Starting on Edith 10/03/20 at 1240, Until Edith 10/03/20 at 1457, Intra-Operative (Intra-Procedure), Routine Given 10/03/2020 12:40 PM EST 20 mg documented in this encounter Active and Recently [...] Routine documented in this encounter Care Teams Process Project Engineer Relationship Specialty Start Date End Date Love Dupont, BRAULIO PCP - General Family Medicine 04/08/20 [address] [place] [address] documented as of this encounter
--- OUTSIDE RECORDS SUMMARY | 2022-05-22 00:25 | XMS_ITS | Encounter Summary ---
:1965 Author Organization [facility] [place] [address] Care Team Providers Name Role Phone Love [...] Expiration Date Visits Requ ested Visits Authorized [id number] 1 1 Encounter Details Date Type Department Care Team Description 10/01/2020 Ancillary Procedure Pain Management Nydia Marino, Pain [facility] [address] [place] [address] [place] [address] [phone] (Wo rk) Social History Tobacco Use Types [...] as of this encounter Plan of Treatment Pending Results Name Type Priority Associated Diagnoses Date/Ti or Film Library- Imaging Storage Routine Pain 09/30/2020 4:38 PM Storage Only pain Only EST Clinic [facility] documented as of this encounter Visit Diagnoses Diagnosis Pain Generalized pain documented in this encounter Care Teams Siebel Architect Relationship Specialty Start Date End Date Love Dupont, PRESCHOOL DISABILITY TEACHER PCP - General Family Medicine 04/08/20 [address] [place] [address] documented as of this encounter
--- OUTSIDE RECORDS SUMMARY | 2022-05-22 00:25 | XMS_ITS | Encounter Summary ---
:1965 Author Organization [facility] [place] [address] Care Team Providers Name Role Phone HakeemLove angela Ethan RAMSEY Primary Care Provider Reason for Visit Reason Comments Back Pain Left Hip Pain Left Leg Pain Neck Pain Consultation (Routine) - Closed Specialty Diagnoses / Procedures Referred By Contact Refer red To Contact [facility] Diagnoses Chronic left-sided low back pain with left-sided sciatica Rick Degroot MD [facility] Sp[facility] [address] [address] Phone: Fax: Referral ID Status Reason Start Date Expiration Date Visits V isits Requested Authorized [id number] Closed Consult, 08/08/2020 08/08/2021 1 1 Test & Treat Encounter Details Date Type Department Care Team Description 09/16/2020 Office Visit [facility] Salomon Wise MD Sacroiliac joint dysfunction of left miguel e (Primary Dx); at [facility] Greater trochanteric bursiti s of left hip; [facility] Low back pain, non-specific; Drive [facility] Piriformis syndrome of left side; [place], [place] [address] Pain in left hip [id number] (work) Social History Tobacco Use Types Packs/Day Years [...] Sign Reading Time Taken Comments Blood Pressure - - Pulse - - Temperature - - Respiratory Rate - - Oxygen Saturation - - Inhaled Oxygen Concentration - - Weight 47.6 kg (105 lb) 09/13/2020 12:07 PM EST Height 154.9 cm (5' 1) 09/13/2020 12:07 PM EST Body Mass Index 19.84 09/13/2020 12:07 PM EST documented in this encounter Patient Instructions Patient InstructionsSalomon Wise MD - 09/16/2020 2:00 PM EST Left hip x-ray today Left SIJ and L GTB injection with me Low risk procedure documented in this encounter Progress Notes Salomon Wise MD - 09/16/2020 2:00 PM EST [facility] Initial Consultation Note Date of visit: 09/16/20 : 1965 Consulting Physician: Rick Degroot MD [facility] [place] [address] Reason for consultation: I am seeing Ms. Mendez at the request of Dr. Rick Degroot in regards topatient???s lower back pain radiating to the left hip, left lower extremity, with occasional radiation to the neck. Chief complaint (CC): Lower back pain radiating to the left hip, left lower extremity, with occasional radiation to the neck History of Present Illness: Caro Mendez is a 55 y.o. female who presents wit lower back pain radiating to the left hip, left lower extremity, with occasional radiation to the neck. Patient presents by herself. 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 She heard a pop on the left lower back/ buttock area. The injury happened on 05/23/2019, however the treatment was on hold due to COVID-19 pandemic. She was then seen by chiropractic, physical therapy, and she has also gotten an epidural steroid injection at [facility] in June without any improvement. Location: Left buttock/ hip Radiation: Left lower extremity and upper back and neck Quality: Sharp, shooting, constant Exacerbates: Picking up items, walking up a flight of stairs, sitting Improves: Standing, meditation, heat , sea salt baths Pain Severity: 6/10 currently, 9/10 at worst, 4/10 at best Numbness/Tingling: Left lower extremity, left hand Weakness: Feels weak Bowel and bladder: No loss of control, although she has had 2 episodes of urinary urgency Sleep: Interrupted, but improved with gabapentin Mood: Discouraging. I am trying to be hopeful Functionally: Patient reports she is independent with ADLs. Denies red flags including bowel or bladder symptoms, fever, chills, saddle anesthesia, profound motor loss, history of cancer, history of immune compromise. She has had weight loss of 10 lbs over the last year. Denies any current use of anticoagulation or antibiotics medications. Does not have any h/o diabetes, renal or hepatic disease. Anticoagulation and Aspirin Use: None Current pain treatments include: Gabapentin 300 mg/ 300 mg/ 600 mg at night Acetaminophen 500 mg q 6 hrs Previous pain treatments included: Caro Mendez has been seen at a pain clinic in the past. 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 Surgery: None [place] Prescription Monitoring Program (EMPLOYMENT AND CLAIMS AIDE) were reviewed. Review of Electronic Chart: Today I have also reviewed available medical information in the patient's medical record at [facility] including relevant provider notes, laboratory work, and imaging. Past Medical History: Patient Active Problem List Diagnosis Code ??? Chronic low back pain M54.5, G89.29 No past medical history on file. Past Surgical History: Past Surgical History: Procedure Laterality Date ??? WRIST SURGERY Left Medications: Medications were reconciled and updated in the electronic medical record. Current Outpatient Medications: ??? ketoconazole (NIZORAL) 2 % Shampoo, Apply topically daily as needed for Itching., Disp: 120 mL, Rfl: 2 ??? fluocinonide (LIDEX) 0.05 % Solution, Apply to the affected areas on the scalp 1-2 times daily, as needed., Disp: 60 mL, Rfl: 1 ??? triamcinolone (KENALOG) 0.1 % [...] file Gets together: Not on file Attends gnosticist service: Not on file Active member of [...] Social History Narrative ??? Not on file History of chemical dependency treatment: None Home situation: Lives alone Work situation: [employer] Her son 2 years ago. Family history: Family History Problem Relation Age of Onset ??? No Known Problems Mother ??? No Known Problems Father No pertinent h/o arthritis or pain history in the family. Review of Systems : Constitutional: No unintentional weight loss or gain, fevers, chills, or night sweats. HENT: No recent hearing changes. No difficulty swallowing. Eyes: No recent vision changes. Respiratory: No cough or shortness of breath. Cardiovascular: No chest pain or syncope. GI: No diarrhea, nausea, vomiting, or constipation. : No dysuria, hesitancy, or urgency. No incontinence. Musculoskeletal: Positive for above mentioned musculoskeletal findings. Neurologic: (+) difficulty with balance. Positive for above mentioned neurological findings. Skin: No rashes or lesions. Psychiatric: Mood depressed. No SI/HI. Heme/Lymph/Imm: No easy bleeding or bruising. Not on anticoagulation. Physical Exam: Height 154.9 cm (5' 1), weight 47.6 kg (105 lb). General: Well-nourished, well-developed female HEENT: Head atraumatic, eyes are anicteric. Mucosae are moist. Respiratory: Non-labored breathing pattern on RA. No respiratory distress. Cardiovascular: No edema or cyanosis. Abdominal: Soft, non-tender to palpation, non-distended Skin: No appreciable rashes or skin breakdown Psych: Appropriate affect, A&Ox3 , answers questions appropriately Musculoskeletal: Inspection - No gross appendicular or axial deformities Palpation - Tender to palpation at left buttock/ hip distribution ROM - Lumbar flexion/ extension/ lateral rotation is limited due to pain Special tests - SIJ provocation testing (+)for: Mariajose's finger test, posterior thrust, Raúl's, L side - Facet loading (+) on the L side - FAIR (+)for piriformis syndrome on the L side - Hip ROM is WNL, but painful on the L side Neurologic: Alert and oriented x3, in moderate distress 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 No ankle clonus. Babinski down going bilaterally. SLR (+) on the L side. Motor - Able to tiptoe walk without difficulty. Heel walking is difficult. 5/5 in all planes of motion in all four extremities. Sensory - Intact to light touch and pinprick at bilateral upper and lower extremities. Gait/Station - Antalgic gait. No loss of balance noted. Diagnostic Tests: Most recent L spine MRI was completed on 09/22/2019. I personally reviewed the images with the patient. The impression is: Minimal disc bulge at L5-S1 without significant stenosis. No nerve root impingement detected at the level of the lumbar spine. Assessment: Caro Mendez is a 55 y.o. female with left sided lower back pain, left sacroiliac dysfunction, left hip pain 1. Sacroiliac joint dysfunction of left side 2. Greater trochanteric bursitis of left hip 3. Low back pain, non-specific 4. Piriformis syndrome of left side 5. Pain in left hip Plan/ Recommendations: We reviewed etiology, predisposing factor(s), natural course, imaging results as well as treatment options including medications, physical therapy/exercise, therapeutic injections, and surgery. The risks, consequences, alternatives, and benefits of various treatment options were discussed with the patient in great detail, including conservative management, injections and procedures. - Medications: No new prescription at this time. Patient will continue current meds. - Imaging: Left hip xray to r/o fracture - Physical therapy/modalities/DME: She will likely benefit from physical therapy. A referral to be provided for the patient. - Interventional/Surgical procedures: Left SIJ and L GTB injection TREVIN. Risks and benefits were discussed. She is willing to proceed. -Patient continues to have persistent pain interfering with her daily activities and sleep that is refractory to optimal conservative management including analgesic medications and course of physical therapy. Scheduled patient for injection to relieve pain and facilitate participation in PT, which would provide more residential relief for her pain. JUSTIFICATION OF MEDICAL NECESSITY Patient's pain has been present for >6 weeks and is an average of >6/10 on 0-10 scale and/or pain interferes with ADLs. Conservative management includes: -Medications: acetaminophen, NSAIDS, neuropathics, muscle relaxants -Physical Therapy: She is currently enrolled in PT -Continues clinician directed home exercise program including exercises learned in PT. - Referrals: None indicated at this time. - Activity: Continue activity as tolerated. - We discussed the importance of maintaining regular exercise program and low impact aerobic activity such as regular walking and/or use of stationary bicycle. Preventative strategies were reviewed, specifically avoidance of maintaining continuous static postures (i.e. sitting, computer use, etc.) while allowing for frequent positional changes. Avoiding heavy lifting and high impact activities while in the midst of a pain flare.? We discussed the importance of posture, optimal pelvic/upper extremitybiomechanics and the role of maintaining good core as well as hip/shoulder girdle strength in mitigating frequency and severity of recurrent pain flares. - We also went over such topics, if indicated, as lifestyle modification including home and work site ergonomics, optimal sleep hygiene, the role of psychosocial stressors as possible contributors to muscle tension and increased pain perception, as well as role of nutrition in helping to dampen inflammatory component of pain and improving one's energy level and other health metrics. - Follow-up: Return to clinic for Left SIJ/ GTB injection Thank you for the opportunity to participate in this patient's care. Salomon Wise MD Attending Physician [facility] [place] [address] / CC: Rick Degroot MD [facility] [place] [address] documented in this encounter Plan of Treatment Not on filedocumented as of this encounter Results XR Pelvis and Hip 2 Views Left (09/16/2020 3:50 PM EST) Anatomical Region Laterality Modality Pelvis, Hip Left Digital Radiography Specimen (Source) Anatomical Location Collection Method / Collectio n Time Received Time / Laterality Volume Impressions 09/16/2020 3:55 PM EST 1. ??No fractures seen 2. ??Relative preserved hip joint spaces . Thank you for letting us participate in the care of this patient. For questions regarding this report, please contact [facility] number below. ? Electronically signed by: Yamila Martinez MD, [facility] ([phone]), at 09/16/2020 3:55 PM Narrative 09/16/2020 3:55 PM EST EXAMINATION: XR PELVIS AND HIP 2 VIEWS LEFT CLINICAL HISTORY: 55 year old F with lef t sided back, buttock and hip pain since work related injury in 05/2019., Please e valuate for left hip/ sacral fracture or OA, entered by ordering service TECHNIQUE: AP pelvis and 2 views of left hip 3 views COMPARISON: none FINDINGS: Bones No fracture. Sacrum: The lower sacrum is obscured by bowel gas. The sacral foraminal lines are symmetric. Hip Joints Relative preserved joint spaces. No larg e osteophytes. Procedure Note Yamila Martinez MD - 09/16/2020Formatt ing of this note might be different from the original. EXAMINATION: XR PELVIS AND HIP 2 VIEWS L EFT CLINICAL HISTORY: 55 year old F with lef t sided back, buttock and hip pain since work related injury in 05/2019., Please e valuate for left hip/ sacral fracture or OA, entered by ordering service TECHNIQUE: AP pelvis and 2 views of left hip 3 views COMPARISON: none FINDINGS: Bones No fracture. Sacrum: The lower sacrum is obscured by bowel gas. The sacral foraminal lines are symmetric. Hip Joints Relative preserved joint spaces. No larg e osteophytes. IMPRESSION 1. No fractures seen 2. Relative preserved hip joint spaces. Thank you for letting us participate in the care of this patient. For questions regarding this report, please contact th e number below. Electronically signed by: Yamila Martinez MD, [facility] ([phone]), at 09/16/2020 3:55 PM Salomon Wise MD IMG DX ORDERABLES documented in this encounter Visit Diagnoses Diagnosis Sacroiliac joint dysfunction of left miguel e - Primary Disorders of sacrum Greater trochanteric bursitis of left hi p Enthesopathy of hip region Low back pain, non-specific Piriformis syndrome of left side Lesion of sciatic nerve Pain in left hip Pain in joint, pelvic region and thigh Greater trochanteric bursitis of left hi p Enthesopathy of hip region documented in this encounter Care Teams Dermatologist Relationship Specialty Start Date End Date Love Dupont, WAREHOUSE DISTRIBUTION ASSOCIATE PCP - General Family Medicine 04/08/20 [address] [place] [address] documented as of this encounter
--- OUTSIDE RECORDS SUMMARY | 2022-05-22 00:25 | XMS_ITS | Encounter Summary ---
:1965 Author Organization [facility] [place] [address] Care Team Providers Name Role Phone Love Dupont Ethan RAMSEY Primary Care Provider Reason for Visit Reason Onset Date Comments Bumped Appointment 11/27/2020 Encounter Details Date Type Department Care Team Description 11/27/2020 Telephone Ophthalmology [facility] Shruthi Fierro, Vilma Appointment [facility] [place] [address] [facility] [phone] DR OPHTHALMOLOGY [place], [place] [address] (Wo rk) Social History Tobacco [...] this encounter Miscellaneous Notes Telephone Encounter - Alycia Mora - 11/27/2020 3:14 PM EDTSummary: BOBBY PENNINGTON RSC: 412/21 Spoke w pt to [facility] 12/05/20 BMP Vadim NPW for CEE. [facility] 12/16/20 (pt needs late day appts due to transpo). documented in this encounter Plan of Treatment Not on filedocumented as of this encounter Visit Diagnoses Not on filedocumented in this encounter Care Teams Supervisor [employer] Relationship Specialty Start Date End Date Love Dupont APRN PCP - General Family Medicine 04/08/20 [address] [place] [address] documented as of this encounter
--- OUTSIDE RECORDS SUMMARY | 2022-05-22 00:25 | XMS_ITS | Encounter Summary ---
:1965 Author Organization [facility] [place] [address] Care Team Providers Name Role Phone Love Dupont BRAULIO Primary Care Provider Encounter Details Date Type Department Care Team Description 10/29/2020 Telephone Dermatology at [facility] Anton Wade MD [address] [place] [phone] [facility] [phone] [place], [place] [address] (Wo rk) Social History Tobacco [...] Telephone Encounter - Anton Wade MD - 10/29/2020 4:23 PM EST Rx sent Telephone Encounter - Rebecca Sanders - 10/29/2020 2:35 PM EST Caro Mendez called to request a refill for the fluocinonide (LIDEX) 0.05 % Solution. Please send to the [facility] in [place], [place]. Best number to reach the patient back if needed is [phone]. documented in this encounter Plan of Treatment Not on filedocumented as of this encounter Visit Diagnoses Not on filedocumented in this encounter Care Teams Accounts Receivable Specialist Relationship Specialty Start Date End Date Love Dupont APRN PCP - General Family Medicine 04/08/20 [address] [place] [address] documented as of this encounter
--- OUTSIDE RECORDS SUMMARY | 2022-05-22 00:25 | XMS_ITS | Encounter Summary ---
:1965 Author Organization [facility] [place] [address] Care Team Providers Name Role Phone HakeemLove angela Ethan RAMSEY Primary Care Provider Reason for Referral Consultation (Routine) - Closed Specialty Diagnoses / Procedures Referred By Contact Refer red To Contact Orthopaedics Diagnoses Low back pain, non-specific Salomon Wise MD [place], Dana M, Leonel [facility] PAIN [place], [place] [id number] [place] [address] Referral ID Status Reason Start Date Expiration Date Visits V isits Requested Authorized [id number] Closed Consult, 11/21/2020 11/21/2021 1 1 Test & Treat Encounter Details Date Type Department Care Team Description 11/18/2020 TH Visit Pain and Spine Salomon Wise MD Low back pain, (TeleHealth) Center at [facility] MEDICAL non-specific ([facility] CENTER [address] Ruiz) [facility] PAIN [place] [id number] [phone] Social History Tobacco Use Types Packs/Day Years [...] encounter Progress Notes Salomon Wise MD - 11/18/2020 2:30 PM EDT TELEHEALTH PAIN CLINIC FOLLOW UP - VIDEO Date of Visit: November 18, 2020 I am seeing Ms. Mendez for a follow up after her left SIJ and GTB injection on 10/03/2020. Telehealth visit, due to the SARSCOV2 pandemic. Please see consent below. Patient verbally consents to this video visit and understands that this visit may be billed, similar to a clinic office visit. The provider is in [place], [place], speaking with the patient a the patient's location/address during the visit: [address] [place] [address] [address] [facility] [address] [X] Consent: I introduced and identified myself, received verbal consent from the patient to proceedwith this video visit and made the patient aware that the same confidentiality and computer systems information director practices apply. [X] I verified the patient's [...] is a 55 y.o. female who presents via telehealth with persistent left sided back, buttock and lower extremity pain after a work related injury on 05/23/2019. She has undergone a left SIJ and GTB injection on 10/03/2020, with only 50% relief of her symptoms for a few days. She is now back to her baseline pain. She reports some spread of her pain to the right lower back, although the majority of her pain is on the left side. She started physical therapy, which she did not find helpful. She is now going to go to aquatic therapy. She has difficulty in carrying on with her daily chores due to pain. She denies any new weakness, numbness or bowel/ bladder dysfunction. She remains on gabapentin 600 mg po TID, which she does not find very effective. Review of Electronic Chart: Today I have also reviewed available medical information in the patient's medical record at [facility] including relevant provider notes, laboratory work, and [...] electronic medical record. Current Outpatient Medications: ??? fluocinonide (LIDEX) 0.05 % Solution, Apply to the affected areas on the scalp 1-2 times daily, as needed., Disp: 60 mL, Rfl: 1 ??? ketoconazole (NIZORAL) 2 % Shampoo, Apply topically daily as needed for Itching., Disp: 120 mL, Rfl: 2 ??? triamcinolone (KENALOG) 0.1 % Cream, Apply [...] Social History Narrative ??? Not on file Social Determinants of Health Financial Resource Strain: ??? Difficulty of Paying Living Expenses: Food Insecurity: ??? Worried About Running Out of Food in the Last Year: ??? Ran Out of Food in the Last Year: Transportation Needs: ??? Lack of Transportation (Medical): ??? Lack of Transportation (Non-Medical): Physical Activity: ??? Days of Exercise per Week: ??? Minutes of Exercise per Session: Stress: ??? Feeling of Stress : Social Connections: ??? Frequency of Communication with Friends and Family: ??? Frequency of Social Gatherings with Friends and Family: ??? Attends Church Services: ??? Active Member of Clubs or Organizations: ??? Attends Club or Organization Meetings: ??? Marital Status: Intimate Partner Violence: ??? Fear of Current or Ex-Partner: ??? Emotionally Abused: ??? Physically Abused: ??? Sexually Abused: Family history: Family History Problem Relation Age of Onset ??? No Known Problems Mother ??? No Known Problems Father No pertinent h/o arthritis or pain history in the family. Past medical, social and family history is essentially unchanged from her prior visit on 10/03/2020. Review of Systems : Constitutional: No unintentional weight loss or gain, fevers, chills, or night sweats. Positive for above mentioned musculoskeletal and neurological findings on 14 point system review. Physical Exam: There were no vitals taken for this visit. Limited due to the nature of telehealth visit. General: Well-nourished, well-developed female HEENT: Head atraumatic, eyes are anicteric. Mucosae are moist. Respiratory: Non-labored breathing pattern on RA. No respiratory distress. Psych: A&Ox3 , answers questions appropriately Musculoskeletal: Inspection - No gross appendicular or axial deformities Palpation - Pain at left lower back/ buttock with directed self exam. Neurologic: Alert and oriented x3, in moderate distress pit furnace melter - II-XII are grossly intact No focal sensory or motor deficits noted. Imaging Studies: Most recent L spine MRI was completed on 09/22/2019. I personally reviewed the images with the patient. The impression is: Minimal disc bulge at L5-S1 without significant stenosis. No nerve root impingement detected at the level of the lumbar spine. Left hip x-ray from 09/16/2020 showed: COMPARISON: none ?? FINDINGS: ?? Bones No fracture. Sacrum: The lower sacrum is obscured by bowel gas. The sacral foraminal lines are symmetric. ?? Hip Joints Relative preserved joint spaces. No large osteophytes. ?? IMPRESSION 1. No fractures seen 2. Relative preserved hip joint spaces. L-spine x-ray from 09/08/2019 showed: COMPARISON: Lumbar spine MRI September 2019 ?? FINDINGS: There are 6 nonrib-bearing lumbar-type vertebral bodies. The last fully formed disc space will be numbered as L5-S1. There is a mild convex right curvature centered at L2. There is slight retrolisthesis of L3 on L4 and L4 on L5 without change with flexion and extension. Vertebral body heights are intact. Disc space heights are intact. ?? IMPRESSION Mild convex right curvature. ?? Please note lumbosacral transitional anatomy as described above. ?? No dynamic instability. Assessment: Caro Mendez is a 55 y.o. female with chronic left > right lower back pain, after a work-related injury she sustained on 05/2019. 1. Low back pain, non-specific Plan/ Recommendations: We reviewed etiology, predisposing factor(s), [...] or worsening neurological symptoms develop. - Medications: Consider titrating gabapentin up to 900 mg po TID, as long as she does not have any significant mood changes. - Imaging: Also, may consider a repeat L-spine MRI to r/o any progressive changes in her spine, and pain persists after trying aquatic therapy. - Physical therapy/modalities/DME: She will likely benefit from aquatic therapy and continued home exercise program. - Interventional/Surgical procedures: None indicated at this time. There are no focal findings to justify any further interventions at the current time. - Referrals: None indicated at this time. - Pain psychologist: We will schedule appointment with Dr. Enciso/ [facility], to address issues of relaxation, behavioral change, coping style, and other factors important to improvement, and consideration of biofeedback, CBT, and coping strategies. She will likely need a GAPP/ FRP evaluation. ACTIVE PAIN CARE REFERRAL The most appropriate treatment for chronic pain is a comprehensive approach to pain management that addresses psychological, medical, physical, and occupational needs. It is likely that Caro would benefit from engagement with the [facility], which will provide essential pain neuroscience education, and the opportunity to participate in interdisciplinary mind-body treatments. These approaches could help Caro develop pain self management strategies, reduce fear of movement and exercise, and safely increase activity levels. she would benefit from cognitive-behavioral interventions toimprove ability to actively cope with pain, decrease emotional distress, and decrease reliance on medical procedures. Symptom management could be enhanced through mindfulness and relaxation training. It seems likely that Caro will experience some ongoing or recurrent pain symptoms in the future, therefore working with the [facility] should provide her with better strategies for coping with the remaining pain through a self-management approach, with the goal of helping her reduce pain flares and resume valued activities, including possibly returning to gainful employment. Recommended Care (all of these will be offered to patients, this recommendation indicates provider'sintended treatment plan): [x]Welcome Group []Pain Education [x]Functional Christian []Individual Pain Psychology []Spine PT [x]Spine PT + Pain Psychology []CBT for Chronic Pain []Spine OT [x]Coping w/CP & Illness Group []Mindfulness for Chronic Pain [x]Women's Pain/PTSD Group - Activity: Continue activity as tolerated. - [...] in the midst of a pain flare.? - Follow-up: 6-8 weeks Thank you for the opportunity to participate in this patient's care. This service was provided via real time telehealth-video communication. This visit was conducted during 2020 COVID-19 outbreak. Time spent on this visit reflects time evaluating the patient pre-visit, during the visit and post-visit. Total time spent (# of) 30 minutes by video. Video Visit: 30 minutes [facility] CONSENT FOR TELEHEALTH Telemedicine (Video) Appointment Although not required in [place], [place] has a telemedicine consent requirement. We are working on an automated process to obtain this. I obtained the patient's consent to receiving health care services at [facility] through telemedicine. We discussed the opportunities and [...] form is available for patient's review in -'s patient portal, [facility]-. Opportunities include: improved access to medical care; limiting spread of COVID virus; increased patient convenience Limitations include: technical difficulties; need for a subsequent in-person visit due to transmission quality problems or need for physical examination not possible over video. Salomon Wise MD Attending Physician [facility] [place] [address] / CC: Rick Degroot MD [facility] [address] documented in this encounter Plan of Treatment Scheduled Referrals Name Type Priority Associated Diagnoses Order S chedule Referral to Spine Outpatient Referral Routine Low back pain, O rdered: Center non-specific 11/21/2020 documented as of this encounter Visit Diagnoses Diagnosis Low back pain, non-specific - Primary documented in this encounter Care Teams Caving Guide Relationship Specialty Start Date End Date Love Dupont APRN PCP - General Family Medicine 04/08/20 [address] [place] [address] documented as of this encounter
--- OUTSIDE RECORDS SUMMARY | 2022-05-22 00:25 | XMS_ITS | Encounter Summary ---
:1965 Author Organization [facility] [place] [address] Care Team Providers Name Role Phone Unknown Primary Care Provider Unavailable Encounter Details Date Type Department Care Team Description 09/22/2019 Ancillary Procedure Radiology Library at Jayne Dupont APRN [facility] [address] [phone] (Wo rk) Social History Tobacco Use Types [...] Associated Diagnosis Comme nts FILM LIBRARY Routine 09/22/2019 12:00 AM Results for this STORAGE ONLY MR EST procedure ar e in SPINE the results section. documented in this encounter Results Film Library- Storage Only MR Spine (09/22/2019 12:00 AM EST) Specimen (Source) Anatomical Location Collection Method / Collectio n Time Received Time / Laterality Volume Narrative RAD - 08/06/2020 3:31 PM EST This exam is auto-finalizing. It's purpo se is for storage only. Love K Hakeemcoreen CHIEF SUSTAINABILITY OFFICER IMG FILM LIBRARY ORDERABLES Performing Organization Address City/State/ZIP Code Phon e Number RAD [place], [place] documented in this encounter Visit Diagnoses Not on filedocumented in this encounter Care Teams Assembler Equipment Relationship Specialty Start Date End Date Unknown PCP - General 11/02/16 04/07/20 None documented as of this encounter
--- OUTSIDE RECORDS SUMMARY | 2022-05-22 00:25 | XMS_ITS | Encounter Summary ---
:1965 [place] [address] Care Team Providers Name Role Phone HakeemLove angela Ethan RAMSEY Primary Care Provider Encounter Details Date Type Department Care Team Description 12/10/2020 TH Visit Psychiatry and Chucky Baker Post-trau matic stress (TeleHealth) Behavioral Health at , disorder, chronic [facility] [address] PSYCHIATRY [place] [phone] Social History Tobacco Use Types Packs/Day Years [...] encounter Patient Instructions Patient InstructionsChucky Baker - 12/10/2020 3:00 PM EDT Continue current medications, additionally, start Prazosin 1mg nightly for nightmares, increasing by1mg every two weeks, not to exceed a maximum of 3mg nightly. Continue to work to engage in therapy to address depression and anxiety. In case of emergency, please go to your closest Emergency Department or call 911. Alternatively, if in acute crisis or are feeling unsafe, you can call the [facility] crisis number [phone]. You may also contact the [facility] crisis line at [phone] if you reside locally in [place]. You may contact [facility] crisis line at [phone] if you live locally in [place]. documented in this encounter Progress Notes Chucky Baker - 12/10/2020 3:00 PM EDT ESTABLISHED ADULT PATIENT OFFICE VISIT NOTE Location: Telehealth. Caro Mendez gave permission for and was seen for today's appointment with a Telehealth visit. During this visit they were located in [place]. Caro Mendez is aware that for any urgent matter theycan call [phone]. Attendee(s): Patient only This patient was seen with supervisor counseling and guidance Mery Shaver MD. See their note for confirmatory and/or revisionary documentation. Chief Complaint: I think I found a counselor. History of Present Illness: Caro Mendez is a 55 y.o. female with a history of panic disorder, PTSD, MDD, and diagnosis of Bipolar I Disorder who presents today for follow-up. - At last visit, discussed consideration of Prazosin for trauma-related nightmares and also reinforced dosing of NAC. - Today, Nivia reports I think I found a counselor. Starting intake process. - Mood remains pretty good, noticing the weather really helps with my mood. Also found out son and his partner are , that's a big thing! They also recently got engaged. - Continues to report sxs of PTSD, including hypervigilance, avoidance behaviors, feeling anxious/onedge during the day, and nightmares at least once/week. Many of these nightmares are trauma-related to the loss of her son. Remains interested in consideration of Prazosin for trauma-related nightmares. - Denies any sxs of fozia. - Reports much of her anxiety is also worsened by pain. - Denies SI/HI/AVH. - In regards to dermatologic concerns, Nivia reports improvements, it feels like it's coming to theend of it. She reports feeling reassured by being told by Dermatology that she is not having any acute dermatologic issues. She reports she is finding benefits from improving her diet (no processed foods) and using green tea supplements for overall health benefits. - Starting online [employer] courses with support of [facility], for [...] Outpatient Medications Medication Sig Dispense Refill ??? fluocinonide (LIDEX) 0.05 % Solution Apply to the affected areas on the scalp 1-2 times daily, as needed. 60 mL 1 ??? ketoconazole (NIZORAL) 2 % Shampoo [...] sleep. Prior psychiatric hospitalizations: 2002 and 2013 [facility] in [place] for paranoia Prior outpatient treatment: Went to [...] and normal rhythm ?? Language: fluent in tristanian ?? Mood: Pretty good ?? Affect: bright, full and mood-congruent ?? [...] TSH 1.14 05/23/2020 No results found for: [id number], 25OHVITD No results found for: LITHIUM, VALPROATE, CLOZAPINE Formulation and Assessment: Overall Formulation: Caro Mendez is a 55 y.o. Female with a history of panic disorder and a diagnosis of Bipolar I Disorder, referred to establish care by her PCP. Biologically, she has a family history of depression and substance use disorders and struggles with chronic back pain following a work injury. Psychologically, she has extensive trauma dating back to childhood and early adulthood, inaddition to recent suicide of her son in 2018. Socially, she is supported by [employer] and has not worked since 2019 due to injury; she identifies good support in her life, and is connected with [facility], planning to take community college courses in the near future. Her history does not support a diagnosis of Bipolar 1 Disorder, though we will continue to monitor for symptoms. CURRENT ASSESSMENT: Nivia is doing well overall, though still experiencing residual sxs of PTSD. No overt paranoid or bizarre delusions noted today; no evidence of fozia or psychosis. As discussed at last visit, plan to start Prazosin (r/b/se discussed) to target trauma-related nightmares as interrupted sleep may be contributing to daytime anxiety as well. Notably, she smokes marijuana daily for anxiety-management and we discussed risks of this to worsen anxiety/depression/psychosis; robust education provided around this with strong encouragement to abstain or at least avoid high THC potency. Will continue to provide psychoeducation in future visits. She denies any acute safety concerns and is hopeful for treatment. Plan to terminate with this keno writer and transfer to another resident for follow-upin March, to which she voiced understanding. Diagnoses: PTSD, chronic History of Panic Disorder, MDD, Delusional parasitosis Safety Assessment: Pt firmly and convincingly denies any SI/HI. Pt has been given Crisis Line numbers and agrees to call in case of emergency. Also agreeable to call 911 or to present to the ED in times of crisis. Plan: # PTSD, chronic - Start Prazosin 1mg qHS nightly for trauma-related nightmares, increasing by 1mg every 2 weeks NTE 3mg nightly - Continue Effexor XR 262.5mg daily, may consider titrating in future - Continue Gabapentin 600/600/900mg in TID dosing for pain and anxiety - Continue Hydroxyzine 25mg TID PRN for itching/anxiety - Continue NAC 600mg TID - Consider Prazosin for trauma-related nightmares in future - Referral to [facility] for psychotherapy for PTSD; also connected with human resources executive toconnect pt to therapists in community Patient Instruction/Education provided: Patient provided verbal instructions regarding medication side effects, safety plan in case of feeling unsafe. Patient understands the plan? Yes Signed By: Chucky Baker MD 12/10/2020 Mery Shaver MD - 12/10/2020 3:00 PM EDT PSYCHIATRY TEACHING PHYSICIAN INVOLVEMENT Location: Adult Psychiatry Medication Clinic, [address] Attending Physician: Mery Shaver MD Resident name: Chucky Baker MD I saw and evaluated the patient with Dr. Baker. Please see his note for details. I reviewed the patient's history during the visit and I agree with the details as written. My exam confirms the resident's findings. The assessment and plan were formulated in discussion with me and I agree with them as documented. Major issues addressed/discussed: 55yo woman returning for follow-up of PTSD. Main concern is feeling anxious, on edge, and hypervigilant. Some positive developments--recently found out son and partnerare . Taking online classes. Getting involved in therapy. Reviewed how marijuana use can exacerbate symptoms. Plan today to start prazosin 1mg nightly titrating up to 3mg. Continue Effexor XR 262.5 mg, gabapentin 600 qAM, 600mg mid-day, 900mg qHS, hydroxyzine 25mg BID PRN anxiety, NAC 1800mg daily dose. Mery Shaver MD documented in this encounter Plan of Treatment Not on filedocumented as of this encounter Visit Diagnoses Diagnosis Post-traumatic stress disorder, chronic documented in this encounter Care Teams Business Liaison Manager Relationship Specialty Start Date End Date Love Dupont, PREFLIGHT INSPECTOR PCP - General Family Medicine 04/08/20 [address] [place] [address] documented as of this encounter
--- OUTSIDE RECORDS SUMMARY | 2022-05-22 00:25 | XMS_ITS | Encounter Summary ---
:1965 Author Organization [facility] [place] [address] Care Team Providers Name Role Phone Love Dupont Ethan RAMSEY Primary Care Provider Encounter Details Date Type Department Care Team Description 06/24/[address] [facility] [address] [facility] [place] [address] [address] [facility] [phone] [place], [place] [address] (Wo rk) Social History Tobacco [...] Notes Telephone Encounter - Yarelis Hernandez - 06/24/2020 10:17 AM EDT Called and left a message for Caro Mendez requesting a call back to schedule an appointment inthe Derm/Psych clinic on 07/03 at 5:30. documented in this encounter Plan of Treatment Not on filedocumented as of this encounter Visit Diagnoses Not on filedocumented in this encounter Care Teams Headlight Assembler Relationship Specialty Start Date End Date Love Dupont APRN PCP - General Family Medicine 04/08/20 [address] [place] [address] documented as of this encounter
--- OUTSIDE RECORDS SUMMARY | 2022-05-22 00:25 | XMS_ITS | Encounter Summary ---
:1965 Author Organization [facility] [place] [address] Care Team Providers Name Role Phone Love Dupont Ethan RAMSEY Primary Care Provider Reason for Visit Reason Onset Date Comments Prior Authorization 12/18/2020 Clobetasol Propionat e 0.05% shampoo Encounter Details Date Type Department Care Team Description 12/18/2020 Telephone Dermatology at Loulou Carlin CMA Pr ior Authorization Road (Clobetasol Propionate [address] 0.05% shampoo) [place] [address] Social History Tobacco Use Types Packs/Day [...] Telephone Encounter - Kinza Covington CMA - 12/18/2020 9:44 AM EDT Medication Prior Authorization for Primary [place] [address] DENIED: Clobetasol Case/Reference #: [id number] Additional Information from Insurance: The patient must have had a documented side effect, allergy, or treatment failure to at least TWO different preferred agents of similar potency. Please consider using Clobetasol 0.05 % solution (covered, no PA required). Other preferred options for the scalp include Fluocinolone 0.01 % solution and oil, Betamethasone Valerate 0.12 % foam, Mometasone Furoate 0.1 % solution, Fluocinonide 0.05 % solution. Telephone Encounter - Loulou Welsh CMA - 12/18/2020 8:49 AM EDT Medication Prior Authorization for Primary [place] [address] Request received via: [facility] Patient: Caro Mendez Patient : 1965 Insurance Company: [place] Medicaid Sent via: [facility] Mcmahon: [id number] Physician: Anton Wade MD Medication Requested: clobetasoL 0.05 % Shampoo Frequency/Sig: Lather to affected areas of the scalp. Use 3 times weekly Disp: 118mL Refills: 1 Currently taking: no, just prescribed Diagnosis for this medication: Dermatitis (L30.9) Prior medications trialed in this patient: Medication: Lidex solution Approx Dates: 06/2020-current Outcome/Adverse reactions: inadequate response alone Medication: Nizoral Shampoo Approx Dates: 09/2020-current Outcome/Adverse reactions: inadequate response alone Additional Notes: documented in this encounter Plan of Treatment Not on filedocumented as of this encounter Visit Diagnoses Not on filedocumented in this encounter Care Teams Business Test Analyst Relationship Specialty Start Date End Date Love Dupont APRN PCP - General Family Medicine 04/08/20 [address] [place] [address] documented as of this encounter
--- OUTSIDE RECORDS SUMMARY | 2022-05-22 00:25 | XMS_ITS | Encounter Summary ---
:1965 Author Organization [facility] [place] [address] Care Team Providers Name Role Phone Love Dupont APRN Primary Care Provider Reason for Visit Reason Onset Date Comments Medication Refill 10/29/2020 Encounter Details Date Type Department Care Team Description 10/29/2020 Refill Dermatology at [facility] Mauro, Anton Devlin MD Dermatitis [address] [facility] [place] [address] [facility] [phone] [place], [place] [address] (Wo rk) Social History Tobacco [...] cause documented in this encounter Care Teams Pulley Maintainer Relationship Specialty Start Date End Date Love Dupont APRN PCP - General Family Medicine 04/08/20 [address] [place] [address] documented as of this encounter
--- OUTSIDE RECORDS SUMMARY | 2022-05-22 00:25 | XMS_ITS | Encounter Summary ---
:1965 Author Organization [facility] [place] [address] Care Team Providers Name Role Phone Love Dupont APRN Primary Care Provider Encounter Details Date Type Department Care Team Description 10/22/2020 Telephone Psychiatry and Behavioral [place] [address] Social History Tobacco Use Types Packs/Day [...] on filedocumented in this encounter Care Teams Medicare Coordinator Relationship Specialty Start Date End Date Love Dupont APRN PCP - General Family Medicine 04/08/20 [address] [place] [address] documented as of this encounter
--- OUTSIDE RECORDS SUMMARY | 2022-05-22 00:25 | XMS_ITS | Encounter Summary ---
:1965 Author Organization [facility] [place] [address] Care Team Providers Name Role Phone Love Dupont BRAULIO Primary Care Provider Encounter Details Date Type Department Care Team Description 07/03/2020 Office Visit Dermatology at Juan Miguel Gordon, Delusions of Road parasitosis [address] [place] [address] PSYCHIATRY DEPT [place] [id number] Social History Tobacco Use Types Packs/Day Years [...] as of this encounter Progress Notes Tiffanie Tapia, KAY - 07/03/2020 5:30 PM EDT Patient here today for an itching sensation on her scalp, hands, feet, and lower extremities that first presented in November of 2019 after she moved to a new apartment. She has since moved out of the apartment, which has helped. She is currently taking NAC, 8983-7659 mg daily, which she has been on for 1 month. She is currently on venlafaxine 257.5 mg, which she has been on for 5 years; she had her dose increased in November of 2019. Son committed suicide 3 years ago due to addiction of crystal meth per patient. Tomorrow is son's birthday. She states that her life has been great, until the itching sensation started. Most days, she feels loopy. She feels not herself and zombieish. This has been happening since the venlafaxine was increased. She wakes up at night 3-4 times a night, but she is not able to sleep during the day. She is not currently working, which has lowered her energy level recently. Her concentration levels have decreased recently and she feels scattered sometimes. Often completing multiple tasks at once.She states that she was previously diagnosed with bipolar disorder 7 years ago while in a mental [place]. She does endorse a history in which she feels extremely elated, but denies feeling of sexual desires or increased desire to travel. She often is trying to do many things at once, which has worsened since her son . She was previously prescribed lexapro and welllbutrin (very sad while taking it). Patient states that her anxiety attacks are triggered by driving near big trucks and itching. She does complete meditation, which has been helping. She used to have a counselor at [facility]. She plans to see a counselor on July 08, but this counselor plans to transfer her care to another counselor. Sister is having an affair with ex-. Very upset about this. PCP practices out of [place], [place]. Patient would prefer to be called in person and not use [facility]. Juan Miguel Beckham MD - 07/03/2020 5:30 PM EDT I met Caro with the dermatology team at her scheduled visit. Please see notes taken by the scribe below. As we had only a 30-minute visit which was combined for both services I have offered to reach out Deana for an extended phone call or telehealth visit. Of note, I have called her cell phone number and repeatedly get a message from [employer] that the caller is not available. I would like to further explore her history of a prior diagnosis of bipolar as well as the referralsshe has in place to see therapist near her in [place]. We did talk about her medication regimen currently being managed by her primary care doctor and I feel that her venlafaxine with current dosing is completely fine. In fact, indicated the dosing up to as much as 350 mg/day is common in psychiatry and I am happy to discuss this with her primary care doctor as needed. There were no safety concerns expressed at this visit. No SI/HI Psychiatric System ? General Appearance/Behavior: Patient has been changed into [facility], she was slightly hesitant at first but then very comfortable with showing the team her lesions. She seems slightly guarded in her presentation to us. ? Speech: fluent, nonpressured ? Thought Process: linear ? Associations: tight ? Abnormal Thoughts and Perceptions / Thought Content: Homicidality / Violent Thoughts: none Suicidality: none Hallucinations:none Delusions: none Obsessions: none ? Judgment and Insight: intact and good ? Mood & Affect: Zombie-manisha ? Orientation: full x 3 ? Attention/Concentration: Subjectively good for session ? Memory: Grossly intact for recent and remote events ? Language: normal use ? Fund of Knowledge: average Assessment and plan: Caro is a 55-year-old female who carries a prior diagnosis of bipolar disorder which seems somewhat in question. On a brief interview today we did not elicit any clear manic symptoms. She does have panic disorder with a recent onset of itching and fear of infestation. This has led to a move from her prior apartment but the symptoms follow her despite the environment. No medications were prescribed or changed at this visit. We answered the patient's concerned about her venlafaxine dosing and indicated that it in fact couldgo a little bit higher. She is meeting a new counselor and we will follow-up after this to see how this visits gone then whether additional referrals may be needed. No acute safety concerns. documented in this encounter Plan of Treatment Not on filedocumented as of this encounter Visit Diagnoses Diagnosis Delusions of parasitosis Other isolated or specific phobias documented in this encounter Care Teams Registration Rep Relationship Specialty Start Date End Date Love Dupont APRN PCP - General Family Medicine 04/08/20 [address] [place] [address] documented as of this encounter
--- OUTSIDE RECORDS SUMMARY | 2022-05-22 00:25 | XMS_ITS | Encounter Summary ---
:1965 Author Organization [facility] [place] [address] Care Team Providers Name Role Phone Love Dupont APRN Primary Care Provider Encounter Details Date Type Department Care Team Description [facility]/14[facility] [address] [place] [address] [facility] [phone] [place], [place] [address] ( rk) Social History Tobacco Use Types Packs/Day Years Used Date Former Smoker Smokeless Tobacco: Former User Comments: quit 10 yrs ago Alcohol Habits Answer Date Recorded How often [...] filedocumented in this encounter Care Teams Equipment Inspector Relationship Specialty Start Date End Date Love Dupont APRN PCP - General Family Medicine 04/08/20 [address] [place], [place] [address] documented as of this encounter
--- OUTSIDE RECORDS SUMMARY | 2022-05-22 00:25 | XMS_ITS | Encounter Summary ---
:1965 Author Organization [facility] [place] [address] Care Team Providers Name Role Phone Love [...] Expiration Date Visits Requ ested Visits Authorized [id number] 1 1 Encounter Details Date Type Department Care Team Description 10/03/2020 Ancillary Procedure Pain Management Osvaldo Newman usa, MD Pain [facility] [place] [address] [place] [address] [phone] Social History Tobacco Use Types Packs/Day Years [...] Associated Diagnosis Comme nts FILM LIBRARY Routine 10/03/2020 4:54 PM Pain Results f or this STORAGE ONLY PAIN EST procedure are in CLINIC [facility] the results section. documented in this encounter Results Film Library- Storage Only pain Clinic [facility] (10/03/2020 4:54 PM EST) Specimen (Source) Anatomical Location Collection Method / Collectio n Time Received Time / Laterality Volume Narrative [facility] - 10/03/2020 4:54 PM EST See PACS for result report. Salomon Wise MD [facility] FILM LIBRARY ORDERABLES Performing Organization Address City/State/ZIP Code Phon e Number [place], [place] documented in this encounter Visit Diagnoses Diagnosis Pain Generalized pain documented in this encounter Care Teams Vaccine Customer Representative Relationship Specialty Start Date End Date Love Dupont APRN PCP - General Family Medicine 04/08/20 [address] [place] [address] documented as of this encounter
--- OUTSIDE RECORDS SUMMARY | 2022-05-22 00:25 | XMS_ITS | Encounter Summary ---
:1965 Author Organization [facility] [address] Care Team Providers Name Role Phone Love Dupont APRN Primary Care Provider Reason for Visit Consultation (Routine) - Closed Specialty Diagnoses / Procedures Referred By Contact Refer red To Contact Physical Therapy Diagnoses LOW BACK PAIN, CHRONIC Love Dupont APRN [facility] [address] [place] [id number] Referral ID Status Reason Start Date Expiration Date Visits V isits Requested Authorized [id number] Closed Consult, Test 08/14/2020 08/14/2021 [facility] PCP Updated and/or Approved Encounter Details Date Type Department Care Team Description 09/09/2020 Office Visit Physical Therapy at Karla Felipe Chro blessing left-sided low [address] PT back pain with [address] [place] [address] Social History Tobacco Use Types Packs/Day [...] this encounter Miscellaneous Notes Initial Evaluation - Matteo Karla M, PT - 09/09/2020 12:00 PM EST PHYSICAL THERAPY INITIAL EVALUATION Date of Initial Evaluation: 09/09/2020 Referring Provider: Love Dupont MD Diagnosis: lumbar pain History of Present Illness: Caro Mendez is a 55 y.o. 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 She immediately underwent PT at [facility] in [facility] and began to transition back to work after ~2weeks. Her symptoms returned after a return to full duty status. Pt has been out of work for ~1 year but she reports that she remains employed at [employer]. She has not gone back to Physical Therapy since her initial sessions at [facility] immediately following her injury. At the time of this evaluation she reports that she has pain in the left side of the low back, the length of the lateral aspect of the thigh, the length of the medial aspect of her thigh, and into the lateral aspect of her lower leg and ankle. Pt reports radiating pain as well as numbness and tingling into this distribution. She denies pain into the buttock or posterior thigh. Pt also stated I peed my pants. This happened ~ 3 days ago. Reports that this has happened before and when she told her PCP she was directed to go to the E if it happened again. However she reports that after this most recent second episode that she has not had this happen since. She reports that this happened during the day. I am unclear whether this was more of a stress urgency incontinence or ofsome other origin. She has been able to control her bladder since that time. Pt reports that she had an injection of the spine a few months ago, but had no relief in her symptoms following this procedure. Pt to undergo a possible second injection on 09/16/20. PMHx: Patient Active Problem List Diagnosis Code ??? Chronic low back pain M54.5, G89.29 3 c- sections Red Flags: Unintended weight loss, malaise, pain unrelated to movement, prior history of Ca Reports loss of continence - one episode - 3 days ago - no longer happening - see HPI and assessmentfor additional information. Social History: - has worked at [employer] for 2 years - no longer working Pain: at best: 4/10; at worst: 9/10 Aggravating factors: - sitting, driving, static standing positions, sleep disturbance, carrying laundry, walking for ~10minutes, laying on her left side Alleviating factors: - laying, hot tub CLINICAL FINDINGS: Thoracolumbar AROM Screen: Flexion 40% without any lumbar reversal - pain in the lateral aspect of the ankle and the low back Extension WNL R SB 80% reproduction of leg pain L SB 80% reproduction of leg pain R Rot 80% L Rot 80% PROM Hip Flex, IR, ER all WNL and pain free Lower Extremity Manual Muscle Testing: symmetrical unless otherwise noted: Hip flex 4 Hip IR 4- Hip ER 5 Hip Abd L 4-, R 5 PGM L 3+, R 4+ Knee Ext 5 Knee flex 5 DF 5 PF 5 GTE R 5, L 4+ Pelvis Symmetry: Iliac crest height: symmetrical ASIS symmetry in supine: symmetrical PSIS symmetry in prone: symmetrical ANUP symmetry: symmetrical Mild right sacral rotation Reflexes: Patella Reflex 1+ b/l Achilles L 2+, R absent Segmental Mobility Testing: L1-5 WNL Lumbar and SIJ Special Testing: Supine to Sit: neg Distraction: neg Compression: neg Slump: neg b/l SLR: neg b/l Sacral Thrust: neg Standing marching: neg Slight left inflare - likely irrelevant finding Seated quadrant: neg Standing quadrant: neg AP Shear: hypermobile at L5-S1 Scour: neg Migdalia: neg BKFO: positive for minimal decrease in lumbar/hip disassociation Marchers test for lx/hip disassociation: neg b/l Palpation: Tender to Palpation: - GT, b/l ITB Left worse than right No soft tissue tenderness of the soft tissue of the lumbar spine Gait: ambulation noted as patient was walking to the front office following this evaluation: slight deviation only Clinical Presentation: Stable Evolving Unstable X Clinical decision making of low complexity evaluation using standardized patient assessment instrument and measurable assessment of functional outcome. ASSESSMENT: Pt is a 55 y.o. female presenting with reports of low back pain and radiating pain into the leg. History of reports indicate a lumbar radiculopathy. At the time of the evaluation special testing did not reproduce any of these symptoms. Repeated movements in standing active lumbar ROM however did appear to reproduce this pain in to the lower extremity. She reported one episode of loss of continence ~3 days ago. However, this has not happened since that time. It was unclear during conversation whether this was an episode of stress incontinence. However, given that she has not had any other symptoms, has normal MRI and x-rays findings, and is without any other status changes in regards to her back this is not likely related to her back pain. I advised her to contact her primary care regarding this episode of loss of bladder control to discuss this in relation to her back as well as the possibility of a pelvic floor issue as an underlying cause. Following this evaluation I also contacted the patietnt's primary care office and spoke with the PCP's nurse in regards to this patient's reported loss of continence. Patient appears to have an underlying left GT bursitis which may be responsible for the radiating pain into her lateral thigh. Her history of symptoms and evaluation findings also support this diagnosis. Caro currently lives in [facility] and has an [place] [facility] Due to the length of time sitting in the car and prolonged sitting aggravating her pain we discussed her finding a PT clinic close to her home so that the [address] would not exacerbate her current pain. Pt felt that this was a better option for her and therefore will not be returning to [facility] Patient may benefit from skilled PT to address her functional limitations. INITIAL TREATMENT INCLUDED: Pt education on POC, treatment progression, and diagnosis. Pt education on use of wedge pillow to alleviate bursitis symptoms while sitting. PLAN: Frequency and duration: Pt to transfer care to another clinic due to length of time it takes her to get to [facility] Treatment: Manual Techniques, Soft Tissue Mobilization, Stretching, Joint Mobilization, Therapeutic Exercise, Modalities (PRN to control pain and inflammation) Electrical stimulation and ice/heat, Patient/Family Education, Body Mechanics, Posture, Home Exercise Program, Aquatic Program, Balance and Gait Training, Dry- Needling, Pain Science Education, and Orthotic Management & Training Total Treatment time: 60 minutes Total Coded time: 0 minutes The plan has been discussed with the patient and Caro Georgesjeannerashid has agreed with the planned treatment. Karla Felipe, PT documented in this encounter Plan of Treatment Not on filedocumented as of this encounter Visit Diagnoses Diagnosis Chronic left-sided low back pain with le ft-sided sciatica documented in this encounter Care Teams Operating Room Nurse Relationship Specialty Start Date End Date Love Dupont, MARBLE CARVER PCP - General Family Medicine 04/08/20 [address] [place] [address] documented as of this encounter
--- OUTSIDE RECORDS SUMMARY | 2022-05-22 00:25 | XMS_ITS | Encounter Summary ---
:1965 Author Organization [facility] [place] [address] Care Team Providers Name Role Phone Love Dupont APRN Primary Care Provider Reason for Visit Reason Comments Dermatitis Consultation (TREVIN) - Specialty Diagnoses / Procedures Referred By Contact Refer red To Contact Dermatology Diagnoses Prurigo nodularis Love Dupont APRN [facility] [address] [place] [address] [place] [address] Fax: Referral ID Status Reason Start Date Expiration Date Visits V isits Requested Authorized [id number] Consult, Test 04/03/2020 10/04/2020 [facility] PCP Updated and/or Approved Encounter Details Date Type Department Care Team Description 05/23/2020 Office Visit Dermatology at Jeevan Wade, Nica Gatica ermatitis (Primary Road Dx) [address] [place] [address] [facility] [place], [place] [address] Social History Tobacco Use Types [...] as of this encounter Patient Instructions Patient InstructionsNyasia Ramirez CCMA - 05/23/2020 1:30 PM EDT - Recommend sensitive skin care: Dove fragrance free bar soap (folds/feet only), Cerave cream/Vanicream/Aveeno daily moisturizer within a few minutes of getting out of shower, lukewarm showers documented in this encounter Progress Notes Nyasia Ramirez CCMA - 05/23/2020 1:30 PM EDT Note made in error. Anton Wade MD - 05/23/2020 1:30 PM EDT Images from the original note were not included. DERMATOLOGY - NEW PATIENT NOTE Date of service: 05/23/2020 Caro Mendez : 1965, 55 y.o. Chief Complaint: Chief Complaint Patient presents with ??? Dermatitis HPI: Caro Mendez is a 55 y.o. female with a history of bipolar disorder referred by Love Dupont APRN with the following concerns: New patient here today with a diffuse generalized itching. The itch started in November. Her scalp is severely affected, but she is itchy from head to toe. She is predominantly itchy, but her skin is alsopainful at times. She has been treated for scabies with both oral and topical therapy multiple times with no improvement. She has tried Clobetasol which has helped the itch to some extent. The onset of her rash coincided with moving into her partner's home. He did not have similar symptoms. Since then, she has moved into a new place. She has a dog at home, but her dog was recently checked and does not have fleas. Patient is concerned that it is bugs coming out of her body. Reports that there is black coming out of her skull. She shaved her head because she thought it would get rid of the bugs. It has not helped the itch. She also reports she has lost 30lbs over this time period due to loss of appetite. Relevant Skin History: - Okay to leave detailed message with results? yes - Skin cancer (including type): no Meds: Current Outpatient Medications Medication Sig Dispense Refill ??? venlafaxine (EFFEXOR) 75 mg Tablet Take 75 mg by mouth 3 times daily. No current facility-administered medications for this visit. Allergies: Not on File Review of Systems: - General: Feels well - Skin: No other skin concerns. Examination: - Constitutional: Patient was alert, well-appearing and in no noticeable distress. - Full Skin Exam: Skin examination of the scalp, face, ears, neck, back, chest, axillae, abdomen, right and left upper extremities, right and left lower extremities, hands, feet, and buttocks was normal with the exception of the findings listed below. Genitalia examined. - Lymph nodes examined - Stomach palpated - A nurse/MA was present and on standby during my examination. Diagnosis/Skin findings/Assessment/Plan #. Generalized Pruritus without primary skin lesion, delusions of parasitosis EXAM: Few scattered superficially eroded inflammatory papules on scalp shoulders, and lower legs. - GARETH negative for scabies. If rash persists, will plan to perform repeat GARETH at follow up if indicated. - Etiology of pruritus unclear at this time. Work-up as below: - CBC, CMP, HgA1C, TSH, Free T4, ESR, CRP, LDH, PTH, tissue transglutaminase - DDX includes: neuropathic itch, hepatic disease, renal disease, diabetes mellitus, endocrinopathies (hyper-/hypothyroidism, hyperparathyroidism), early bullous pemphigoid, dermatitis herpetiformis/celiac disease, lymphoma, myeloproliferative disease, psychogenic etiology. - Discussed with patient in detail that there is no evidence at this time of bugs in her skin and that her presentation/exam findings are not consistent with an infestation. - Gentle skin care recommended, including use of mild soaps, moisturization with Vanicream or CeraVemoisturizing skin cream 1-2X daily, keeping nail cut short and avoiding wool and other rough fabrics. - Recommended starting n acetyl cysteine: 1200 mg daily and regular use of sarna lotion. - Recommend sensitive skin care: Dove fragrance free bar soap (folds/feet only), Cerave cream/Vanicream/Aveeno daily moisturizer within a few minutes of getting out of shower, lukewarm showers - Can consider biopsy or light therapy in the future. RTC: 4 weeks for follow up Note initiated by DIANNE Choe. I, DIANNE Choe, have performed the documentation for this encounter in the presence of and acting as a scribe for Anton Wade MD. I performed the services which were documented by the scribe, and I agree with the accuracy of the documentation in this encounter. Anton Wade MD Reviewed and signed by Anton Wade MD Resident in Dermatology [facility] Patient seen in conjunction with staff rabbit fancier: Manjula Rosario MD Department of Dermatology [facility] Manjula Rosario MD - 05/23/2020 1:30 PM EDT I directly supervised Dr. Wade during this office visit. Dr. Wade presented the history and physical exam to me. I then saw and examined this patient with Dr. Wade . We reviewed the history and pertinent details and I confirmed the physical findings. I agree with the details of the history and physical exam as documented in Dr. Wade's note. MANJULA ROSARIO MD Staff Physician documented in this encounter Plan of Treatment Not on filedocumented as of this encounter Procedures Procedure Name Priority Date/Time Associated Comments Diagnosis HC C-REACTIVE PROTEIN Routine 05/23/2020 2:48 Dermatitis Res ults for this PM EDT procedure are i n the results section. HC PARATHYROID Routine 05/23/2020 2:48 Dermatitis Results fo r this HORMONE(PTH INTACT PM EDT procedure are in the results section. HEMOGRAM Routine 05/23/2020 2:48 Dermatitis Results for this PM EDT procedure are i n the results section. DIFFERENTIAL, AUTOMATED Routine 05/23/2020 2:48 Dermatitis R esults for this PM EDT procedure are i n the results section. HC TISSUE Routine 05/23/2020 2:48 Dermatitis Results for this TRANSGLUTAMINASE AB PM EDT procedur e are in the results section. HC ESR-SEDIMENTATION Routine 05/23/2020 2:48 Dermatitis Resu lts for this RATE, BLOOD PM EDT procedure are i n the results section. HC CBC,PLT & AUTO DIFF Routine 05/23/2020 2:48 Dermatitis PM EDT HC THYROID STIMULATING Routine 05/23/2020 2:48 Dermatitis Re sults for this HORMONE, SERUM PM EDT procedure are in the results section. HC FREE THYROXINE (T4) Routine 05/23/2020 2:48 Dermatitis Re sults for this PM EDT procedure are i n the results section. HC VENIPUNCTURE Routine 05/23/2020 2:48 Dermatitis Results f or this PM EDT procedure are i n the results section. HC HEMOGLOBIN A1C Routine 05/23/2020 2:48 Dermatitis Results for this PM EDT procedure are i n the results section. COMPREHENSIVE METABOLIC Routine 05/23/2020 2:48 Dermatitis R esults for this PANEL (NON-FASTING) PM EDT procedur e are in the results section. documented in this encounter Results Differential, Automated (05/23/2020 2:48 PM EDT) P athologist Signature Neutrophils % 60.2 % [facility] Neutr Abs (ANC) 4.61 1.70 - [facility] 6.10 [facility] x10(3)/[facility] LABORATORY Lymphocytes % 32.6 % [facility] Lymphocytes Abs 2.5 0.9 - 3.2 [facility] x10(3)/[facility] LABORATORY Monocytes % 5.7 % [facility] Monocyte Abs 0.4 0.3 - 0.9 [facility] x10(3)/[facility] LABORATORY Eosinophils % 0.8 % [facility] Eosinophils Abs 0.1 0.0 - 0.4 [facility] x10(3)/[facility] LABORATORY Basophils % 0.3 % [facility] Basophils Abs 0.0 0.0 - 0.1 [facility] x10(3)/[facility] LABORATORY Immature Gran % 0.40 % [facility] Comment: Immature granulocytes(IG's)percentage an d absolute count will include metamyelocytes, myelocytes, and promyelo cytes. Blood smears from CBCs yielding IG's will be scanned manually for concor dance. If this scan disagrees with the automated IG or if promyelocytes are not ed, a manual differential will be performed. Linda Gran Abs 0.03 0.00 - 0.04 x10(3)/[facility] MAR Y [facility] Specimen Anatomical Collection Method Collection Time Receive d Time (Source) Location / / Volume Laterality Blood specimen 05/23/2020 2:48 PM 020 3:19 (specimen) EDT PM EDT Resulting Agency Comment Spec In Lab Anton Wade MD HEMATOLOGY ORDERABLES Performing Organization Address City/State/[place] [address] (ABNORMAL) Hemogram (05/23/2020 2:48 PM EDT) Analysis Performed At Patho logist Time Signature WBC 7.7 4.0 - 9.5 [facility] x10(3)/[facility] LABORATORY RBC 4.09 4.00 - [facility] 5.21 [facility] x10(6)/[facility] LABORATORY Hemoglobin 11.6 (L) 11.7 - [facility] 15.5 gm/dL [facility] Hematocrit 37.2 35.7 - [facility] 45.8 % [facility] MCV 91.0 82.6 - [facility] 94.4 fL [facility] MCH 28.4 27.1 - [facility] 32.0 pg [facility] MCHC 31.2 (L) 31.7 - [facility] 35.0 gm/dL [facility] Platelets 356 145 - 357 [facility] x10(3)/[facility] LABORATORY RDWSD 49.0 (H) 37.0 - [facility] 46.0 [facility] LABORATORY RDWCV 14.7 (H) 11.5 - [facility] 14.1 % [facility] MPV 9.3 7.6 - 12.9 [facility] LABORATORY nRBC % Auto 0.0 % [facility] nRBC Abs Auto 0.000 0.000 - [facility] 0.000 [facility] x10(3)/[facility] LABORATORY Specimen Anatomical Collection Method Collection Time Receive d Time (Source) Location / / Volume Laterality Blood specimen 05/23/2020 2:48 PM 020 3:19 (specimen) EDT PM EDT Resulting Agency Comment Spec In Lab Anton Wade MD HEMATOLOGY ORDERABLES Performing Organization Address City/[facility] [place] [address] Lactate Dehydrogenase (05/23/2020 2:48 PM EDT) athologist Signature LDH 191 110 - 220 [facility] unit/L [facility] Specimen Anatomical Collection Method Collection Time Receive d Time (Source) Location / / Volume Laterality Blood specimen 05/23/2020 2:48 PM 020 6:38 (specimen) EDT PM EDT Resulting Agency Comment Spec In Lab Manjula Rosario MD CHEMISTRY ORDERABLES Performing Organization Address City/[facility]/[place] [address] CRP, acute inflammation (05/23/2020 2:48 PM EDT) P athologist Signature CRP 1.6 <=4.9 mg/L [facility] Specimen Anatomical Collection Method Collection Time Receive d Time (Source) Location / / Volume Laterality Blood specimen 05/23/2020 2:48 PM 020 6:38 (specimen) EDT PM EDT Resulting Agency Comment Spec In Lab Manjula Rosario MD CHEMISTRY ORDERABLES Performing Organization Address City/[facility]/[place] [address] (ABNORMAL) T4, free (05/23/2020 2:48 PM EDT) athologist Signature Free T4 0.79 (L) 0.93 - 1.70 [facility] ng/dL [facility] Specimen Anatomical Collection Method Collection Time Receive d Time (Source) Location / / Volume Laterality Blood specimen 05/23/2020 2:48 PM 020 6:38 (specimen) EDT PM EDT Resulting Agency Comment Spec In Lab Manjula Rosario MD CHEMISTRY ORDERABLES Performing Organization Address City/[facility] Phon e Number [address] Tissue transglutaminase, IgA (05/23/2020 2:48 PM EDT) athologist [facility] TTG IgA Ab 0.7 0.1 - 10.0 [facility] u/ml [facility] Comment: Negative = <7 U/mL Equivocal = 7-10 U/mL Positive = >10 U/mL Specimen Anatomical Collection Method Collection Time Receive d Time (Source) Location / / Volume Laterality Blood specimen 05/23/2020 2:48 PM 020 7:24 (specimen) EDT AM EDT Resulting Agency Comment Spec In Lab Manjula Rosario MD IMMUNOLOGY ORDERABLES Performing Organization Address City/[facility]/ZIP Code Phon e Number [address] PTH (05/23/2020 2:48 PM EDT) athologist [facility] PTH 41 15 - 65 [place] pg/mL [facility] Specimen Anatomical Collection Method Collection Time Receive d Time (Source) Location / / Volume Laterality Blood specimen 05/23/2020 2:48 PM 020 3:27 (specimen) EDT PM EDT Resulting Agency Comment Spec In Lab Manjula Rosario MD CHEMISTRY ORDERABLES Performing Organization Address City/[facility] Phon e Number [address] Sedimentation rate (05/23/2020 2:48 PM EDT) athologist [facility] Sed Rate 22 2 - 39 [facility] mm/hr [facility] Comment: Effective August 16, 2019 new capillar y photometric technology has resulted in a change in reference ranges. It is r ecommended that each ESR result be reviewed with its own age appropriate re ference range. Specimen Anatomical Collection Method Collection Time Receive d Time (Source) Location / / Volume Laterality Blood specimen 05/23/2020 2:48 PM 020 3:19 (specimen) EDT PM EDT Resulting Agency Comment Spec In Lab Manjula Rosario MD HEMATOLOGY ORDERABLES Performing Organization Address City/State/[place] [address] Hemoglobin A1c (05/23/2020 2:48 PM EDT) athologist Signature Hemoglobin A1C 4.6 4.3 - 5.6 [facility] Comment: Reference Range: 4.3 - 5.6% 5.7 - 6.4% - Increased Risk of Developin g Diabetes Mellitus >= 6.5% - Consistent with diagnosis of D iabetes Mellitus In the absence of hyperglycemia (i.e. pl asma glucose > 200 mg/dL) or classic symptoms of hyperglycemia a repeat measu rement of HbA1c should be performed on a separate sample to confirm the diagnos is. Diagnosis and Classification of Diabetes Mellitus, Diabetes Care 2013; 36: Suppl. 1, A47-60 Est Avg Gluc 87 mg/dL [facility] Comment: eAG equivalents for HbA1c percentages: HbA1c(%) ?eAG(mg/dL) 6.0 ?126 6.5 ?140 7.0 ?154 7.5 ?169 8.0 ?183 8.5 ?197 9.0 ?212 9.5 ?226 10.0 ? 240 Limitations: The eAG calculation has not been validated on women, individuals below 18 years old and above 70 years old, and individuals with hemoglobinopathies. Additional resources are available on [facility] website. Santo SAAB, Luc J, Ailin R, et al. ??Tr anslating the A1C assay into estimated average glucose values. ??Diabetes Care 2008:31(8):4586-7486. Specimen Anatomical Collection Method Collection Time Receive d Time (Source) Location / / Volume Laterality Blood specimen 05/23/2020 2:48 PM 020 3:27 (specimen) EDT PM EDT Resulting Agency Comment Spec In Lab Manjula Rosario MD CHEMISTRY ORDERABLES Performing Organization Address City/[facility]/ZIP Code Phon e Number [address] TSH (05/23/2020 2:48 PM EDT) P athologist Signature TSH 1.14 0.27 - 4.20 [facility] mcIU/mL [facility] Specimen Anatomical Collection Method Collection Time Receive d Time (Source) Location / / Volume Laterality Blood specimen 05/23/2020 2:48 PM 020 6:38 (specimen) EDT PM EDT Resulting Agency Comment Spec In Lab Manjula Rosario MD CHEMISTRY ORDERABLES Performing Organization Address City/[facility]/[place] [address] (ABNORMAL) Comprehensive metabolic panel (non-fasting) (05/23/2020 2:48 PM EDT) P athologist Signature Glucose Lvl 88 65 - 199 [facility] mg/dL [facility] Comment: Diabetes: >=200 mg/dL plus symp toms BUN 13 8 - 18 mg/dL [facility] Creatinine 0.53 (L) 0.70 - 1.20 mg/dL [facility] Sodium 137 135 - 145 mmol/L [facility] Potassium 4.3 3.5 - 5.0 mmol/L [facility] Comment: Please note: ??Patients with WBC >100,00 0 may have falsely elevated Potassium levels. ??For accurate Potassium quantif ication in these patients send serum separator tube (gold top) for subsequent determinations. ??Contact the Clinical Chemistry Laboratory if there are any qu estions. Chloride 102 98 - 107 mmol/L [facility] CO2 25 22 - 31 mmol/L [facility] Anion Gap 10 5 - 15 mmol/L [facility] Calcium 9.5 8.5 - 10.5 mg/dL [facility] Total Protein 7.3 6.1 - 8.0 gm/dL [facility] Albumin 4.3 3.2 - 5.2 gm/dL [facility] AST 18 0 - 30 unit/L [facility] ALT 13 0 - 30 unit/L [facility] Alk Phos 66 35 - 105 unit/L [facility] Total Bilirubin 0.2 0.2 - 1.3 mg/dL [facility] Estimated GFR 108 >=60 mL/min/1.73 m?? [facility] Comment: The eGFR was calculated using the CKD-EP I equation. As with all creatinine based estimates of kidney function, eGFR values calculated with the CKD-EPI equation are not accurate in patients wi th acute kidney failure, extremes of body mass or the acutely ill. [email or web address]/[facility] – CLAREMOREnkf eGFR 126 >=60 mL/min/1.73 m?? [facility] Comment: The eGFR was calculated using the CKD-EP I equation. As with all creatinine based estimates of kidney function, eGFR values calculated with the CKD-EPI equation are not accurate in patients wi th acute kidney failure, extremes of body mass or the acutely ill. [email or web address]/[facility] CLAREMOREnkf Specimen Anatomical Collection Method Collection Time Receive d Time (Source) Location / / Volume Laterality Blood specimen 05/23/2020 2:48 PM 020 6:38 (specimen) EDT PM EDT Resulting Agency Comment Spec In Lab Manjula Rosario MD CHEMISTRY ORDERABLES Performing Organization Address City/State/[facility] [place] [address] documented in this encounter Visit Diagnoses Diagnosis Dermatitis - Primary Contact dermatitis and other eczema, due to unspecified cause documented in this encounter Care Teams Schedule Planning Manager Relationship Specialty Start Date End Date Love Dupont, BRAULIO PCP - General Family Medicine 04/08/20 [address] [place] [address] documented as of this encounter
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
--- OUTSIDE RECORDS SUMMARY | 2022-05-22 00:25 | XMS_ITS | Encounter Summary ---
:1965 Author Organization [facility] [place] [address] Care Team Providers Name Role Phone Love Dupont BRAULIO Primary Care Provider Reason for Visit Reason Comments Follow-up Encounter Details Date Type Department Care Team Description 06/14/2020 Office Visit Dermatology at [facility]; Steven LOVELL Delusions of parasitosis [address] [place] [address] [facility] [place], [place] [address] Social History Tobacco Use Types [...] documented as of this encounter Progress Notes Thuy Fuentes CCMA - 06/14/2020 3:00 PM EDT Note made in error. Anton Wade MD - 06/14/2020 3:00 PM EDT Images from the original note were not included. DERMATOLOGY - ESTABLISHED PATIENT FOLLOW-UP Date of service: 06/14/2020 Caro Mendez : 1965, 55 y.o. Chief Complaint: Chief Complaint Patient presents with ??? Follow-up HPI: Caro Mendez is a 55 y.o. female with a history of bipolar disorder last seen by myself on05/23/2020. Ms. Mendez returns today for a follow up. She was first seen on 05/23/20 at which time she presented with diffuse generalized itching that started in November 2019. She believes that she has bugs and black things coming out of her skin. Her scalp is her most bothersome area. She previously tried shavingoff all of her hair, which did not help. She has also been treated for scabies with topical and oraltherapy and used clobetasol without help. Her itch coincided with moving into a new home, but no oneelse living at this home is itchy. 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 Sensitive skin care and use of thick moisturizing cream was recommended. She feels that her skin is overall doing better and feels better. Although it is less itchy, she does still appreciate bugs and black material coming from her skin. She has been trying toestablish care with psychiatry but was told that the wait time was long. Relevant Skin History: - Okay to leave detailed message with results? yes - Skin cancer (including type): no Medications: Current Outpatient Medications Medication Sig Dispense Refill ??? venlafaxine (EFFEXOR) 75 mg Tablet Take 75 mg by mouth 3 times daily. No current facility-administered medications for this visit. Allergies: Not on File Review of Systems: - General: Feels well, denies any recent illnesses, fevers, changes in weight, chills, or night sweats - Skin: No other skin concerns. Examination: - Constitutional: Patient was alert, well-appearing and in no noticeable distress. - Focused Exam: Skin examination of the scalp and arms was normal with the exception of the findingslisted below - A nurse/MA was present and on standby during my examination. Diagnosis/Skin findings/Assessment/Plan: #. Delusions of Parasitosis EXAM: Few scattered superficially eroded lightly erythematous papules on scalp. - Discussed that previous workup did not identify an underlying cause for to explain the patient's symptoms of generalized pruritis and discussed diagnosis of delusions of parasitosis at length. - Recommended patient continue to work on establishing care with a psychiatrist. - Discussed referring to our delusions of parasitosis clinic. Patient is interested in being seen inthis clinic. Referral sent. - Recommended OTC Sarna Lotion (refrigerated) Apply to the itchy areas on the trunk and extremities as often as needed. - Start Rx: Lidex solution. Apply to the affected areas on the scalp 1-2 times daily as needed. - Gentle skin care recommended, including use of mild soaps, moisturization with Vanicream or CeraVemoisturizing skin cream 1-2X daily, keeping nail cut short and avoiding wool and other rough fabrics. - Recommended starting n acetyl cysteine: 1200 mg daily. - Advised to try to avoid dying hair at this time and trying to let it grow out. RTC: Will call to schedule in delusions or parasitosis clinic; sooner if needed. Reminder placed in system to schedule./Appointment scheduled before exiting. Instructed patient to call with questions or concerns. Note initiated by DIANNE Ramon. I, DIANNE Ramon, have performed the documentation for this encounter in the presence of and acting as a scribe for Anton Wade MD. I performed the services which were documented by the scribe, and I agree with the accuracy of the documentation in this encounter. Anton Wade MD Reviewed and signed by: Anton Wade MD Resident in Dermatology [facility] Patient seen and evaluated with staff foot piece assembler: Mango Pizano MD Department of Dermatology [facility] Mango Pizano III, MD - 06/14/2020 3:00 PM EDTSummary: . I directly supervised Dr. Wade during this office visit. Dr. Wade presented the history and physical exam to me. I then saw and examined this patient with Dr. Wade . We reviewed the history and pertinent details and I confirmed the physical findings. I agree with the details of the history and physical exam as documented in Dr. Wade's note. MANGO PIZANO III, MD Staff Physician documented in this encounter Plan of Treatment Not on filedocumented as of this encounter Visit Diagnoses Diagnosis Dermatitis Contact dermatitis and other eczema, due to unspecified cause Delusions of parasitosis Other isolated or specific phobias documented in this encounter Care Teams Computer Engineering Technologist Relationship Specialty Start Date End Date Love Dupont APRN PCP - General Family Medicine 04/08/20 [address] [place] [address] documented as of this encounter
--- OUTSIDE RECORDS SUMMARY | 2022-05-22 00:25 | XMS_ITS | Encounter Summary ---
:1965 Author Organization [facility] [place] [address] Care Team Providers Name Role Phone HakeemLove angela Ethan RAMSEY Primary Care Provider Encounter Details Date Type Department Care Team Description 09/16/2020 Hospital Encounter [facility] [place] [facility] Salomon Wise MD Greater trochanteric [address] [place] [address] Dr [facility] bursitis of left hip [facility] [address] [facility] [phone] [place] [address] Social History Tobacco Use Types Packs/Day Years [...] on file documented as of this encounter Medications at Time of Discharge [...] for Pain. documented as of this encounter Plan of Treatment Not on filedocumented as of this encounter Procedures Procedure Name Priority Date/Time Associated Diagnosis Comme nts XR PELVIS AND HIP 2 Routine 09/16/2020 3:50 PM Greater trochan teric Results for this VIEWS LEFT EST bursitis of left hip procedu re are in the results section. documented in this encounter Results XR Pelvis and Hip [...] report, please contact e number below. ? Electronically signed by: Yamila Martinez MD, [facility] ([phone]), at 09/16/2020 3:55 PM Narrative 09/16/2020 3:55 [...] this report, please contact e number below. Electronically signed by: Yamila Martinez MD, [facility] ([phone]), at 09/16/2020 3:55 PM Salomon Wise MD IMG DX ORDERABLES documented in this encounter Visit Diagnoses Diagnosis Greater trochanteric bursitis of left hi p Enthesopathy of hip region documented in this encounter Care Teams Mill Set Up Relationship Specialty Start Date End Date Love Dupont APRN PCP - General Family Medicine 04/08/20 [address] [place] [address] documented as of this encounter
--- OUTSIDE RECORDS SUMMARY | 2022-05-22 00:25 | XMS_ITS | Encounter Summary ---
:1965 Author Organization [place] [address] Care Team Providers Name Role Phone Love Dupont APRN Primary Care Provider Reason for Referral Consultation (Routine) - Closed Specialty Diagnoses / Procedures Referred By Contact Refer red To Contact [facility] Diagnoses Chronic left-sided low back pain with left-sided sciatica Rick Degroot MD [facility] Pain And [facility] [place] [address] [place] [address] Phone: Fax: Referral ID Status Reason Start Date Expiration Date Visits V isits Requested Authorized [id number] Closed Consult, 08/08/2020 08/08/2021 1 1 Test & Treat Reason for Visit Consultation (Routine) - Specialty Diagnoses / Procedures Referred By Contact Refer red To Contact [facility] Diagnoses Radiculopathy, lumbar region Spine - Lumbar radiculopathy/ MRI(l) 09/22/19 [facility] has seen [facility] pain clinic Does pt want surgical eval? if not schedule with Love Timmons APRN [facility] Pain And [address] [place] [address] [facility] [place] [address] Phone: Fax: Referral ID Status Reason Start Date Expiration Date Visits V isits Requested Authorized [id number] Consult, Test 07/22/2020 01/19/2021 6 6 & [facility] PCP Updated and/or Approved Encounter Details Date Type Department Care Team Description 08/08/2020 Office Visit [facility] Rick Degroot, ronnguyen left- sided low at [facility] MD back pain with [facility] lef t-sided sciatica Drive [address] [place], [place] [facility] [address] [place] [address] [phone] Social History Tobacco Use Types Packs/Day Years [...] Sign Reading Time Taken Comments Blood Pressure 126/85 08/07/2020 10:18 AM EST Pulse 89 08/07/2020 10:18 AM EST Temperature 36.4 ??C (97.6 ??F) 08/07/2020 10:18 AM EST Respiratory Rate - - Oxygen Saturation - - Inhaled Oxygen Concentration - - Weight 47.6 kg (105 lb) 08/07/2020 10:18 AM EST Height 154.9 cm (5' 1) 08/07/2020 10:18 AM EST Body Mass Index 19.84 08/07/2020 10:18 AM EST documented in this encounter Progress Notes Rick Degroot MD - 08/08/2020 10:40 AM EST Chief complaint: Total spine pain radiating to left lower extremity History of present illness: Ms. Mendez is a 55-year-old female whom I am seeing in consultation for Love Dupont regards to her pain that originates in the low back and radiates to include her entire spine also radiates to her bilateral buttocks, left groin, left anterolateral thigh and left anterior leg. 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 At this point the back pain and leg pain are equally as bothersome. She describes some numbness in her left anterior leg. Her left lower extremity feels weak to her. Her pain is exacerbated by prolonged sitting, and she gets some short-term relief by standing and moving around. Bending, twisting, and lifting are also bothersome. The pain keeps her up at night. She denies constitutional symptoms orchange in her bowel or bladder function. She was taken gabapentin and Tylenol without any improvement. 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 She had a lumbar epidural steroid injection in June with no improvement. She has not had prior spinal surgery. Past medical history: None Past surgical history: x3 Medications and allergies were reviewed and are in ED H. Family history: Heart disease, hypertension Social history: The patient works at [employer]. She has been out of work since she was injured. She does not smoke and occasionally drinks. Review of systems: All negative except musculoskeletal as above. Physical exam Patient is 5 foot 1, 105 pounds, with a BMI of 19.8 General: Patient is comfortable, no acute distress Back: Her back is diffusely tender to palpation from her neck to her lumbar spine. She is tender palpation over her SI joints and over her left sciatic notch. She can flex 20 degrees and extend 10 degrees. Neurological exam: She walks with a slow, antalgic gait. She can heel walk and toe walk. Motor exam reveals mild, diffuse weakness throughout the left lower extremity that is characterized by breakawayweakness. She reports mildly altered sensation in her left lateral foot and left lateral leg. Reflexes are 2/4 at the knees and 1/4 at the ankles. Straight leg raise negative bilaterally. She has no clonus. Hip exam: She has normal, painless range of motion of both hips. She is tender to palpation over herleft greater trochanter. Vascular exam: She has palpable pulses bilaterally. Imaging: AP and lateral flexion-extension x-rays of the lumbar spine from 08/08/2020 were reviewed. These demonstrate a slight apex right thoracolumbar curve. She has no spondylolisthesis or instability. MRI of the lumbar spine from 09/22/2019 was reviewed. This shows well-preserved disks throughout the lumbar spine with no evidence of nerve compression. Assessment/plan: Ms. Mendez is a 55-year-old female with chronic total spine pain with nondermatomal radiation to her left lower extremity following a work- related injury on May 23, 2019. I do not see any significant structural abnormality or any nerve compression on her imaging. The cause of her left lower extremity symptoms is not clear to me. She may have a component of greater trochanteric bursitis given her tenderness there. We discussed treatment options for this and include continued medication, further physical therapy, further injections, or the functional mosque program. I see no role for surgery in her case. She would like to discuss injection options further with our pain c linic, so we will set her up for a comprehensive pain evaluation. If she becomes interested in the functional mosque program, she should contact us and we can have her discuss that program with one of their representatives. documented in this encounter Plan of Treatment Scheduled Referrals Name Type Priority Associated Diagnoses Order S chedule Referral to Pain Outpatient Referral Routine Chronic left-side d Ordered: and Spine Center low back pain with 08/08 (Internal only) left-sided sciatica documented as of this encounter Visit Diagnoses Diagnosis Chronic left-sided low back pain with le ft-sided sciatica documented in this encounter Care Teams Swedish Masseuse Relationship Specialty Start Date End Date Love Dupont, ALIGNMENT TECHNICIAN PCP - General Family Medicine 04/08/20 [address] [place] [address] documented as of this encounter
--- OUTSIDE RECORDS SUMMARY | 2022-05-22 00:25 | XMS_ITS | Encounter Summary ---
:1965 Author Organization [facility] [place] [address] Care Team Providers Name Role Phone Love Dupont Ethan RAMSEY Primary Care Provider Encounter Details Date Type Department Care Team Description 09/16/2020 Telephone Pain and Spine Yelena oodm at [facility] [place] [address] Social History Tobacco Use Types Packs/Day [...] this encounter Miscellaneous Notes Telephone Encounter - Radhames Deanne Wei - 09/16/2020 3:23 PM EST Procedure: SIJ injection/Left Greater Trochaneric MRI required? no (If yes, verify that updated MRI is in eDH) (Atlanto-Axial Joint injection, LINDSEY; 1 year or <)(Caudal THONY, LESI, Thoracic THONY, TFESI Lumbar & Cervical; 2 years or <) RISK LEVEL: Low Are you on any blood thinners? no (If yes, specify medication type and prescribing provider for anticoagulant hold request) Medication: Prescribing provider: Are you taking any NSAIDs? no Type of NSAID: Are you currently taking any oral steroids (i.e. prednisone) or have you had a steroid injection within the past two weeks? no Are you currently taking or have you recently been treated with antibiotics? no Have you been in the ER or hospitalized recently? no If yes. Why? Do you have any allergies to anesthetics or steroids? no Are you diabetic? no (In the case of type I diabetes, steroids injections can make blood sugar spike) Is this being billed to workers comp or your regular insurance (verify insurance)? Worker's Comp no Insurance: documented in this encounter Plan of Treatment Not on filedocumented as of this encounter Visit Diagnoses Not on filedocumented in this encounter Care Teams Media Intern Relationship Specialty Start Date End Date Love Dupont, SENIOR PAYROLL MANAGER PCP - General Family Medicine 04/08/20 [address] [place] [address] documented as of this encounter
--- OUTSIDE RECORDS SUMMARY | 2022-05-22 00:25 | XMS_ITS | Encounter Summary ---
:1965 Author Organization [facility] [address] Care Team Providers Name Role Phone Love Dupont Ethan RAMSEY Primary Care Provider Encounter Details Date Type Department Care Team Description 08/08/2020 Hospital Encounter XRay at [facility] Rick Degroot, Acute low back pain, [address] [place] unspecified back [place], [place] [facility] pain laterality , [id number] CENTER unspecified whether [phone] [place] [address] Social History Tobacco Use Types Packs/Day Years [...] mg by mouth 0 mg Tablet daily. venlafaxine XR 37.5 mg daily. 0 06/26/20202021 (Effexor-XR) 37.5 mg Capsule, Sust. Release 24 hr acetaminophen (Tylenol) Take 1,000 mg by 0 05/04/2022 500 mg Tablet mouth every 8 hours as needed for Pain. fluocinonide (LIDEX) 0.05 Apply to the 60 mL 1 07/18/20 20 08/13/2020 % SolutionIndications: affected areas on Dermatitis the scalp 1-2 times daily, as needed. documented as of this encounter Plan of Treatment Not on filedocumented as of this encounter Procedures Procedure Name Priority Date/Time Associated Diagnosis Comme nts XR LUMBAR SPINE 2 Routine 08/08/2020 10:23 AM Acute low back p ain, Results for this OR 3 VIEWS EST unspecified back procedure a re in pain laterality, the results unspecified whether section. sciatica present documented in this encounter Results XR Lumbar Spine 2 [...] present documented in this encounter Care Teams Trim Machine Operator Relationship Specialty Start Date End Date Love Dupont APRN PCP - General Family Medicine 04/08/20 [address] [place] [address] documented as of this encounter
--- OUTSIDE RECORDS SUMMARY | 2022-05-22 00:25 | XMS_ITS | Encounter Summary ---
:1965 Author Organization [facility] [place] [address] Care Team Providers Name Role Phone Love Dupont Ethan RAMSEY Primary Care Provider Reason for Visit Reason Comments Follow-up Encounter Details Date Type Department Care Team Description 07/03/2020 Office Visit Dermatology at [facility] Ricci, Delusions of parasitosis; Steven LOVELL Dermatitis [address] [place] [address] [facility] [place], [place] [address] Social History Tobacco Use Types [...] documented as of this encounter Progress Notes Zachary Bower - 07/03/2020 5:30 PM EDT Images from the original note were not included. DERMATOLOGY - ESTABLISHED PATIENT FOLLOW-UP Date of service: 07/03/2020 Caro Mendez : 1965, 55 y.o. Chief Complaint: Chief Complaint Patient presents with ??? Follow-up HPI: Caro Mendez is a 55 y.o. female last seen by Dr. Wade on 06/14/2020. 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 Patient is currently NAC (8889-7839 mg daily), which she has been on for 1 month and has had some improvement to the affected areas. She is taking hydroxyzine 25 mg BID, which makes her drowsy, but also helps with her anxiety. Shehas involvement on the hands, feet, and lower legs. The sensation started in November of 2019, which was when she moved to a new apartment. She has since moved out of the apartment, which helped with the itching sensation. There are still scabs present on scalp. She is currently using Sarna on the scalp. Relevant Skin History: - Okay to leave detailed message with results?yes - Skin cancer (including type):??no Medications: Current Outpatient Medications Medication Sig Dispense Refill ??? fluocinonide (LIDEX) 0.05 % Solution Apply to the affected areas on the scalp 1-2 times daily, as needed. 60 mL 1 ??? venlafaxine (EFFEXOR) 75 mg Tablet Take 75 mg by mouth 3 times daily. No current facility-administered medications for this visit. Allergies: Not on File Review of Systems: - General: Feels well - Skin: No other skin concerns. Examination: - Constitutional: Patient was alert, well-appearing and in no noticeable distress. - Focused Exam: Skin examination of the face, hands, feet, and lower extremities was normal with theexception of the findings listed below - A nurse/MA was present and on standby during my examination. Diagnosis/Skin findings/Assessment/Plan: #. Delusions of Parasitosis?? EXAM:??Few scattered superficially eroded lightly erythematous papules on scalp. - Discussed that previous workup did not identify an underlying cause for to explain the patient's symptoms of generalized pruritis and discussed diagnosis of delusions of parasitosis at length. - Continue OTC: N-Acetylcysteine 600 mg: Take two tablets by mouth daily - Start Rx: Lidex solution. Apply to the affected areas on the scalp 1-2 times daily as needed. - Recommend CeraVe for sensitive skin RTC: 1-2 months for follow up, or sooner if needed, routed to medical secretary Note initiated by DIANNE Mosher. I, DIANNE Mosher, have performed the documentation for this encounter in the presence of and acting as a scribe for Zachary Bower MD. I performed the services which were documented by the scribe, and I agree with the accuracy of the documentation in this encounter. Zachary Bower MD Reviewed and signed by: Zachary Bower MD Resident in Dermatology [facility] Patient seen and evaluated with staff fence post driver: Rudi Desai MD Department of Dermatology [facility] Anton Desai MD - 07/03/2020 5:30 PM EDT I directly supervised Dr. Bower during this office visit. Dr. Bower presented the history and physical exam to me. I then saw and examined this patient with Dr. Bower. We reviewed the history and pertinent details and I confirmed the physical findings. I agree with the details of the history and physical exam as documented in Dr. Bower's note. 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
--- OUTSIDE RECORDS SUMMARY | 2022-05-22 00:25 | XMS_ITS | Encounter Summary ---
:1965 Author Organization [facility] [place] [address] Care Team Providers Name Role Phone Love Dupont Ethan RAMSEY Primary Care Provider Encounter Details Date Type Department Care Team Description 08/13/2020 Refill Dermatology at [facility] Zachary Bower MD Dermatitis [address] [place] [address] [facility] [phone] [place], [place] [address] (Wo rk) Social History Tobacco [...] Miscellaneous Notes Telephone Encounter - Blanquita Parker - 08/14/2020 1:32 PM EST Patient contacted the clinic today requesting to speak with you - pt currently scheduled to be seen on 09/11. Best number to call back is [phone]. Telephone Encounter - Hiral Funk - 08/13/2020 11:[address] Bower patient Jasmin, Ms. Mendez had an appointment with Dr. Bower on 07/03/20 at 5:30pm, and has an appointment with Dr. Wade on 09/11/20 at 3:40pm. She is requesting a prescription for Fluocinonide solution, and uses [facility] in [place], [place]. If you have any questions please contact her at [phone]. Thank you, Hiral documented in this encounter Plan of Treatment Not on filedocumented as of this encounter Visit Diagnoses Diagnosis Dermatitis Contact dermatitis and other eczema, due to unspecified cause documented in this encounter Care Teams Clinical Editor Relationship Specialty Start Date End Date Love Dupont, HOPPER FILLER PCP - General Family Medicine 04/08/20 [address] [place] [address] documented as of this encounter
--- OUTSIDE RECORDS SUMMARY | 2022-05-22 00:25 | XMS_ITS | Encounter Summary ---
:1965 Author Organization [facility] [place] [address] Care Team Providers Name Role Phone Love Dupont APRN Primary Care Provider Encounter Details Date Type Department Care Team Description 09/11/2020 Office Visit Dermatology at [facility] D elusions of parasitosis; Steven LOVELL Dermatitis [address] [place] [address] [facility] [place] [place] [address] Social History Tobacco Use Types [...] encounter Progress Notes Anton Wade MD - 09/11/2020 3:40 PM EST Images from the original note were not included. DERMATOLOGY - ESTABLISHED PATIENT FOLLOW-UP Date of service: 09/11/2020 Caro Mendez : 1965, 55 y.o. Chief Complaint: No chief complaint on file. HPI: Caro Mendez is a 55 y.o. female last seen by Dr. Jacksno on 07/03/2020. Ms. Mendez returns today for Delusions of??Parasitosis. She continues OTC: N- Acetylcysteine 600 mgtwo tablets by mouth daily, Lidex solution to the scalp as needed, and triamcinolone to affected areas on the trunk and extremity. Patient reports that there has been some improvement since she was initially seen; however, she continues to be very itchy and perceives fibers coming out of her skin. Shereports little bumps underneath the skin that are itchy. Patient reports when she pope her hair she notices white things that looks like eggs that appear on her scalp. She mentions at night thereis a nasty smell from her skin. She reports the most pruritus on her scalp, abdomen and legs. She has been using gentle unscented soaps and moisturizing with CeraVe. Patient reports she has been taking Gabapentin 300 mg three times daily, medication was written for once daily. Relevant Skin History: - Okay to leave [...] ??? gabapentin (Neurontin) 300 mg Capsule Take 300 mg by mouth daily. ??? hydrOXYzine (Atarax) 25 mg Tablet Take 25 mg by mouth 3 times daily as needed for Itching. ??? venlafaxine (EFFEXOR) 75 mg Tablet Take 75 mg by mouth daily. No current facility-administered medications for this visit. Allergies: No Known Allergies Review of Systems: - General: Feels well - Skin: No other skin concerns. Examination: - Constitutional: Patient was alert, well-appearing and in no noticeable distress. A focused examination was performed to the bilateral arms, right lower leg. - A nurse/MA was present and on standby during my examination. 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 - Discussed that previous workup did not identify an underlying cause for to explain the patient's symptoms of generalized pruritis and discussed diagnosis of delusions of parasitosis at length. - Continue OTC: N-Acetylcysteine 600 mg: Take two tablets by mouth daily - Continue Rx: Lidex solution. Apply to the affected areas on the scalp 1-2 times daily as needed. - Start Ketoconazole 2% Shampoo: apply topically to scalp, let it sit for 5 min prior to rinsing. - Continue Triamcinolone 0.1% Cream 1-2 times daily to itchy lesions for up to 2 weeks. Take 1 week off prior to repeating if needed. - Recommended Gabapentin 300 mg in the morning, 300 mg at lunch, and 600 mg in the evening. - Advised patient to notify prescribing physician prior to adjusting Gabapentin dose. - Letter sent to PCP. - Recommend CeraVe for sensitive skin - Discussed the importance of following up with psychiatry at upcoming scheduled appointment. Recommended to discuss the option of Pimozide at that appointment. RTC: 3 months (after meeting with Psychiatrist) Note initiated by DIANNE Mckeon. I, DIANNE Mckeon, have performed the documentation for this encounter in the presence of andacting as a scribe for Anton Wade MD. I performed the services which were documented by the scribe, and I agree with the accuracy of the documentation in this encounter. Anton Wade MD Reviewed and signed by: Anton Wade MD Resident in Dermatology [facility] Patient seen and evaluated with staff mandarin teacher: Mica Lazcano MD Department of Dermatology [facility] Mica Lazcano MD - 09/11/2020 3:40 PM EST I directly supervised Dr. Wade during this office visit. Dr. Wade presented the history and physical exam to me. I then saw and examined this patient with Dr. Wade . We reviewed the history and pertinent details and I confirmed the physical findings. I agree with the details of the history and physical exam as documented in Dr. Wade's note. 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
--- OUTSIDE RECORDS SUMMARY | 2022-05-22 00:25 | XMS_ITS | Encounter Summary ---
:1965 Author Organization [facility] [place] [address] Care Team Providers Name Role Phone Love Dupont Ethan RAMSEY Primary Care Provider Encounter Details Date Type Department Care Team Description 12/17/2020 Telephone Dermatology at [facility], Anton Devlin MD [address] [place] [address] [facility] [phone] [place], [place] [address] (Wo rk) Social History Tobacco [...] Miscellaneous Notes Telephone Encounter - Michelle Plata Emy - 12/17/2020 3:40 PM EDT After the patient left she thought About her condition and she says it is a parasite that she wanteda prescription for this. She got others but none for this. Call at - [phone] R Telephone Encounter - Michelle Plata - 12/17/2020 3:40 PM EDT This message has been received and answered by Dr. Wade. documented in this encounter Plan of Treatment Not on filedocumented as of this encounter Visit Diagnoses Not on filedocumented in this encounter Care Teams Automation Control Technician Relationship Specialty Start Date End Date Love Dupont APRN PCP - General Family Medicine 04/08/20 [address] [place] [address] documented as of this encounter
--- OUTSIDE RECORDS SUMMARY | 2022-05-22 00:25 | XMS_ITS | Encounter Summary ---
:1965 Author Organization [facility] [place] [address] Care Team Providers Name Role Phone Love Dupont Ethan RAMSEY Primary Care Provider Encounter Details Date Type Department Care Team Description 08/12/2020 Telephone Dermatology at [facility] Zachary Bower MD [address] [place] [id number] [facility] [phone] [place], [place] [address] (Wo rk) Social History Tobacco [...] Notes Telephone Encounter - Rebecca Sanders - 08/12/2020 9:25 AM EST Caro Georgesjeannerashid called to let you know that the fluocinonide (LIDEX) 0.05 % Solution is not helping. Other options per patient request? Best number to reach the patient back is [phone] documented in this encounter Plan of Treatment Not on filedocumented as of this encounter Visit Diagnoses Not on filedocumented in this encounter Care Teams Distribution Center Assistant Relationship Specialty Start Date End Date Love Dupont APRN PCP - General Family Medicine 04/08/20 [address] [place] [address] documented as of this encounter
--- OUTSIDE RECORDS SUMMARY | 2022-05-22 00:25 | XMS_ITS | Encounter Summary ---
:1965 Author Organization [facility] [place] [address] Care Team Providers Name Role Phone Love Dupont BRAULIO Primary Care Provider Reason for Visit Reason Comments Follow-up Encounter Details Date Type Department Care Team Description 12/17/2020 Office Visit Dermatology at [facility]; Steven LOVELL Delusions of parasitosis [address] [place] [address] [address] [facility] [place], [place] [address] Social History Tobacco Use Types [...] encounter Progress Notes Anton Wade MD - 12/17/2020 1:00 PM EDT Images from the original note were not included. DERMATOLOGY - ESTABLISHED PATIENT FOLLOW-UP Date of service: 12/17/2020 Caro Mendez : 1965, 55 y.o. Chief Complaint: Chief Complaint Patient presents with ??? Follow-up HPI: Caro Mendez is a 55 y.o. female last seen by myself on 09/11/2020. Ms. 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 She continues OTC: N-Acetylcysteine 600 mg two tablets by mouth daily, Lidex solution and ketoconazole shampoo to the scalp as needed, and triamcinolone to affected areas on the trunk and extremities. She is also using CeraVe facial moisturizer, Zuma parasite detox, Artemisia Annua, Fungus Fighter, and Clove oil. She is concerned because black snake-like things are still coming out of her skin. She notes that she is worried about going near other people for risk of spreading. She is also worried about a smell coming from her skin. She feels that there are parasites moving under her skin and that the shedding is so severe that she has to frequently throw away her clothes. She recently purchased and used a device that claims to drive parasites out of the skin with an electric current. This device left several slowly healing wounds within her skin. Relevant Skin History: - Okay to leave detailed message with results?yes - Skin cancer (including type):??no Medications: Current Outpatient Medications Medication Sig Dispense Refill ??? prazosin (Minipress) 1 mg Capsule Take 1 capsule by mouth nightly. Take 1 capsule by mouth nightly for two weeks, increasing by 1mg every two weeks, not to exceed 3mg nightly. 90 capsule 1 ??? fluocinonide (LIDEX) 0.05 % Solution [...] Focused Exam: Skin examination of the face, scalp, trunk and extremities was normal with the exception of the findings listed below - A nurse/MA was present and on standby during my examination. 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 Multiple pink to brown ~1 cm papules with superficial ulcerations on bilateral lower extremities at sites of application of electric device for parasites. Otherwise skin clear on exam and well moisturized. - Discussed that previous workup did not identify an underlying cause for to explain the patient's symptoms of generalized pruritis and discussed diagnosis of delusions of parasitosis at length. - Continue OTC: N-Acetylcysteine 600 mg: Take two tablets by mouth daily - Discon Rx: Lidex solution. Apply to the affected areas on the scalp 1-2 times daily as needed. - Continue Ketoconazole 2% Shampoo - Start Rx: Clobetasol shampoo: apply topically to scalp, let it sit for 5 min prior to rinsing. - Continue Triamcinolone 0.1% Cream 1-2 times daily to individual itchy lesions for up to 2 weeks. Take 1 week off prior to repeating if needed. - Continue gabapentin per PCP. - Discussed the importance of following up with psychiatry at upcoming scheduled appointment. Recommended to discuss the option of Pimozide at that appointment. Message sent to psychiatry team. - Recommend CeraVe for sensitive skin?? RTC: 3 months Note initiated by DIANNE Choe. I, DIANNE Choe, have performed the documentation for this encounter in the presence of and acting as a scribe for Anton Wade MD. I performed the services which were documented by the scribe, and I agree with the accuracy of the documentation in this encounter. Anton Wade MD Reviewed and signed by: Anton Wade MD Resident in Dermatology [facility] Patient seen and evaluated with staff fraud prevention analyst: Niecy Colón MD Department of Dermatology [facility] Niecy Colón MD - 12/17/2020 1:00 PM EDT I directly supervised Dr. Wade [...] phobias documented in this encounter Care Teams Tablet Technician Relationship Specialty Start Date End Date Love Dpuont APRN PCP - General Family Medicine 04/08/20 [address] [place] [address] documented as of this encounter
--- NOTE | 2022-05-22 06:30 | DI.US_ITS ---
Exam(s) US PELVIS TRANSVAGINAL EXAM: US PELVIS TRANSVAGINAL CLINICAL HISTORY: heavy periods,abnl bleeding,n92.4 TECHNIQUE: Ultrasound of the pelvis was performed both transabdominal and transvaginal. COMPARISON: No exams were available for comparison FINDINGS: UTERUS: Nongravid anteverted Measures 8.7 cm length x 5 cm AP x 5 cm wide. Small 12 x 10 millimeter posterior myometrial fibroid left of center near the fundus. Endometrial thickness measures 3 mm. There is no fluid in the endometrial canal. CERVIX: There are small nabothian cysts in the cervix RIGHT OVARY: Measures 3 x 1.8 x 2.6 cm No significant cysts nor masses evident in the right ovary. LEFT OVARY: Measures 3.2 x 2 point by 3.5 cm No significant cysts nor masses evident in the left ovary. CUL-DE-SAC: No free fluid evident. IMPRESSION: 1. Solitary small uterine fibroid posterior sub fundal area. No large fibroids. 2. 3 millimeter thickness endometrium stripe. 3. No abnormal adnexal findings. No free fluid. DATA REPOSITORY:
== END ==
PROVIDERS: PCP Nurse Practitioner Family; Visit Provider Nurse Practitioner Family
DX: N92.4 Excessive bleeding in the premenopausal period (principal); D25.9 Leiomyoma of uterus, unspecified
CPT/HCPCS: 76830; 76856

== ENCOUNTER 2022-06-19 18:01 | Emergency (ER) | payer MEDICAID, SELFPAY ==
[2022-06-19 18:09] VITALS: BP 127/90; PULSE 86; RESP 18; TEMP 36.6; O2SAT 100
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
[2022-06-19 19:28] VITALS: RESP 18
[2022-06-19] MEDS: LORazepam 1 MG TAB PO (19:30)
== END 2022-06-19 20:09 | disposition home or self-care (01) ==
PROVIDERS: Emergency Provider Physician Assistant; PCP Nurse Practitioner Family
DX: T37.4X1A Poisoning by anthelminthics, accidental (unintentional), initial encounter (principal); F22 Delusional disorders; F41.9 Anxiety disorder, unspecified
CPT/HCPCS: 99283; 99284

== ENCOUNTER 2022-09-14 13:48 | Outpatient (REF) | payer MEDICAID, SELFPAY ==
[2022-09-14 15:50] LABS: HCT 39.6 % (36.0-46.0); HGB 13.2 g/dL (11.2-15.7); MCH 29.9 pg (27.0-33.0); MCHC 33.3 % (32.0-36.0); MCV 90 fL (80-95); MPV 10.2 fL (8.0-11.0); Platelet Count 309 10^3/uL (130-400); RBC 4.42 10^6/uL (3.93-5.22); RDW 13.7 % (11.7-14.6); RDW-SD 45.4 fL; WBC 9.24 10^3/uL (4.4-10.8)
[2022-09-14 15:55] LABS: Iron 74 ug/dL (50-170); Total Iron Binding Capacity 318 ug/dL (250-450); Transferrin Sat 23 % (15-50)
== END 2022-09-14 13:49 | disposition home or self-care (01) ==
LOC: NCHCN 13:48
PROVIDERS: PCP Nurse Practitioner Family; Visit Provider Nurse Practitioner Family
DX: D64.9 Anemia, unspecified (principal); M53.3 Sacrococcygeal disorders, not elsewhere classified; M54.50 Low back pain, unspecified; F22 Delusional disorders
CPT/HCPCS: 85027; 83540; 83550

== ENCOUNTER 2022-11-23 15:32 | Outpatient (REF) | payer MEDICAID, SELFPAY ==
[2022-11-23 16:09] LABS: TSH 0.63 uIU/mL (0.36-3.74)
== END 2022-11-23 15:33 | disposition home or self-care (01) ==
LOC: NCHCN 15:32
PROVIDERS: PCP Nurse Practitioner Family; Visit Provider Nurse Practitioner Family
DX: F41.8 Other specified anxiety disorders (principal); Z86.59 Personal history of other mental and behavioral disorders
CPT/HCPCS: 84439; 84443

== ENCOUNTER 2023-01-27 14:00 | Outpatient (REF) | payer MEDICAID, SELFPAY ==
[2023-01-27 19:42] LABS: Abs Immature Grans 0.02 10^3/uL (0.0-0.06); Absolute Basophil Count 0.04 10^3/uL (0.0-0.2); Absolute Eosinophil Count 0.17 10^3/uL (0.0-0.7); Absolute Lymphocyte Count 2.48 10^3/uL (1.2-3.4); Absolute Monocyte Count 0.57 10^3/uL (0.1-0.8); Absolute Neutrophil Count 4.84 10^3/uL (1.2-6.7); Basophils % 0.5; Eosinophils % 2.1; HCT 40.5 % (36.0-46.0); HGB 13.8 g/dL (11.2-15.7); Immature Grans % 0.2; Lymphocytes % 30.5; MCH 31.7 pg (27.0-33.0); MCHC 34.1 % (32.0-36.0); MCV 93 fL (80-95); MPV 10.6 fL (8.0-11.0); Neutrophils % 59.7; Platelet Count 274 10^3/uL (130-400); RBC 4.36 10^6/uL (3.93-5.22); RDW 12.8 % (11.7-14.6); RDW-SD 43.8 fL; WBC 8.12 10^3/uL (4.4-10.8)
[2023-01-27 19:52] LABS: ALT 68 U/L (14-59); AST 42 U/L (15-37); Albumin 3.5 g/dL (3.4-5.0); Alkaline Phosphatase 100 U/L (46-116); Bilirubin, Direct 0.1 mg/dL (0.0-0.2); Bilirubin, Total 0.4 mg/dL (0.2-1.0); Total Protein 7.8 g/dL (6.4-8.2)
[2023-01-27 19:54] LABS: Iron 83 ug/dL (50-170); Total Iron Binding Capacity 281 ug/dL (250-450); Transferrin Sat 30 % (15-50)
== END 2023-01-27 14:01 | disposition home or self-care (01) ==
LOC: NCHCN 14:00
PROVIDERS: PCP Nurse Practitioner Family; Visit Provider Registered Nurse
DX: F33.8 Other recurrent depressive disorders (principal); Z86.2 Personal history of diseases of the blood and blood-forming organs and certain disorders involving the immune mechanism; R74.8 Abnormal levels of other serum enzymes
CPT/HCPCS: 80076; 83540; 83550; 85025

== ENCOUNTER 2023-05-12 14:40 | Outpatient (REF) | payer MEDICAID, SELFPAY ==
[2023-05-12 17:08] LABS: C Diff PCR Negative (Negative)
[2023-05-13 10:57] LABS: Campylobacter PCR Negative (Negative); Salmonella PCR Negative (Negative); Shiga Toxin PCR Negative (Negative); Shigella/Enteroinvasive Ecoli Negative (Negative)
== END 2023-05-12 14:41 | disposition home or self-care (01) ==
LOC: NCHCN 14:40
PROVIDERS: PCP Nurse Practitioner Family; Visit Provider Nurse Practitioner Family
DX: R19.7 Diarrhea, unspecified (principal); R11.0 Nausea; R10.9 Unspecified abdominal pain
CPT/HCPCS: 87329; 87493; 87505; 83630; 87177

== ENCOUNTER 2023-08-11 16:38 | Outpatient (REF) | payer MEDICAID, SELFPAY ==
[2023-08-11 20:41] LABS: HCT 41.6 % (36.0-46.0); HGB 13.4 g/dL (11.2-15.7); MCH 29.9 pg (27.0-33.0); MCHC 32.2 % (32.0-36.0); MCV 93 fL (80-95); MPV 9.9 fL (8.0-11.0); Platelet Count 392 10^3/uL (130-400); RBC 4.48 10^6/uL (3.93-5.22); RDW-SD 44.3 fL; WBC 10.99 10^3/uL (4.4-10.8)
[2023-08-11 20:51] LABS: ALT 108 U/L (14-59); AST 71 U/L (15-37); Albumin 4.2 g/dL (3.4-5.0); Alkaline Phosphatase 154 U/L (46-116); Anion Gap 8.6 mmol/L (3-11); BUN 13 mg/dL (7-18); Bilirubin, Total 0.4 mg/dL (0.2-1.0); CO2 29.4 mmol/L (21.0-32.0); CREATININE 1.1 mg/dL (0.55-1.02); Calcium 9.7 mg/dL (8.5-10.1); Chloride 99 mmol/L (98-107); Estimated GFR 58.97 (mL/min/1.73m2); Glucose 84 mg/dL (74-106); Sodium 137 mmol/L (136-145); Total Protein 8.7 g/dL (6.4-8.2)
[2023-08-11 22:04] LABS: Vitamin D 25 Total 40.1 ng/mL (30-100)
[2023-08-13 11:36] LABS: IgA 242 mg/dL (85-499); Interpretation (See Note); Tissue Transglutaminase IgA <4.0 CU (<20.0)
== END 2023-08-11 16:39 | disposition home or self-care (01) ==
LOC: NCHCN 16:38
PROVIDERS: PCP Nurse Practitioner Family; Visit Provider Nurse Practitioner Family
DX: N92.0 Excessive and frequent menstruation with regular cycle (principal); R53.83 Other fatigue; K76.0 Fatty (change of) liver, not elsewhere classified
CPT/HCPCS: 80053; 82306; 82784; 83516; 85027

== ENCOUNTER 2023-09-08 14:53 | Outpatient (REF) | payer MEDICAID, SELFPAY ==
[2023-09-08 15:54] LABS: HCT 40.8 % (36.0-46.0); HGB 13.2 g/dL (11.2-15.7); MCH 29.7 pg (27.0-33.0); MCHC 32.4 % (32.0-36.0); MCV 92 fL (80-95); MPV 10.2 fL (8.0-11.0); Platelet Count 329 10^3/uL (130-400); RBC 4.44 10^6/uL (3.93-5.22); RDW 12.7 % (11.7-14.6); RDW-SD 42.5 fL; WBC 11.02 10^3/uL (4.4-10.8)
[2023-09-08 16:17] LABS: TSH (W/Ref FT4) 1.23 uIU/mL (0.36-3.74)
== END 2023-09-08 14:54 | disposition home or self-care (01) ==
LOC: NCHCN 14:53
PROVIDERS: PCP Nurse Practitioner Family; Visit Provider Nurse Practitioner Family
DX: N92.0 Excessive and frequent menstruation with regular cycle (principal)
CPT/HCPCS: 85027; 84443

== ENCOUNTER 2023-09-22 10:38 | Outpatient (CLI) | payer MEDICAID, SELFPAY ==
--- NOTE | 2023-09-22 14:22 | W.NUTRFU ---
Date of service: 09/22/23 Time of Service: 13:30 Nutrition Note NOTE: Caro in today for MNT re: heaptic steatosis After some interview questions, we spent time reviewing what the focuys of her menu planning should be - as well as that she should menu plan in the first place to ensure she is compliant and consistent. We reviewed added sugar - keeping this category less than 36grams per day and reading labels to identify hidden added sugars in things like salad dressings and pb etc..., as well as the obvious sources. We reviewed carbohydrates in general and how most choices should be from traditional food choices that are high in fiber and nutrient dense but also should be limited to 12 servings or somewhere around 150grams per day. We reviewed keeping fats in moderation but sticking with EVOO for non cooking and low temps and using avocado oil for high temp cooking. REviewed healthy fats from fish/seafood, nuts and seeds are great to get. Encouraged hitting at least 30g fiber per day by including non-starchy veggies at each meal ideally. REviewed exercise is important and the difference between activity and exercise - suggested she also target more strength training for more efficient metabolism. Caro has my contact info should she have any questions or desire for follow up visits - declines follow up at this time and will work on the above in her menu planning Time Spent in Nutritional Counseling and Treatment: 45 min
== END 2023-09-22 10:39 | disposition home or self-care (01) ==
LOC: DS 10:38
PROVIDERS: PCP Nurse Practitioner Family; Visit Provider Dietitian, Registered
DX: K76.0 Fatty (change of) liver, not elsewhere classified (principal); Z71.3 Dietary counseling and surveillance
CPT/HCPCS: 00123; 97802

== ENCOUNTER → 2023-09-28 03:15 | Outpatient (CLI) | payer MEDICAID, SELFPAY ==
--- NOTE | 2023-09-28 | DI.US_ITS ---
Exam(s) US ABDOMEN LIMITED EXAM: US ABDOMEN LIMITED CLINICAL HISTORY: FATTY LIVER, K76.0 TECHNIQUE: Ultrasound abdomen performed using standard protocol. COMPARISON: No exams were available for comparison FINDINGS: PANCREAS: Normal where visualized. LIVER: There is diffuse increased echogenicity of the liver consistent with fatty infiltration. The liver has a somewhat coarsened echotexture. No mass is seen sonographically. Hepatopetal flow in th e Portal Vein. The liver measures in 13.2 cm length. GALLBLADDER: No evidence of cholelithiasis. No evidence of wall thickening. No pericholecystic fluid identified. BILIARY SYSTEM: Common bile duct measures < 7 mm. No intrahepatic biliary ductal dilation. PRINCE'S SIGN: Negative. RIGHT KIDNEY: Kidney is normal in size. No evidence of renal calculi. No evidence of hydronephrosis. No renal mass or cyst identified. ASCITES: None seen. IMPRESSION: Hepatic steatosis. DATA REPOSITORY:
--- NOTE | 2023-09-28 | DI.US_ITS ---
Exam(s) US HERNIA EXAM: US HERNIA CLINICAL HISTORY: HERNIA OF ANT ABD WALL,K43.9. TECHNIQUE: Ultrasound was performed using standard protocol. COMPARISON: No exams were available for comparison FINDINGS: Sonographic assessment utilizing grayscale and color Doppler imaging was performed and targeted to th e area of clinical concern. There is a midline anterior abdominal wall defect corresponding to the palpable abnormality. The def ect measures 1.1 cm in with. There is herniation of fat through the defect. The herniated sac measu res 4.4 x 2.7 x 4.6 cm. IMPRESSION: Fat containing midline anterior abdominal wall hernia. DATA REPOSITORY:
== END ==
PROVIDERS: PCP Nurse Practitioner Family; Visit Provider Nurse Practitioner Family
DX: K43.9 Ventral hernia without obstruction or gangrene (principal); K76.0 Fatty (change of) liver, not elsewhere classified
CPT/HCPCS: 76857; 76705

== ENCOUNTER 2023-12-06 16:17 | Outpatient (REF) | payer MEDICAID, SELFPAY ==
[2023-12-06 16:19] LABS: Anion Gap 10.2 mmol/L (3-11); BUN 13 mg/dL (7-18); CO2 27.8 mmol/L (21.0-32.0); CREATININE 0.7 mg/dL (0.55-1.02); Calcium 9.2 mg/dL (8.5-10.1); Chloride 104 mmol/L (98-107); Estimated GFR 101.44 (mL/min/1.73m2); Glucose 117 mg/dL (74-106); Potassium 4.5 mmol/L (3.5-5.1); Sodium 142 mmol/L (136-145)
== END 2023-12-06 16:18 | disposition home or self-care (01) ==
LOC: NCHCN 16:17
PROVIDERS: PCP Nurse Practitioner Family; Visit Provider Nurse Practitioner Family
DX: I10 Essential (primary) hypertension (principal)
CPT/HCPCS: 80048

== ENCOUNTER 2024-02-13 15:44 | Emergency (ER) | payer MEDICAID, SELFPAY ==
[2024-02-13 15:47] VITALS: BP 159/104; PULSE 85; RESP 27; TEMP 36.3; O2SAT 99
[2024-02-13 15:55] VITALS: PULSE 70; RESP 12
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
[2024-02-13 16:00] VITALS: PULSE 77; RESP 15
[2024-02-13 16:01] VITALS: BP 120/77; PULSE 75; RESP 20
[2024-02-13] MEDS: Bacitracin 30 GM TUBE TP (16:07)
== END 2024-02-13 16:10 | disposition home or self-care (01) ==
PROVIDERS: Emergency Provider Emergency Medicine; PCP Nurse Practitioner Family
DX: T20.19XA Burn of first degree of multiple sites of head, face, and neck, initial encounter (principal); T31.0 Burns involving less than 10% of body surface; X08.8XXA Exposure to other specified smoke, fire and flames, initial encounter; W40.1XXA Explosion of explosive gases, initial encounter; Y93.89 Activity, other specified
CPT/HCPCS: 99283

== ENCOUNTER 2024-06-06 10:25 | Outpatient (CLI) | payer MEDICAID, SELFPAY ==
[2024-06-06 09:47] LABS: ALT 55 U/L (14-59); AST 38 U/L (15-37); Albumin 3.6 g/dL (3.4-5.0); Alkaline Phosphatase 104 U/L (46-116); Bilirubin, Total 0.27 mg/dL (0.2-1.0); Calculated LDL 97 mg/dL (<100); Cholesterol 201 mg/dL (<200); HDL Cholesterol 96 mg/dL (40-60); Total Protein 7.7 g/dL (6.4-8.2); Triglyceride 44 mg/dL (<150)
[2024-06-06 10:10] LABS: Bilirubin, Direct 0.1 mg/dL (0.0-0.2)
== END 2024-06-06 10:26 | disposition home or self-care (01) ==
LOC: LBO 10:26
PROVIDERS: PCP Nurse Practitioner Family; Visit Provider Nurse Practitioner Family
DX: K76.0 Fatty (change of) liver, not elsewhere classified (principal)
CPT/HCPCS: 36415; 80061; 80076

== ENCOUNTER 2024-11-16 16:00 | Outpatient (REF) | payer MEDICAID, SELFPAY ==
--- NOTE | 2024-11-16 16:15 | PAPFT_PTH ---
PATIENT: Caro Mendez LOC: [facility] U#:[id number] AGE/SX: 59/F ROOM: RE11/16/[address]: Pavithra Keen MD : 1965 BED: DIS: 11/16/2024 SPEC #: [id number] RECD: 11/17/24 12:43 STATUS: ESTEPHANIA REDeandre #: [id number] BROOKS: 11/16/24 16:[address]: Pavithra Keen DEPT: [facility] Cytology RECD BY: Jasmin Bernstein ENTERED: 11/17/24 12:43 SP TYPE: PAPFT OTHR DR: Love Dupont, BRAULIO Tissues: 1 - CX/ENDOCX FOR PAP SMEARS Procedures: PAP THIN PREP/[facility] Screening HPV DNA PROBE Comments: [id number] (HPV 16 & 18/45)
== END 2024-11-16 16:01 | disposition home or self-care (01) ==
LOC: LBN 16:00
PROVIDERS: PCP Nurse Practitioner Family; Visit Provider Obstetrics & Gynecology
DX: Z12.4 Encounter for screening for malignant neoplasm of cervix (principal); Z01.419 Encounter for gynecological examination (general) (routine) without abnormal findings
CPT/HCPCS: 88142; 87624

== ENCOUNTER 2024-11-23 01:08 | Outpatient (CLI) | payer MEDICAID, SELFPAY ==
--- NOTE | 2024-11-23 08:00 | DI.MAMMO_ITS ---
Exam(s) MAMMO SCREENING EXAM: MAMMO SCREENING CLINICAL HISTORY: screening,z12.31 TECHNIQUE: Mammograms were interpreted according to the usual protocol including computer analysis w ith CAD system, tomosynthesis and C-view imaging. COMPARISON: SCREENING CESAR MAMMO W/CAD DIGI from 04/06/2009 DIAGNOSTIC RIGHT MAMMO DIGITAL from 04/10/2009 US RIGHT BREAST ULTRASOUND from 04/10/2009 FINDINGS: The breasts are composed of scattered fibroglandular densities, Breast Density category B. No suspicious microcalcifications are seen in either breast. No skin thickening or abnormal axillary lymph nodes are seen either breast. The right breast, there is a circumscribed nodule in the upper outer quadrant. There is an additiona l circumscribed nodule in the upper outer quadrant posteriorly measuring 6 millimeters. Two other sm aller nodules are noted centrally on the CC view. Spot compression views and ultrasound are recommen ded. There is question of a area nodularity versus overlying dense tissue in the upper outer quadrant of t he left breast. Spot compression views and ultrasound are requested for further evaluation. IMPRESSION: BI-RADS Category 0 - Incomplete: Need additional imaging evaluation Breast Density - Category B, scattered fibroglandular densities. A negative radiographic report should not delay biopsy if a dominant or clinically suspicious mass is present. Up to ten percent of cancers are not identified on mammography. A negative report may reinforce clinical impression. Adenosis and dense breasts may obscure an underlying neoplasm. False positive reports average 6 to 10%. Patient will receive a letter notifying them of these results.
== END 2024-11-23 01:28 ==
LOC: DI 01:08
PROVIDERS: PCP Nurse Practitioner Family; Visit Provider Obstetrics & Gynecology
DX: Z12.31 Encounter for screening mammogram for malignant neoplasm of breast (principal); R92.323 Mammographic fibroglandular density, bilateral breasts
CPT/HCPCS: 77063; 77067

== ENCOUNTER 2024-12-01 00:51 | Outpatient (CLI) | payer MEDICAID, SELFPAY ==
--- NOTE | 2024-12-01 | DI.US_ITS ---
Exam(s) US BREAST LT COMPLETE US BREAST RT COMPLETE MG MAMMO SCREEN CALL BACK BI EXAM: MG MAMMO SCREEN CALL BACK BI AND BILATERAL COMPLETE BREAST ULTRASOUND CLINICAL HISTORY: Rt: 2 circumscribed nodules in UOQ, 1 measuring 6 mm, and 2 smaller nodules. TECHNIQUE: BILATERAL spot mammographic images obtained with 3D tomosynthesisand utilizing computer a ided detection (CAD). . Complete BILATERAL breast Ultrasound was also performed, including all 4 quadrants, the retroareolar regions, and the bilateral axillary regions. COMPARISON: Prior mammogram reviewed. This additional imaging was performed due to findings descr ibed on the recent screening mammogram of 11/23/2024. Most recent mammogram prior to that was 2008. Prior ultrasound 2008 was also reviewed. FINDINGS: DIAGNOSTIC MAMMOGRAM: Additional mammographic views performed todaydo not dissipate the bilateral nodules. We proceeded ultrasound... COMPLETE BILATERAL BREAST ULTRASOUND: LEFT BREAST ULTRASOUND: There are benign microcysts at the 12 and 1 o'clock positions. There is also a benign microcyst at the 4 o'clock position. There are no solid lesions in all 4 quadrants. Scanning of the ipsilateral axilla reveals no significant adenopathy. RIGHT BREAST ULTRASOUND: There are benign microcysts at the 12 o'clock and 1 o'clock positions as wel l as at the 8 o'clock position and 9 o'clock position. At the 10 o'clock position there is a lobulated solid nodule measuring 1.7 x 0.7 cm exhibiting neutra l through transmission. This corresponds to 1 of the more prominent nodules in the upper outer quadr ant on the mammogram. This requires ultrasound-guided biopsy Scanning of the right axilla is negative for significant adenopathy. IMPRESSION: 1. At the 10 o'clock position of the right breast there is a 17 x 7 mm solid lobulated nodule which requires ultrasound-guided core biopsy. 2. All the other findings in both breasts are benign microcysts. The patient was informed of these findings and recommendations by myself prior to leaving the departm ent today. Report and recommendations called by myself to Dr. Ashley Keen 12/01/2024 at 10:30 a.m. BI-RADS Category 4 - Suspicious Abnormality: Biopsy should be considered Breast Density - Category B - Scattered areas of fibroglandular density Breast density Category C or D implies that the patient has dense breast tissue. Dense breast tissue can make it harder to find cancer on a mammogram. Dense breast tissue is also associated with an incr eased risk of breast cancer. This information about the result of the mammogram report was provided to the patient to raise their awareness. Use this report when you speak with the patient about their risks for breast cancer, which includes their family history. At that time, you may recommend additional screening tests (Ultrasoun d or MRI) as these tests may add significant information. A negative radiographic report should not delay biopsy if a dominant or clinically suspicious mass is present. Up to ten percent of cancers are not identified on mammography. A negative report may reinforce clinical impression. Adenosis and dense breasts may obscure an underlying neoplasm. False positive reports average 6 to 10%. Patient will receive a letter notifying them of these results.
== END 2024-12-01 01:11 ==
LOC: DI 00:51
PROVIDERS: PCP Nurse Practitioner Family; Visit Provider Obstetrics & Gynecology
DX: Z12.31 Encounter for screening mammogram for malignant neoplasm of breast (principal); N60.01 Solitary cyst of right breast; N60.02 Solitary cyst of left breast
CPT/HCPCS: 76642; 77063; 77067

== ENCOUNTER 2025-06-14 17:53 | Outpatient (REF) | payer MEDICAID, SELFPAY ==
[2025-06-18 15:15] LABS: Lyme Ab w Rflx to Lyme Confirm Equivocal (Negative); Lyme IgG Ab Positive (Negative)
== END 2025-06-14 17:54 | disposition home or self-care (01) ==
LOC: LBN 17:53
PROVIDERS: PCP Nurse Practitioner Family; Visit Provider Physician Assistant Medical
DX: R21 Rash and other nonspecific skin eruption (principal)
CPT/HCPCS: 86617; 86618